=== PATIENT | female | born 1955 | race Caucasian/White ===

== ENCOUNTER 2016-07-03 11:08 | Emergency (ER) | payer OTHER ==
[~2016-07-03] VITALS: Wt 70.0 kg
[~2016-07-03 11:08] MED LIST: AMLO-218 PO; ASPI-664 PO; CALC500T99 PO; CIPR500T4 PO; CLON-379 PO; CLOP75TA27 PO; DOCU-144 PO; FURO40TA4 PO; HC1C30 TOP; INSU100V14 SC; LANT3I SC; LOSA100T7 PO; MAGN400O4 PO; METO-407 PO; MEVA40 PO; NPH,100V SC; PANT40TA4 PO; ZOLP5TAB6 PO
[2016-07-03] MEDS ORDERED: CEPH-443 PO (12:23)
[2016-07-03] MEDS ORDERED: BACTDS PO (12:23)
[2016-07-03] MEDS ORDERED: CLOT30CR24 TOP (12:24)
[2016-07-03] MEDS ORDERED: LIDOCAINE 1% (MDV) 20 ML INJ SC ONE (12:30)
[2016-07-03] MEDS ORDERED: DIPHTH/TET/ACEL PERTUSS (ADULT) 0.5 ML VIAL IM* ONE (12:30)
--- NOTE | 2016-07-03 18:54 | ERD ---
DATE OF SERVICE: HISTORY OF PRESENT ILLNESS: The patient is a 60-year-old female coming in complaining of an abscess to her mid chest. Patient states that she has had a bump there for a long time. Over the last 4 da ys, it has become red and painful. She does not recall when her last tetanus shot was. She is not taking medications or applied medications to the site. Denies any fevers. Denies numbness or tingl ing. Denies any chest pain or shortness of breath. PAST MEDICAL HISTORY: . ALLERGIES: DENIES. PAST SURGICAL HISTORY: Denies. FAMILY HISTORY: Diabetes, hypertension, hypercholesterolemia. REVIEW OF SYSTEMS: A 12-point review of systems was done. Refer to HPI for positives, all other sy stems negative. PHYSICAL EXAMINATION VITAL SIGNS: Temperature is 97.8, pulse 62, blood pressure is 137/67, respiratory 17, O2 saturation 98% on room air. Pain intensity is 7/10. GENERAL: The patient is well-appearing, well-nourished, no acute distress. HEENT: Atraumatic. Conjunctivae are pink. Pupils equal, round, and reactive to light. There is no s cleral icterus. Tympanic membranes clear bilaterally. Oropharynx clear. No nystagmus or photophobia . CHEST: Clear to auscultation bilaterally. There are no rales, wheezes or rhonchi. HEART: Regular rate and rhythm. No murmurs, clicks, rubs or gallops. No S3 or S4. SKIN: There is an erythematous indurated site noted mid chest, located over the inferior sternum. There is no surrounding lymphatic streaking. Mild tenderness to palpation. EMERGENCY ROOM COURSE: Site was cleaned and approximately 1 mL of plain lidocaine was injected into the site. A small 1 cm incision was made and a cottage cheese-like discharge was extracted. Mild bleeding ____, Iodoform packing was placed with pressure bandage. The patient was given a tetanus sh ot in the ER. DIAGNOSES: 1. Infected epidermal inclusion cyst. 2. Incision and drainage procedure. MEDICAL DECISION MAKING: I have low suspicion for deep tracking infection, low suspicion for retain ed foreign body. DISCHARGE: The patient is discharged stable. Patient given prescription for Bactrim and Keflex and told to return in 2 days for wound care. The patient was told if symptoms progress or worsen to re turn to the ER sooner. All other questions answered at time of discharge. Discharge summary given at the time of departure. Patient understood and complied with plan. Dictated By: ALTAGRACIA SANDRA for BRITTNI DAVID/JAZ Conf#: [id number] DID#: [id number]
== END 2016-07-03 12:51 | disposition home or self-care (01) ==
LOC: FTE 11:08
DX: L72.0 Epidermal cyst (principal); E11.9 Type 2 diabetes mellitus without complications; I12.9 Hypertensive chronic kidney disease with stage 1 through stage 4 chronic kidney disease, or unspecified chronic kidney disease; N18.2 Chronic kidney disease, stage 2 (mild); Z23 Encounter for immunization; Z79.4 Long term (current) use of insulin
CPT/HCPCS: 10061; 90471; 90715; Z7502; Z7610

== ENCOUNTER 2016-07-05 09:36 | Emergency (ER) | payer OTHER ==
[~2016-07-05] VITALS: Ht 152.4 cm; Wt 71.4 kg
[~2016-07-05 09:36] MED LIST changes: +BACTDS PO; +CEPH-443 PO; +CLOT30CR24 TOP
[2016-07-05 09:56] VITALS: Ht 152.4 cm; Wt 71.4 kg
--- NOTE | 2016-07-05 14:45 | ERD ---
DATE OF SERVICE: HISTORY OF PRESENT ILLNESS: The patient is a 60-year-old female coming in to check a wound on her m id abdomen. Patient was seen here 2 days ago, had an incision and drainage of an epidural inclusion cyst. She had been taking Keflex and Bactrim without complication. Denies any fevers. Denies ches t pain or shortness of breath. PAST MEDICAL HISTORY: Denies medical problems. ALLERGIES TO MEDICATIONS: TAZABACTAM/PIPERACILLIN. PAST SURGICAL HISTORY: Denies. HOSPITALIZATIONS: Denies. REVIEW OF SYSTEMS: A 12 point review of systems was done. Refer to HPI for positives, all other sys tems negative. PHYSICAL EXAMINATION VITAL SIGNS: Temperature is 98, pulse 60, blood pressure is 117/58, respiratory 18, O2 saturation 9 9% on room air. Pain intensity is 0/10. GENERAL: The patient is well-appearing, well-nourished, no acute distress. HEENT: Atraumatic. Conjunctivae are pink. Pupils equal, round, and reactive to light. There is no s cleral icterus. Tympanic membranes clear bilaterally. Oropharynx clear. No nystagmus or photophobia . CHEST: Clear to auscultation bilaterally. There are no rales, wheezes or rhonchi. HEART: Regular rate and rhythm. No murmurs, clicks, rubs or gallops. No S3 or S4. ABDOMEN: Soft, nontender and nondistended. Good bowel sounds. No rebound or guarding. No gross mariah tonitis. No gross organomegaly or masses. No Tom sign or McBurney point tenderness. SKIN: There is a previous I and D site on the mid abdomen over the epigastric region. There is no surrounding erythema, no fluctuance, no tenderness to palpation and no purulence, no bleeding. EMERGENCY ROOM COURSE: Site was cleaned and bandage was removed. Previous packing was removed and new iodoform packing with bandage was applied. DIAGNOSIS: Abscess wound packing and wound check. MEDICAL DECISION MAKING: I have low suspicion for deep tracking infection. Low suspicion for worse brenda infection. Vital signs are stable. The patient's exam is not concerning. Patient is told to r eturn in 2 days and continue taking antibiotics at home. DISCHARGE: Patient is discharged stable. Patient is told to continue taking antibiotics at home an d to allow site to heal. The patient is told to return in 2 days for rewound check and a possible r epacking. Discharge summary given at the time of departure. All other questions answered at time of departure. Dictated By: ALTAGRACIA MORA DO /NTS Conf#: [id number] DID#: [id number]
== END 2016-07-05 10:35 | disposition home or self-care (01) ==
LOC: FTE 09:36
DX: Z48.01 Encounter for change or removal of surgical wound dressing (principal); I12.9 Hypertensive chronic kidney disease with stage 1 through stage 4 chronic kidney disease, or unspecified chronic kidney disease; N18.2 Chronic kidney disease, stage 2 (mild); E11.9 Type 2 diabetes mellitus without complications
CPT/HCPCS: 99281

== ENCOUNTER 2016-07-07 08:15 | Emergency (ER) | payer OTHER ==
[~2016-07-07] VITALS: Wt 70.0 kg
--- NOTE | 2016-07-07 09:01 | ERD ---
ER Documentation Chief Complaint Date/Time DATE: 07/07/16 TIME: 08:59 Chief Complaint here for wound check on epigastric area pedro ALBERTS This is a 60-year-old female who presents to the emergency department today for a wound check of an abscess that she had drained on July 03. Patient states she is taking her antibiotics. Denies any fevers or chills. ROS All systems reviewed and are negative except as per history of present illness. Medications Home Meds Active Scripts Clotrimazole* (Clotrimazole* AF) 1% - 30 Gm Cream.gm., 1 APPLIC TOP BID for 7 Days, TUB Prov:MARIO MADERA PA-C 07/03/16 Cephalexin* (Keflex*) 500 Mg Capsule, 500 MG PO QID for 7 Days, CAP Prov:MARIO MADERA PA-C 07/03/16 Sulfamethoxazole-Trimethoprim* (Bactrim* DS) 800-160 Mg Tab, 1 TAB PO BID for 7 Days, TAB Prov:MARIO MADERA PA-C 07/03/16 Ciprofloxacin Hcl* (Ciprofloxacin Hcl*) 500 Mg Tablet, 500 MG PO BID for 5 Days , TAB Prov:MAUDE FOLEY MD 08/15/15 Insulin Regular, Human (Humulin R) 100 Units/Ml Vial, 1 UNIT SC AC MEALS for 30 Days, VIAL Prov:SOFIYA CUNNINGHAM MD 06/09/15 Pantoprazole (Protonix) 40 Mg Tabec, 40 MG PO DAILY@06, #30 Prov:ALEJANDRA LAUREN NP 08/27/14 Insulin Glargine* (Lantus*) 100 Unit/Ml Soln, 24 UNIT SC BID for 30 Days Prov:ALEJANDRA LAUREN NP 08/27/14 Hydrocortisone* Topical (Hydrocortisone* Topical) 1 Applic Cr, 1 APPLIC TOP QID Y for ITCHING, #1 Prov:ALEJANDRA LAUREN NP 08/27/14 Clonidine Hcl* (Clonidine Hcl*) 0.1 Mg Tab, 0.1 MG PO Q6H Y for HIGH B/P, #30 TAB Prov:ALEJANDRA LAUREN NP 08/27/14 Reported Medications Furosemide* (Furosemide*) 40 Mg Tablet, 40 MG PO DAILY, #30 06/09/15 Nph, Human Insulin Isophane (Humulin N) 100 Units/Ml Vial, 4-5 UNIT SC WITH MEALS, VIAL 02/02/15 Lovastatin (Lovastatin) 40 Mg Tablet, 40 MG PO HS, TAB 02/02/15 Clopidogrel Bisulfate (Clopidogrel) 75 Mg Tablet, 75 MG PO DAILY, TAB 02/02/15 Metoprolol Tartrate* (Lopressor*) 100 Mg Tablet, 100 MG PO BID, TAB 02/02/15 Losartan Potassium* (Losartan Potassium*) 100 Mg Tablet, 100 MG PO DAILY, TAB 02/02/15 Amlodipine Besylate* (Norvasc*) 10 Mg Tablet, 10 MG PO DAILY, TAB 02/02/15 Magnesium Hydroxide* (Milk Of Magnesia*) 400 Mg/5 Ml Oral.susp, 30 ML PO Q24H for CONSTIPATION, ML 09/08/14 Docusate Sodium* (Colace*) 100 Mg Capsule, 100 MG PO BID, CAP 09/08/14 Calcium Carbonate ([id number]) 1 Tab Tablet, 1 TAB PO BID 09/08/14 Zolpidem Tartrate* (Zolpidem Tartrate*) 5 Mg Tablet, 5 MG PO HS Y, TAB 09/08/14 Aspirin* (Aspirin* EC) 81 Mg Tablet.dr, 81 MG PO DAILY, TAB 08/02/14 Allergies Allergies: Coded Allergies: piperacillin (Unverified Adverse Reaction, Mild, Rash (ADR vs. allergy), ) Patient developed rash while on Zosyn in August 2014; resolved after discontinuation Patient has tolerated Zosyn and Teflaro on previous May 2014 admission tazobactam (Unverified Adverse Reaction, Mild, Rash (ADR vs. allergy), ) Patient developed rash while on Zosyn in August 2014; resolved after discontinuation Patient has tolerated Zosyn and Teflaro on previous May 2014 admission PMhx/Soc History of Surgery: Yes (LT TOE AMPUTATION) Anesthesia Reaction: No Hx Neurological Disorder: No Hx Respiratory Disorders: No Hx Cardiac Disorders: Yes (HTN,DYSLIPIDEMIA ,PVD) Hx Psychiatric Problems: No Hx Miscellaneous Medical Probl: Yes (DM) Hx Alcohol Use: No Hx Substance Use: No Hx Tobacco Use: No Smoking Status: Never smoker Physical Exam Vitals Vital Signs Date Time Temp Pulse Resp B/P Pulse Ox O2 Delivery O2 Flow Rate FiO2 07/07/16 08:19 98.0 63 20 129/59 98 Physical Exam Const: Sitting in wheelchair, no acute distress Head: Atraumatic Eyes: Normal Conjunctiva ENT: Normal External Ears, Nose and Mouth. Neck: Full range of motion..~ No meningismus. Resp: Clear to auscultation bilaterally Cardio: Regular rate and rhythm, no murmurs Abd: Soft, non tender, non distended. Normal bowel sounds Skin: evidence of abscess with packing epigastric region no erythema or warmth Neur: Awake and alert Psych: Normal Mood and Affect Procedures/MDM This is 60-year-old female who presents to the emergency department today for a recheck of an abscess that she had drained on July 03. Patient returned on July 05 for a wound check at that time the wound was repacked at that time. Today I have removed the wound packing. No packing was replaced today. Patient is afebrile and otherwise well-appearing. There is no erythema or warmth and no purulent drainage. Low suspicion for sepsis, deep space infection, cellulitis. Patient was instructed to continue taking her antibiotics and return for any worsening of symptoms At this time the patient is stable for discharge and outpatient management. Patient should follow up with their PCP in the next 1-2 days. They may return to the emergency department sooner for any persistent or worsening of symptoms. Patient understood and agreed with the plan. Departure Diagnosis: Primary Impression: Encounter for wound re-check Condition: Fair Patient Instructions: Wound Care Referrals: [facility] YOU HAVE RECEIVED A MEDICAL SCREENING EXAM AND THE RESULTS INDICATE THAT YOU DO NOT HAVE A CONDITION THAT REQUIRES URGENT TREATMENT IN THE EMERGENCY DEPARTMENT. FURTHER EVALUATION AND TREATMENT OF YOUR CONDITION CAN WAIT UNTIL YOU ARE SEEN IN YOUR DOCTORS OFFICE WITHIN THE NEXT 1-2 DAYS. IT IS YOUR RESPONSIBILITY TO MAKE AN APPOINTMENT FOR FOLOW-UP CARE. IF YOU HAVE A PRIMARY DOCTOR --you should call your primary doctor and schedule an appointment IF YOU DO NOT HAVE A PRIMARY DOCTOR YOU CAN CALL OUR PHYSICIAN REFERRAL HOTLINE AT IF YOU CAN NOT AFFORD TO SEE A PHYSICIAN YOU CAN CHOSE FROM THE FOLLOWING [facility] [address] [facility] [address] [facility] [address] [facility] [address] [facility] [address] [facility]. [facility]. [address] [facility]. [facility] () Usted se pacheco hecho un examen mdico de control que le indica que no est en baljinder condicin que requiera tratamiento urgente en el Departamento de Emergencia. Un estudio ms profundo y el tratamiento de sanford condicin pueden esperar sin ningn riesgo hasta que usted sea atendida/o en el consultorio de sanford mdico o baljinder cl mary. Es responsabilidad suya arreglar baljinder kanwal para el seguimiento del coleen. MANEJO DE CONDICIONES NO URGENTES EN EL FUTURO 1) Si usted tiene un mdico de atencin primaria: Usted debera llamar a sanford mdico de atencin primaria antes de venir al departamento de emergencia. Despus de las horas de consultorio, sanford doctor o sanford asociado/a est disponible por telfono. El mdico o enfermero de gamal en el servicio telefnico puede asesorarle por ana rosa medio para atender el problema, o coleen contrario se puede programar baljinder kanwal. 2) Si usted no tiene un mdico de atencin primaria: Llame al mdico o clnica de referencia que aparece abajo shalini las horas de consultorio para hacer baljinder kanwal para que le vean. CLINICAS: [facility] [phone] [facility] [phone] [address] [place] [phone] [facility]. [facility] [phone] [facility] [phone] [address] [facility] [phone] [address] Additional Instructions: Call your primary care doctor TOMORROW for an appointment during the next 1-2 days.See the doctor sooner or return here if your condition worsens before your appointment time. Continue taking your antibiotics as prescribed JENNIFER RODAS PA-C Jul 07, 2016 09:01
[2016-07-07] MEDS ORDERED: ONDA4TAB8 PO (19:56)
[2016-07-07] MEDS ORDERED: MAG355OR14 PO (19:56)
== END 2016-07-07 09:19 | disposition home or self-care (01) ==
LOC: FTE 08:15
DX: Z48.01 Encounter for change or removal of surgical wound dressing (principal); E11.9 Type 2 diabetes mellitus without complications; N18.2 Chronic kidney disease, stage 2 (mild); I12.9 Hypertensive chronic kidney disease with stage 1 through stage 4 chronic kidney disease, or unspecified chronic kidney disease; Z79.4 Long term (current) use of insulin; Z79.82 Long term (current) use of aspirin
CPT/HCPCS: 99281

== ENCOUNTER 2016-07-07 18:02 | Inpatient (IN) | payer OTHER ==
[~2016-07-07] VITALS: Ht 152.4 cm; Wt 75.8 kg
[2016-07-07] MEDS ORDERED: KETOROLAC 15 MG INJ IV STA (18:31)
[2016-07-07] MEDS ORDERED: FAMOTIDINE 20 MG TAB PO STA (18:31)
[2016-07-07] MEDS ORDERED: SOD CHLORIDE 0.9% 500 ML IV STA (18:31)
[2016-07-07] MEDS ORDERED: ONDANSETRON 4 MG INJ IV STA (18:31)
[2016-07-07] MEDS ORDERED: LIDOCAINE/MYLANTA 40 ML BTL PO STA (18:31)
[2016-07-07] MEDS ORDERED: BELLADONNA/PHENOBARBITAL TAB PO STA (18:31)
[2016-07-07 19:05] LABS: BASOPHILS % 0.5 % (0.0-2.0); EOSINOPHILS # 0.3 10^3/ul (0.0-0.5); HEMATOCRIT 41.8 % (37.0-47.0); LYMPHOCYTES # 1.5 10^3/ul (0.8-2.9); LYMPHOCYTES % 16.8 % (15.0-51.0); MEAN CORPUSCULAR HEMOGLOBIN 26.6 pg (29.0-33.0); MEAN CORPUSCULAR HGB CONC 33.5 g/dl (32.0-37.0); MEAN CORPUSCULAR VOLUME 79.5 fl (82.0-101.0); MEAN PLATELET VOLUME 8.6 fl (7.4-10.4); MONOCYTE # 0.4 10^3/ul (0.3-0.9); MONOCYTES % 5.1 % (0.0-11.0); NEUTROPHIL # 6.5 10^3/ul (1.6-7.5); NEUTROPHILS % 74.6 % (39.0-77.0); PLATELET COUNT 443 10^3/UL (140-440); RED BLOOD COUNT 5.25 10^6/ul (4.20-5.40); RED CELL DISTRIBUTION WIDTH 13.4 % (11.5-14.5); UNCORRECTED WBC 8.7 10^3/ul (4.8-10.8); WHITE BLOOD COUNT 8.7 10^3/ul (4.8-10.8)
[2016-07-07 19:09] LABS: CONDITION 1; LH ANALYZER COMMENTS 1
[2016-07-07 19:19] LABS: ALBUMIN 4.2 g/dl (3.3-4.9)
[2016-07-07 19:20] LABS: CHLORIDE 92 mmol/L (97-110); SODIUM 130 mmol/L (135-144)
[2016-07-07 19:20] LABS: ADD UMIC YES; URINE BILIRUBIN (Dip) NEGATIVE (NEGATIVE); URINE BLOOD (Dip) 1+ (NEGATIVE); URINE COLOR LT. YELLOW (YELLOW); URINE KETONES (Dip) NEGATIVE (NEGATIVE); URINE LEUKOCYTE ESTERASE (Dip) NEGATIVE (NEGATIVE); URINE NITRITE (Dip) NEGATIVE (NEGATIVE); URINE TOTAL PROTEIN (Dip) 4+ (NEGATIVE); URINE UROBILINOGEN (Dip) 0.2 E.U./dL (0.1-1.0)
[2016-07-07 19:22] LABS: ALKALINE PHOSPHATASE 126 IU/L (42-121); ANION GAP 23 (8-16); ASPARTATE AMINO TRANSFERASE 22 IU/L (15-46); BILIRUBIN,INDIRECT 0.1 mg/dl (0-1.1); BILIRUBIN,TOTAL 0.1 mg/dl (0.2-1.3); CARBON DIOXIDE 21 mmol/L (21-31); CREATININE 4.24 mg/dl (0.44-1.00); TOTAL PROTEIN 9.4 g/dl (6.1-8.1)
[2016-07-07 19:23] LABS: ALANINE AMINOTRANSFERASE 36 IU/L (13-69); BLOOD UREA NITROGEN 84 mg/dl (7-20); CALCIUM 9.1 mg/dl (8.4-10.2); GLUCOSE 133 mg/dl (70-220)
--- NOTE | 2016-07-07 19:26 | RADRPT ---
PROCEDURE: XR Chest. CLINICAL INDICATION: Abdominal pain. TECHNIQUE: Single portable view of the chest was obtained COMPARISON: 08/02/2014. FINDINGS: Cardiac silhouette is mildly enlarged. Mild pulmonary vascular congestion. The lungs are otherwise clear. Previously seen pleural effusions and air space disease at lung bases are substantially resolved. There is no pleural effusion or pneumothorax. IMPRESSION: Mild pulmonary vascular congestion. RPTAT: [facility] Physician Bernard Date Time Electronically viewed and signed by Physician Bernard on 07/07/2016 19:26 RS/
[2016-07-07 19:48] LABS: BACTERIA,URINE FEW; SQUAMOUS EPITHELIAL CELL,UR MODERATE; URINE RBCS 0-2 /HPF (0)
[2016-07-07 19:54] LABS: POTASSIUM 5.6 mmol/L (3.5-5.1); TROPONIN-I < 0.012 ng/ml (0.00-0.12)
[2016-07-07] MEDS ORDERED: MAG355OR14 PO (19:56)
[2016-07-07] MEDS ORDERED: ONDA4TAB8 PO (19:56)
[2016-07-07] MEDS ORDERED: CEPHALEXIN 500 MG CAP PO ONE (20:00)
[2016-07-07] MEDS ORDERED: DEXTROSE 50% 50 ML SYRINGE IV STA (20:07)
[2016-07-07] MEDS ORDERED: INSULIN REGULAR, HUMAN 100 UNIT/1 ML 3ML VIAL IV ONE (20:30)
--- NOTE | 2016-07-07 20:48 | ERA ---
ER Documentation Chief Complaint Date/Time DATE: 07/07/16 TIME: 20:29 Chief Complaint DIZZINESS AND WEAKNESS FOR THE PAST FEW DAYS. SEEN IN ER FOR SAME TODAY HPI 60-year-old woman presents with recent dizziness and generalized weakness 2 days she also states she has had multiple episodes of clear nonbloody nonbilious emesis over the last 2 days. Patient also complains of suprapubic abdominal discomfort and increased urinary frequency. She is currently being treated for superficial upper abdominal abscess which was I&D and packed a few days ago and treated with double strength Bactrim and Keflex orally, wound check today was unremarkable. She feels dehydrated. She denies fevers or chills, no chest pain or shortness of breath, no melena or blood per rectum. ROS All systems reviewed and are negative except as per history of present illness. Medications Home Meds Active Scripts Mag Hydrox/Al Hydrox/Simeth (Maalox Advanced Suspension) 355 Ml Oral.susp, 2 TSP PO TID for GASTROINTESTINAL UPSET, #24 OZ Prov:CORY MALONE MD 07/07/16 Ondansetron Hcl* (Zofran*) 4 Mg Tablet, 4 MG PO Q8H Y for NAUSEA AND/OR VOMITING , #15 TAB Prov:CORY MALONE MD 07/07/16 Insulin Regular, Human (Humulin R) 100 Units/Ml Vial, 1 UNIT SC AC MEALS for 30 Days, VIAL Prov:SOFIYA CUNNINGHAM MD 06/09/15 Pantoprazole (Protonix) 40 Mg Tabec, 40 MG PO DAILY@06, #30 Prov:ALEJANDRA LAUREN NP 08/27/14 Insulin Glargine* (Lantus*) 100 Unit/Ml Soln, 24 UNIT SC BID for 30 Days Prov:ALEJANDRA LAUREN NP 08/27/14 Clonidine Hcl* (Clonidine Hcl*) 0.1 Mg Tab, 0.1 MG PO Q6H Y for HIGH B/P, #30 TAB Prov:ALEJANDRA LAUREN NP 08/27/14 Reported Medications Furosemide* (Furosemide*) 40 Mg Tablet, 40 MG PO DAILY, #30 06/09/15 Nph, Human Insulin Isophane (Humulin N) 100 Units/Ml Vial, 4-5 UNIT SC WITH MEALS, VIAL 02/02/15 Lovastatin (Lovastatin) 40 Mg Tablet, 40 MG PO HS, TAB 02/02/15 Clopidogrel Bisulfate (Clopidogrel) 75 Mg Tablet, 75 MG PO DAILY, TAB 02/02/15 Metoprolol Tartrate* (Lopressor*) 100 Mg Tablet, 100 MG PO BID, TAB 02/02/15 Losartan Potassium* (Losartan Potassium*) 100 Mg Tablet, 100 MG PO DAILY, TAB 02/02/15 Amlodipine Besylate* (Norvasc*) 10 Mg Tablet, 10 MG PO DAILY, TAB 02/02/15 Magnesium Hydroxide* (Milk Of Magnesia*) 400 Mg/5 Ml Oral.susp, 30 ML PO Q24H for CONSTIPATION, ML 09/08/14 Docusate Sodium* (Colace*) 100 Mg Capsule, 100 MG PO BID, CAP 09/08/14 Calcium Carbonate ([id number]) 1 Tab Tablet, 1 TAB PO BID 09/08/14 Zolpidem Tartrate* (Zolpidem Tartrate*) 5 Mg Tablet, 5 MG PO HS Y, TAB 09/08/14 Aspirin* (Aspirin* EC) 81 Mg Tablet.dr, 81 MG PO DAILY, TAB 08/02/14 Discontinued Scripts Clotrimazole* (Clotrimazole* AF) 1% - 30 Gm Cream.gm., 1 APPLIC TOP BID for 7 Days, TUB Prov:MARIO MAEDRA PA-C 07/03/16 Cephalexin* (Keflex*) 500 Mg Capsule, 500 MG PO QID for 7 Days, CAP Prov:MARIO MADERA PA-C 07/03/16 Sulfamethoxazole-Trimethoprim* (Bactrim* DS) 800-160 Mg Tab, 1 TAB PO BID for 7 Days, TAB Prov:MARIO MADERA PA-C 07/03/16 Ciprofloxacin Hcl* (Ciprofloxacin Hcl*) 500 Mg Tablet, 500 MG PO BID for 5 Days , TAB Prov:MAUDE FOLEY MD 08/15/15 Hydrocortisone* Topical (Hydrocortisone* Topical) 1 Applic Cr, 1 APPLIC TOP QID Y for ITCHING, #1 Prov:ALEJANDRA LAUREN NP 08/27/14 Allergies Allergies: Coded Allergies: piperacillin (Unverified Adverse Reaction, Mild, Rash (ADR vs. allergy), ) Patient developed rash while on Zosyn in August 2014; resolved after discontinuation Patient has tolerated Zosyn and Teflaro on previous May 2014 admission tazobactam (Unverified Adverse Reaction, Mild, Rash (ADR vs. allergy), ) Patient developed rash while on Zosyn in August 2014; resolved after discontinuation Patient has tolerated Zosyn and Teflaro on previous May 2014 admission PMhx/Soc Hypertension, diabetes mellitus, previous renal insufficiency with max creatinine at about 2, anemia, peripheral vascular disease History of Surgery: Yes (LT TOE AMPUTATION) Anesthesia Reaction: No Hx Neurological Disorder: No Hx Respiratory Disorders: No Hx Cardiac Disorders: Yes (HTN,DYSLIPIDEMIA ,PVD) Hx Psychiatric Problems: No Hx Miscellaneous Medical Probl: Yes (DM) Hx Alcohol Use: No Hx Substance Use: No Hx Tobacco Use: No Smoking Status: Never smoker FmHx Family History: No diabetes Physical Exam Vitals Vital Signs Date Time Temp Pulse Resp B/P Pulse Ox O2 Delivery O2 Flow Rate FiO2 07/07/16 18:04 98.5 65 20 138/68 100 Physical Exam GENERAL: Well-developed, well-nourished, dehydrated, afebrile HEENT: Dry mucous membranes, pink conjunctiva, no cervical spine tenderness or step-off deformities, no goiter, no jaundice or icterus, extraocular movements intact without pain. No submandibular induration, and no pharyngeal erythema NEURO: Alert and oriented 3, cranial nerves II through XII intact bilaterally, pupils equal round reactive to light, no focal deficits or facial asymmetry, sensation intact distally Strength 5/5 in upper and lower extremities bilaterally CARDIAC: Regular rate and rhythm, no murmurs rubs or gallops LUNGS: Clear bilaterally no wheezing crackles or stridor ABDOMEN: Soft nontender, no guarding, no rigidity, no rebound, no psoas sign no obturator sign. Normoactive bowel sounds SKIN: Warm and dry to touch, no abrasions, contusions, or hematomas, no lacerations, no ecchymosis, no target lesions, and without ulcers EXTREMITIES: No clubbing cyanosis or edema, calves are bilaterally symmetrical, no Homans sign, no popliteal cord sign. Distal pulses equal and bilateral PSYCH: Anxious Result Diagram: 07/07/16 1840 07/07/16 1840 Results 24 hrs Laboratory Tests Test 07/07/16 18:36 07/07/16 18:40 Urine Bacteria FEW Urine Bilirubin NEGATIVE Urine Clarity SLIGHTLY CLOUDY Urine Color LT. YELLOW Urine Glucose 0.1%% Urine Hemoglobin 1+ Urine Ketones NEGATIVE Urine Leukocyte Esterase NEGATIVE Urine Microscopic RBC 0-2/HPF Urine Microscopic WBC 2-5/HPF Urine Nitrite NEGATIVE Urine Specific [employer] 1.015 Urine Squamous Epithelial Cells MODERATE Urine Total Protein 4+ Urine Urobilinogen 0.2 E.U./dL Urine Yeast MODERATE Urine pH 6.0 Alanine Aminotransferase (ALT/SGPT) 36IU/L Albumin 4.2g/dl Albumin/Globulin Ratio 0.80 Alkaline Phosphatase 126IU/L Anion Gap 23 Aspartate Amino Transf (AST/SGOT) 22IU/L Basophils # 0.010^3/ul Basophils % 0.5% Blood Morphology Comment Blood Urea Nitrogen 84mg/dl Calcium Level 9.1mg/dl Carbon Dioxide Level 21mmol/L Chloride Level 92mmol/L Creatinine 4.24mg/dl Direct Bilirubin 0.00mg/dl Eosinophils # 0.310^3/ul Eosinophils % 3.0% Globulin 5.20g/dl Glucose Level 133mg/dl Hematocrit 41.8% Hemoglobin 14.0g/dl Indirect Bilirubin 0.1mg/dl Lipase 242U/L Lymphocytes # 1.510^3/ul Lymphocytes % 16.8% Mean Corpuscular Hemoglobin 26.6pg Mean Corpuscular Hemoglobin Concent 33.5g/dl Mean Corpuscular Volume 79.5fl Mean Platelet Volume 8.6fl Monocytes # 0.410^3/ul Monocytes % 5.1% Neutrophils # 6.510^3/ul Neutrophils % 74.6% Nucleated Red Blood Cells # 0.010^3/ul Nucleated Red Blood Cells % 0.0/100WBC Platelet Count 07932^3/UL Potassium Level 5.6mmol/L Red Blood Count 5.2510^6/ul Red Cell Distribution Width 13.4% Sodium Level 130mmol/L Total Bilirubin 0.1mg/dl Total Protein 9.4g/dl Troponin I < 0.012ng/ml White Blood Count 8.710^3/ul Current Medications Medications (Trade) Dose Ordered Sig/Albin Route PRN Reason Start Time Stop Time Status Last Admin Dose Admin Sodium Chloride (NS) 500 ml @ 500 mls/hr Q1H STAT IV 07/07/16 18:31 07/07/16 19:30 DC 07/07/16 18:53 Ondansetron HCl (Zofran Inj) 4 mg ONCE STAT IV 07/07/16 18:31 07/07/16 18:33 DC 07/07/16 18:53 Famotidine (Pepcid) 40 mg ONCE STAT PO 07/07/16 18:31 07/07/16 18:33 DC 07/07/16 18:52 Miscellaneous Medication (Gi Cocktail (2)) 40 ml ONCE STAT PO 07/07/16 18:31 07/07/16 18:33 DC 07/07/16 18:52 Belladonna/ Phenobarbital () 2 tab ONCE STAT PO 07/07/16 18:31 07/07/16 18:33 DC 07/07/16 18:52 Ketorolac Tromethamine (Toradol) 15 mg ONCE STAT IV 07/07/16 18:31 07/07/16 18:33 DC 07/07/16 18:53 Cephalexin (Keflex) 500 mg ONCE ONCE PO 07/07/16 20:00 07/07/16 20:01 DC Dextrose (D50w Syringe) 50 ml ONCE STAT IV 07/07/16 20:07 07/07/16 20:08 DC Insulin Human Regular (Humulin R) 8 unit ONCE ONCE IV 07/07/16 20:30 07/07/16 20:31 [facility] IV line was established patient was placed on child monitor rhythm strip revealed a sinus rhythm at about 60 bpm with upright P and T waves. Patient was afebrile. For dehydration and dizziness I administered 500 cc of normal saline intravenously, Zofran 4 mg IV, GI cocktail 50 cc p.o., famotidine 40 mg p.o., Toradol 15 mg IV for pain CBC was unremarkable although electrolytes were abnormal with acute renal failure and a BUN/creatinine of 84/4.2, hyperkalemia 5.6. Liver function tests were normal, troponin was negative. One AP view of the chest performed, read by me reveals no acute infiltrates, normal mediastinum, sharp costophrenic and cardiac borders, no air under the diaphragm. Otherwise unremarkable chest x-ray. EKG performed, read by me revealed a normal sinus rhythm at 64 bpm, left axis deviation, narrow QRS complex, no concerning ST elevations or depressions noted. Her urine analysis is concerning for urinary tract infection although it may be resolving because she has been using cephalexin and trimethoprim sulfamethoxazole daily 5 days. I administered her nightly dose of cephalexin 500 mg p.o. here in the ER. For hyperkalemia I administered dextrose 25 g IV and regular insulin 8 units IV. Patient is dehydrated, hyperkalemic, and developed renal failure. I suspect the underlying etiology of her renal failure is an adverse reaction to trimethoprim sulfamethoxazole made worse by dehydration from vomiting. Patient will be admitted to telemetry setting for continued medical management, rehydration. Departure Diagnosis: Primary Impression: Acute renal failure Qualified Code: N17.0 - Acute renal failure with tubular necrosis Additional Impressions: Hyperkalemia Dehydration Adverse reaction to antibiotic Qualified Code: T36.95XA - Adverse reaction to antibiotic, initial encounter Condition: Fair Patient Instructions: Dizziness, Unk Cause, Bladder Infection, Female (Adult) CORY MALONE MD Jul 07, 2016 20:40
[2016-07-07 21:21] VITALS: TEMP 98
[2016-07-07 21:56] VITALS: PULSE 67
[2016-07-07 22:00] VITALS: BP 174/80; PULSE 67; RESP 20; Ht 152.4 cm; Wt 75.8 kg
[2016-07-07] MEDS ORDERED: MAGNESIUM HYDROXIDE 30ML CUP PO SCH (22:00)
[2016-07-07] MEDS ORDERED: ONDANSETRON 4 MG TAB PO PRN (22:00)
[2016-07-07] MEDS ORDERED: ONDANSETRON 4 MG INJ IV PRN (22:00)
[2016-07-07] MEDS ORDERED: NACL 0.9% 3 ML SYG IV SCH (22:00)
[2016-07-07] MEDS: METOPROLOL 100 MG TAB PO SCH (22:44)
[2016-07-07] MEDS ORDERED: GLUCOSE GEL 15 GRAM TUBE PO PRN ×2 (23:00)
[2016-07-07] MEDS ORDERED: GLUCOSE GEL 15 GRAM TUBE BUCCAL PRN (23:00)
[2016-07-07] MEDS ORDERED: GLUCAGON 1 MG INJ IM PRN (23:00)
[2016-07-07] MEDS ORDERED: DEXTROSE 50% 50 ML SYRINGE IV PRN ×2 (23:00)
[2016-07-07] MEDS: SOD CHLORIDE 0.9% 1,000 ML IV SCH (23:28)
[2016-07-08] VITALS (12 sets, daily range): BP systolic 126–155; BP diastolic 61–80; PULSE 61–69; RESP 16–20
[2016-07-08] MEDS ORDERED: PANTOPRAZOLE (EC) 40 MG TAB PO SCH (06:00)
[2016-07-08 06:55] LABS: BASOPHILS % 0.7 % (0.0-2.0); EOSINOPHILS # 0.3 10^3/ul (0.0-0.5); EOSINOPHILS % 4.9 % (0.0-7.0); HEMATOCRIT 31.5 % (37.0-47.0); HEMOGLOBIN 10.5 g/dl (12.0-16.0); LYMPHOCYTES # 1.2 10^3/ul (0.8-2.9); LYMPHOCYTES % 17.8 % (15.0-51.0); MEAN CORPUSCULAR HEMOGLOBIN 26.7 pg (29.0-33.0); MEAN CORPUSCULAR HGB CONC 33.4 g/dl (32.0-37.0); MEAN CORPUSCULAR VOLUME 79.8 fl (82.0-101.0); MONOCYTE # 0.5 10^3/ul (0.3-0.9); NEUTROPHIL # 4.6 10^3/ul (1.6-7.5); NEUTROPHILS % 68.6 % (39.0-77.0); PLATELET COUNT 354 10^3/UL (140-440); RED BLOOD COUNT 3.95 10^6/ul (4.20-5.40); RED CELL DISTRIBUTION WIDTH 13.3 % (11.5-14.5); UNCORRECTED WBC 6.7 10^3/ul (4.8-10.8); WHITE BLOOD COUNT 6.7 10^3/ul (4.8-10.8)
[2016-07-08 07:03] LABS: CONDITION 1; LH ANALYZER COMMENTS 1
[2016-07-08] MEDS ORDERED: INSULIN REGULAR, HUMAN 100 UNIT/1 ML 3ML VIAL SC SCH (07:25)
[2016-07-08 07:26] LABS: ALBUMIN 2.7 g/dl (3.3-4.9)
[2016-07-08 07:27] LABS: POTASSIUM 5.5 mmol/L (3.5-5.1)
[2016-07-08 07:29] LABS: ALBUMIN/GLOBULIN RATIO 0.81; CREATININE 3.99 mg/dl (0.44-1.00)
[2016-07-08 07:30] LABS: CALCIUM 7.8 mg/dl (8.4-10.2)
[2016-07-08] MEDS ORDERED: NPH, HUMAN INSULIN ISOPHANE 3ML VIAL SC SCH (07:55)
[2016-07-08] MEDS: [UNRECOGNIZED DRUG - REMARK] SC SCH ×4 (08:16→20:46)
[2016-07-08] MEDS: ACETAMINOPHEN 325 MG TAB PO PRN ×2 (08:35→14:11)
[2016-07-08] MEDS: AMLODIPINE 10 MG TAB PO SCH (08:36)
[2016-07-08] MEDS: FUROSEMIDE 40 MG TAB PO SCH (08:36)
[2016-07-08] MEDS: CALCIUM CARBONATE 1.25 GM TAB PO SCH ×2 (08:36→20:34)
[2016-07-08] MEDS: ASPIRIN (EC) 81 MG TAB PO SCH (08:36)
[2016-07-08] MEDS: METOPROLOL 100 MG TAB PO SCH ×2 (08:37→20:33)
[2016-07-08] MEDS: DOCUSATE SODIUM 100 MG CAP PO SCH ×2 (08:37→20:33)
[2016-07-08] MEDS: CLOPIDOGREL 75 MG TAB PO SCH (08:37)
[2016-07-08] MEDS: LOSARTAN 50 MG TAB PO SCH (08:37)
[2016-07-08] MEDS: FAMOTIDINE 20 MG INJ IV SCH (08:38)
[2016-07-08] MEDS: AL HYDROX/MG HYDROX/SIMETH 30 ML CUP PO SCH ×3 (08:38→20:33)
[2016-07-08] MEDS: ENOXAPARIN 30 MG/0.3 ML SYG SC SCH (08:51)
[2016-07-08] MEDS ORDERED: INSULIN GLARGINE [LANtus] 3 ML PEN SC SCH (09:00)
[2016-07-08] MEDS ORDERED: METOPROLOL 100 MG TAB PO SCH (09:00)
[2016-07-08] MEDS ORDERED: FAMOTIDINE 20 MG INJ IV SCH (09:00)
--- NOTE | 2016-07-08 10:51 | HP ---
Date/Time of Note Date/Time of Note DATE: 07/08/16 TIME: 10:48 Assessment/Plan VTE Prophylaxis VTE Prophylaxis Intervention: LMWH Lines/Catheters [facility] (from [facility] Peripheral IV Urinary Cath still in place: No Assessment/Plan Chief Complaint/Hosp Course 1) Renal insufficiency - monitor BUN/Cr - gentle hydration 2) diabetes - monitor blood sugar Problems: HPI/ROS Admit Date/Time Admit Date/Time Jul 07, 2016 at 20:29 Hx of Present Illness Patient with hypertension, hypercholesterolemia, and diabetes was recently treated for an urinary tract infection and found to have elevated BUN/Cr. Patient is admitted for further observation. PMH/Family/Social Past Medical History Medical History: diabetes, hypertension Past Surgical History Social History Alcohol Use: none Smoking Status: Never smoker Exam/Review of Systems Vital Signs Vitals Vital Signs Date Time Temp Pulse Resp B/P Pulse Ox O2 Delivery O2 Flow Rate FiO2 07/08/16 08:20 69 07/08/16 07:38 98.2 16 142/66 97 07/07/16 22:00 Room Air Intake and Output 07/07/16 07/07/16 07/08/16 15:00 23:00 07:00 Intake Total 610 ml Balance 610 ml Exam Constitutional: well developed Head: atraumatic, normocephalic Neck: supple Respiratory: clear to auscultation Cardiovascular: regular rate and rhythm Extremities: normal pulses Labs Result Diagram: 07/08/16 0530 07/08/16 0530 Medications Medications Current Medications Amlodipine Besylate (Norvasc) 10 mg DAILY PO Last administered on 07/08/16 08: 36; Admin Dose 10 MG; Start 07/08/16 at 09:00 Aspirin (Halfprin) 81 mg DAILY PO Last administered on 07/08/16 08:36; Admin Dose 81 MG; Start 07/08/16 at 09:00 Calcium Carbonate (Oyster Shell Calcium) 1.25 gm BID PO Last administered on 08:36; Admin Dose 1.25 GM; Start 07/08/16 at 09:00 Clopidogrel Bisulfate (plaVIX) 75 mg DAILY PO Last administered on 07/08/16 08 :37; Admin Dose 75 MG; Start 07/08/16 at 09:00 Docusate Sodium (Colace) 100 mg BID PO Last administered on 07/08/16 08:37; Admin Dose 100 MG; Start 07/08/16 at 09:00 Furosemide (Lasix) 40 mg DAILY PO Last administered on 07/08/16 08:36; Admin Dose 40 MG; Start 07/08/16 at 09:00 Losartan Potassium (Cozaar) 100 mg DAILY PO Last administered on 07/08/16 08: 37; Admin Dose 100 MG; Start 07/08/16 at 09:00 Al Hydrox/Mg Hydrox/Simethicone (Mag-Al Plus) 10 ml TID PO Last administered on 07/08/16 08:38; Admin Dose 10 ML; Start 07/08/16 at 09:00 Ondansetron HCl (Zofran Tab) 4 mg Q8H PRN PO NAUSEA AND/OR VOMITING; Start at 22:00 Zolpidem Tartrate 5 mg 5 mg HS PRN PO insomnia; Start 07/07/16 at 22:00 Sodium Chloride (NS) 1,000 ml @ 60 mls/hr [id number] IV Last administered on 07/07 23:28; Admin Dose 60 MLS/HR; Start 07/07/16 at 22:00 Ondansetron HCl (Zofran Inj) 4 mg Q6H PRN IV NAUSEA AND/OR VOMITING; Start at 22:00 Acetaminophen (Tylenol Tab) 650 mg Q6H PRN PO PAIN LEVEL 1-3 OR FEVER Last administered on 07/08/16 08:35; Admin Dose 650 MG; Start 07/07/16 at 22:00 Enoxaparin Sodium (Lovenox) 30 mg DAILY SC Last administered on 07/08/16 08:51 ; Admin Dose 30 MG; Start 07/08/16 at 09:00 Metoprolol Tartrate (Lopressor) 100 mg BID PO Last administered on 07/08/16 08 :37; Admin Dose 100 MG; Start 07/07/16 at 22:27 Clonidine (Catapres) 0.1 mg Q6H PRN PO SBP > 160; Start 07/07/16 at 22:00 Famotidine (Pepcid Iv) 20 mg Q24H IV Last administered on 07/08/16 08:38; Admin Dose 20 MG; Start 07/08/16 at 09:00 Miscellaneous Information 1 ea NOTE XX ; Start 07/07/16 at 23:00 Glucose (Glutose) 15 gm Q15M PRN PO DECREASED GLUCOSE; Start 07/07/16 at 23:00 Glucose (Glutose) 22.5 gm Q15M PRN PO DECREASED GLUCOSE; Start 07/07/16 at 23: 00 Dextrose (D50w Syringe) 25 ml Q15M PRN IV DECREASED GLUCOSE; Start 07/07/16 at 23:00 Dextrose (D50w Syringe) 50 ml Q15M PRN IV DECREASED GLUCOSE; Start 07/07/16 at 23:00 Glucagon (Glucagen) 1 mg Q15M PRN IM DECREASED GLUCOSE; Start 07/07/16 at 23:00 Glucose (Glutose) 15 gm Q15M PRN BUCCAL DECREASED GLUCOSE; Start 07/07/16 at 23 :00 Magnesium Hydroxide (Milk Of Mag) 30 ml Q24H PRN PO CONSTIPATION; Start at 22:00 Influenza Virus Vaccine (Fluzone) 0.5 ml ONCE ONCE IM* ; Start 07/10/16 at 09:00 ; Stop 07/10/16 at 09:01 JAMES VEGA Jul 08, 2016 10:50
[2016-07-08] MEDS: SOD CHLORIDE 0.9% 1,000 ML IV SCH (16:15)
[2016-07-08] MEDS: ZOLPIDEM 5 MG TAB PO PRN (20:50)
[2016-07-08] MEDS ORDERED: MAGNESIUM HYDROXIDE 30ML CUP PO PRN (22:00)
[2016-07-09] VITALS (13 sets, daily range): BP systolic 128–143; BP diastolic 62–78; PULSE 57–67; RESP 16–20
[2016-07-09] MEDS: SOD CHLORIDE 0.9% 1,000 ML IV SCH ×2 (06:08→21:37)
[2016-07-09 07:16] LABS: BASOPHILS % 0.6 % (0.0-2.0); EOSINOPHILS # 0.6 10^3/ul (0.0-0.5); EOSINOPHILS % 8.9 % (0.0-7.0); HEMATOCRIT 30.9 % (37.0-47.0); HEMOGLOBIN 10.5 g/dl (12.0-16.0); LYMPHOCYTES # 1.2 10^3/ul (0.8-2.9); LYMPHOCYTES % 17.7 % (15.0-51.0); MEAN CORPUSCULAR HEMOGLOBIN 27.3 pg (29.0-33.0); MEAN CORPUSCULAR HGB CONC 33.9 g/dl (32.0-37.0); MEAN CORPUSCULAR VOLUME 80.6 fl (82.0-101.0); MEAN PLATELET VOLUME 8.7 fl (7.4-10.4); MONOCYTE # 0.6 10^3/ul (0.3-0.9); MONOCYTES % 8.4 % (0.0-11.0); NEUTROPHIL # 4.4 10^3/ul (1.6-7.5); NEUTROPHILS % 64.4 % (39.0-77.0); PLATELET COUNT 333 10^3/UL (140-440); RED BLOOD COUNT 3.83 10^6/ul (4.20-5.40); RED CELL DISTRIBUTION WIDTH 13.6 % (11.5-14.5); UNCORRECTED WBC 6.9 10^3/ul (4.8-10.8); WHITE BLOOD COUNT 6.9 10^3/ul (4.8-10.8)
[2016-07-09 07:18] LABS: POTASSIUM 5.3 mmol/L (3.5-5.1)
[2016-07-09 07:21] LABS: CREATININE 3.88 mg/dl (0.44-1.00)
[2016-07-09 07:22] LABS: CALCIUM 8.3 mg/dl (8.4-10.2)
[2016-07-09] MEDS: [UNRECOGNIZED DRUG - REMARK] SC SCH ×4 (07:25→21:18)
[2016-07-09 07:29] LABS: CONDITION 1; LH ANALYZER COMMENTS 1
[2016-07-09] MEDS: AL HYDROX/MG HYDROX/SIMETH 30 ML CUP PO SCH ×3 (08:24→21:39)
[2016-07-09] MEDS: DOCUSATE SODIUM 100 MG CAP PO SCH ×2 (08:25→21:10)
[2016-07-09] MEDS: LOSARTAN 50 MG TAB PO SCH (08:25)
[2016-07-09] MEDS: AMLODIPINE 10 MG TAB PO SCH (08:25)
[2016-07-09] MEDS: CLOPIDOGREL 75 MG TAB PO SCH (08:25)
[2016-07-09] MEDS: CALCIUM CARBONATE 1.25 GM TAB PO SCH ×2 (08:25→21:10)
[2016-07-09] MEDS: FAMOTIDINE 20 MG INJ IV SCH (08:26)
[2016-07-09] MEDS: FUROSEMIDE 40 MG TAB PO SCH (08:26)
[2016-07-09] MEDS: METOPROLOL 100 MG TAB PO SCH ×2 (08:26→21:10)
[2016-07-09] MEDS: ASPIRIN (EC) 81 MG TAB PO SCH (08:26)
[2016-07-09] MEDS: ENOXAPARIN 30 MG/0.3 ML SYG SC SCH (08:31)
--- NOTE | 2016-07-09 11:56 | PN ---
Date/Time of Note Date/Time of Note DATE: 07/09/16 TIME: 11:55 Assessment/Plan VTE Prophylaxis VTE Prophylaxis Intervention: LMWH Lines/Catheters IV [facility] (from [facility]): Peripheral IV Urinary Cath still in place: No Assessment/Plan Chief Complaint/Hosp Course 1) Renal insufficiency - monitor BUN/Cr - gentle hydration 2) diabetes - monitor blood sugar Problems: Subjective 24 Hr Interval Summary Free Text/Dictation Patient has no complaints Exam/Review of Systems Vital Signs Vitals Vital Signs Date Time Temp Pulse Resp B/P Pulse Ox O2 Delivery O2 Flow Rate FiO2 07/09/16 11:28 98.3 63 17 137/67 98 07/07/16 22:00 Room Air Intake and Output 07/08/16 07/08/16 07/09/16 15:00 23:00 07:00 Intake Total 550 ml 120 ml Output Total 600 ml 650 ml Balance -50 ml -530 ml Exam Constitutional: well developed Head: atraumatic, normocephalic Neck: supple Respiratory: clear to auscultation Cardiovascular: regular rate and rhythm Gastrointestinal: non-tender, soft Extremities: normal pulses Results Result Diagram: 07/09/16 0600 07/09/16 0600 Results 24 hrs Laboratory Tests Test 07/08/16 17:18 07/08/16 20:32 07/09/16 06:00 07/09/16 07:29 Bedside Glucose 174 153 126 Anion Gap 13 Basophils # 0.0 Basophils % 0.6 Blood Morphology Comment Blood Urea Nitrogen 73 H Calcium Level 8.3 L Carbon Dioxide Level 21 Chloride Level 105 Creatinine 3.88 H Eosinophils # 0.6 H Eosinophils % 8.9 H Glucose Level 105 # Hematocrit 30.9 L Hemoglobin 10.5 L Lymphocytes # 1.2 Lymphocytes % 17.7 Mean Corpuscular Hemoglobin 27.3 L Mean Corpuscular Hemoglobin Concent 33.9 Mean Corpuscular Volume 80.6 L Mean Platelet Volume 8.7 Monocytes # 0.6 Monocytes % 8.4 Neutrophils # 4.4 Neutrophils % 64.4 Nucleated Red Blood Cells # 0.0 Nucleated Red Blood Cells % 0.0 Platelet Count 333 Potassium Level 5.3 H Red Blood Count 3.83 L Red Cell Distribution Width 13.6 Sodium Level 134 L White Blood Count 6.9 Test 07/09/16 11:50 Bedside Glucose 295 H Medications Medications Current Medications Amlodipine Besylate (Norvasc) 10 mg DAILY PO Last administered on 07/09/16 08: 25; Admin Dose 10 MG; Start 07/08/16 at 09:00 Aspirin (Halfprin) 81 mg DAILY PO Last administered on 07/09/16 08:26; Admin Dose 81 MG; Start 07/08/16 at 09:00 Calcium Carbonate (Oyster Shell Calcium) 1.25 gm BID PO Last administered on 08:25; Admin Dose 1.25 GM; Start 07/08/16 at 09:00 Clopidogrel Bisulfate (plaVIX) 75 mg DAILY PO Last administered on 07/09/16 08 :25; Admin Dose 75 MG; Start 07/08/16 at 09:00 Docusate Sodium (Colace) 100 mg BID PO Last administered on 07/09/16 08:25; Admin Dose 100 MG; Start 07/08/16 at 09:00 Furosemide (Lasix) 40 mg DAILY PO Last administered on 07/09/16 08:26; Admin Dose 40 MG; Start 07/08/16 at 09:00 Losartan Potassium (Cozaar) 100 mg DAILY PO Last administered on 07/09/16 08: 25; Admin Dose 100 MG; Start 07/08/16 at 09:00 Al Hydrox/Mg Hydrox/Simethicone (Mag-Al Plus) 10 ml TID PO Last administered on 07/09/16 08:24; Admin Dose 10 ML; Start 07/08/16 at 09:00 Ondansetron HCl (Zofran Tab) 4 mg Q8H PRN PO NAUSEA AND/OR VOMITING; Start at 22:00 Zolpidem Tartrate 5 mg 5 mg HS PRN PO insomnia Last administered on 07/08/16 20:50; Admin Dose 5 MG; Start 07/07/16 at 22:00 Sodium Chloride (NS) 1,000 ml @ 60 mls/hr [id number] IV Last administered on 07/09 06:08; Admin Dose 60 MLS/HR; Start 07/07/16 at 22:00 Ondansetron HCl (Zofran Inj) 4 mg Q6H PRN IV NAUSEA AND/OR VOMITING Last administered on 07/08/16 14:11; Admin Dose 4 MG; Start 07/07/16 at 22:00 Acetaminophen (Tylenol Tab) 650 mg Q6H PRN PO PAIN LEVEL 1-3 OR FEVER Last administered on 07/08/16 14:11; Admin Dose 650 MG; Start 07/07/16 at 22:00 Enoxaparin Sodium (Lovenox) 30 mg DAILY SC Last administered on 07/09/16 08:31 ; Admin Dose 30 MG; Start 07/08/16 at 09:00 Metoprolol Tartrate (Lopressor) 100 mg BID PO Last administered on 07/09/16 08 :26; Admin Dose 100 MG; Start 07/07/16 at 22:27 Clonidine (Catapres) 0.1 mg Q6H PRN PO SBP > 160; Start 07/07/16 at 22:00 Famotidine (Pepcid Iv) 20 mg Q24H IV Last administered on 07/09/16 08:26; Admin Dose 20 MG; Start 07/08/16 at 09:00 Miscellaneous Information 1 ea NOTE XX ; Start 07/07/16 at 23:00 Glucose (Glutose) 15 gm Q15M PRN PO DECREASED GLUCOSE; Start 07/07/16 at 23:00 Glucose (Glutose) 22.5 gm Q15M PRN PO DECREASED GLUCOSE; Start 07/07/16 at 23: 00 Dextrose (D50w Syringe) 25 ml Q15M PRN IV DECREASED GLUCOSE; Start 07/07/16 at 23:00 Dextrose (D50w Syringe) 50 ml Q15M PRN IV DECREASED GLUCOSE; Start 07/07/16 at 23:00 Glucagon (Glucagen) 1 mg Q15M PRN IM DECREASED GLUCOSE; Start 07/07/16 at 23:00 Glucose (Glutose) 15 gm Q15M PRN BUCCAL DECREASED GLUCOSE; Start 07/07/16 at 23 :00 Magnesium Hydroxide (Milk Of Mag) 30 ml Q24H PRN PO CONSTIPATION; Start at 22:00 Influenza Virus Vaccine (Fluzone) 0.5 ml ONCE ONCE IM* ; Start 07/10/16 at 09:00 ; Stop 07/10/16 at 09:01 JAMES VEGA Jul 09, 2016 11:56
[2016-07-09] MEDS: ZOLPIDEM 5 MG TAB PO PRN (21:19)
[2016-07-10] VITALS (11 sets, daily range): BP systolic 120–173; BP diastolic 62–110; PULSE 51–63; RESP 13–20
[2016-07-10 06:43] LABS: BASOPHIL # 0.1 10^3/ul (0.0-0.1); BASOPHILS % 0.8 % (0.0-2.0); EOSINOPHILS # 0.7 10^3/ul (0.0-0.5); HEMOGLOBIN 10.3 g/dl (12.0-16.0); LYMPHOCYTES # 1.6 10^3/ul (0.8-2.9); MEAN CORPUSCULAR HEMOGLOBIN 26.9 pg (29.0-33.0); MEAN CORPUSCULAR HGB CONC 33.2 g/dl (32.0-37.0); MEAN CORPUSCULAR VOLUME 80.9 fl (82.0-101.0); MEAN PLATELET VOLUME 8.8 fl (7.4-10.4); MONOCYTE # 0.7 10^3/ul (0.3-0.9); MONOCYTES % 9.3 % (0.0-11.0); NEUTROPHIL # 4.7 10^3/ul (1.6-7.5); NEUTROPHILS % 59.9 % (39.0-77.0); PLATELET COUNT 333 10^3/UL (140-440); RED BLOOD COUNT 3.83 10^6/ul (4.20-5.40); RED CELL DISTRIBUTION WIDTH 13.6 % (11.5-14.5); UNCORRECTED WBC 7.8 10^3/ul (4.8-10.8); WHITE BLOOD COUNT 7.8 10^3/ul (4.8-10.8)
[2016-07-10 06:53] LABS: CONDITION 1; LH ANALYZER COMMENTS 1
[2016-07-10 07:02] LABS: POTASSIUM 5.6 mmol/L (3.5-5.1)
[2016-07-10 07:05] LABS: CREATININE 3.32 mg/dl (0.44-1.00)
[2016-07-10 07:06] LABS: CALCIUM 8.2 mg/dl (8.4-10.2)
[2016-07-10] MEDS: [UNRECOGNIZED DRUG - REMARK] SC SCH ×3 (07:25→17:35)
[2016-07-10] MEDS: CALCIUM CARBONATE 1.25 GM TAB PO SCH ×2 (08:44→20:38)
[2016-07-10] MEDS: DOCUSATE SODIUM 100 MG CAP PO SCH ×2 (08:44→20:38)
[2016-07-10] MEDS: AMLODIPINE 10 MG TAB PO SCH (08:44)
[2016-07-10] MEDS: AL HYDROX/MG HYDROX/SIMETH 30 ML CUP PO SCH ×3 (08:45→20:39)
[2016-07-10] MEDS: METOPROLOL 100 MG TAB PO SCH ×2 (08:45→20:39)
[2016-07-10] MEDS: ASPIRIN (EC) 81 MG TAB PO SCH (08:46)
[2016-07-10] MEDS: FUROSEMIDE 40 MG TAB PO SCH (08:46)
[2016-07-10] MEDS: CLOPIDOGREL 75 MG TAB PO SCH (08:46)
[2016-07-10] MEDS: FAMOTIDINE 20 MG TAB PO SCH (08:46)
[2016-07-10] MEDS: LOSARTAN 50 MG TAB PO SCH (08:47)
[2016-07-10] MEDS: ENOXAPARIN 30 MG/0.3 ML SYG SC SCH (08:55)
[2016-07-10] MEDS ORDERED: INFLUENZA VIRUS VACCINE 0.5 ML (DISPENSING) IM* ONE (09:00)
[2016-07-10] MEDS: SOD CHLORIDE 0.9% 1,000 ML IV SCH ×3 (16:20→22:16)
[2016-07-10] MEDS ORDERED: SOD CHLORIDE 0.9% 500 ML IV ONE (17:30)
[2016-07-10] MEDS ORDERED: FLUCONAZOLE 100 MG TAB NGT SCH (19:00)
--- NOTE | 2016-07-10 19:02 | PN ---
Date/Time of Note Date/Time of Note DATE: 07/10/16 TIME: 18:52 Assessment/Plan VTE Prophylaxis VTE Prophylaxis Intervention: SCD's Lines/Catheters [facility] ([facility] Peripheral IV Urinary Cath still in place: No Assessment/Plan Chief Complaint/Hosp Course Assessment and plan -Acute kidney injury, continue IV fluids, Dr. Hoffman is asked to see patient in nephrology consultation, continue monitor BUN and creatinine -Dehydration on admission, resolving -Hyperkalemia, status post treatment -Diabetes mellitus type 2, continue NovoLog per sliding scale. -Possible allergic reaction to antibiotics, patient was on Bactrim and Keflex prior to admission -Hypertension, continue metoprolol, Norvasc. -Status post left transmetatarsal amputation Continue Lovenox for deep venous thrombosis prophylaxis and Pepcid for peptic ulcer disease prophylaxis. Further recommendations based on clinical course, Plan of care discussed with Dr. Swain. Problems: Subjective 24 Hr Interval Summary Free Text/Dictation Patient denies any fever and chills, denies nausea, able to tolerate diet well. Exam/Review of Systems Vital Signs Vitals Vital Signs Date Time Temp Pulse Resp B/P Pulse Ox O2 Delivery O2 Flow Rate FiO2 07/10/16 16:38 57 07/10/16 16:33 97.8 16 173/70 99 07/07/16 22:00 Room Air Intake and Output 07/09/16 07/09/16 07/10/16 15:00 23:00 07:00 Intake Total 720 ml 250 ml Output Total 600 ml Balance 720 ml -350 ml Exam Constitutional: alert, oriented Psych: no complaints Head: atraumatic, normocephalic Eyes: nl conjunctiva ENMT: nl external ears & nose Neck: non-tender, supple Respiratory: clear to auscultation, normal air movement Cardiovascular: regular rate and rhythm Gastrointestinal: non-tender, soft Genitourinary - Female: nl adnexae Musculoskeletal: nl extremities to inspection Extremities: normal pulses Neurological: [employer] II-XII intact Results Result Diagram: 07/10/16 0550 07/10/16 0530 Results 24 hrs Laboratory Tests Test 07/09/16 21:08 07/10/16 05:30 07/10/16 05:50 07/10/16 07:55 Bedside Glucose 253 H 150 Anion Gap 14 Blood Urea Nitrogen 67 H Calcium Level 8.2 L Carbon Dioxide Level 23 Chloride Level 107 Creatinine 3.32 H Glucose Level 138 Potassium Level 5.6 H Sodium Level 138 Basophils # 0.1 Basophils % 0.8 Blood Morphology Comment Eosinophils # 0.7 H Eosinophils % 9.0 H Hematocrit 31.0 L Hemoglobin 10.3 L Lymphocytes # 1.6 Lymphocytes % 21.0 Mean Corpuscular Hemoglobin 26.9 L Mean Corpuscular Hemoglobin Concent 33.2 Mean Corpuscular Volume 80.9 L Mean Platelet Volume 8.8 Monocytes # 0.7 Monocytes % 9.3 Neutrophils # 4.7 Neutrophils % 59.9 Nucleated Red Blood Cells # 0.0 Nucleated Red Blood Cells % 0.0 Platelet Count 333 Red Blood Count 3.83 L Red Cell Distribution Width 13.6 White Blood Count 7.8 Test 07/10/16 12:08 07/10/16 17:28 Bedside Glucose 264 H 183 Medications Medications Current Medications Amlodipine Besylate (Norvasc) 10 mg DAILY PO Last administered on 07/10/16 08: 44; Admin Dose 10 MG; Start 07/08/16 at 09:00 Aspirin (Halfprin) 81 mg DAILY PO Last administered on 07/10/16 08:46; Admin Dose 81 MG; Start 07/08/16 at 09:00 Calcium Carbonate (Oyster Shell Calcium) 1.25 gm BID PO Last administered on 08:44; Admin Dose 1.25 GM; Start 07/08/16 at 09:00 Clopidogrel Bisulfate (plaVIX) 75 mg DAILY PO Last administered on 07/10/16 08 :46; Admin Dose 75 MG; Start 07/08/16 at 09:00 Docusate Sodium (Colace) 100 mg BID PO Last administered on 07/10/16 08:44; Admin Dose 100 MG; Start 07/08/16 at 09:00 Furosemide (Lasix) 40 mg DAILY PO Last administered on 07/10/16 08:46; Admin Dose 40 MG; Start 07/08/16 at 09:00 Losartan Potassium (Cozaar) 100 mg DAILY PO Last administered on 07/10/16 08: 47; Admin Dose 100 MG; Start 07/08/16 at 09:00 Al Hydrox/Mg Hydrox/Simethicone (Mag-Al Plus) 10 ml TID PO Last administered on 07/10/16 14:44; Admin Dose 10 ML; Start 07/08/16 at 09:00 Ondansetron HCl (Zofran Tab) 4 mg Q8H PRN PO NAUSEA AND/OR VOMITING; Start at 22:00 Zolpidem Tartrate 5 mg 5 mg HS PRN PO insomnia Last administered on 07/09/16 21:19; Admin Dose 5 MG; Start 07/07/16 at 22:00 Sodium Chloride (NS) 1,000 ml @ 125 mls/hr Q8H IV Last administered on 18:34; Admin Dose 125 MLS/HR; Start 07/07/16 at 22:00 Ondansetron HCl (Zofran Inj) 4 mg Q6H PRN IV NAUSEA AND/OR VOMITING Last administered on 07/08/16 14:11; Admin Dose 4 MG; Start 07/07/16 at 22:00 Acetaminophen (Tylenol Tab) 650 mg Q6H PRN PO PAIN LEVEL 1-3 OR FEVER Last administered on 07/08/16 14:11; Admin Dose 650 MG; Start 07/07/16 at 22:00 Enoxaparin Sodium (Lovenox) 30 mg DAILY SC Last administered on 07/10/16 08:55 ; Admin Dose 30 MG; Start 07/08/16 at 09:00 Metoprolol Tartrate (Lopressor) 100 mg BID PO Last administered on 07/10/16 08 :45; Admin Dose 100 MG; Start 07/07/16 at 22:27 Clonidine (Catapres) 0.1 mg Q6H PRN PO SBP > 160; Start 07/07/16 at 22:00 Miscellaneous Information 1 ea NOTE XX ; Start 07/07/16 at 23:00 Glucose (Glutose) 15 gm Q15M PRN PO DECREASED GLUCOSE; Start 07/07/16 at 23:00 Glucose (Glutose) 22.5 gm Q15M PRN PO DECREASED GLUCOSE; Start 07/07/16 at 23: 00 Dextrose (D50w Syringe) 25 ml Q15M PRN IV DECREASED GLUCOSE; Start 07/07/16 at 23:00 Dextrose (D50w Syringe) 50 ml Q15M PRN IV DECREASED GLUCOSE; Start 07/07/16 at 23:00 Glucagon (Glucagen) 1 mg Q15M PRN IM DECREASED GLUCOSE; Start 07/07/16 at 23:00 Glucose (Glutose) 15 gm Q15M PRN BUCCAL DECREASED GLUCOSE; Start 07/07/16 at 23 :00 Magnesium Hydroxide (Milk Of Mag) 30 ml Q24H PRN PO CONSTIPATION Last administered on 07/09/16 21:10; Admin Dose 30 ML; Start 07/08/16 at 22:00 Famotidine (Pepcid) 20 mg DAILY PO Last administered on 07/10/16 08:46; Admin Dose 20 MG; Start 07/10/16 at 09:00 Fluconazole (Diflucan) 100 mg DAILY NGT ; Start 07/10/16 at 19:00; Status CASSIUS ROTH Jul 10, 2016 19:02
[2016-07-10] MEDS: FLUCONAZOLE 100 MG TAB PO SCH (20:38)
[2016-07-10] MEDS: INSULIN ASPART [NOVOLOG] 3 ML PEN SC SCH (20:48)
[2016-07-10] MEDS: INSULIN GLARGINE [LANtus] 3 ML PEN SC SCH (20:50)
[2016-07-10 21:14] LABS: ADD UMIC YES; URINE BILIRUBIN (Dip) NEGATIVE (NEGATIVE); URINE BLOOD (Dip) 1+ (NEGATIVE); URINE COLOR LT. YELLOW (YELLOW); URINE KETONES (Dip) NEGATIVE (NEGATIVE); URINE LEUKOCYTE ESTERASE (Dip) NEGATIVE (NEGATIVE); URINE NITRITE (Dip) NEGATIVE (NEGATIVE); URINE TOTAL PROTEIN (Dip) 2+ (NEGATIVE); URINE UROBILINOGEN (Dip) 0.2 E.U./dL (0.1-1.0)
--- NOTE | 2016-07-10 21:36 | RADRPT ---
PROCEDURE: US Renal CLINICAL INDICATION: A K I TECHNIQUE: Multiple sonographic images of the kidneys and bladder were obtained. Evaluation of th e kidneys and bladder was performed as well with hawley scale and color and Doppler evaluation using a curved array transducer. The images were reviewed on a high-resolution PACS workstation. COMPARISON: 08/04/2014 FINDINGS: The kidneys are small. The right kidney measures 8.6 cm in length. The left kidney measures 8.4 cm i n length. There are no focal areas of abnormal echogenicity. There is no mass, calculus, or obstruct dilip uropathy. No perinephric fluid collection is seen. The bladder is unremarkable. IMPRESSION: 1. Small kidneys which have decreased in size from the previous. 2. No renal mass, pathological calcification, or hydronephrosis is evident. 3. The bladder appears unremarkable. Physician Marilyn Date Time Electronically viewed and signed by Physician Marilyn on 07/10/2016 21:36 /
[2016-07-10 21:54] LABS: SQUAMOUS EPITHELIAL CELL,UR FEW
[2016-07-10 21:55] LABS: BACTERIA,URINE RARE
[2016-07-10] MEDS: ZOLPIDEM 5 MG TAB PO PRN (22:14)
[2016-07-11] VITALS (13 sets, daily range): BP systolic 122–188; BP diastolic 56–86; PULSE 66–70; RESP 14–20
[2016-07-11] MEDS: ACCUCHECK XX SCH (02:00)
[2016-07-11 07:46] LABS: CREATININE 2.82 mg/dl (0.44-1.00)
[2016-07-11 07:47] LABS: CALCIUM 8.7 mg/dl (8.4-10.2)
[2016-07-11] MEDS: INSULIN ASPART [NOVOLOG] 3 ML PEN SC SCH ×4 (08:14→21:05)
[2016-07-11 08:21] LABS: POTASSIUM 6.2 mmol/L (3.5-5.1)
[2016-07-11] MEDS: ASPIRIN (EC) 81 MG TAB PO SCH (08:56)
[2016-07-11] MEDS: CALCIUM CARBONATE 1.25 GM TAB PO SCH ×2 (08:57→20:51)
[2016-07-11] MEDS: CLOPIDOGREL 75 MG TAB PO SCH (08:58)
[2016-07-11] MEDS: predniSONE 20 MG TAB PO SCH (08:58)
[2016-07-11] MEDS: FAMOTIDINE 20 MG TAB PO SCH (08:59)
[2016-07-11] MEDS: FUROSEMIDE 40 MG TAB PO SCH (08:59)
[2016-07-11] MEDS: METOPROLOL 100 MG TAB PO SCH ×2 (08:59→20:56)
[2016-07-11] MEDS: LORATADINE 10 MG TAB GTB SCH (08:59)
[2016-07-11] MEDS: DOCUSATE SODIUM 100 MG CAP PO SCH ×2 (09:00→20:51)
[2016-07-11] MEDS ORDERED: NA POLYST SULFON 15 GM/60 ML BTL PO ONE (09:00)
[2016-07-11] MEDS: FLUCONAZOLE 100 MG TAB PO SCH (09:00)
[2016-07-11] MEDS: AL HYDROX/MG HYDROX/SIMETH 30 ML CUP PO SCH ×3 (09:00→20:57)
[2016-07-11] MEDS: AMLODIPINE 10 MG TAB PO SCH (09:01)
[2016-07-11] MEDS: ENOXAPARIN 30 MG/0.3 ML SYG SC SCH (09:09)
--- NOTE | 2016-07-11 11:16 | CONS ---
Date/Time of Note Date/Time of Note DATE: 07/11/16 TIME: 11:11 Assessment/Plan Assessment/Plan Additional Assessment/Plan 60 yo Female with 1) Manohar on CKD III 2) Hyperkalemia 3) Hx of DM with DM Nephropathy 4) Chronic HTN 5) Anemia, Chronic Disease. 6) Hyponatremia- Resolved Pt has hx of recent I& D of Abcess and thereafter placed on Bactrim Rx, which is known to impair K and Cr excretion. Therefore elevated BUN/Cr and electrolyte abnormality could be due to ARB and Bactrim Rx. . This has been discontinued and patient is IVFs. Pts renal function has improved however still with Hyperkalemia. Recommendations: Diet Changed to Low K, Renal/ADA Kayexalate ordered, 30grams BID For K+>5.5 Cont Lasix 40mg daily Please cont to hold NICK-I/ARB ( Ie Losartan) Repeat chemistry ordered for this am NO indication for HD at this time, Pt is non-Oliguric Will cont to monitor UO, Electrolytes and renal function closely. Thank you for the opportunity to participate in the care of Ms. Shah Do not hesitate to contact me if you have any questions or concerns Consultation Date/Type/Reason Admit Date/Time Jul 07, 2016 at 20:29 Date of Consultation: Jul 11, 2016 Type of Consultation: Nephrology Reason for Consultation Hyperkalemia, MANOHAR, CKD Referring Provider: BRANDON GUAMAN MD Hx of Present Illness 60 yo [place] female with >8year Hx of DM, Hx of Chronic HTN, CKD followed by Dr Abhijit Mistry (On Call Pharmacy Technician) who presented 4 days ago with dizziness and generalized weakness 2 days, multiple episodes of clear nonbloody nonbilious emesis over the last 2 days. Patient also complains of suprapubic abdominal discomfort and increased urinary frequency. These symptoms have resolved however patient with persistent Hyperkalemia depsite medical Rx. Nephrology consulted for Abnormal renal function and management of hyperkalemia. Constitutional: No requiring O2 Respiratory: No shortness of breath Cardiovascular: lightheadedness, No chest pain Gastrointestinal: no complaints Genitourinary: no complaints Psychological: no complaints Past Medical History Medical History: diabetes, hypertension, renal disease Past Surgical History Past Surgical Hx: other (c section) Family History Significant Family History: hypertension Social History Living [place], , Currently engaged. Alcohol Use: none Smoking Status: Never smoker Drug Use: none Exam/Review of Systems Vital Signs Vitals Vital Signs Date Time Temp Pulse Resp B/P Pulse Ox O2 Delivery O2 Flow Rate FiO2 07/11/16 08:47 68 07/11/16 07:55 98.4 14 167/74 96 07/07/16 22:00 Room Air Intake and Output 07/10/16 07/10/16 07/11/16 15:00 23:00 07:00 Intake Total 2040 ml 1625 ml Balance 2040 ml 1625 ml Exam Constitutional: alert, oriented, No distress Head: atraumatic Eyes: EOMI Neck: supple, No jvd Respiratory: clear to auscultation, No crackles/rales, No diminished breath sounds, No labored breathing Cardiovascular: regular rate and rhythm, No edema Gastrointestinal: non-tender, soft Musculoskeletal: nl extremities to inspection Extremities: No edema 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 YELLOW Urine Glucose 0.25% H Urine Hemoglobin 1+ H Urine Ketones NEGATIVE Urine Leukocyte Esterase NEGATIVE Urine Microscopic RBC 2-5 Urine Microscopic WBC 0-2 Urine Nitrite NEGATIVE Urine Osmolality 231 L Urine Random Sodium 65 Urine Specific [place] 1.010 Urine Squamous Epithelial Cells FEW Urine Total Protein 2+ H Urine Urobilinogen 0.2 E.U./dL Urine Yeast OCCASIONAL Urine pH 6.5 Test 07/11/16 06:52 07/11/16 07:53 Anion Gap 13 Blood Urea Nitrogen 60 H Calcium Level 8.7 Carbon Dioxide Level 22 Chloride Level 110 Creatinine 2.82 H Glucose Level 177 Potassium Level 6.2 *H Sodium Level 139 Bedside Glucose 172 Medications Medications Current Medications Amlodipine Besylate (Norvasc) 10 mg DAILY PO Last administered on 07/11/16t 09: 01; Admin Dose 10 MG; Start 07/08/16 at 09:00 Aspirin (Halfprin) 81 mg DAILY PO Last administered on 07/11/16 08:56; Admin Dose 81 MG; Start 07/08/16 at 09:00 Calcium Carbonate (Oyster Shell Calcium) 1.25 gm BID PO Last administered on 08:57; Admin Dose 1.25 GM; Start 07/08/16 at 09:00 Clopidogrel Bisulfate (plaVIX) 75 mg DAILY PO Last administered on 07/11/16 08 :58; Admin Dose 75 MG; Start 07/08/16 at 09:00 Docusate Sodium (Colace) 100 mg BID PO Last administered on 07/10/16 20:38; Admin Dose 100 MG; Start 07/08/16 at 09:00 Furosemide (Lasix) 40 mg DAILY PO Last administered on 07/11/16 08:59; Admin Dose 40 MG; Start 07/08/16 at 09:00 Al Hydrox/Mg Hydrox/Simethicone (Mag-Al Plus) 10 ml TID PO Last administered on 07/10/16 20:39; Admin Dose 10 ML; Start 07/08/16 at 09:00 Ondansetron HCl (Zofran Tab) 4 mg Q8H PRN PO NAUSEA AND/OR VOMITING; Start at 22:00 Zolpidem Tartrate 5 mg 5 mg HS PRN PO insomnia Last administered on 07/10/16 22:14; Admin Dose 5 MG; Start 07/07/16 at 22:00 Sodium Chloride (NS) 1,000 ml @ 125 mls/hr Q8H IV Last administered on 22:16; Admin Dose 125 MLS/HR; Start 07/07/16 at 22:00 Ondansetron HCl (Zofran Inj) 4 mg Q6H PRN IV NAUSEA AND/OR VOMITING Last administered on 07/08/16 14:11; Admin Dose 4 MG; Start 07/07/16 at 22:00 Acetaminophen (Tylenol Tab) 650 mg Q6H PRN PO PAIN LEVEL 1-3 OR FEVER Last administered on 07/08/16 14:11; Admin Dose 650 MG; Start 07/07/16 at 22:00 Enoxaparin Sodium (Lovenox) 30 mg DAILY SC Last administered on 07/11/16 09:09 ; Admin Dose 30 MG; Start 07/08/16 at 09:00 Metoprolol Tartrate (Lopressor) 100 mg BID PO Last administered on 07/11/16 08 :59; Admin Dose 100 MG; Start 07/07/16 at 22:27 Clonidine (Catapres) 0.1 mg Q6H PRN PO SBP > 160; Start 07/07/16 at 22:00 Miscellaneous Information 1 ea NOTE XX ; Start 07/07/16 at 23:00 Glucose (Glutose) 15 gm Q15M PRN PO DECREASED GLUCOSE; Start 07/07/16 at 23:00 Glucose (Glutose) 22.5 gm Q15M PRN PO DECREASED GLUCOSE; Start 07/07/16 at 23: 00 Dextrose (D50w Syringe) 25 ml Q15M PRN IV DECREASED GLUCOSE; Start 07/07/16 at 23:00 Dextrose (D50w Syringe) 50 ml Q15M PRN IV DECREASED GLUCOSE; Start 07/07/16 at 23:00 Glucagon (Glucagen) 1 mg Q15M PRN IM DECREASED GLUCOSE; Start 07/07/16 at 23:00 Glucose (Glutose) 15 gm Q15M PRN BUCCAL DECREASED GLUCOSE; Start 07/07/16 at 23 :00 Magnesium Hydroxide (Milk Of Mag) 30 ml Q24H PRN PO CONSTIPATION Last administered on 07/09/16 21:10; Admin Dose 30 ML; Start 07/08/16 at 22:00 Famotidine (Pepcid) 20 mg DAILY PO Last administered on 07/11/16 08:59; Admin Dose 20 MG; Start 07/10/16 at 09:00 Hydralazine HCl (Apresoline) 10 mg Q4H PRN IV SBP>170; Start 07/10/16 at 19:00 Clonidine (Catapres) 0.1 mg TID PO Last administered on 07/11/16 09:00; Admin Dose 0.1 MG; Start 07/10/16 at 21:00 Diagnostic Test (Pha) (Accucheck) 1 ea 02 XX ; Start 07/11/16 at 02:00 Loratadine (Claritin) 10 mg DAILY GTB Last administered on 07/11/16 08:59; Admin Dose 10 MG; Start 07/11/16 at 09:00 Insulin Glargine (Lantus) 15 unit HS SC Last administered on 07/10/16 20:50; Admin Dose 15 UNIT; Start 07/10/16 at 21:00 Prednisone (Prednisone) 20 mg DAILY PO Last administered on 07/11/16 08:58; Admin Dose 20 MG; Start 07/11/16 at 09:00 Fluconazole (Diflucan) 100 mg DAILY PO Last administered on 07/11/16 09:00; Admin Dose 100 MG; Start 07/10/16 at 20:30 Procedures Procedures PROCEDURE: US Renal CLINICAL INDICATION: A K I TECHNIQUE: Multiple sonographic images of the kidneys and bladder were obtained. Evaluation of the kidneys and bladder was performed as well with hawley scale and color and Doppler evaluation using a curved array transducer. The images were reviewed on a high-resolution PACS workstation. COMPARISON: 08/04/2014 FINDINGS: The kidneys are small. The right kidney measures 8.6 cm in length. The left kidney measures 8.4 cm in length. There are no focal areas of abnormal echogenicity. There is no mass, calculus, or obstructive uropathy. No perinephric fluid collection is seen. The bladder is unremarkable. IMPRESSION: 1. Small kidneys which have decreased in size from the previous. 2. No renal mass, pathological calcification, or hydronephrosis is evident. 3. The bladder appears unremarkable. Physician Marilyn Date Time Electronically viewed and signed by Physician Marilyn on 07/10/2016 21:36 PROCEDURE: XR Chest. CLINICAL INDICATION: Abdominal pain. TECHNIQUE: Single portable view of the chest was obtained COMPARISON: 08/02/2014. FINDINGS: Cardiac silhouette is mildly enlarged. Mild pulmonary vascular congestion. The lungs are otherwise clear. Previously seen pleural effusions and air space disease at lung bases are substantially resolved. There is no pleural effusion or pneumothorax. IMPRESSION: Mild pulmonary vascular congestion. RPTAT: [facility] Physician Bernard Date Time Electronically viewed and signed by Physician Bernard on 07/07/2016 19:26 ADÁN MONTEIRO MD Jul 11, 2016 11:16
[2016-07-11] MEDS ORDERED: hydrALAzine 20 MG INJ IV PRN (16:00)
--- NOTE | 2016-07-11 16:02 | PN ---
Date/Time of Note Date/Time of Note DATE: 07/11/16 TIME: 15:35 Assessment/Plan VTE Prophylaxis VTE Prophylaxis Intervention: SCD's Lines/Catheters IV [facility]from [facility] Peripheral IV Urinary Cath still in place: No Assessment/Plan Chief Complaint/Hosp Course Assessment and plan -Acute kidney injury, continue IV fluids, Dr. Hoffman is asked to see patient in nephrology consultation, continue monitor BUN and creatinine -Dehydration on admission, resolving -Hyperkalemia, status post treatment -Diabetes mellitus type 2, continue NovoLog per sliding scale. -Possible allergic reaction to antibiotics, patient was on Bactrim and Keflex prior to admission -Hypertension, continue metoprolol, Norvasc. -Status post left transmetatarsal amputation Continue Lovenox for deep venous thrombosis prophylaxis and Pepcid for peptic ulcer disease prophylaxis. Further recommendations based on clinical course, Plan of care discussed with Dr. Swain. Problems: Exam/Review of Systems Vital Signs Vitals Vital Signs Date Time Temp Pulse Resp B/P Pulse Ox O2 Delivery O2 Flow Rate FiO2 07/11/16 12:12 70 07/11/16 12:05 98.6 16 158/77 97 07/07/16 22:00 Room Air Intake and Output 07/10/16 07/10/16 07/11/16 15:00 23:00 07:00 Intake Total 2040 ml 1625 ml Balance 2040 ml 1625 ml Exam Constitutional: alert, oriented Psych: no complaints Head: atraumatic, normocephalic Eyes: nl conjunctiva ENMT: nl external ears & nose Neck: non-tender, supple Respiratory: clear to auscultation, normal air movement Cardiovascular: regular rate and rhythm Gastrointestinal: non-tender, soft Genitourinary - Female: nl adnexae Musculoskeletal: nl extremities to inspection Extremities: normal pulses 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 YELLOW Urine Glucose 0.25% H Urine Hemoglobin 1+ H Urine Ketones NEGATIVE Urine Leukocyte Esterase NEGATIVE Urine Microscopic RBC 2-5 Urine Microscopic WBC 0-2 Urine Nitrite NEGATIVE Urine Osmolality 231 L Urine Random Sodium 65 Urine Specific [place] 1.010 Urine Squamous Epithelial Cells FEW Urine Total Protein 2+ H Urine Urobilinogen 0.2 E.U./dL Urine Yeast OCCASIONAL Urine pH 6.5 Anion Gap 13 Blood Urea Nitrogen 60 H Calcium Level 8.7 Carbon Dioxide Level 22 Chloride Level 110 Creatinine 2.82 H Glucose Level 177 Potassium Level 6.2 *H Sodium Level 139 Test 07/11/16 07:53 07/11/16 11:43 07/11/16 14:05 Bedside Glucose 172 240 H Potassium Level 5.8 H Medications Medications Current Medications Amlodipine Besylate (Norvasc) 10 mg DAILY PO Last administered on 07/11/16 09: 01; Admin Dose 10 MG; Start 07/08/16 at 09:00 Aspirin (Halfprin) 81 mg DAILY PO Last administered on 07/11/16 08:56; Admin Dose 81 MG; Start 07/08/16 at 09:00 Calcium Carbonate (Oyster Shell Calcium) 1.25 gm BID PO Last administered on 08:57; Admin Dose 1.25 GM; Start 07/08/16 at 09:00 Clopidogrel Bisulfate (plaVIX) 75 mg DAILY PO Last administered on 07/11/16 08 :58; Admin Dose 75 MG; Start 07/08/16 at 09:00 Docusate Sodium (Colace) 100 mg BID PO Last administered on 07/10/16 20:38; Admin Dose 100 MG; Start 07/08/16 at 09:00 Furosemide (Lasix) 40 mg DAILY PO Last administered on 07/11/16 08:59; Admin Dose 40 MG; Start 07/08/16 at 09:00 Al Hydrox/Mg Hydrox/Simethicone (Mag-Al Plus) 10 ml TID PO Last administered on 07/11/16 11:49; Admin Dose 10 ML; Start 07/08/16 at 09:00 Ondansetron HCl (Zofran Tab) 4 mg Q8H PRN PO NAUSEA AND/OR VOMITING; Start at 22:00 Zolpidem Tartrate (Ambien) 5 mg HS PRN PO insomnia Last administered on 22:14; Admin Dose 5 MG; Start 07/07/16 at 22:00 Ondansetron HCl (Zofran Inj) 4 mg Q6H PRN IV NAUSEA AND/OR VOMITING Last administered on 07/08/16 14:11; Admin Dose 4 MG; Start 07/07/16 at 22:00 Acetaminophen (Tylenol Tab) 650 mg Q6H PRN PO PAIN LEVEL 1-3 OR FEVER Last administered on 07/08/16 14:11; Admin Dose 650 MG; Start 07/07/16 at 22:00 Enoxaparin Sodium (Lovenox) 30 mg DAILY SC Last administered on 07/11/16 09:09 ; Admin Dose 30 MG; Start 07/08/16 at 09:00 Metoprolol Tartrate (Lopressor) 100 mg BID PO Last administered on 07/11/16 08 :59; Admin Dose 100 MG; Start 07/07/16 at 22:27 Clonidine (Catapres) 0.1 mg Q6H PRN PO SBP > 160; Start 07/07/16 at 22:00 Miscellaneous Information 1 ea NOTE XX ; Start 07/07/16 at 23:00 Glucose (Glutose) 15 gm Q15M PRN PO DECREASED GLUCOSE; Start 07/07/16 at 23:00 Glucose (Glutose) 22.5 gm Q15M PRN PO DECREASED GLUCOSE; Start 07/07/16 at 23: 00 Dextrose (D50w Syringe) 25 ml Q15M PRN IV DECREASED GLUCOSE; Start 07/07/16 at 23:00 Dextrose (D50w Syringe) 50 ml Q15M PRN IV DECREASED GLUCOSE; Start 07/07/16 at 23:00 Glucagon (Glucagen) 1 mg Q15M PRN IM DECREASED GLUCOSE; Start 07/07/16 at 23:00 Glucose (Glutose) 15 gm Q15M PRN BUCCAL DECREASED GLUCOSE; Start 07/07/16 at 23 :00 Magnesium Hydroxide (Milk Of Mag) 30 ml Q24H PRN PO CONSTIPATION Last administered on 07/09/16 21:10; Admin Dose 30 ML; Start 07/08/16 at 22:00 Famotidine (Pepcid) 20 mg DAILY PO Last administered on 07/11/16 08:59; Admin Dose 20 MG; Start 07/10/16 at 09:00 Hydralazine HCl (Apresoline) 10 mg Q4H PRN IV SBP>170; Start 07/10/16 at 19:00 Clonidine (Catapres) 0.1 mg TID PO Last administered on 07/11/16 11:49; Admin Dose 0.1 MG; Start 07/10/16 at 21:00 Diagnostic Test (Pha) (Accucheck) 1 ea 02 XX ; Start 07/11/16 at 02:00 Loratadine (Claritin) 10 mg DAILY GTB Last administered on 07/11/16 08:59; Admin Dose 10 MG; Start 07/11/16 at 09:00 Insulin Glargine (Lantus) 15 unit HS SC Last administered on 07/10/16 20:50; Admin Dose 15 UNIT; Start 07/10/16 at 21:00 Prednisone (Prednisone) 20 mg DAILY PO Last administered on 07/11/16 08:58; Admin Dose 20 MG; Start 07/11/16 at 09:00 Fluconazole (Diflucan) 100 mg DAILY PO Last administered on 07/11/16 09:00; Admin Dose 100 MG; Start 07/10/16 at 20:30 CASSIUS POOLE Jul 11, 2016 16:02
[2016-07-11] MEDS ORDERED: NA POLYST SULFON 15 GM/60 ML BTL PO PRN (20:00)
[2016-07-11] MEDS: INSULIN GLARGINE [LANtus] 3 ML PEN SC SCH (21:01)
[2016-07-12] VITALS (13 sets, daily range): BP systolic 132–175; BP diastolic 63–76; PULSE 57–69; RESP 16–21
[2016-07-12] MEDS: ACCUCHECK XX SCH (03:25)
[2016-07-12] MEDS: hydrALAzine 20 MG INJ IV PRN ×2 (04:47→18:48)
[2016-07-12 06:40] LABS: POTASSIUM 3.9 mmol/L (3.5-5.1)
[2016-07-12 06:43] LABS: CALCIUM 8.1 mg/dl (8.4-10.2); CREATININE 2.47 mg/dl (0.44-1.00)
[2016-07-12] MEDS: INSULIN ASPART [NOVOLOG] 3 ML PEN SC SCH ×7 (08:35→21:42)
[2016-07-12] MEDS: ENOXAPARIN 30 MG/0.3 ML SYG SC SCH (08:36)
[2016-07-12] MEDS: AL HYDROX/MG HYDROX/SIMETH 30 ML CUP PO SCH ×3 (08:39→21:40)
[2016-07-12] MEDS: FLUCONAZOLE 100 MG TAB PO SCH (08:40)
[2016-07-12] MEDS: DOCUSATE SODIUM 100 MG CAP PO SCH ×2 (08:40→21:40)
[2016-07-12] MEDS: CALCIUM CARBONATE 1.25 GM TAB PO SCH ×2 (08:40→21:40)
[2016-07-12] MEDS: METOPROLOL 100 MG TAB PO SCH ×2 (08:41→21:40)
[2016-07-12] MEDS: LORATADINE 10 MG TAB GTB SCH (08:41)
[2016-07-12] MEDS: FUROSEMIDE 40 MG TAB PO SCH (08:41)
[2016-07-12] MEDS: predniSONE 20 MG TAB PO SCH (08:41)
[2016-07-12] MEDS: AMLODIPINE 10 MG TAB PO SCH (08:42)
[2016-07-12] MEDS: FAMOTIDINE 20 MG TAB PO SCH (08:42)
[2016-07-12] MEDS: ASPIRIN (EC) 81 MG TAB PO SCH (08:43)
[2016-07-12] MEDS: CLOPIDOGREL 75 MG TAB PO SCH (08:43)
--- NOTE | 2016-07-12 17:38 | CONS ---
Date/Time of Note Date/Time of Note DATE: 07/12/16 TIME: 17:37 Assessment/Plan Assessment/Plan Chief Complaint/Hosp Course 60 yo Female with 1) Cindy on CKD III 2) Hyperkalemia- Resolved 3) Hx of DM with DM Nephropathy 4) Chronic HTN 5) Anemia, Chronic Disease. 6) Hyponatremia- Resolved Renal function stable Electrolyte abnormality improved Will cont to monitor UO, Electrolytes and renal function closely. Thank you for the opportunity to participate in the care of Ms. Shah Do not hesitate to contact me if you have any questions or concerns Problems: Consultation Date/Type/Reason Admit Date/Time Jul 07, 2016 at 20:29 Initial Consult Date 07/11/16 Type of Consultation: Nephrology Referring Provider: BRANDON GUAMAN MD Exam/Review of Systems Vital Signs Vitals Vital Signs Date Time Temp Pulse Resp B/P Pulse Ox O2 Delivery O2 Flow Rate FiO2 07/12/16 16:27 57 07/12/16 16:00 97.6 20 140/66 98 Intake and Output 07/11/16 07/11/16 07/12/16 15:00 23:00 07:00 Intake Total 350 ml Balance 350 ml Results Result Diagram: 07/10/16 0550 07/12/16 0545 Results 24 hrs Laboratory Tests Test 07/11/16 20:14 07/12/16 03:15 07/12/16 05:45 07/12/16 07:52 Bedside Glucose 313 H 250 H 206 Anion Gap 12 Blood Urea Nitrogen 58 H Calcium Level 8.1 L Carbon Dioxide Level 27 Chloride Level 105 Creatinine 2.47 H Glucose Level 216 Potassium Level 3.9 Sodium Level 140 Test 07/12/16 12:15 07/12/16 17:15 Bedside Glucose 145 137 Medications Medications Current Medications Amlodipine Besylate (Norvasc) 10 mg DAILY PO Last administered on 07/12/16 08: 42; Admin Dose 10 MG; Start 07/08/16 at 09:00 Aspirin (Halfprin) 81 mg DAILY PO Last administered on 07/12/16 08:43; Admin Dose 81 MG; Start 07/08/16 at 09:00 Calcium Carbonate (Oyster Shell Calcium) 1.25 gm BID PO Last administered on 08:40; Admin Dose 1.25 GM; Start 07/08/16 at 09:00 Clopidogrel Bisulfate (plaVIX) 75 mg DAILY PO Last administered on 07/12/16 08 :43; Admin Dose 75 MG; Start 07/08/16 at 09:00 Docusate Sodium (Colace) 100 mg BID PO Last administered on 07/12/16 08:40; Admin Dose 100 MG; Start 07/08/16 at 09:00 Furosemide (Lasix) 40 mg DAILY PO Last administered on 07/12/16 08:41; Admin Dose 40 MG; Start 07/08/16 at 09:00 Al Hydrox/Mg Hydrox/Simethicone (Mag-Al Plus) 10 ml TID PO Last administered on 07/12/16 12:34; Admin Dose 10 ML; Start 07/08/16 at 09:00 Ondansetron HCl (Zofran Tab) 4 mg Q8H PRN PO NAUSEA AND/OR VOMITING; Start at 22:00 Zolpidem Tartrate (Ambien) 5 mg HS PRN PO insomnia Last administered on 22:14; Admin Dose 5 MG; Start 07/07/16 at 22:00 Ondansetron HCl (Zofran Inj) 4 mg Q6H PRN IV NAUSEA AND/OR VOMITING Last administered on 07/08/16 14:11; Admin Dose 4 MG; Start 07/07/16 at 22:00 Acetaminophen (Tylenol Tab) 650 mg Q6H PRN PO PAIN LEVEL 1-3 OR FEVER Last administered on 07/08/16 14:11; Admin Dose 650 MG; Start 07/07/16 at 22:00 Enoxaparin Sodium (Lovenox) 30 mg DAILY SC Last administered on 07/12/16 08:36 ; Admin Dose 30 MG; Start 07/08/16 at 09:00 Metoprolol Tartrate (Lopressor) 100 mg BID PO Last administered on 07/12/16 08 :41; Admin Dose 100 MG; Start 07/07/16 at 22:27 Clonidine (Catapres) 0.1 mg Q6H PRN PO SBP > 160; Start 07/07/16 at 22:00 Miscellaneous Information 1 ea NOTE XX ; Start 07/07/16 at 23:00 Glucose (Glutose) 15 gm Q15M PRN PO DECREASED GLUCOSE; Start 07/07/16 at 23:00 Glucose (Glutose) 22.5 gm Q15M PRN PO DECREASED GLUCOSE; Start 07/07/16 at 23: 00 Dextrose (D50w Syringe) 25 ml Q15M PRN IV DECREASED GLUCOSE; Start 07/07/16 at 23:00 Dextrose (D50w Syringe) 50 ml Q15M PRN IV DECREASED GLUCOSE; Start 07/07/16 at 23:00 Glucagon (Glucagen) 1 mg Q15M PRN IM DECREASED GLUCOSE; Start 07/07/16 at 23:00 Glucose (Glutose) 15 gm Q15M PRN BUCCAL DECREASED GLUCOSE; Start 07/07/16 at 23 :00 Magnesium Hydroxide (Milk Of Mag) 30 ml Q24H PRN PO CONSTIPATION Last administered on 07/09/16 21:10; Admin Dose 30 ML; Start 07/08/16 at 22:00 Famotidine (Pepcid) 20 mg DAILY PO Last administered on 07/12/16 08:42; Admin Dose 20 MG; Start 07/10/16 at 09:00 Hydralazine HCl (Apresoline) 10 mg Q4H PRN IV SBP>170 Last administered on 07/12 04:47; Admin Dose 10 MG; Start 07/10/16 at 19:00 Clonidine (Catapres) 0.1 mg TID PO Last administered on 07/12/16 12:34; Admin Dose 0.1 MG; Start 07/10/16 at 21:00 Diagnostic Test (Pha) (Accucheck) 1 ea 02 XX Last administered on 07/12/16 03: 25; Admin Dose 1 EA; Start 07/11/16 at 02:00 Loratadine (Claritin) 10 mg DAILY GTB Last administered on 07/12/16 08:41; Admin Dose 10 MG; Start 07/11/16 at 09:00 Insulin Glargine (Lantus) 15 unit HS SC Last administered on 07/11/16 21:01; Admin Dose 15 UNIT; Start 07/10/16 at 21:00 Prednisone (Prednisone) 20 mg DAILY PO Last administered on 07/12/16 08:41; Admin Dose 20 MG; Start 07/11/16 at 09:00 Fluconazole (Diflucan) 100 mg DAILY PO Last administered on 07/12/16 08:40; Admin Dose 100 MG; Start 07/10/16 at 20:30 Hydralazine HCl (Apresoline) 10 mg Q4H PRN IV SBP>170 Last administered on 07/11 15:55; Admin Dose 10 MG; Start 07/11/16 at 16:00 Sodium Polystyrene Sulfonate (Kayexalate) 30 gm BID PRN PO NOTE Last administered on 07/11/16 20:58; Admin Dose 30 GM; Start 07/11/16 at 20:00 ADÁN MONTEIRO MD Jul 12, 2016 17:38
--- NOTE | 2016-07-12 19:01 | PN ---
Date/Time of Note Date/Time of Note DATE: 07/12/16 TIME: 18:59 Assessment/Plan VTE Prophylaxis VTE Prophylaxis Intervention: SCD's Lines/Catheters IV C[facility] Type [facility]from [facility] Saline Lock Urinary Cath still in place: No Assessment/Plan Chief Complaint/Hosp Course Assessment and plan -Acute kidney injury, continue IV fluids, Dr. Hoffman is asked to see patient in nephrology consultation, continue monitor BUN and creatinine -Dehydration on admission, resolving -Hyperkalemia, status post treatment -Diabetes mellitus type 2, continue Lantus and NovoLog per sliding scale. -Possible allergic reaction to antibiotics, patient was on Bactrim and Keflex prior to admission -Hypertension, continue metoprolol, Norvasc. -Status post left transmetatarsal amputation Continue Lovenox for deep venous thrombosis prophylaxis and Pepcid for peptic ulcer disease prophylaxis. Further recommendations based on clinical course, Plan of care discussed with Dr. Swain. Problems: Subjective 24 Hr Interval Summary Free Text/Dictation Sinus rhythm on telemetry, stable electrolytes, will downgrade to med surge, blood sugar is better controlled. Exam/Review of Systems Vital Signs Vitals Vital Signs Date Time Temp Pulse Resp B/P Pulse Ox O2 Delivery O2 Flow Rate FiO2 07/12/16 18:42 97.4 60 16 170/76 100 Intake and Output 07/11/16 07/11/16 07/12/16 14:59 22:59 06:59 Intake Total 350 ml Balance 350 ml Exam Constitutional: alert, oriented Psych: no complaints Head: atraumatic, normocephalic Eyes: nl conjunctiva ENMT: nl external ears & nose Neck: non-tender, supple Respiratory: clear to auscultation, normal air movement Cardiovascular: regular rate and rhythm Gastrointestinal: non-tender, soft Genitourinary - Female: nl adnexae Musculoskeletal: nl extremities to inspection Extremities: normal pulses 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 Results Result Diagram: 07/10/16 0550 07/12/16 0545 Results 24 hrs Laboratory Tests Test 07/11/16 20:14 07/12/16 03:15 07/12/16 05:45 07/12/16 07:52 Bedside Glucose 313 H 250 H 206 Anion Gap 12 Blood Urea Nitrogen 58 H Calcium Level 8.1 L Carbon Dioxide Level 27 Chloride Level 105 Creatinine 2.47 H Glucose Level 216 Potassium Level 3.9 Sodium Level 140 Test 07/12/16 12:15 07/12/16 17:15 Bedside Glucose 145 137 Medications Medications Current Medications Amlodipine Besylate (Norvasc) 10 mg DAILY PO Last administered on 07/12/16 08: 42; Admin Dose 10 MG; Start 07/08/16 at 09:00 Aspirin (Halfprin) 81 mg DAILY PO Last administered on 07/12/16 08:43; Admin Dose 81 MG; Start 07/08/16 at 09:00 Calcium Carbonate (Oyster Shell Calcium) 1.25 gm BID PO Last administered on 08:40; Admin Dose 1.25 GM; Start 07/08/16 at 09:00 Clopidogrel Bisulfate (plaVIX) 75 mg DAILY PO Last administered on 07/12/16 08 :43; Admin Dose 75 MG; Start 07/08/16 at 09:00 Docusate Sodium (Colace) 100 mg BID PO Last administered on 07/12/16 08:40; Admin Dose 100 MG; Start 07/08/16 at 09:00 Furosemide (Lasix) 40 mg DAILY PO Last administered on 07/12/16 08:41; Admin Dose 40 MG; Start 07/08/16 at 09:00 Al Hydrox/Mg Hydrox/Simethicone (Mag-Al Plus) 10 ml TID PO Last administered on 07/12/16 12:34; Admin Dose 10 ML; Start 07/08/16 at 09:00 Ondansetron HCl (Zofran Tab) 4 mg Q8H PRN PO NAUSEA AND/OR VOMITING; Start at 22:00 Zolpidem Tartrate (Ambien) 5 mg HS PRN PO insomnia Last administered on 22:14; Admin Dose 5 MG; Start 07/07/16 at 22:00 Ondansetron HCl (Zofran Inj) 4 mg Q6H PRN IV NAUSEA AND/OR VOMITING Last administered on 07/08/16 14:11; Admin Dose 4 MG; Start 07/07/16 at 22:00 Acetaminophen (Tylenol Tab) 650 mg Q6H PRN PO PAIN LEVEL 1-3 OR FEVER Last administered on 07/08/16 14:11; Admin Dose 650 MG; Start 07/07/16 at 22:00 Enoxaparin Sodium (Lovenox) 30 mg DAILY SC Last administered on 07/12/16 08:36 ; Admin Dose 30 MG; Start 07/08/16 at 09:00 Metoprolol Tartrate (Lopressor) 100 mg BID PO Last administered on 07/12/16 08 :41; Admin Dose 100 MG; Start 07/07/16 at 22:27 Clonidine (Catapres) 0.1 mg Q6H PRN PO SBP > 160; Start 07/07/16 at 22:00 Miscellaneous Information 1 ea NOTE XX ; Start 07/07/16 at 23:00 Glucose (Glutose) 15 gm Q15M PRN PO DECREASED GLUCOSE; Start 07/07/16 at 23:00 Glucose (Glutose) 22.5 gm Q15M PRN PO DECREASED GLUCOSE; Start 07/07/16 at 23: 00 Dextrose (D50w Syringe) 25 ml Q15M PRN IV DECREASED GLUCOSE; Start 07/07/16 at 23:00 Dextrose (D50w Syringe) 50 ml Q15M PRN IV DECREASED GLUCOSE; Start 07/07/16 at 23:00 Glucagon (Glucagen) 1 mg Q15M PRN IM DECREASED GLUCOSE; Start 07/07/16 at 23:00 Glucose (Glutose) 15 gm Q15M PRN BUCCAL DECREASED GLUCOSE; Start 07/07/16 at 23 :00 Magnesium Hydroxide (Milk Of Mag) 30 ml Q24H PRN PO CONSTIPATION Last administered on 07/09/16 21:10; Admin Dose 30 ML; Start 07/08/16 at 22:00 Famotidine (Pepcid) 20 mg DAILY PO Last administered on 07/12/16 08:42; Admin Dose 20 MG; Start 07/10/16 at 09:00 Hydralazine HCl (Apresoline) 10 mg Q4H PRN IV SBP>170 Last administered on 07/12 18:48; Admin Dose 10 MG; Start 07/10/16 at 19:00 Clonidine (Catapres) 0.1 mg TID PO Last administered on 07/12/16 12:34; Admin Dose 0.1 MG; Start 07/10/16 at 21:00 Diagnostic Test (Pha) (Accucheck) 1 ea 02 XX Last administered on 07/12/16 03: 25; Admin Dose 1 EA; Start 07/11/16 at 02:00 Loratadine (Claritin) 10 mg DAILY GTB Last administered on 07/12/16 08:41; Admin Dose 10 MG; Start 07/11/16 at 09:00 Insulin Glargine (Lantus) 15 unit HS SC Last administered on 07/11/16 21:01; Admin Dose 15 UNIT; Start 07/10/16 at 21:00 Prednisone (Prednisone) 20 mg DAILY PO Last administered on 07/12/16 08:41; Admin Dose 20 MG; Start 07/11/16 at 09:00 Fluconazole (Diflucan) 100 mg DAILY PO Last administered on 07/12/16 08:40; Admin Dose 100 MG; Start 07/10/16 at 20:30 Hydralazine HCl (Apresoline) 10 mg Q4H PRN IV SBP>170 Last administered on 07/11 15:55; Admin Dose 10 MG; Start 07/11/16 at 16:00 Sodium Polystyrene Sulfonate (Kayexalate) 30 gm BID PRN PO NOTE Last administered on 07/11/16 20:58; Admin Dose 30 GM; Start 07/11/16 at 20:00 CASSIUS POOLE Jul 12, 2016 19:01
[2016-07-12] MEDS: ZOLPIDEM 5 MG TAB PO PRN (21:39)
[2016-07-12] MEDS: INSULIN GLARGINE [LANtus] 3 ML PEN SC SCH (21:42)
[2016-07-13] MEDS: ACCUCHECK XX SCH (02:00)
[2016-07-13 06:04] LABS: BASOPHILS % 0.4 % (0.0-2.0); EOSINOPHILS # 0.1 10^3/ul (0.0-0.5); EOSINOPHILS % 1.1 % (0.0-7.0); HEMATOCRIT 30.9 % (37.0-47.0); HEMOGLOBIN 10.4 g/dl (12.0-16.0); LYMPHOCYTES # 2.3 10^3/ul (0.8-2.9); LYMPHOCYTES % 18.9 % (15.0-51.0); MEAN CORPUSCULAR HEMOGLOBIN 27.5 pg (29.0-33.0); MEAN CORPUSCULAR HGB CONC 33.8 g/dl (32.0-37.0); MEAN CORPUSCULAR VOLUME 81.6 fl (82.0-101.0); MEAN PLATELET VOLUME 8.9 fl (7.4-10.4); MONOCYTE # 0.7 10^3/ul (0.3-0.9); NEUTROPHIL # 9.1 10^3/ul (1.6-7.5); NEUTROPHILS % 73.6 % (39.0-77.0); PLATELET COUNT 358 10^3/UL (140-440); RED BLOOD COUNT 3.78 10^6/ul (4.20-5.40); RED CELL DISTRIBUTION WIDTH 13.7 % (11.5-14.5); UNCORRECTED WBC 12.3 10^3/ul (4.8-10.8); WHITE BLOOD COUNT 12.3 10^3/ul (4.8-10.8)
[2016-07-13 06:07] LABS: POTASSIUM 3.9 mmol/L (3.5-5.1)
[2016-07-13 06:10] LABS: CREATININE 2.25 mg/dl (0.44-1.00)
[2016-07-13 06:11] LABS: CALCIUM 8.1 mg/dl (8.4-10.2)
[2016-07-13 06:38] LABS: CONDITION 1; LH ANALYZER COMMENTS 1
[2016-07-13 07:30] VITALS: BP 136/67; RESP 16
[2016-07-13] MEDS: LORATADINE 10 MG TAB GTB SCH (08:47)
[2016-07-13] MEDS: AMLODIPINE 10 MG TAB PO SCH (08:49)
[2016-07-13] MEDS: FAMOTIDINE 20 MG TAB PO SCH (08:49)
[2016-07-13] MEDS: FUROSEMIDE 40 MG TAB PO SCH (08:49)
[2016-07-13] MEDS: CALCIUM CARBONATE 1.25 GM TAB PO SCH ×2 (08:49→20:30)
[2016-07-13] MEDS: CLOPIDOGREL 75 MG TAB PO SCH (08:49)
[2016-07-13] MEDS: DOCUSATE SODIUM 100 MG CAP PO SCH ×2 (08:50→20:29)
[2016-07-13] MEDS: predniSONE 20 MG TAB PO SCH (08:50)
[2016-07-13] MEDS: FLUCONAZOLE 100 MG TAB PO SCH (08:50)
[2016-07-13] MEDS: ASPIRIN (EC) 81 MG TAB PO SCH (08:50)
[2016-07-13 08:51] VITALS: BP 142/69; PULSE 56
[2016-07-13] MEDS: AL HYDROX/MG HYDROX/SIMETH 30 ML CUP PO SCH ×3 (08:51→20:30)
[2016-07-13] MEDS: ENOXAPARIN 30 MG/0.3 ML SYG SC SCH (08:56)
[2016-07-13] MEDS: INSULIN ASPART [NOVOLOG] 3 ML PEN SC SCH ×7 (08:57→20:38)
[2016-07-13] MEDS: METOPROLOL 100 MG TAB PO SCH ×2 (09:53→20:31)
[2016-07-13 09:55] VITALS: BP 135/60; PULSE 61
--- NOTE | 2016-07-13 11:28 | CONS ---
Date/Time of Note Date/Time of Note DATE: 07/13/16 TIME: 11:28 Assessment/Plan Assessment/Plan Additional Assessment/Plan 60 yo Female with 1) Cindy on CKD III 2) Hyperkalemia- Resolved 3) Hx of DM with DM Nephropathy 4) Chronic HTN 5) Anemia, Chronic Disease. 6) Hyponatremia- Resolved Renal function stable Electrolyte abnormality improved Will cont to monitor UO, Electrolytes and renal function closely. Thank you for the opportunity to participate in the care of Ms. Shah Do not hesitate to contact me if you have any questions or concerns Consultation Date/Type/Reason Admit Date/Time Jul 07, 2016 at 20:29 Initial Consult Date 07/11/16 Type of Consultation: Nephrology Referring Provider: BRANDON GUAMAN MD Exam/Review of Systems Vital Signs Vitals Vital Signs Date Time Temp Pulse Resp B/P Pulse Ox O2 Delivery O2 Flow Rate FiO2 07/13/16 09:55 61 135/60 07/13/16 07:30 98.8 16 97 Intake and Output 07/12/16 07/12/16 07/13/16 15:00 23:00 07:00 Intake Total 1080 ml 120 ml Balance 1080 ml 120 ml Exam Constitutional: No distress ENMT: mucosa pink and moist Neck: No jvd Respiratory: clear to auscultation Cardiovascular: regular rate and rhythm, No edema Gastrointestinal: soft Neurological: 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, nl mental status Results Result Diagram: 07/13/16 0500 07/13/16 0500 Results 24 hrs Laboratory Tests Test 07/12/16 12:15 07/12/16 17:15 07/12/16 21:35 07/13/16 01:39 Bedside Glucose 145 137 231 H 201 Test 07/13/16 05:00 07/13/16 07:50 Anion Gap 13 Basophils # 0.0 Basophils % 0.4 Blood Morphology Comment Blood Urea Nitrogen 66 H Calcium Level 8.1 L Carbon Dioxide Level 29 Chloride Level 102 Creatinine 2.25 H Eosinophils # 0.1 Eosinophils % 1.1 Glucose Level 163 Hematocrit 30.9 L Hemoglobin 10.4 L Lymphocytes # 2.3 Lymphocytes % 18.9 Mean Corpuscular Hemoglobin 27.5 L Mean Corpuscular Hemoglobin Concent 33.8 Mean Corpuscular Volume 81.6 L Mean Platelet Volume 8.9 Monocytes # 0.7 Monocytes % 6.0 Neutrophils # 9.1 H Neutrophils % 73.6 Nucleated Red Blood Cells # 0.0 Nucleated Red Blood Cells % 0.0 Platelet Count 358 Potassium Level 3.9 Red Blood Count 3.78 L Red Cell Distribution Width 13.7 Sodium Level 140 White Blood Count 12.3 #H Bedside Glucose 150 Medications Medications Current Medications Amlodipine Besylate (Norvasc) 10 mg DAILY PO Last administered on 07/13/16 08: 49; Admin Dose 10 MG; Start 07/08/16 at 09:00 Aspirin (Halfprin) 81 mg DAILY PO Last administered on 07/13/16 08:50; Admin Dose 81 MG; Start 07/08/16 at 09:00 Calcium Carbonate (Oyster Shell Calcium) 1.25 gm BID PO Last administered on 08:49; Admin Dose 1.25 GM; Start 07/08/16 at 09:00 Clopidogrel Bisulfate (plaVIX) 75 mg DAILY PO Last administered on 07/13/16 08 :49; Admin Dose 75 MG; Start 07/08/16 at 09:00 Docusate Sodium (Colace) 100 mg BID PO Last administered on 07/13/16 08:50; Admin Dose 100 MG; Start 07/08/16 at 09:00 Furosemide (Lasix) 40 mg DAILY PO Last administered on 07/13/16 08:49; Admin Dose 40 MG; Start 07/08/16 at 09:00 Al Hydrox/Mg Hydrox/Simethicone (Mag-Al Plus) 10 ml TID PO Last administered on 07/13/16 08:51; Admin Dose 10 ML; Start 07/08/16 at 09:00 Ondansetron HCl (Zofran Tab) 4 mg Q8H PRN PO NAUSEA AND/OR VOMITING; Start at 22:00 Zolpidem Tartrate (Ambien) 5 mg HS PRN PO insomnia Last administered on 21:39; Admin Dose 5 MG; Start 07/07/16 at 22:00 Ondansetron HCl (Zofran Inj) 4 mg Q6H PRN IV NAUSEA AND/OR VOMITING Last administered on 07/08/16 14:11; Admin Dose 4 MG; Start 07/07/16 at 22:00 Acetaminophen (Tylenol Tab) 650 mg Q6H PRN PO PAIN LEVEL 1-3 OR FEVER Last administered on 07/08/16 14:11; Admin Dose 650 MG; Start 07/07/16 at 22:00 Enoxaparin Sodium (Lovenox) 30 mg DAILY SC Last administered on 07/13/16 08:56 ; Admin Dose 30 MG; Start 07/08/16 at 09:00 Metoprolol Tartrate (Lopressor) 100 mg BID PO Last administered on 07/13/16 09 :53; Admin Dose 100 MG; Start 07/07/16 at 22:27 Clonidine (Catapres) 0.1 mg Q6H PRN PO SBP > 160; Start 07/07/16 at 22:00 Miscellaneous Information 1 ea NOTE XX ; Start 07/07/16 at 23:00 Glucose (Glutose) 15 gm Q15M PRN PO DECREASED GLUCOSE; Start 07/07/16 at 23:00 Glucose (Glutose) 22.5 gm Q15M PRN PO DECREASED GLUCOSE; Start 07/07/16 at 23: 00 Dextrose (D50w Syringe) 25 ml Q15M PRN IV DECREASED GLUCOSE; Start 07/07/16 at 23:00 Dextrose (D50w Syringe) 50 ml Q15M PRN IV DECREASED GLUCOSE; Start 07/07/16 at 23:00 Glucagon (Glucagen) 1 mg Q15M PRN IM DECREASED GLUCOSE; Start 07/07/16 at 23:00 Glucose (Glutose) 15 gm Q15M PRN BUCCAL DECREASED GLUCOSE; Start 07/07/16 at 23 :00 Magnesium Hydroxide (Milk Of Mag) 30 ml Q24H PRN PO CONSTIPATION Last administered on 07/09/16 21:10; Admin Dose 30 ML; Start 07/08/16 at 22:00 Famotidine (Pepcid) 20 mg DAILY PO Last administered on 07/13/16 08:49; Admin Dose 20 MG; Start 07/10/16 at 09:00 Hydralazine HCl (Apresoline) 10 mg Q4H PRN IV SBP>170 Last administered on 07/12 18:48; Admin Dose 10 MG; Start 07/10/16 at 19:00 Clonidine (Catapres) 0.1 mg TID PO Last administered on 07/13/16 09:52; Admin Dose 0.1 MG; Start 07/10/16 at 21:00 Diagnostic Test (Pha) (Accucheck) 1 ea 02 XX Last administered on 07/12/16 03: 25; Admin Dose 1 EA; Start 07/11/16 at 02:00 Loratadine (Claritin) 10 mg DAILY GTB Last administered on 07/13/16 08:47; Admin Dose 10 MG; Start 07/11/16 at 09:00 Insulin Glargine (Lantus) 15 unit HS SC Last administered on 07/12/16 21:42; Admin Dose 15 UNIT; Start 07/10/16 at 21:00 Prednisone (Prednisone) 20 mg DAILY PO Last administered on 07/13/16 08:50; Admin Dose 20 MG; Start 07/11/16 at 09:00 Fluconazole (Diflucan) 100 mg DAILY PO Last administered on 07/13/16 08:50; Admin Dose 100 MG; Start 07/10/16 at 20:30 Hydralazine HCl (Apresoline) 10 mg Q4H PRN IV SBP>170 Last administered on 07/11 15:55; Admin Dose 10 MG; Start 07/11/16 at 16:00 Sodium Polystyrene Sulfonate (Kayexalate) 30 gm BID PRN PO NOTE Last administered on 07/11/16 20:58; Admin Dose 30 GM; Start 07/11/16 at 20:00 ADÁN MONTEIRO MD Jul 13, 2016 11:28
--- NOTE | 2016-07-13 11:54 | PN ---
Date/Time of Note Date/Time of Note DATE: 07/13/16 TIME: 11:50 Assessment/Plan VTE Prophylaxis VTE Prophylaxis Intervention: LMWH Lines/Catheters [facility]from [facility] Saline Lock Urinary Cath still in place: No Assessment/Plan Assessment/Plan -Acute kidney injury, continue IV fluids, - per nephrology consultation - continue monitor BUN and creatinine - Mild Leukocytosis- afebrile, urine cs- neg - CBC am -Dehydration on admission, resolving -Hyperkalemia - resolved -Diabetes mellitus type 2 - continue Lantus and NovoLog per sliding scale. -Possible allergic reaction to antibiotics, patient was on Bactrim and Keflex prior to admission -Hypertension, continue metoprolol, Norvasc. -Status post left transmetatarsal amputation Continue Lovenox for deep venous thrombosis prophylaxis and Pepcid for peptic ulcer disease prophylaxis. Further recommendations based on clinical course, Plan of care discussed with Dr. Swain. Exam/Review of Systems Vital Signs Vitals Vital Signs Date Time Temp Pulse Resp B/P Pulse Ox O2 Delivery O2 Flow Rate FiO2 07/13/16 09:55 61 135/60 07/13/16 07:30 98.8 16 97 Intake and Output 07/12/16 07/12/16 07/13/16 15:00 23:00 07:00 Intake Total 1080 ml 120 ml Balance 1080 ml 120 ml Exam Constitutional: alert Head: atraumatic Eyes: EOMI, PERRL, nl sclera ENMT: nl external ears & nose Neck: non-tender Respiratory: clear to auscultation Cardiovascular: regular rate and rhythm Gastrointestinal: non-tender, soft Musculoskeletal: nl extremities to inspection Extremities: normal pulses Neurological: nl speech Skin: other Lymph: nontender Results Result Diagram: 07/13/16 0500 07/13/16 0500 Results 24 hrs Laboratory Tests Test 07/12/16 12:15 07/12/16 17:15 07/12/16 21:35 07/13/16 01:39 Bedside Glucose 145 137 231 H 201 Test 07/13/16 05:00 07/13/16 07:50 Anion Gap 13 Basophils # 0.0 Basophils % 0.4 Blood Morphology Comment Blood Urea Nitrogen 66 H Calcium Level 8.1 L Carbon Dioxide Level 29 Chloride Level 102 Creatinine 2.25 H Eosinophils # 0.1 Eosinophils % 1.1 Glucose Level 163 Hematocrit 30.9 L Hemoglobin 10.4 L Lymphocytes # 2.3 Lymphocytes % 18.9 Mean Corpuscular Hemoglobin 27.5 L Mean Corpuscular Hemoglobin Concent 33.8 Mean Corpuscular Volume 81.6 L Mean Platelet Volume 8.9 Monocytes # 0.7 Monocytes % 6.0 Neutrophils # 9.1 H Neutrophils % 73.6 Nucleated Red Blood Cells # 0.0 Nucleated Red Blood Cells % 0.0 Platelet Count 358 Potassium Level 3.9 Red Blood Count 3.78 L Red Cell Distribution Width 13.7 Sodium Level 140 White Blood Count 12.3 #H Bedside Glucose 150 Medications Medications Current Medications Amlodipine Besylate (Norvasc) 10 mg DAILY PO Last administered on 07/13/16 08: 49; Admin Dose 10 MG; Start 07/08/16 at 09:00 Aspirin (Halfprin) 81 mg DAILY PO Last administered on 07/13/16 08:50; Admin Dose 81 MG; Start 07/08/16 at 09:00 Calcium Carbonate (Oyster Shell Calcium) 1.25 gm BID PO Last administered on 08:49; Admin Dose 1.25 GM; Start 07/08/16 at 09:00 Clopidogrel Bisulfate (plaVIX) 75 mg DAILY PO Last administered on 07/13/16 08 :49; Admin Dose 75 MG; Start 07/08/16 at 09:00 Docusate Sodium (Colace) 100 mg BID PO Last administered on 07/13/16 08:50; Admin Dose 100 MG; Start 07/08/16 at 09:00 Furosemide (Lasix) 40 mg DAILY PO Last administered on 07/13/16 08:49; Admin Dose 40 MG; Start 07/08/16 at 09:00 Al Hydrox/Mg Hydrox/Simethicone (Mag-Al Plus) 10 ml TID PO Last administered on 07/13/16 08:51; Admin Dose 10 ML; Start 07/08/16 at 09:00 Ondansetron HCl (Zofran Tab) 4 mg Q8H PRN PO NAUSEA AND/OR VOMITING; Start at 22:00 Zolpidem Tartrate (Ambien) 5 mg HS PRN PO insomnia Last administered on 21:39; Admin Dose 5 MG; Start 07/07/16 at 22:00 Ondansetron HCl (Zofran Inj) 4 mg Q6H PRN IV NAUSEA AND/OR VOMITING Last administered on 07/08/16 14:11; Admin Dose 4 MG; Start 07/07/16 at 22:00 Acetaminophen (Tylenol Tab) 650 mg Q6H PRN PO PAIN LEVEL 1-3 OR FEVER Last administered on 07/08/16 14:11; Admin Dose 650 MG; Start 07/07/16 at 22:00 Enoxaparin Sodium (Lovenox) 30 mg DAILY SC Last administered on 07/13/16 08:56 ; Admin Dose 30 MG; Start 07/08/16 at 09:00 Metoprolol Tartrate (Lopressor) 100 mg BID PO Last administered on 07/13/16 09 :53; Admin Dose 100 MG; Start 07/07/16 at 22:27 Clonidine (Catapres) 0.1 mg Q6H PRN PO SBP > 160; Start 07/07/16 at 22:00 Miscellaneous Information 1 ea NOTE XX ; Start 07/07/16 at 23:00 Glucose (Glutose) 15 gm Q15M PRN PO DECREASED GLUCOSE; Start 07/07/16 at 23:00 Glucose (Glutose) 22.5 gm Q15M PRN PO DECREASED GLUCOSE; Start 07/07/16 at 23: 00 Dextrose (D50w Syringe) 25 ml Q15M PRN IV DECREASED GLUCOSE; Start 07/07/16 at 23:00 Dextrose (D50w Syringe) 50 ml Q15M PRN IV DECREASED GLUCOSE; Start 07/07/16 at 23:00 Glucagon (Glucagen) 1 mg Q15M PRN IM DECREASED GLUCOSE; Start 07/07/16 at 23:00 Glucose (Glutose) 15 gm Q15M PRN BUCCAL DECREASED GLUCOSE; Start 07/07/16 at 23 :00 Magnesium Hydroxide (Milk Of Mag) 30 ml Q24H PRN PO CONSTIPATION Last administered on 07/09/16 21:10; Admin Dose 30 ML; Start 07/08/16 at 22:00 Famotidine (Pepcid) 20 mg DAILY PO Last administered on 07/13/16 08:49; Admin Dose 20 MG; Start 07/10/16 at 09:00 Hydralazine HCl (Apresoline) 10 mg Q4H PRN IV SBP>170 Last administered on 07/12 18:48; Admin Dose 10 MG; Start 07/10/16 at 19:00 Clonidine (Catapres) 0.1 mg TID PO Last administered on 07/13/16 09:52; Admin Dose 0.1 MG; Start 07/10/16 at 21:00 Diagnostic Test (Pha) (Accucheck) 1 ea 02 XX Last administered on 07/12/16 03: 25; Admin Dose 1 EA; Start 07/11/16 at 02:00 Loratadine (Claritin) 10 mg DAILY GTB Last administered on 07/13/16 08:47; Admin Dose 10 MG; Start 07/11/16 at 09:00 Insulin Glargine (Lantus) 15 unit HS SC Last administered on 07/12/16 21:42; Admin Dose 15 UNIT; Start 07/10/16 at 21:00 Prednisone (Prednisone) 20 mg DAILY PO Last administered on 07/13/16 08:50; Admin Dose 20 MG; Start 07/11/16 at 09:00 Fluconazole (Diflucan) 100 mg DAILY PO Last administered on 07/13/16 08:50; Admin Dose 100 MG; Start 07/10/16 at 20:30 Hydralazine HCl (Apresoline) 10 mg Q4H PRN IV SBP>170 Last administered on 07/11 15:55; Admin Dose 10 MG; Start 07/11/16 at 16:00 Sodium Polystyrene Sulfonate (Kayexalate) 30 gm BID PRN PO NOTE Last administered on 07/11/16 20:58; Admin Dose 30 GM; Start 07/11/16 at 20:00 JACE HICKS Jul 13, 2016 11:54
[2016-07-13 13:52] VITALS: BP 139/65; PULSE 54
[2016-07-13 20:03] VITALS: BP 142/77; RESP 18
[2016-07-13] MEDS: ZOLPIDEM 5 MG TAB PO PRN (20:31)
[2016-07-13] MEDS: INSULIN GLARGINE [LANtus] 3 ML PEN SC SCH (20:34)
[2016-07-14] MEDS: ACCUCHECK XX SCH (02:00)
[2016-07-14 05:42] LABS: BASOPHILS % 0.4 % (0.0-2.0); EOSINOPHILS # 0.1 10^3/ul (0.0-0.5); EOSINOPHILS % 0.8 % (0.0-7.0); HEMATOCRIT 32.6 % (37.0-47.0); HEMOGLOBIN 10.9 g/dl (12.0-16.0); LYMPHOCYTES # 1.8 10^3/ul (0.8-2.9); LYMPHOCYTES % 16.9 % (15.0-51.0); MEAN CORPUSCULAR HEMOGLOBIN 27.2 pg (29.0-33.0); MEAN CORPUSCULAR HGB CONC 33.3 g/dl (32.0-37.0); MEAN CORPUSCULAR VOLUME 81.7 fl (82.0-101.0); MEAN PLATELET VOLUME 8.8 fl (7.4-10.4); MONOCYTE # 0.7 10^3/ul (0.3-0.9); MONOCYTES % 6.8 % (0.0-11.0); NEUTROPHIL # 8.1 10^3/ul (1.6-7.5); NEUTROPHILS % 75.1 % (39.0-77.0); PLATELET COUNT 367 10^3/UL (140-440); RED BLOOD COUNT 3.99 10^6/ul (4.20-5.40); RED CELL DISTRIBUTION WIDTH 13.3 % (11.5-14.5); UNCORRECTED WBC 10.8 10^3/ul (4.8-10.8); WHITE BLOOD COUNT 10.8 10^3/ul (4.8-10.8)
[2016-07-14 05:55] LABS: POTASSIUM 4.8 mmol/L (3.5-5.1)
[2016-07-14 05:57] LABS: CREATININE 2.41 mg/dl (0.44-1.00)
[2016-07-14 05:58] LABS: CALCIUM 8.6 mg/dl (8.4-10.2)
[2016-07-14 06:04] LABS: CONDITION 1; LH ANALYZER COMMENTS 1
[2016-07-14 07:24] VITALS: BP 190/85; RESP 18
[2016-07-14] MEDS: INSULIN ASPART [NOVOLOG] 3 ML PEN SC SCH ×6 (08:15→17:18)
[2016-07-14] MEDS: AL HYDROX/MG HYDROX/SIMETH 30 ML CUP PO SCH ×2 (08:27→12:45)
[2016-07-14] MEDS: FAMOTIDINE 20 MG TAB PO SCH (08:28)
[2016-07-14] MEDS: DOCUSATE SODIUM 100 MG CAP PO SCH (08:28)
[2016-07-14] MEDS: AMLODIPINE 10 MG TAB PO SCH (08:28)
[2016-07-14] MEDS: CLOPIDOGREL 75 MG TAB PO SCH (08:28)
[2016-07-14] MEDS: FUROSEMIDE 40 MG TAB PO SCH (08:28)
[2016-07-14] MEDS: predniSONE 20 MG TAB PO SCH (08:28)
[2016-07-14] MEDS: ASPIRIN (EC) 81 MG TAB PO SCH (08:29)
[2016-07-14] MEDS: FLUCONAZOLE 100 MG TAB PO SCH (08:29)
[2016-07-14] MEDS: CALCIUM CARBONATE 1.25 GM TAB PO SCH (08:29)
[2016-07-14 08:30] VITALS: BP 154/73; PULSE 69
[2016-07-14] MEDS: ENOXAPARIN 30 MG/0.3 ML SYG SC SCH (08:32)
[2016-07-14] MEDS: LORATADINE 10 MG TAB GTB SCH (08:34)
[2016-07-14] MEDS: METOPROLOL 100 MG TAB PO SCH (08:39)
--- NOTE | 2016-07-14 13:36 | CONS ---
Date/Time of Note Date/Time of Note DATE: 07/14/16 TIME: 13:35 Assessment/Plan Assessment/Plan Additional Assessment/Plan 60 yo Female with 1) Cindy on CKD III 2) Hyperkalemia- Resolved 3) Hx of DM with DM Nephropathy 4) Chronic HTN 5) Anemia, Chronic Disease. 6) Hyponatremia- Resolved Renal function stable Electrolyte abnormality improved DC planning as per Primary team F/u with Nephrology in 1-2 weeks Instructions given to patient. Thank you for the opportunity to participate in the care of Ms. Shah Do not hesitate to contact me if you have any questions or concerns Consultation Date/Type/Reason Admit Date/Time Jul 07, 2016 at 20:29 Initial Consult Date 07/11/16 Type of Consultation: Nephrology Referring Provider: BRANDON GUAMAN MD 24 HR Interval Summary Constitutional: No requiring O2 Exam/Review of Systems Vital Signs Vitals Vital Signs Date Time Temp Pulse Resp B/P Pulse Ox O2 Delivery O2 Flow Rate FiO2 07/14/16 08:30 69 154/73 07/14/16 07:24 98.7 18 97 Intake and Output 07/13/16 07/13/16 07/14/16 15:00 23:00 07:00 Intake Total 1900 ml 1400 ml Output Total 600 ml Balance 1300 ml 1400 ml Exam Constitutional: No distress ENMT: mucosa pink and moist Respiratory: No labored breathing Cardiovascular: regular rate and rhythm, No edema Neurological: nl mental status Results Result Diagram: 07/14/16 0450 07/14/16 0450 Results 24 hrs Laboratory Tests Test 07/13/16 17:12 07/13/16 20:28 07/14/16 01:49 07/14/16 04:50 Bedside Glucose 189 297 H 334 H Anion Gap 14 Basophils # 0.0 Basophils % 0.4 Blood Morphology Comment Blood Urea Nitrogen 67 H Calcium Level 8.6 Carbon Dioxide Level 29 Chloride Level 99 Creatinine 2.41 H Eosinophils # 0.1 Eosinophils % 0.8 Glucose Level 275 #H Hematocrit 32.6 L Hemoglobin 10.9 L Lymphocytes # 1.8 Lymphocytes % 16.9 Mean Corpuscular Hemoglobin 27.2 L Mean Corpuscular Hemoglobin Concent 33.3 Mean Corpuscular Volume 81.7 L Mean Platelet Volume 8.8 Monocytes # 0.7 Monocytes % 6.8 Neutrophils # 8.1 H Neutrophils % 75.1 Nucleated Red Blood Cells # 0.0 Nucleated Red Blood Cells % 0.0 Platelet Count 367 Potassium Level 4.8 Red Blood Count 3.99 L Red Cell Distribution Width 13.3 Sodium Level 137 White Blood Count 10.8 Test 07/14/16 08:11 07/14/16 12:38 Bedside Glucose 243 H 231 H Medications Medications Current Medications Amlodipine Besylate (Norvasc) 10 mg DAILY PO Last administered on 07/14/16 08: 28; Admin Dose 10 MG; Start 07/08/16 at 09:00 Aspirin (Halfprin) 81 mg DAILY PO Last administered on 07/14/16 08:29; Admin Dose 81 MG; Start 07/08/16 at 09:00 Calcium Carbonate (Oyster Shell Calcium) 1.25 gm BID PO Last administered on 08:29; Admin Dose 1.25 GM; Start 07/08/16 at 09:00 Clopidogrel Bisulfate (plaVIX) 75 mg DAILY PO Last administered on 07/14/16 08 :28; Admin Dose 75 MG; Start 07/08/16 at 09:00 Docusate Sodium (Colace) 100 mg BID PO Last administered on 07/14/16 08:28; Admin Dose 100 MG; Start 07/08/16 at 09:00 Furosemide (Lasix) 40 mg DAILY PO Last administered on 07/14/16 08:28; Admin Dose 40 MG; Start 07/08/16 at 09:00 Al Hydrox/Mg Hydrox/Simethicone (Mag-Al Plus) 10 ml TID PO Last administered on 07/14/16 12:45; Admin Dose 10 ML; Start 07/08/16 at 09:00 Ondansetron HCl (Zofran Tab) 4 mg Q8H PRN PO NAUSEA AND/OR VOMITING; Start at 22:00 Zolpidem Tartrate (Ambien) 5 mg HS PRN PO insomnia Last administered on 20:31; Admin Dose 5 MG; Start 07/07/16 at 22:00 Ondansetron HCl (Zofran Inj) 4 mg Q6H PRN IV NAUSEA AND/OR VOMITING Last administered on 07/08/16 14:11; Admin Dose 4 MG; Start 07/07/16 at 22:00 Acetaminophen (Tylenol Tab) 650 mg Q6H PRN PO PAIN LEVEL 1-3 OR FEVER Last administered on 07/08/16 14:11; Admin Dose 650 MG; Start 07/07/16 at 22:00 Enoxaparin Sodium (Lovenox) 30 mg DAILY SC Last administered on 07/14/16 08:32 ; Admin Dose 30 MG; Start 07/08/16 at 09:00 Metoprolol Tartrate (Lopressor) 100 mg BID PO Last administered on 07/14/16 08 :39; Admin Dose 100 MG; Start 07/07/16 at 22:27 Clonidine (Catapres) 0.1 mg Q6H PRN PO SBP > 160; Start 07/07/16 at 22:00 Miscellaneous Information 1 ea NOTE XX ; Start 07/07/16 at 23:00 Glucose (Glutose) 15 gm Q15M PRN PO DECREASED GLUCOSE; Start 07/07/16 at 23:00 Glucose (Glutose) 22.5 gm Q15M PRN PO DECREASED GLUCOSE; Start 07/07/16 at 23: 00 Dextrose (D50w Syringe) 25 ml Q15M PRN IV DECREASED GLUCOSE; Start 07/07/16 at 23:00 Dextrose (D50w Syringe) 50 ml Q15M PRN IV DECREASED GLUCOSE; Start 07/07/16 at 23:00 Glucagon (Glucagen) 1 mg Q15M PRN IM DECREASED GLUCOSE; Start 07/07/16 at 23:00 Glucose (Glutose) 15 gm Q15M PRN BUCCAL DECREASED GLUCOSE; Start 07/07/16 at 23 :00 Magnesium Hydroxide (Milk Of Mag) 30 ml Q24H PRN PO CONSTIPATION Last administered on 07/09/16 21:10; Admin Dose 30 ML; Start 07/08/16 at 22:00 Famotidine (Pepcid) 20 mg DAILY PO Last administered on 07/14/16 08:28; Admin Dose 20 MG; Start 07/10/16 at 09:00 Hydralazine HCl (Apresoline) 10 mg Q4H PRN IV SBP>170 Last administered on 07/12 18:48; Admin Dose 10 MG; Start 07/10/16 at 19:00 Clonidine (Catapres) 0.1 mg TID PO Last administered on 07/14/16 12:46; Admin Dose 0.1 MG; Start 07/10/16 at 21:00 Diagnostic Test (Pha) (Accucheck) 1 ea 02 XX Last administered on 07/14/16 02: 00; Admin Dose 1 EA; Start 07/11/16 at 02:00 Loratadine (Claritin) 10 mg DAILY GTB Last administered on 07/14/16 08:34; Admin Dose 10 MG; Start 07/11/16 at 09:00 Insulin Glargine (Lantus) 15 unit HS SC Last administered on 07/13/16 20:34; Admin Dose 15 UNIT; Start 07/10/16 at 21:00 Prednisone (Prednisone) 20 mg DAILY PO Last administered on 07/14/16 08:28; Admin Dose 20 MG; Start 07/11/16 at 09:00 Fluconazole (Diflucan) 100 mg DAILY PO Last administered on 07/14/16 08:29; Admin Dose 100 MG; Start 07/10/16 at 20:30 Hydralazine HCl (Apresoline) 10 mg Q4H PRN IV SBP>170 Last administered on 07/11 15:55; Admin Dose 10 MG; Start 07/11/16 at 16:00 Sodium Polystyrene Sulfonate (Kayexalate) 30 gm BID PRN PO NOTE Last administered on 07/11/16 20:58; Admin Dose 30 GM; Start 07/11/16 at 20:00 ADÁN MONTEIRO MD Jul 14, 2016 13:36
[2016-07-14] MEDS ORDERED: LANT3I SC (15:12)
[2016-07-14] MEDS ORDERED: HYDR-3671 PO (15:12)
[2016-07-14] MEDS ORDERED: NOVO3I SC (15:12)
--- NOTE | 2016-07-15 08:58 | DS ---
DATE OF ADMISSION: 07/07/2016 DATE OF DISCHARGE: 07/14/2016 FINAL DIAGNOSES: 1. Acute kidney injury on chronic kidney disease stage III. 2. Dehydration on admission, resolved. 3. Hyperkalemia secondary to acute kidney injury. 4. Diabetes mellitus type 2 with hyperglycemia. 5. Possible allergic reaction to antibiotics. 6. Hypertension. 7. History of left transmetatarsal amputation. BRIEF HISTORY: The patient is a 61-year-old female who presented to the emergency room with recent complaints of dizziness and generalized weakness for 2 days. The patient had multiple episodes of n onbloody, nonbilious emesis for 2 days. The patient also with suprapubic abdominal discomfort and i ncreased urination. The patient has recently been treated for a superficial upper abdominal abscess and underwent I and D and the patient was also started on Bactrim and Keflex orally. The patient w as diagnosed with a possible reaction to antibiotics and was noted to have acute renal failure with tubular necrosis and also hyperkalemia and dehydration and was admitted for further evaluation and m anagement to the telemetry floor. HOSPITAL COURSE: The patient was given Kayexalate for an elevated potassium. The patient was also evaluated by Dr. Hassan in nephrology consultation. The patient was given IV fluids. The patient was also started on Lantus and NovoLog for diabetes. The patient was getting steroids and Claritin for possible adverse reaction to medication. The patient's Cozaar was stopped due to an elevated cr eatinine. The patient's BUN and creatinine was closely monitored. It improved. The patient on adm ission was 4.24 and on discharge the patient's creatinine is 2.4. Due to chronic kidney disease the patient was monitored on the telemetry floor. The patient's electrolytes were stable. The patient denies any fever, denies any abdominal pain. There is no leukocytosis. The patient was very eager to go home. Offered to stay to titrate insulin because the patient was noted to have elevated sugar s to 231 today; however; was well controlled yesterday. The patient was also given Diflucan for yea st in the urine, noted on UA. The patient's urine culture was negative. The patient's blood pressu re was monitored. She was given hydralazine p.r.n., in addition to routine medications of Norvasc a nd metoprolol. The patient will be discharged home. CONDITION ON DISCHARGE: Hemodynamically stable. ACTIVITY: As patient tolerates. DIET: 1800 ADA renal diet. DISCHARGE MEDICATIONS: The patient was given prescriptions for: 1. Lantus 20 units subcutaneously at bedtime and premeal NovoLog 7 units subcutaneous with meals t. i.d. 2. Hydralazine 25 mg p.o. q.8 hours. The patient is to continue on: 3. Norvasc. 4. Aspirin. 5. Calcium carbonate. 6. Clonidine. 7. Plavix. 8. Colace. 9. Lovastatin. 10. Metoprolol. 11. Zofran p.r.n. 12. Ambien p.r.n. The patient was instructed to follow up with her primary care physician in 1 to 2 weeks and to follo w up with director digital strategy, Dr. Hassan, in 1 to 2 weeks. Interdisciplinary plan of care was established for this patient. Plan of care was discussed with Dr India Swain. Dictated By: CASSIUS POOLE DRUG SAFETY SCIENTIST for BRANDON SWAIN MD, SR/NTS Conf#: [id number] DID#: [id number]
== END 2016-07-14 18:29 | disposition home or self-care (01) | DRG 683 ==
LOC: E/R 18:02 → TEL 20:29 → MS2 07-12 18:20
PROVIDERS: ADMIT Internal Medicine; ATTEND Internal Medicine
DX: N17.0 Acute kidney failure with tubular necrosis (principal); E87.1 Hypo-osmolality and hyponatremia; E11.21 Type 2 diabetes mellitus with diabetic nephropathy; E11.51 Type 2 diabetes mellitus with diabetic peripheral angiopathy without gangrene; E78.5 Hyperlipidemia, unspecified; E11.65 Type 2 diabetes mellitus with hyperglycemia; E86.0 Dehydration; D64.9 Anemia, unspecified; E87.5 Hyperkalemia; E11.22 Type 2 diabetes mellitus with diabetic chronic kidney disease; I12.9 Hypertensive chronic kidney disease with stage 1 through stage 4 chronic kidney disease, or unspecified chronic kidney disease; N18.3 Chronic kidney disease, stage 3 (moderate); Z89.432 Acquired absence of left foot; Z79.4 Long term (current) use of insulin; T36.1X5A Adverse effect of cephalosporins and other beta-lactam antibiotics, initial encounter; T37.0X5A Adverse effect of sulfonamides, initial encounter; Z79.82 Long term (current) use of aspirin
CPT/HCPCS: 36415; 71010; 76775; 80048; 80053; 81001; 81003; 82962; 83036; 83690; 83935; 84132; 84300; 84484; 85025; 87086; 90686; 93005; 96374; 96375; J0360; J1650; J1815; J1885; J2405; J7030; J7040; J7512

== ENCOUNTER 2017-01-01 12:45 | Inpatient (IN) | payer OTHER ==
[~2017-01-01] VITALS: Ht 152.4 cm; Wt 70.5 kg
[~2017-01-01 12:45] MED LIST changes: -BACTDS PO; -CEPH-443 PO; -CIPR500T4 PO; -CLOT30CR24 TOP; -FURO40TA4 PO; -HC1C30 TOP; +HYDR-3671 PO; -INSU100V14 SC; -LOSA100T7 PO; +MAG355OR14 PO; +NOVO3I SC; -NPH,100V SC; +ONDA4TAB8 PO; -PANT40TA4 PO; -ZOLP5TAB6 PO; +ZOLP5TAB7 PO
[2017-01-01] MEDS ORDERED: metroNIDAZOLE 500 MG/NS (PMX) 100 ML IVPB STA (16:39)
[2017-01-01] MEDS ORDERED: morphine 4 MG/ML VIAL IV STA (16:39)
[2017-01-01] MEDS ORDERED: SOD CHLORIDE 0.9% 1,000 ML IV STA (16:39)
[2017-01-01] MEDS ORDERED: CEFEPIME 1GM/50 ML (PMX) 50 ML IVPB ONE (17:00)
[2017-01-01] MEDS ORDERED: VANCOMYCIN 1 GM (PMX) 250 ML IVPB SCH (17:00)
[2017-01-01 17:24] LABS: ADD SCAN DIFF NO
[2017-01-01 17:26] LABS: BASOPHIL # 0.2 10^3/ul (0.0-0.1); BASOPHILS % 1.2 % (0.0-2.0); EOSINOPHILS # 0.8 10^3/ul (0.0-0.5); EOSINOPHILS % 5.7 % (0.0-7.0); HEMATOCRIT 37.1 % (37.0-47.0); HEMOGLOBIN 11.6 g/dl (12.0-16.0); LYMPHOCYTES # 2.2 10^3/ul (0.8-2.9); MEAN CORPUSCULAR HEMOGLOBIN 25.6 pg (29.0-33.0); MEAN CORPUSCULAR HGB CONC 31.3 g/dl (32.0-37.0); MEAN CORPUSCULAR VOLUME 81.9 fl (82.0-101.0); MEAN PLATELET VOLUME 10.2 fl (7.4-10.4); MONOCYTES % 7.3 % (0.0-11.0); NEUTROPHIL # 9.4 10^3/ul (1.6-7.5); PLATELET COUNT 511 10^3/UL (140-415); RED BLOOD COUNT 4.53 10^6/ul (4.20-5.40); WHITE BLOOD COUNT 13.6 10^3/ul (4.8-10.8)
[2017-01-01] MEDS ORDERED: traMADol 50 MG TAB PO ONE (17:30)
[2017-01-01 17:40] LABS: INR 0.87; PROTIME 11.8 Sec (12.2-14.2); PT RATIO 0.9
[2017-01-01 17:41] LABS: PARTIAL THROMBOPLASTIN TIME 28.8 Sec (25.0-35.0)
[2017-01-01 17:44] LABS: CALCIUM 8.6 mg/dl (8.4-10.2); CREATININE 4.07 mg/dl (0.44-1.00); POTASSIUM 4.9 mmol/L (3.5-5.1)
[2017-01-01 17:47] LABS: ADD UMIC YES; UR ASCORBIC ACID NEGATIVE (NEGATIVE); UR BILIRUBIN (Dip) NEGATIVE (NEGATIVE); UR BLOOD (Dip) NEGATIVE (NEGATIVE); UR CLARITY CLEAR (CLEAR); UR COLOR STRAW (YELLOW); UR GLUCOSE (Dip) 2+ mg/dL (NEGATIVE); UR KETONES (Dip) NEGATIVE (NEGATIVE); UR LEUKOCYTE ESTERASE (Dip) TRACE Leu/ul (NEGATIVE); UR NITRITE (Dip) NEGATIVE (NEGATIVE); UR RBC 2 /HPF (0-5); UR SPECIFIC GRAVITY (Dip) 1.006 (1.003-1.030); UR SQUAMOUS EPITHELIAL CELL FEW /HPF (FEW); UR TOTAL PROTEIN (Dip) 2+ mg/dl (NEGATIVE); UR UROBILINOGEN (Dip) NEGATIVE (NEGATIVE)
[2017-01-01] MEDS ORDERED: FER325 PO (18:10)
[2017-01-01] MEDS ORDERED: FURO40TA4 PO (18:10)
[2017-01-01] MEDS ORDERED: PANT40TA4 PO (18:11)
[2017-01-01] MEDS ORDERED: LOSA50TA6 PO (18:12)
[2017-01-01] MEDS ORDERED: TRAM-40 PO (18:13)
[2017-01-01] MEDS ORDERED: MONT10TA24 PO (18:14)
[2017-01-01] MEDS ORDERED: INSU100V3 IJ (18:15)
[2017-01-01] MEDS ORDERED: INSU300I SQ (18:16)
[2017-01-01] MEDS ORDERED: CALC600T11 PO (18:18)
--- NOTE | 2017-01-01 18:26 | ERA ---
ER Documentation Chief Complaint Date/Time DATE: 01/01/17 TIME: 18:22 Chief Complaint RIGHT GREAT TOE NECROSIS SENT BY DR HU FOR ADMISSION . NO FEVERS HPI This 61-year-old female comes emergency room because he was told to by Dr. Hu for pain and necrosis to her right foot. 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 States that she has increasing pain although she fever usually numb she is able to feel pain of her great toe. She has had chills denies fevers. ROS All systems reviewed and are negative except as per history of present illness. Medications Home Meds Reported Medications Calcium Carbonate* (Calcium Carbonate*) 600 MG Ca Tab, 600 MG PO BID, TAB 01/01/17 Insulin Glargine,Hum.rec.anlog (Aleksandra Valles) 300 Unit/1 Ml Insuln.pen, 24 UNIT SQ QHS 01/01/17 Insulin Regular, Human (Humulin R) 100 Unit/1 Ml Vial, 10 UNIT IJ TID, VIAL 01/01/17 Montelukast Sodium* (Montelukast Sodium*) 10 Mg Tablet, 10 MG PO QHS, #30 TAB 01/01/17 Tramadol Hcl* (Ultram*) 50 Mg Tablet, 50 MG PO DAILY Y for PAIN, TAB 01/01/17 Losartan Potassium* (Losartan Potassium*) 50 Mg Tablet, 50 MG PO DAILY, TAB 01/01/17 Pantoprazole* (Pantoprazole*) 40 Mg Tablet.dr, 40 MG PO AC BREAKFAST, TAB 01/01/17 Ferrous Sulfate* (Ferrous Sulfate*) 325 Mg Tabec, 325 MG PO BID, TAB 01/01/17 Furosemide* (Furosemide*) 40 Mg Tablet, 40 MG PO DAILY, TAB 01/01/17 Lovastatin (Lovastatin) 40 Mg Tablet, 40 MG PO HS, TAB 02/02/15 Clopidogrel Bisulfate (Clopidogrel) 75 Mg Tablet, 75 MG PO DAILY, TAB 02/02/15 Metoprolol Tartrate* (Lopressor*) 100 Mg Tablet, 100 MG PO BID, TAB 02/02/15 Amlodipine Besylate* (Norvasc*) 10 Mg Tablet, 10 MG PO DAILY, TAB 02/02/15 Discontinued Reported Medications Magnesium Hydroxide* (Milk Of Magnesia*) 400 Mg/5 Ml Oral.susp, 30 ML PO Q24H for CONSTIPATION, ML 3/24/15 Docusate Sodium* (Colace*) 100 Mg Capsule, 100 MG PO BID, CAP 09/08/14 Calcium Carbonate ([id number]) 1 Tab Tablet, 1 TAB PO BID 09/08/14 Zolpidem Tartrate* (Zolpidem Tartrate*) 5 Mg Tablet, 5 MG PO HS Y, TAB 09/08/14 Aspirin* (Aspirin* EC) 81 Mg Tablet.dr, 81 MG PO DAILY, TAB 08/02/14 Discontinued Scripts Hydralazine Hcl* (Hydralazine Hcl*) 25 Mg Tab, 25 MG PO Q8, #90 TAB Prov:CASSIUS POOLE 07/14/16 Insulin Aspart* (Novolog Insulin Pen*) 100 Unit/Ml Soln, 7 UNIT SC WITH MEALS for 30 Days Prov:CASSIUS POOLE 07/14/16 Insulin Glargine* (Lantus*) 100 Unit/Ml Soln, 20 UNIT SC HS for 30 Days Prov:CASSIUS POOLE 07/14/16 Mag Hydrox/Al Hydrox/Simeth (Maalox Advanced Suspension) 355 Ml Oral.susp, 2 TSP PO TID for GASTROINTESTINAL UPSET, #24 OZ Prov:CORY MALONE MD 07/07/16 Ondansetron Hcl* (Zofran*) 4 Mg Tablet, 4 MG PO Q8H Y for NAUSEA AND/OR VOMITING , #15 TAB Prov:CORY MALONE MD 07/07/16 Clonidine Hcl* (Clonidine Hcl*) 0.1 Mg Tab, 0.1 MG PO Q6H Y for HIGH B/P, #30 TAB Prov:ALEJANDRA LAUREN NP 08/27/14 Allergies Allergies: Coded Allergies: piperacillin (Unverified Adverse Reaction, Mild, Rash (ADR vs. allergy), ) Patient developed rash while on Zosyn in August 2014; resolved after discontinuation Patient has tolerated Zosyn and Teflaro on previous May 2014 admission tazobactam (Unverified Adverse Reaction, Mild, Rash (ADR vs. allergy), ) Patient developed rash while on Zosyn in August 2014; resolved after discontinuation Patient has tolerated Zosyn and Teflaro on previous May 2014 admission PMhx/Soc History of Surgery: Yes (LEFT METATARSAL AMPUTATION, 3 C SECTION) Anesthesia Reaction: No Hx Neurological Disorder: No Hx Respiratory Disorders: No Hx Cardiac Disorders: No Hx Psychiatric Problems: No Hx Miscellaneous Medical Probl: Yes (DM, HTN, HIGH [id number]) Hx Alcohol Use: No Hx Substance Use: No Hx Tobacco Use: No Smoking Status: Never smoker Physical Exam Vitals Vital Signs Date Time Temp Pulse Resp B/P Pulse Ox O2 Delivery O2 Flow Rate FiO2 01/01/17 18:05 66 20 134/71 98 Room Air 01/01/17 12:47 98.4 76 20 165/73 96 Physical Exam Const: [] Mild distress Head: Atraumatic Eyes: Normal Conjunctiva ENT: Normal External Ears, Nose and Mouth. Neck: Full range of motion..~ No meningismus. Resp: Clear to auscultation bilaterally Cardio: Regular rate and rhythm, no murmurs Abd: Soft, non tender, non distended. Normal bowel sounds Skin: No petechiae or rashes Back: No midline or flank tenderness Ext: No cyanosis, palpable dorsalis pedis and posterior tibial pulse with necrotic great toe and second toe with blackness and shrinkage. Mild surrounding cellulitis Neur: Awake and alert Psych: Normal Mood and Affect Result Diagram: 01/01/17 1645 01/01/17 1645 Results 24 hrs Laboratory Tests Test 01/01/17 16:45 01/01/17 17:00 White Blood Count 13.610^3/ul Red Blood Count 4.5310^6/ul Hemoglobin 11.6g/dl Hematocrit 37.1% Mean Corpuscular Volume 81.9fl Mean Corpuscular Hemoglobin 25.6pg Mean Corpuscular Hemoglobin Concent 31.3g/dl Red Cell Distribution Width 14.0% Platelet Count 34573^3/UL Mean Platelet Volume 10.2fl Neutrophils % 69.0% Lymphocytes % 16.0% Monocytes % 7.3% Eosinophils % 5.7% Basophils % 1.2% Nucleated Red Blood Cells % 0.0/100WBC Neutrophils # 9.410^3/ul Lymphocytes # 2.210^3/ul Monocytes # 1.010^3/ul Eosinophils # 0.810^3/ul Basophils # 0.210^3/ul Nucleated Red Blood Cells # 0.010^3/ul Prothrombin Time 11.8Sec Prothrombin Time Ratio 0.9 INR International Normalized Ratio 0.87 Activated Partial Thromboplast Time 28.8Sec Sodium Level 140mmol/L Potassium Level 4.9mmol/L Chloride Level 105mmol/L Carbon Dioxide Level 20mmol/L Anion Gap 20 Blood Urea Nitrogen 61mg/dl Creatinine 4.07mg/dl Glucose Level 126mg/dl Calcium Level 8.6mg/dl Urine Color STRAW Urine Clarity CLEAR Urine pH 6.0 Urine Specific [place] 1.006 Urine Ketones NEGATIVEmg/dL Urine Nitrite NEGATIVEmg/dL Urine Bilirubin NEGATIVEmg/dL Urine Urobilinogen NEGATIVEmg/dL Urine Leukocyte Esterase TRACELeu/ul Urine Microscopic RBC 2/HPF Urine Microscopic WBC 7/HPF Urine Squamous Epithelial Cells FEW/HPF Urine Hemoglobin NEGATIVEmg/dL Urine Glucose 2+mg/dL Urine Total Protein 2+mg/dl Current Medications Medications (Trade) Dose Ordered Sig/Albin Route PRN Reason Start Time Stop Time Status Last Admin Dose Admin Sodium Chloride (NS) 1,000 ml @ 1,000 mls/hr Q1H STAT IV 01/01/17 16:39 01/01/17 17:38 DC 01/01/17 17:14 Morphine Sulfate 4 mg 4 mg ONCE STAT IV 01/01/17 16:39 01/01/17 16:44 DC Metronidazole 100 ml @ 100 mls/hr ONCE STAT IVPB 01/01/17 16:39 01/01/17 17:38 DC 01/01/17 17:58 Cefepime HCl 50 ml @ 100 mls/hr ONCE ONCE IVPB 01/01/17 17:00 01/01/17 17:29 DC 01/01/17 17:13 Vancomycin HCl (Vancocin) 250 ml @ 125 mls/hr ONCE IVPB 01/01/17 17:00 01/01/17 18:59 Tramadol HCl (Ultram) 50 mg ONCE ONCE PO 01/01/17 17:30 01/01/17 17:31 DC 01/01/17 17:34 Ondansetron HCl (Zofran Inj) 4 mg BRIDGE ORDER PRN IV NAUSEA AND/OR VOMITING 01/01/17 18:30 01/02/17 18:29 Acetaminophen (Tylenol Tab) 650 mg ER BRIDGE PRN PO MILD PAIN/FEVER 01/01/17 18:30 01/02/17 18:29 Procedures/MDM Limb threatening cellulitis with necrosis. Also with renal failure. Because patient is allergic to Zosyn she was given cefepime and Flagyl as well as vancomycin. Call was placed to Dr. Hu. Consult was placed under his name. She is being admitted to panel. Spoke with Dr. Lu will be admitting. Patient was also given normal saline IV and tramadol for her pain. Right foot x-ray interpretation: I see no acute fracture dislocation, possible decreased bone density of great toe compared to surrounding toes and distal phalanx. Departure Diagnosis: Primary Impression: Diabetic ulcer of foot associated with type 2 diabetes mellitus, with necrosis of muscle Additional Impression: Renal failure Condition: Serious ROB MAZARIEGOS DO Jan 01, 2017 18:26
[2017-01-01] MEDS ORDERED: ACETAMINOPHEN 325 MG TAB PO PRN (18:30)
[2017-01-01] MEDS ORDERED: ONDANSETRON 4 MG INJ IV PRN (18:30)
--- NOTE | 2017-01-01 19:11 | RADRPT ---
PROCEDURE: XR right foot. CLINICAL INDICATION: Necrotic toes. Possible osteomyelitis. Great toe pain TECHNIQUE: AP, lateral and oblique views of the right foot were obtained. COMPARISON: None. FINDINGS: Focal demineralization is suggested within the tip of the distal phalanx of the great toe with mild plantar periosteal reaction. No fracture is demonstrated. Incidental note is made of a plantar clemente caneal spur. There is no evidence for dislocation. Joint spaces are preserved. Thinning of the so ft tissues about the distal phalanx of the great toe is present with otherwise nonspecific diffuse s oft tissue swelling about the foot. Arteriosclerotic calcification is extensive . There is no evide nce for radiopaque foreign body. RPTAT:HJJR IMPRESSION: 1. Focal demineralization and subtle plantar periosteal reaction involving the distal phalanx for t he great toe of the right foot cannot exclude periostitis with associated osteomyelitis. Consider fo llow-up evaluation. 2. Soft tissue swelling with extensive arteriosclerotic calcification. Physician Santy Date Time Electronically viewed and signed by Physician Santy on 01/01/2017 19:11 /
[2017-01-01 20:00] VITALS: Ht 152.4 cm; Wt 70.5 kg
[2017-01-01 20:30] VITALS: BP 150/68; RESP 18
[2017-01-01] MEDS: INSULIN ASPART [NOVOLOG] 3 ML PEN SC SCH (21:00)
[2017-01-01] MEDS ORDERED: INSULIN GLARGINE HUM REC ANLOG 24 UNIT SQ SCH (21:00)
[2017-01-01] MEDS ORDERED: NON-FORMULARY/PATIENT OWN MED (Calcium Carbonate* 600 MG) PO SCH (21:00)
[2017-01-01] MEDS ORDERED: NON-FORMULARY/PATIENT OWN MED (Lovastatin 40 MG) PO SCH (21:00)
[2017-01-01] MEDS ORDERED: [UNRECOGNIZED DRUG - OTHER] SQ SCH (21:00)
[2017-01-01] MEDS ORDERED: VANCOMYCIN IV PER PHARMACY XX SCH (21:00)
[2017-01-01] MEDS ORDERED: DEXTROSE 50% 50 ML SYRINGE IV PRN ×2 (21:30)
[2017-01-01] MEDS ORDERED: GLUCAGON 1 MG INJ IM PRN (21:30)
[2017-01-01] MEDS ORDERED: GLUCOSE GEL 15 GRAM TUBE PO PRN ×2 (21:30)
[2017-01-01] MEDS ORDERED: GLUCOSE GEL 15 GRAM TUBE BUCCAL PRN (21:30)
[2017-01-01] MEDS: FERROUS SULFATE (EC) 325 MG TAB PO SCH (22:03)
[2017-01-01] MEDS: MONTELUKAST 10 MG TAB PO SCH (22:03)
[2017-01-01] MEDS: METOPROLOL 100 MG TAB PO SCH (22:03)
[2017-01-01] MEDS: ZOLPIDEM 5 MG TAB PO PRN (23:06)
[2017-01-02] MEDS ORDERED: ACCU-CHEK XX SCH (02:00)
[2017-01-02] MEDS: ACCU-CHEK XX SCH (02:00)
[2017-01-02 02:33] VITALS: BP 140/66; RESP 18
[2017-01-02 05:36] LABS: ADD SCAN DIFF NO
[2017-01-02 05:38] LABS: BASOPHIL # 0.1 10^3/ul (0.0-0.1); BASOPHILS % 0.8 % (0.0-2.0); EOSINOPHILS # 0.7 10^3/ul (0.0-0.5); EOSINOPHILS % 7.1 % (0.0-7.0); HEMATOCRIT 30.5 % (37.0-47.0); HEMOGLOBIN 9.6 g/dl (12.0-16.0); LYMPHOCYTES # 1.3 10^3/ul (0.8-2.9); LYMPHOCYTES % 13.7 % (15.0-51.0); MEAN CORPUSCULAR HEMOGLOBIN 25.8 pg (29.0-33.0); MEAN CORPUSCULAR HGB CONC 31.5 g/dl (32.0-37.0); MEAN PLATELET VOLUME 10.4 fl (7.4-10.4); MONOCYTE # 0.9 10^3/ul (0.3-0.9); MONOCYTES % 8.9 % (0.0-11.0); NEUTROPHIL # 6.6 10^3/ul (1.6-7.5); NEUTROPHILS % 69.2 % (39.0-77.0); PLATELET COUNT 417 10^3/UL (140-415); RED BLOOD COUNT 3.72 10^6/ul (4.20-5.40); RED CELL DISTRIBUTION WIDTH 13.7 % (11.5-14.5); WHITE BLOOD COUNT 9.5 10^3/ul (4.8-10.8)
[2017-01-02] MEDS ORDERED: FUROSEMIDE 40 MG TAB PO SCH (06:00)
[2017-01-02 06:12] LABS: CALCIUM 7.5 mg/dl (8.4-10.2); CREATININE 3.71 mg/dl (0.44-1.00); MAGNESIUM 2.2 mg/dl (1.7-2.5); POTASSIUM 4.7 mmol/L (3.5-5.1)
[2017-01-02 07:17] VITALS: BP 148/70; RESP 20
[2017-01-02] MEDS: AMLODIPINE 10 MG TAB PO SCH (08:12)
[2017-01-02] MEDS: FERROUS SULFATE (EC) 325 MG TAB PO SCH ×2 (08:12→20:57)
[2017-01-02] MEDS: CLOPIDOGREL 75 MG TAB PO SCH (08:12)
[2017-01-02] MEDS: METOPROLOL 100 MG TAB PO SCH ×2 (08:13→20:58)
[2017-01-02] MEDS: LOSARTAN 50 MG TAB PO SCH (08:13)
[2017-01-02] MEDS: INSULIN ASPART [NOVOLOG] 3 ML PEN SC SCH ×7 (08:53→21:00)
[2017-01-02] MEDS: PANTOPRAZOLE (EC) 40 MG TAB PO SCH (08:55)
[2017-01-02] MEDS ORDERED: CEFEPIME 1GM/50 ML (PMX) 50 ML IVPB SCH (09:00)
[2017-01-02] MEDS ORDERED: CALCIUM CARBONATE 1.25 GM TAB PO SCH (09:00)
[2017-01-02] MEDS ORDERED: VANCOMYCIN 500MG/NS (PMX) 100 ML IVPB SCH (11:00)
[2017-01-02] MEDS: SOD CHLORIDE 0.9% 1,000 ML IV SCH (13:03)
[2017-01-02 14:54] VITALS: BP 139/61; RESP 20
--- NOTE | 2017-01-02 15:22 | PN ---
Date/Time of Note Date/Time of Note DATE: 01/02/17 TIME: 15:17 Assessment/Plan VTE Prophylaxis VTE Prophylaxis Intervention: SCD's Lines/Catheters IV [facility] (from [facility] Peripheral IV Urinary Cath still in place: No Assessment/Plan Chief Complaint/Hosp Course Patient is a 61-year-old female who presents for pain necrosis to her right foot , told by her interior design instructor to go to the ED. Patient has a past medical history of CKD as well as diabetes mellitus. Assessment Necrotic right lower extremity toes sepsis, mild, resolving Diabetes mellitus MANOHAR vs MANOHAR on CKD Chronic kidney disease Hypertension Left toes amputation Plan -Dr. Marisela Taylor notified that his patient was admitted and will see patient -Dr. Hoffman consulted for MANOHAR vs CKD -Continue home meds as able -Broad-spectrum antibiotics for now -Repeat labs in the morning -Podiatry recommendations appreciated. -Mild hydration, for sepsis, however mild as patient is already out of sepsis. Jourdan Mcmahan DO. Problems: Subjective 24 Hr Interval Summary Free Text/Dictation no acute complaints. Exam/Review of Systems Vital Signs Vitals Vital Signs Date Time Temp Pulse Resp B/P Pulse Ox O2 Delivery O2 Flow Rate FiO2 01/02/17 14:54 98.8 67 20 139/61 97 01/01/17 18:05 Room Air Intake and Output 01/01/17 01/01/17 01/02/17 15:00 23:00 07:00 Intake Total 1150 ml 450 ml Output Total 200 ml Balance 1150 ml 250 ml Exam Physical exam General: Patient is laying in bed and answers questions appropriately Mentation: Patient is alert and oriented 4, Head: Normocephalic atraumatic Eyes: EOMI, pupils reactive to light Neck: Supple, nontender, midline Respiratory: Clear to auscultation bilaterally Cardiovascular: regular rate, no obvious murmurs Gastrointestinal: non-tender to palpation, bowel sounds heard. Neurological: Moves all extremities spontaneously Skin: necrotic great and 2nd toe of R foot. L foot transmetatarsal amputation. Results Result Diagram: 01/02/17 0453 01/02/17 0453 Results 24 hrs Laboratory Tests Test 01/01/17 16:45 01/01/17 17:00 01/01/17 22:02 01/02/17 04:53 White Blood Count 13.6 #H 9.5 # Red Blood Count 4.53 3.72 L Hemoglobin 11.6 L 9.6 L Hematocrit 37.1 30.5 L Mean Corpuscular Volume 81.9 L 82.0 Mean Corpuscular Hemoglobin 25.6 L 25.8 L Mean Corpuscular Hemoglobin Concent 31.3 L 31.5 L Red Cell Distribution Width 14.0 13.7 Platelet Count 511 H 417 H Mean Platelet Volume 10.2 10.4 Neutrophils % 69.0 69.2 Lymphocytes % 16.0 13.7 L Monocytes % 7.3 8.9 Eosinophils % 5.7 7.1 H Basophils % 1.2 0.8 Nucleated Red Blood Cells % 0.0 0.0 Neutrophils # 9.4 H 6.6 Lymphocytes # 2.2 1.3 Monocytes # 1.0 H 0.9 Eosinophils # 0.8 H 0.7 H Basophils # 0.2 H 0.1 Nucleated Red Blood Cells # 0.0 0.0 Prothrombin Time 11.8 L Prothrombin Time Ratio 0.9 INR International Normalized Ratio 0.87 Activated Partial Thromboplast Time 28.8 Sodium Level 140 142 Potassium Level 4.9 4.7 Chloride Level 105 110 Carbon Dioxide Level 20 L 19 L Anion Gap 20 H 18 H Blood Urea Nitrogen 61 H 62 H Creatinine 4.07 H 3.71 H Glucose Level 126 135 Calcium Level 8.6 7.5 L Urine Color STRAW Urine Clarity CLEAR Urine pH 6.0 Urine Specific [place] 1.006 Urine Ketones NEGATIVE Urine Nitrite NEGATIVE Urine Bilirubin NEGATIVE Urine Urobilinogen NEGATIVE Urine Leukocyte Esterase TRACE A Urine Microscopic RBC 2 Urine Microscopic WBC 7 H Urine Squamous Epithelial Cells FEW Urine Hemoglobin NEGATIVE Urine Glucose 2+ H Urine Total Protein 2+ H Bedside Glucose 128 Hemoglobin A1c 8.9 H Phosphorus Level 5.7 H Magnesium Level 2.2 Test 01/02/17 07:45 01/02/17 11:50 Bedside Glucose 164 201 Medications Medications Current Medications Amlodipine Besylate (Norvasc) 10 mg DAILY PO Last administered on 01/02/17 08: 12; Admin Dose 10 MG; Start 01/02/17 at 09:00 Clopidogrel Bisulfate (plaVIX) 75 mg DAILY PO Last administered on 01/02/17 08 :12; Admin Dose 75 MG; Start 01/02/17 at 09:00 Ferrous Sulfate (Ferrous Sulfate (Ec)) 325 mg BID PO Last administered on 08:12; Admin Dose 325 MG; Start 01/01/17 at 21:00 Furosemide (Lasix) 40 mg DAILY@06 PO Last administered on 01/02/17 05:29; Admin Dose 40 MG; Start 01/02/17 at 06:00; Status Future Hold Losartan Potassium (Cozaar) 50 mg DAILY PO Last administered on 01/02/17 08:13 ; Admin Dose 50 MG; Start 01/02/17 at 09:00 Metoprolol Tartrate (Lopressor) 100 mg BID PO Last administered on 01/02/17 08 :13; Admin Dose 100 MG; Start 01/01/17 at 21:00 Montelukast Sodium (Singulair) 10 mg QHS PO Last administered on 01/01/17 22: 03; Admin Dose 10 MG; Start 01/01/17 at 21:00 Tramadol HCl (Ultram) 50 mg DAILY PRN PO PAIN; Start 01/01/17 at 21:00 Diagnostic Test (Pha) (Accu-Chek) 1 ea 02 XX ; Start 01/02/17 at 02:00 Miscellaneous Information 1 ea NOTE XX ; Start 01/01/17 at 21:30 Glucose (Glutose) 15 gm Q15M PRN PO DECREASED GLUCOSE; Start 01/01/17 at 21:30 Glucose (Glutose) 22.5 gm Q15M PRN PO DECREASED GLUCOSE; Start 01/01/17 at 21: 30 Dextrose (D50w Syringe) 25 ml Q15M PRN IV DECREASED GLUCOSE; Start 01/01/17 at 21:30 Dextrose (D50w Syringe) 50 ml Q15M PRN IV DECREASED GLUCOSE; Start 01/01/17 at 21:30 Glucagon (Glucagen) 1 mg Q15M PRN IM DECREASED GLUCOSE; Start 01/01/17 at 21:30 Glucose (Glutose) 15 gm Q15M PRN BUCCAL DECREASED GLUCOSE; Start 01/01/17 at 21 :30 Zolpidem Tartrate 5 mg 5 mg HS PRN PO INSOMNIA Last administered on 01/01/17 23:06; Admin Dose 5 MG; Start 01/01/17 at 22:00 Cefepime HCl (Maxipime 1gm/50 ml (Pmx)) 50 ml @ 100 mls/hr Q24H IVPB ; Start at 22:00 Insulin Glargine (Lantus) 24 unit HS SC ; Start 01/02/17 at 21:00 Calcium Carbonate (Oyster Shell Calcium) 1.25 gm BID PO Last administered on 08:13; Admin Dose 1.25 GM; Start 01/02/17 at 09:00 Atorvastatin Calcium 10 mg 10 mg DAILY@21 PO ; Start 01/02/17 at 21:00 Vancomycin HCl 100 ml @ 100 mls/hr ONCE IVPB Last administered on 01/02/17 10 :28; Admin Dose 100 MLS/HR; Start 01/02/17 at 11:00; Stop 01/02/17 at 16:00 Sodium Chloride (NS) 1,000 ml @ 75 mls/hr [id number] IV Last administered on 01/02 13:03; Admin Dose 75 MLS/HR; Start 01/02/17 at 13:00 JOURDAN MCMAHAN Jan 02, 2017 15:22
[2017-01-02 19:21] VITALS: BP 131/63; RESP 18
[2017-01-02] MEDS: ATORVASTATIN 10 MG TAB PO SCH (20:57)
[2017-01-02] MEDS: MONTELUKAST 10 MG TAB PO SCH (20:58)
[2017-01-02] MEDS: CALCIUM CARBONATE 500 MG CHEW TAB PO SCH (20:58)
[2017-01-02] MEDS: INSULIN GLARGINE [LANtus] 3 ML PEN SC SCH (21:02)
--- NOTE | 2017-01-02 21:28 | RADRPT ---
PROCEDURE: XR Chest. CLINICAL INDICATION: Shortness of breath. TECHNIQUE: Single frontal view. COMPARISON: 07/07/2016. FINDINGS: The lungs are clear. The heart size is normal. There is no pleural effusion. There is no pneumothorax. IMPRESSION: 1. Normal chest radiograph. RPTAT: QQ .Branden Amezcua MD, MD Date Time Electronically viewed and signed by .Branden Amezcua MD, on 01/02/2017 21:28 .R/
[2017-01-02] MEDS: ZOLPIDEM 5 MG TAB PO PRN (22:38)
[2017-01-02] MEDS: traMADol 50 MG TAB PO PRN (22:38)
[2017-01-02] MEDS: CEFEPIME 1GM/50 ML (PMX) 50 ML IVPB SCH (22:38)
[2017-01-03] MEDS: ACCU-CHEK XX SCH (02:00)
[2017-01-03] MEDS: SOD CHLORIDE 0.9% 1,000 ML IV SCH ×2 (02:20→14:08)
[2017-01-03 02:21] VITALS: BP 136/76; RESP 18
[2017-01-03 05:47] LABS: ADD SCAN DIFF NO
[2017-01-03 05:52] LABS: BASOPHIL # 0.1 10^3/ul (0.0-0.1); EOSINOPHILS # 0.9 10^3/ul (0.0-0.5); HEMATOCRIT 31.2 % (37.0-47.0); HEMOGLOBIN 9.7 g/dl (12.0-16.0); LYMPHOCYTES # 1.9 10^3/ul (0.8-2.9); LYMPHOCYTES % 18.1 % (15.0-51.0); MEAN CORPUSCULAR HGB CONC 31.1 g/dl (32.0-37.0); MEAN CORPUSCULAR VOLUME 80.4 fl (82.0-101.0); MEAN PLATELET VOLUME 10.1 fl (7.4-10.4); MONOCYTE # 1.1 10^3/ul (0.3-0.9); MONOCYTES % 10.1 % (0.0-11.0); NEUTROPHIL # 6.6 10^3/ul (1.6-7.5); NEUTROPHILS % 62.3 % (39.0-77.0); PLATELET COUNT 412 10^3/UL (140-415); RED BLOOD COUNT 3.88 10^6/ul (4.20-5.40); RED CELL DISTRIBUTION WIDTH 13.8 % (11.5-14.5); WHITE BLOOD COUNT 10.7 10^3/ul (4.8-10.8)
[2017-01-03 06:16] LABS: ALBUMIN 2.8 g/dl (3.3-4.9); ALBUMIN/GLOBULIN RATIO 0.8; CALCIUM 8.1 mg/dl (8.4-10.2); CREATININE 3.57 mg/dl (0.44-1.00); POTASSIUM 4.5 mmol/L (3.5-5.1); TOTAL PROTEIN 6.3 g/dl (6.1-8.1)
[2017-01-03 06:20] LABS: CALCIUM 8.4 mg/dl (8.4-10.2); CREATININE 3.5 mg/dl (0.44-1.00); MAGNESIUM 2.1 mg/dl (1.7-2.5); PHOSPHORUS 5.3 mg/dl (2.5-4.9); POTASSIUM 4.5 mmol/L (3.5-5.1)
[2017-01-03 07:38] VITALS: BP 156/70; RESP 18
[2017-01-03] MEDS: CALCIUM CARBONATE 500 MG CHEW TAB PO SCH ×2 (08:21→21:30)
[2017-01-03] MEDS: CLOPIDOGREL 75 MG TAB PO SCH (08:21)
[2017-01-03] MEDS: AMLODIPINE 10 MG TAB PO SCH (08:24)
[2017-01-03] MEDS: METOPROLOL 100 MG TAB PO SCH ×2 (08:24→21:30)
[2017-01-03] MEDS: PANTOPRAZOLE (EC) 40 MG TAB PO SCH (08:25)
[2017-01-03] MEDS: FERROUS SULFATE (EC) 325 MG TAB PO SCH ×2 (08:25→21:29)
[2017-01-03] MEDS: LOSARTAN 50 MG TAB PO SCH (08:25)
[2017-01-03] MEDS: INSULIN ASPART [NOVOLOG] 3 ML PEN SC SCH ×7 (08:30→21:00)
--- NOTE | 2017-01-03 11:52 | RADRPT ---
PROCEDURE: Doppler US right lower extremity arteries. CLINICAL INDICATION: Right leg pain. Claudication that interferes significantly with the patient' s lifestyle. TECHNIQUE: Multiple longitudinal and transverse images of the right lower extremity arteries were obtained with hawley scale, pulsed Doppler and color Doppler imaging. COMPARISON: No prior studies are available for comparison. FINDINGS: Location Right CFA61 cm/sec PSFA88 cm/sec MSFA66 cm/sec DSFA47 cm/sec POP66 cm/sec PTA15 cm/sec DPA11 cm/sec There is normal triphasic flow throughout the femoral and popliteal systems. Monophasic flow is pre sent in the calf arteries. IMPRESSION: 1. Normal femoral and popliteal systems. 2. Abnormal monophasic flow in the calf arteries consistent with significant stenosis or proximal o cclusion. RPTAT: QQ .Branden Amezcua MD, MD Date Time Electronically viewed and signed by .Branden Amezcua MD, MD on 01/03/2017 11:51 .R/
--- NOTE | 2017-01-03 13:28 | CONS ---
Date/Time of Note Date/Time of Note DATE: 01/03/17 TIME: 13:23 Assessment/Plan Assessment/Plan Additional Assessment/Plan 61 yo female with 1) Necrotic right lower extremity toes 2) Sepsis, mild, resolving 3) Diabetes mellitus 4) MANOHAR on CKD Stage IV, eGFR 19-21 5) Chronic kidney disease 6) Hypertension 7) Left toes amputation Renal function improved CKD Stage IV Cont current Rx and plan Renal dose all Rx to CKD Stage IV Avoid nephrotoxic Rx whenever possible No acute indication for HD. Consultation Date/Type/Reason Admit Date/Time Jan 01, 2017 at 18:03 Date of Consultation: Jan 03, 2017 Type of Consultation: Nephrology Reason for Consultation Manohar on CKD Referring Provider: CORY EDGE Hx of Present Illness No new complaints, Do well, hx of Stage IV CKD eGFR 19-21 Constitutional: No requiring O2 Past Medical History Medical History: renal disease Past Surgical History Past Surgical Hx: other Social History Alcohol Use: none Smoking Status: Never smoker Drug Use: none Exam/Review of Systems Vital Signs Vitals Vital Signs Date Time Temp Pulse Resp B/P Pulse Ox O2 Delivery O2 Flow Rate FiO2 01/03/17 07:38 98.8 66 18 156/70 97 01/01/17 18:05 Room Air Intake and Output 01/02/17 01/02/17 01/03/17 15:00 23:00 07:00 Intake Total 1215 ml 700 ml Output Total 1000 ml Balance 215 ml 700 ml Exam Constitutional: alert, oriented, No distress ENMT: mucosa pink and moist Neck: No jvd Respiratory: No labored breathing Cardiovascular: regular rate and rhythm, No edema Gastrointestinal: non-tender, soft Neurological: nl mental status, No confused, No lethargic Results Result Diagram: 01/03/17 0533 01/03/17 0533 Results 24 hrs Laboratory Tests Test 01/02/17 17:28 01/02/17 20:56 01/03/17 05:33 01/03/17 08:04 Bedside Glucose 259 H 166 144 White Blood Count 10.7 Red Blood Count 3.88 L Hemoglobin 9.7 L Hematocrit 31.2 L Mean Corpuscular Volume 80.4 L Mean Corpuscular Hemoglobin 25.0 L Mean Corpuscular Hemoglobin Concent 31.1 L Red Cell Distribution Width 13.8 Platelet Count 412 Mean Platelet Volume 10.1 Neutrophils % 62.3 Lymphocytes % 18.1 Monocytes % 10.1 Eosinophils % 8.0 H Basophils % 1.0 Nucleated Red Blood Cells % 0.0 Neutrophils # 6.6 Lymphocytes # 1.9 Monocytes # 1.1 H Eosinophils # 0.9 H Basophils # 0.1 Nucleated Red Blood Cells # 0.0 Erythrocyte Sedimentation Rate 104 H Sodium Level 139 Potassium Level 4.5 Chloride Level 110 Carbon Dioxide Level 17 L Anion Gap 17 H Blood Urea Nitrogen 63 H Creatinine 3.57 H Glucose Level 140 Calcium Level 8.1 L Phosphorus Level 5.3 H Magnesium Level 2.1 Total Bilirubin 0.0 L Direct Bilirubin 0.00 Indirect Bilirubin 0.0 Aspartate Amino Transf (AST/SGOT) 11 L Alanine Aminotransferase (ALT/SGPT) 24 Alkaline Phosphatase 79 Total Protein 6.3 Albumin 2.8 L Globulin 3.50 H Albumin/Globulin Ratio 0.80 Test 01/03/17 11:56 Bedside Glucose 224 H Medications Medications Current Medications Amlodipine Besylate (Norvasc) 10 mg DAILY PO Last administered on 01/03/17 08: 24; Admin Dose 10 MG; Start 01/02/17 at 09:00 Clopidogrel Bisulfate (plaVIX) 75 mg DAILY PO Last administered on 01/03/17 08 :21; Admin Dose 75 MG; Start 01/02/17 at 09:00 Ferrous Sulfate (Ferrous Sulfate (Ec)) 325 mg BID PO Last administered on 08:25; Admin Dose 325 MG; Start 01/01/17 at 21:00 Furosemide (Lasix) 40 mg DAILY@06 PO Last administered on 01/02/17 05:29; Admin Dose 40 MG; Start 01/02/17 at 06:00; Status Future Hold Losartan Potassium (Cozaar) 50 mg DAILY PO Last administered on 01/03/17 08:25 ; Admin Dose 50 MG; Start 01/02/17 at 09:00 Metoprolol Tartrate (Lopressor) 100 mg BID PO Last administered on 01/03/17 08 :24; Admin Dose 100 MG; Start 01/01/17 at 21:00 Montelukast Sodium (Singulair) 10 mg QHS PO Last administered on 01/02/17 20: 58; Admin Dose 10 MG; Start 01/01/17 at 21:00 Tramadol HCl (Ultram) 50 mg DAILY PRN PO PAIN Last administered on 01/02/17 22 :38; Admin Dose 50 MG; Start 01/01/17 at 21:00 Diagnostic Test (Pha) (Accu-Chek) 1 ea 02 XX ; Start 01/02/17 at 02:00 Miscellaneous Information 1 ea NOTE XX ; Start 01/01/17 at 21:30 Glucose (Glutose) 15 gm Q15M PRN PO DECREASED GLUCOSE; Start 01/01/17 at 21:30 Glucose (Glutose) 22.5 gm Q15M PRN PO DECREASED GLUCOSE; Start 01/01/17 at 21: 30 Dextrose (D50w Syringe) 25 ml Q15M PRN IV DECREASED GLUCOSE; Start 01/01/17 at 21:30 Dextrose (D50w Syringe) 50 ml Q15M PRN IV DECREASED GLUCOSE; Start 01/01/17 at 21:30 Glucagon (Glucagen) 1 mg Q15M PRN IM DECREASED GLUCOSE; Start 01/01/17 at 21:30 Glucose (Glutose) 15 gm Q15M PRN BUCCAL DECREASED GLUCOSE; Start 01/01/17 at 21 :30 Zolpidem Tartrate 5 mg 5 mg HS PRN PO INSOMNIA Last administered on 01/02/17 22:38; Admin Dose 5 MG; Start 01/01/17 at 22:00 Cefepime HCl (Maxipime 1gm/50 ml (Pmx)) 50 ml @ 100 mls/hr Q24H IVPB Last administered on 01/02/17 22:38; Admin Dose 100 MLS/HR; Start 01/02/17 at 22:00 Insulin Glargine (Lantus) 24 unit HS SC Last administered on 01/02/17 21:02; Admin Dose 24 UNIT; Start 01/02/17 at 21:00 Atorvastatin Calcium 10 mg 10 mg DAILY@21 PO Last administered on 01/02/17 20: 57; Admin Dose 10 MG; Start 01/02/17 at 21:00 Sodium Chloride (NS) 1,000 ml @ 75 mls/hr [id number] IV Last administered on 01/02 13:03; Admin Dose 75 MLS/HR; Start 01/02/17 at 13:00 Calcium Carbonate (Tums) 500 mg BID PO Last administered on 01/03/17 08:21; Admin Dose 500 MG; Start 01/02/17 at 21:00 Procedures Procedures PROCEDURE: XR Chest. CLINICAL INDICATION: Shortness of breath. TECHNIQUE: Single frontal view. COMPARISON: 07/07/2016. FINDINGS: The lungs are clear. The heart size is normal. There is no pleural effusion. There is no pneumothorax. IMPRESSION: 1. Normal chest radiograph. RPTAT: QQ .Branden Amezcua MD, MD Date Time Electronically viewed and signed by .Branden Amezcua MD, MD on 01/02/2017 21:28 ADÁN MONTEIRO MD Jan 03, 2017 13:27
[2017-01-03 13:43] VITALS: BP 132/65; RESP 18
--- NOTE | 2017-01-03 14:27 | PN ---
Date/Time of Note Date/Time of Note DATE: 01/03/17 TIME: 14:24 Assessment/Plan VTE Prophylaxis VTE Prophylaxis Intervention: SCD's Lines/Catheters IV [facility] Saline Lock Urinary Cath still in place: No Assessment/Plan Chief Complaint/Hosp Course Patient is a 61-year-old female who presents for pain necrosis to her right foot , told by her manager federal to go to the ED. Patient has a past medical history of CKD as well as diabetes mellitus. Assessment Necrotic right lower extremity toes sepsis, mild, resolving Diabetes mellitus MANOHAR vs MANOHAR on CKD Chronic kidney disease Hypertension Left toes amputation Plan -Dr. Marisela Taylor, podiatry consulted, recs appreciated -Dr. Hoffman consulted for MANOHAR vs CKD, recs appreciated -Continue home meds as able -Broad-spectrum antibiotics -Repeat labs in the morning -arterial study shows stenosis -watch bp Jourdan Mcmahan DO. Problems: Subjective 24 Hr Interval Summary Free Text/Dictation no new complaints Exam/Review of Systems Vital Signs Vitals Vital Signs Date Time Temp Pulse Resp B/P Pulse Ox O2 Delivery O2 Flow Rate FiO2 01/03/17 13:43 98.2 63 18 132/65 98 01/01/17 18:05 Room Air Intake and Output 01/02/17 01/02/17 01/03/17 15:00 23:00 07:00 Intake Total 1215 ml 700 ml Output Total 1000 ml Balance 215 ml 700 ml Exam Physical exam General: Patient is laying in bed and answers questions appropriately Mentation: Patient is alert and oriented 4, Head: Normocephalic atraumatic Eyes: EOMI, pupils reactive to light Neck: Supple, nontender, midline Respiratory: Clear to auscultation bilaterally Cardiovascular: regular rate, no obvious murmurs Gastrointestinal: non-tender to palpation, bowel sounds heard. Neurological: Moves all extremities spontaneously Skin: necrotic great and 2nd toe of R foot. L foot transmetatarsal amputation. Results Result Diagram: 01/03/17 0533 01/03/17 0533 Results 24 hrs Laboratory Tests Test 01/02/17 17:28 01/02/17 20:56 01/03/17 05:33 01/03/17 08:04 Bedside Glucose 259 H 166 144 White Blood Count 10.7 Red Blood Count 3.88 L Hemoglobin 9.7 L Hematocrit 31.2 L Mean Corpuscular Volume 80.4 L Mean Corpuscular Hemoglobin 25.0 L Mean Corpuscular Hemoglobin Concent 31.1 L Red Cell Distribution Width 13.8 Platelet Count 412 Mean Platelet Volume 10.1 Neutrophils % 62.3 Lymphocytes % 18.1 Monocytes % 10.1 Eosinophils % 8.0 H Basophils % 1.0 Nucleated Red Blood Cells % 0.0 Neutrophils # 6.6 Lymphocytes # 1.9 Monocytes # 1.1 H Eosinophils # 0.9 H Basophils # 0.1 Nucleated Red Blood Cells # 0.0 Erythrocyte Sedimentation Rate 104 H Sodium Level 139 Potassium Level 4.5 Chloride Level 110 Carbon Dioxide Level 17 L Anion Gap 17 H Blood Urea Nitrogen 63 H Creatinine 3.57 H Glucose Level 140 Calcium Level 8.1 L Phosphorus Level 5.3 H Magnesium Level 2.1 Total Bilirubin 0.0 L Direct Bilirubin 0.00 Indirect Bilirubin 0.0 Aspartate Amino Transf (AST/SGOT) 11 L Alanine Aminotransferase (ALT/SGPT) 24 Alkaline Phosphatase 79 Total Protein 6.3 Albumin 2.8 L Globulin 3.50 H Albumin/Globulin Ratio 0.80 Test 01/03/17 11:56 Bedside Glucose 224 H Medications Medications Current Medications Amlodipine Besylate (Norvasc) 10 mg DAILY PO Last administered on 01/03/17 08: 24; Admin Dose 10 MG; Start 01/02/17 at 09:00 Clopidogrel Bisulfate (plaVIX) 75 mg DAILY PO Last administered on 01/03/17 08 :21; Admin Dose 75 MG; Start 01/02/17 at 09:00 Ferrous Sulfate (Ferrous Sulfate (Ec)) 325 mg BID PO Last administered on 08:25; Admin Dose 325 MG; Start 01/01/17 at 21:00 Furosemide (Lasix) 40 mg DAILY@06 PO Last administered on 01/02/17 05:29; Admin Dose 40 MG; Start 01/02/17 at 06:00; Status Future Hold Losartan Potassium (Cozaar) 50 mg DAILY PO Last administered on 01/03/17 08:25 ; Admin Dose 50 MG; Start 01/02/17 at 09:00 Metoprolol Tartrate (Lopressor) 100 mg BID PO Last administered on 01/03/17 08 :24; Admin Dose 100 MG; Start 01/01/17 at 21:00 Montelukast Sodium (Singulair) 10 mg QHS PO Last administered on 01/02/17 20: 58; Admin Dose 10 MG; Start 01/01/17 at 21:00 Tramadol HCl (Ultram) 50 mg DAILY PRN PO PAIN Last administered on 01/02/17 22 :38; Admin Dose 50 MG; Start 01/01/17 at 21:00 Diagnostic Test (Pha) (Accu-Chek) 1 ea 02 XX ; Start 01/02/17 at 02:00 Miscellaneous Information 1 ea NOTE XX ; Start 01/01/17 at 21:30 Glucose (Glutose) 15 gm Q15M PRN PO DECREASED GLUCOSE; Start 01/01/17 at 21:30 Glucose (Glutose) 22.5 gm Q15M PRN PO DECREASED GLUCOSE; Start 01/01/17 at 21: 30 Dextrose (D50w Syringe) 25 ml Q15M PRN IV DECREASED GLUCOSE; Start 01/01/17 at 21:30 Dextrose (D50w Syringe) 50 ml Q15M PRN IV DECREASED GLUCOSE; Start 01/01/17 at 21:30 Glucagon (Glucagen) 1 mg Q15M PRN IM DECREASED GLUCOSE; Start 01/01/17 at 21:30 Glucose (Glutose) 15 gm Q15M PRN BUCCAL DECREASED GLUCOSE; Start 01/01/17 at 21 :30 Zolpidem Tartrate 5 mg 5 mg HS PRN PO INSOMNIA Last administered on 01/02/17 22:38; Admin Dose 5 MG; Start 01/01/17 at 22:00 Cefepime HCl (Maxipime 1gm/50 ml (Pmx)) 50 ml @ 100 mls/hr Q24H IVPB Last administered on 01/02/17 22:38; Admin Dose 100 MLS/HR; Start 01/02/17 at 22:00 Insulin Glargine (Lantus) 24 unit HS SC Last administered on 01/02/17 21:02; Admin Dose 24 UNIT; Start 01/02/17 at 21:00 Atorvastatin Calcium 10 mg 10 mg DAILY@21 PO Last administered on 01/02/17 20: 57; Admin Dose 10 MG; Start 01/02/17 at 21:00 Sodium Chloride (NS) 1,000 ml @ 75 mls/hr [id number] IV Last administered on 01/03 14:08; Admin Dose 75 MLS/HR; Start 01/02/17 at 13:00 Calcium Carbonate (Tums) 500 mg BID PO Last administered on 01/03/17 08:21; Admin Dose 500 MG; Start 01/02/17 at 21:00 JOURDAN MCMAHAN Jan 03, 2017 14:27
[2017-01-03] MEDS ORDERED: hydrALAzine 20 MG INJ IV PRN (14:30)
--- NOTE | 2017-01-03 15:18 | RADRPT ---
PROCEDURE: US left lower extremity arteries. CLINICAL INDICATION: Left leg pain. Claudication that interferes significantly with the patient's lifestyle. Left toe amputation. TECHNIQUE: Multiple longitudinal and transverse images of the left lower extremity arteries were o btained with hawley scale and color Doppler imaging. COMPARISON: No prior studies are available for comparison. FINDINGS: Location CFA80 cm/sec PSFA85 cm/sec MSFA52 cm/sec DSFA77 cm/sec POP59 cm/sec ATA10 cm/sec PTA14 cm/sec DPA cm/sec The ankle brachial index is 1.1 for the posterior tibial artery and 0.62 for the anterior tibial art bora. There is diffuse calcified plaque in the left superficial femoral artery. Normal triphasic or biphasic flow is present in the femoral and popliteal systems. Monophasic flow is present in the c long term arteries. IMPRESSION: 1. Abnormal monophasic flow in the calf arteries consistent with significant stenosis or proximal o cclusion. RPTAT: QQ .Branden Amezcua MD, MD Date Time Electronically viewed and signed by .Branden Amezcua MD, on 01/03/2017 15:18 .R/
--- NOTE | 2017-01-03 16:29 | PN ---
Date/Time of Note Date/Time of Note DATE: 01/03/17 TIME: 16:28 Assessment/Plan Lines/Catheters IV Catheter Type (from Nrs): Saline Lock [place] in Place (from Nrs): No Subjective 24 Hr Interval Summary Full consult dicated #58076 - R 1st toe gangrene, Stage IV CKD - scheduled for RLE angiogram / possible intervention with CO2 for Sunday Exam/Review of Systems Vital Signs Vitals Vital Signs Date Time Temp Pulse Resp B/P Pulse Ox O2 Delivery O2 Flow Rate FiO2 01/03/17 13:43 98.2 63 18 132/65 98 01/01/17 18:05 Room Air Intake and Output 01/02/17 01/02/17 01/03/17 15:00 23:00 07:00 Intake Total 1215 ml 700 ml Output Total 1000 ml Balance 215 ml 700 ml Results Result Diagram: 01/03/17 0533 01/03/17 0533 NOÉ REGALADO MD Jan 03, 2017 16:29
[2017-01-03] MEDS: POLYETHYLENE GLYCOL 17 GM PACKET GTB SCH (17:41)
[2017-01-03 19:32] VITALS: BP 143/72; RESP 18
[2017-01-03] MEDS: ATORVASTATIN 10 MG TAB PO SCH (21:30)
[2017-01-03] MEDS: MONTELUKAST 10 MG TAB PO SCH (21:30)
[2017-01-03] MEDS: CEFEPIME 1GM/50 ML (PMX) 50 ML IVPB SCH (21:32)
[2017-01-03] MEDS: INSULIN GLARGINE [LANtus] 3 ML PEN SC SCH (21:48)
[2017-01-03] MEDS: traMADol 50 MG TAB PO PRN (22:31)
[2017-01-03] MEDS: ZOLPIDEM 5 MG TAB PO PRN (22:31)
[2017-01-04] MEDS: ACCU-CHEK XX SCH (01:59)
[2017-01-04 02:00] VITALS: BP 141/71; RESP 18
[2017-01-04] MEDS: SOD CHLORIDE 0.9% 1,000 ML IV SCH ×2 (05:05→17:24)
[2017-01-04] MEDS: traMADol 50 MG TAB PO PRN (05:59)
[2017-01-04 06:11] LABS: ALBUMIN 2.6 g/dl (3.3-4.9); ALBUMIN/GLOBULIN RATIO 0.78; CREATININE 3.13 mg/dl (0.44-1.00); POTASSIUM 4.7 mmol/L (3.5-5.1); TOTAL PROTEIN 5.9 g/dl (6.1-8.1)
[2017-01-04 07:16] VITALS: BP 136/68; RESP 18
[2017-01-04] MEDS: PANTOPRAZOLE (EC) 40 MG TAB PO SCH (07:57)
[2017-01-04] MEDS: FERROUS SULFATE (EC) 325 MG TAB PO SCH ×2 (07:57→21:26)
[2017-01-04] MEDS: AMLODIPINE 10 MG TAB PO SCH (07:57)
[2017-01-04] MEDS: LOSARTAN 50 MG TAB PO SCH (07:57)
[2017-01-04] MEDS: INSULIN ASPART [NOVOLOG] 3 ML PEN SC SCH ×7 (07:57→21:00)
[2017-01-04] MEDS: CALCIUM CARBONATE 500 MG CHEW TAB PO SCH ×2 (07:57→21:27)
[2017-01-04] MEDS: CLOPIDOGREL 75 MG TAB PO SCH (07:57)
[2017-01-04] MEDS: POLYETHYLENE GLYCOL 17 GM PACKET GTB SCH (07:58)
[2017-01-04] MEDS: METOPROLOL 100 MG TAB PO SCH ×2 (07:58→21:26)
--- NOTE | 2017-01-04 10:39 | CONS ---
Date/Time of Note Date/Time of Note DATE: 01/02/17 TIME: 10:36 Assessment/Plan Assessment/Plan Problems: (1) Acquired absence of left foot (2) Gangrene of foot Status: Acute (3) Peripheral vascular disease due to secondary diabetes mellitus Status: Acute (4) Diabetic ulcer of foot associated with type 2 diabetes mellitus, with necrosis of muscle Status: Acute (5) Diabetes mellitus Status: Acute (6) Renal failure Status: Acute Additional Assessment/Plan Vascular surgery consultation recommended. I have discussed case with Dr. Ravinder Camilo. He will see the patient. No surgery will be recommended until an angiogram was done on the right lower extremity and vascular surgery has cleared the patient. Betadine paint to the right big toe for now. Daily dressing change. Weightbearing to tolerance bilaterally. Patient will be seen in house. Thank you again for involving me in the care of this patient. If you have any questions regarding this case, please feel free to contact me at pager: [phone] or reach me at mobile: [phone]. Consultation Date/Type/Reason Admit Date/Time Jan 01, 2017 at 18:03 Date of Consultation: Jan 02, 2017 Type of Consultation: Foot and ankle surgery Reason for Consultation Right big toe gangrene Hx of Present Illness Thank you very much for involving me in the care of this patient. As you know this is a 61-year-old female patient with multiple medical problems including diabetes mellitus, hypertension, kidney failure, status post previous transmetatarsal amputation of the left foot. Patient has been admitted to the hospital secondary to gangrene of the right big toe. She says that big toe on the right foot has become darker and more dry. She reports pain in the foot. Denies fever, chills, nausea or vomiting. Constitutional: No chills, No diaphoresis, No disoriented, No febrile, No improved, No no complaints, No other, No poor po, No requiring IVF, No requiring O2 Eyes: No discharge, No no complaints, No other, No pain, No redness, No visual change ENT: No bleeding, No congestion, No discharge, No dysphagia, No no complaints, No other, No pain, No sore throat Respiratory: No cough, No no complaints, No other, No pain, No pleuritic pain, No shortness of breath, No sputum, No wheezing Past Medical History As per history of present illness. Medical History: renal disease Past Surgical History As per history of present illness. Past Surgical Hx: other Social History As per history of present illness. Alcohol Use: none Smoking Status: Never smoker Drug Use: none Exam/Review of Systems Vital Signs Vitals Vital Signs Date Time Temp Pulse Resp B/P Pulse Ox O2 Delivery O2 Flow Rate FiO2 01/04/17 07:16 98.4 62 18 136/68 98 01/01/17 18:05 Room Air Intake and Output 01/03/17 01/03/17 01/04/17 15:00 23:00 07:00 Intake Total 725 ml 1205 ml 925 ml Output Total 1100 ml 2650 ml Balance 725 ml 105 ml -1725 ml Exam Patient is laying supine in bed in no acute distress. Left foot status post transmetatarsal amputation, well-healed with no complications. No tenderness to palpation and no sign of infection the left foot. Patient's right hallux is gangrenous and dry. Tender to palpation. There is no erythema of the right foot. Forefoot edema noted. Dorsalis pedis and posterior tibial pulses are not palpable on the right lower extremity. Dorsalis pedis and posterior tibial pulse is weak on the left lower extremity. Labs and imaging reviewed. Sensation is decreased to sharp, dull, vibratory and temperature stimuli bilaterally. Results Result Diagram: 01/03/17 0533 01/04/17 0521 Results 24 hrs Laboratory Tests Test 01/03/17 11:56 01/03/17 17:36 01/03/17 21:29 01/04/17 05:21 Bedside Glucose 224 H 194 163 Sodium Level 141 Potassium Level 4.7 Chloride Level 110 Carbon Dioxide Level 20 L Anion Gap 16 Blood Urea Nitrogen 58 H Creatinine 3.13 H Glucose Level 120 Calcium Level 8.0 L Total Bilirubin 0.0 L Direct Bilirubin 0.00 Indirect Bilirubin 0.0 Aspartate Amino Transf (AST/SGOT) 11 L Alanine Aminotransferase (ALT/SGPT) 22 Alkaline Phosphatase 66 Total Protein 5.9 L Albumin 2.6 L Globulin 3.30 H Albumin/Globulin Ratio 0.78 Random Vancomycin Level 11.3 Test 01/04/17 07:56 Bedside Glucose 123 Medications Medications Current Medications Amlodipine Besylate (Norvasc) 10 mg DAILY PO Last administered on 01/04/17 07: 57; Admin Dose 10 MG; Start 01/02/17 at 09:00 Clopidogrel Bisulfate (plaVIX) 75 mg DAILY PO Last administered on 01/04/17 07 :57; Admin Dose 75 MG; Start 01/02/17 at 09:00 Ferrous Sulfate (Ferrous Sulfate (Ec)) 325 mg BID PO Last administered on 07:57; Admin Dose 325 MG; Start 01/01/17 at 21:00 Furosemide (Lasix) 40 mg DAILY@06 PO Last administered on 01/02/17 05:29; Admin Dose 40 MG; Start 01/02/17 at 06:00; Status Future Hold Losartan Potassium (Cozaar) 50 mg DAILY PO Last administered on 01/04/17 07:57 ; Admin Dose 50 MG; Start 01/02/17 at 09:00 Metoprolol Tartrate (Lopressor) 100 mg BID PO Last administered on 01/04/17 07 :58; Admin Dose 100 MG; Start 01/01/17 at 21:00 Montelukast Sodium (Singulair) 10 mg QHS PO Last administered on 01/03/17 21: 30; Admin Dose 10 MG; Start 01/01/17 at 21:00 Tramadol HCl (Ultram) 50 mg DAILY PRN PO PAIN Last administered on 01/04/17 05 :59; Admin Dose 50 MG; Start 01/01/17 at 21:00 Diagnostic Test (Pha) (Accu-Chek) 1 ea 02 XX ; Start 01/02/17 at 02:00 Miscellaneous Information 1 ea NOTE XX ; Start 01/01/17 at 21:30 Glucose (Glutose) 15 gm Q15M PRN PO DECREASED GLUCOSE; Start 01/01/17 at 21:30 Glucose (Glutose) 22.5 gm Q15M PRN PO DECREASED GLUCOSE; Start 01/01/17 at 21: 30 Dextrose (D50w Syringe) 25 ml Q15M PRN IV DECREASED GLUCOSE; Start 01/01/17 at 21:30 Dextrose (D50w Syringe) 50 ml Q15M PRN IV DECREASED GLUCOSE; Start 01/01/17 at 21:30 Glucagon (Glucagen) 1 mg Q15M PRN IM DECREASED GLUCOSE; Start 01/01/17 at 21:30 Glucose (Glutose) 15 gm Q15M PRN BUCCAL DECREASED GLUCOSE; Start 01/01/17 at 21 :30 Zolpidem Tartrate 5 mg 5 mg HS PRN PO INSOMNIA Last administered on 01/03/17 22:31; Admin Dose 5 MG; Start 01/01/17 at 22:00 Cefepime HCl (Maxipime 1gm/50 ml (Pmx)) 50 ml @ 100 mls/hr Q24H IVPB Last administered on 01/03/17 21:32; Admin Dose 100 MLS/HR; Start 01/02/17 at 22:00 Insulin Glargine (Lantus) 24 unit HS SC Last administered on 01/03/17 21:48; Admin Dose 24 UNIT; Start 01/02/17 at 21:00 Atorvastatin Calcium 10 mg 10 mg DAILY@21 PO Last administered on 01/03/17 21: 30; Admin Dose 10 MG; Start 01/02/17 at 21:00 Sodium Chloride (NS) 1,000 ml @ 75 mls/hr [id number] IV Last administered on 01/04 05:05; Admin Dose 75 MLS/HR; Start 01/02/17 at 13:00 Calcium Carbonate (Tums) 500 mg BID PO Last administered on 01/04/17 07:57; Admin Dose 500 MG; Start 01/02/17 at 21:00 Hydralazine HCl (Apresoline) 10 mg Q4H PRN IV ELEVATED BLOOD PRESSURE; Start at 14:30 Magnesium Hydroxide (Milk Of Mag) 30 ml DAILY PRN PO CONSTIPATION; Start at 17:30 Polyethylene Glycol (Miralax) 17 gm DAILY GTB Last administered on 01/04/17 07 :58; Admin Dose 17 GM; Start 01/03/17 at 17:30 MICHEAL HU DPShoaib Jan 04, 2017 10:38
[2017-01-04] MEDS: VANCOMYCIN 1 GM in NS 250 ML IVPB SCH (14:19)
[2017-01-04 14:31] VITALS: BP 146/66; RESP 18
--- NOTE | 2017-01-04 17:14 | PN ---
Date/Time of Note Date/Time of Note DATE: 01/04/17 TIME: 17:12 Assessment/Plan VTE Prophylaxis VTE Prophylaxis Intervention: SCD's Lines/Catheters IV [facility]ter Type (from [facility]): Peripheral IV Urinary Cath still in place: No Assessment/Plan Chief Complaint/Hosp Course Patient is a 61-year-old female who presents for pain necrosis to her right foot , told by her food service aide to go to the ED. Patient has a past medical history of CKD as well as diabetes mellitus. Assessment Necrotic right lower extremity toes sepsis, mild, resolving Diabetes mellitus MANOHAR vs MANOHAR on CKD Chronic kidney disease Hypertension Left toes amputation Plan -Dr. Marisela Taylor, podiatry consulted, recs appreciated. Likely plans for surgery, but needs vascular surgery clearance. -Dr. Hoffman consulted for MANOHAR vs CKD, recs appreciated -Continue home meds as able -Broad-spectrum antibiotics -Repeat labs in the morning -arterial study shows stenosis -watch bp Jourdan Mcmahan DO. Problems: Exam/Review of Systems Vital Signs Vitals Vital Signs Date Time Temp Pulse Resp B/P Pulse Ox O2 Delivery O2 Flow Rate FiO2 01/04/17 14:31 98.3 61 18 146/66 96 01/01/17 18:05 Room Air Intake and Output 01/03/17 01/03/17 01/04/17 15:00 23:00 07:00 Intake Total 725 ml 1205 ml 925 ml Output Total 1100 ml 2650 ml Balance 725 ml 105 ml -1725 ml Exam Physical exam General: Patient is laying in bed and answers questions appropriately Mentation: Patient is alert and oriented 4, Head: Normocephalic atraumatic Eyes: EOMI, pupils reactive to light Neck: Supple, nontender, midline Respiratory: Clear to auscultation bilaterally Cardiovascular: regular rate, no obvious murmurs Gastrointestinal: non-tender to palpation, bowel sounds heard. Neurological: Moves all extremities spontaneously Skin: necrotic great and 2nd toe of R foot. L foot transmetatarsal amputation. Results Result Diagram: 01/03/17 0533 01/04/17 0521 Results 24 hrs Laboratory Tests Test 01/03/17 17:36 01/03/17 21:29 01/04/17 05:21 01/04/17 05:45 Bedside Glucose 194 163 Sodium Level 141 Potassium Level 4.7 Chloride Level 110 Carbon Dioxide Level 20 L Anion Gap 16 Blood Urea Nitrogen 58 H Creatinine 3.13 H Glucose Level 120 Calcium Level 8.0 L Total Bilirubin 0.0 L Direct Bilirubin 0.00 Indirect Bilirubin 0.0 Aspartate Amino Transf (AST/SGOT) 11 L Alanine Aminotransferase (ALT/SGPT) 22 Alkaline Phosphatase 66 Total Protein 5.9 L Albumin 2.6 L Globulin 3.30 H Albumin/Globulin Ratio 0.78 Random Vancomycin Level 11.3 Stool Occult Blood NEGATIVE Test 01/04/17 07:56 01/04/17 12:11 Bedside Glucose 123 178 Medications Medications Current Medications Amlodipine Besylate (Norvasc) 10 mg DAILY PO Last administered on 01/04/17 07: 57; Admin Dose 10 MG; Start 01/02/17 at 09:00 Clopidogrel Bisulfate (plaVIX) 75 mg DAILY PO Last administered on 01/04/17 07 :57; Admin Dose 75 MG; Start 01/02/17 at 09:00 Ferrous Sulfate (Ferrous Sulfate (Ec)) 325 mg BID PO Last administered on 07:57; Admin Dose 325 MG; Start 01/01/17 at 21:00 Furosemide (Lasix) 40 mg DAILY@06 PO Last administered on 01/02/17 05:29; Admin Dose 40 MG; Start 01/02/17 at 06:00; Status Future Hold Losartan Potassium (Cozaar) 50 mg DAILY PO Last administered on 01/04/17 07:57 ; Admin Dose 50 MG; Start 01/02/17 at 09:00 Metoprolol Tartrate (Lopressor) 100 mg BID PO Last administered on 01/04/17 07 :58; Admin Dose 100 MG; Start 01/01/17 at 21:00 Montelukast Sodium (Singulair) 10 mg QHS PO Last administered on 01/03/17 21: 30; Admin Dose 10 MG; Start 01/01/17 at 21:00 Tramadol HCl (Ultram) 50 mg DAILY PRN PO PAIN Last administered on 01/04/17 05 :59; Admin Dose 50 MG; Start 01/01/17 at 21:00 Diagnostic Test (Pha) (Accu-Chek) 1 ea 02 XX ; Start 01/02/17 at 02:00 Miscellaneous Information 1 ea NOTE XX ; Start 01/01/17 at 21:30 Glucose (Glutose) 15 gm Q15M PRN PO DECREASED GLUCOSE; Start 01/01/17 at 21:30 Glucose (Glutose) 22.5 gm Q15M PRN PO DECREASED GLUCOSE; Start 01/01/17 at 21: 30 Dextrose (D50w Syringe) 25 ml Q15M PRN IV DECREASED GLUCOSE; Start 01/01/17 at 21:30 Dextrose (D50w Syringe) 50 ml Q15M PRN IV DECREASED GLUCOSE; Start 01/01/17 at 21:30 Glucagon (Glucagen) 1 mg Q15M PRN IM DECREASED GLUCOSE; Start 01/01/17 at 21:30 Glucose (Glutose) 15 gm Q15M PRN BUCCAL DECREASED GLUCOSE; Start 01/01/17 at 21 :30 Zolpidem Tartrate 5 mg 5 mg HS PRN PO INSOMNIA Last administered on 01/03/17 22:31; Admin Dose 5 MG; Start 01/01/17 at 22:00 Cefepime HCl (Maxipime 1gm/50 ml (Pmx)) 50 ml @ 100 mls/hr Q24H IVPB Last administered on 01/03/17 21:32; Admin Dose 100 MLS/HR; Start 01/02/17 at 22:00 Insulin Glargine (Lantus) 24 unit HS SC Last administered on 01/03/17 21:48; Admin Dose 24 UNIT; Start 01/02/17 at 21:00 Atorvastatin Calcium 10 mg 10 mg DAILY@21 PO Last administered on 01/03/17 21: 30; Admin Dose 10 MG; Start 01/02/17 at 21:00 Sodium Chloride (NS) 1,000 ml @ 75 mls/hr [id number] IV Last administered on 01/04 05:05; Admin Dose 75 MLS/HR; Start 01/02/17 at 13:00 Calcium Carbonate (Tums) 500 mg BID PO Last administered on 01/04/17 07:57; Admin Dose 500 MG; Start 01/02/17 at 21:00 Hydralazine HCl (Apresoline) 10 mg Q4H PRN IV ELEVATED BLOOD PRESSURE; Start at 14:30 Magnesium Hydroxide (Milk Of Mag) 30 ml DAILY PRN PO CONSTIPATION; Start at 17:30 Polyethylene Glycol 17 gm 17 gm DAILY GTB Last administered on 01/04/17 07:58 ; Admin Dose 17 GM; Start 01/03/17 at 17:30 Vancomycin HCl (Vancocin) 250 ml @ 125 mls/hr Q48H IVPB Last administered on 14:19; Admin Dose 125 MLS/HR; Start 01/04/17 at 14:00 JOURDAN MCMAHAN Jan 04, 2017 17:14
[2017-01-04 18:37] LABS: SCRET 3.13 mg/dl (0.44-1.00)
[2017-01-04 20:22] VITALS: BP 130/69; RESP 18
[2017-01-04] MEDS: MONTELUKAST 10 MG TAB PO SCH (21:26)
[2017-01-04] MEDS: CEFEPIME 1GM/50 ML (PMX) 50 ML IVPB SCH (21:27)
[2017-01-04] MEDS: ATORVASTATIN 10 MG TAB PO SCH (21:27)
--- NOTE | 2017-01-04 21:33 | CONS ---
Date/Time of Note Date/Time of Note DATE: 01/04/17 TIME: 21:33 Assessment/Plan Assessment/Plan Additional Assessment/Plan The arterial doppler shows vasc dis Cont'd Hospitalization Reason: Pt will need further arterial studies, continue to monitor renal fn closely Consultation Date/Type/Reason Admit Date/Time Jan 01, 2017 at 18:03 Initial Consult Date 01/02/17 Type of Consultation: Renal Referring Provider: CORY EDGE 24 HR Interval Summary Free Text/Dictation Pt denies comp;aints Exam/Review of Systems Vital Signs Vitals Vital Signs Date Time Temp Pulse Resp B/P Pulse Ox O2 Delivery O2 Flow Rate FiO2 01/04/17 20:22 98.7 64 18 130/69 97 01/01/17 18:05 Room Air Intake and Output 01/03/17 01/03/17 01/04/17 15:00 23:00 07:00 Intake Total 725 ml 1205 ml 925 ml Output Total 1100 ml 2650 ml Balance 725 ml 105 ml -1725 ml Exam Constitutional: alert, oriented, well developed Psych: nl mood/affect, no complaints Head: atraumatic, normocephalic Eyes: EOMI, PERRL, nl conjunctiva, nl lids, nl sclera ENMT: nl external ears & nose, nl lips & teeth, nl nasal mucosa & septum Neck: non-tender, supple Respiratory: clear to auscultation, normal air movement Cardiovascular: nl pulses, regular rate and rhythm Gastrointestinal: nl liver, spleen, non-tender, soft Musculoskeletal: nl extremities to inspection, nl gait and stance Extremities: normal pulses, other (rt foot gangrene), tenderness Neurological: 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 intact, nl mental status, nl speech, nl strength Skin: nl turgor, No rash or lesions Lymph: nl lymph nodes Additional Comments Hct 31% Results SCreat has improved a bit Creat Cllearance reported to be 13 ml.min Result Diagram: 01/03/17 0533 01/04/17 0521 Results 24 hrs Laboratory Tests Test 01/04/17 05:21 01/04/17 05:45 01/04/17 07:56 01/04/17 12:11 Sodium Level 141 Potassium Level 4.7 Chloride Level 110 Carbon Dioxide Level 20 L Anion Gap 16 Blood Urea Nitrogen 58 H Creatinine 3.13 H Glucose Level 120 Calcium Level 8.0 L Total Bilirubin 0.0 L Direct Bilirubin 0.00 Indirect Bilirubin 0.0 Aspartate Amino Transf (AST/SGOT) 11 L Alanine Aminotransferase (ALT/SGPT) 22 Alkaline Phosphatase 66 Total Protein 5.9 L Albumin 2.6 L Globulin 3.30 H Albumin/Globulin Ratio 0.78 Random Vancomycin Level 11.3 Stool Occult Blood NEGATIVE Bedside Glucose 123 178 Test 01/04/17 16:30 01/04/17 17:17 Urine Random Creatinine 21.02 Urine Collection Duration 24 Urine Total Volume 24 Hours 2950 Urine Creatinine Timed 24 Creatinine Clearance 13.8 L Urine Total Volume (Protein) 2950 Urine Total Protein 24 Hour 40735.0 H Bedside Glucose 163 Medications Medications Current Medications Amlodipine Besylate (Norvasc) 10 mg DAILY PO Last administered on 01/04/17 07: 57; Admin Dose 10 MG; Start 01/02/17 at 09:00 Clopidogrel Bisulfate (plaVIX) 75 mg DAILY PO Last administered on 01/04/17 07 :57; Admin Dose 75 MG; Start 01/02/17 at 09:00 Ferrous Sulfate (Ferrous Sulfate (Ec)) 325 mg BID PO Last administered on 07:57; Admin Dose 325 MG; Start 01/01/17 at 21:00 Furosemide (Lasix) 40 mg DAILY@06 PO Last administered on 01/02/17 05:29; Admin Dose 40 MG; Start 01/02/17 at 06:00; Status Future Hold Losartan Potassium (Cozaar) 50 mg DAILY PO Last administered on 01/04/17 07:57 ; Admin Dose 50 MG; Start 01/02/17 at 09:00 Metoprolol Tartrate (Lopressor) 100 mg BID PO Last administered on 01/04/17 07 :58; Admin Dose 100 MG; Start 01/01/17 at 21:00 Montelukast Sodium (Singulair) 10 mg QHS PO Last administered on 01/03/17 21: 30; Admin Dose 10 MG; Start 01/01/17 at 21:00 Tramadol HCl (Ultram) 50 mg DAILY PRN PO PAIN Last administered on 01/04/17 05 :59; Admin Dose 50 MG; Start 01/01/17 at 21:00 Diagnostic Test (Pha) (Accu-Chek) 1 ea 02 XX ; Start 01/02/17 at 02:00 Miscellaneous Information 1 ea NOTE XX ; Start 01/01/17 at 21:30 Glucose (Glutose) 15 gm Q15M PRN PO DECREASED GLUCOSE; Start 01/01/17 at 21:30 Glucose (Glutose) 22.5 gm Q15M PRN PO DECREASED GLUCOSE; Start 01/01/17 at 21: 30 Dextrose (D50w Syringe) 25 ml Q15M PRN IV DECREASED GLUCOSE; Start 01/01/17 at 21:30 Dextrose (D50w Syringe) 50 ml Q15M PRN IV DECREASED GLUCOSE; Start 01/01/17 at 21:30 Glucagon (Glucagen) 1 mg Q15M PRN IM DECREASED GLUCOSE; Start 01/01/17 at 21:30 Glucose (Glutose) 15 gm Q15M PRN BUCCAL DECREASED GLUCOSE; Start 01/01/17 at 21 :30 Zolpidem Tartrate 5 mg 5 mg HS PRN PO INSOMNIA Last administered on 01/03/17 22:31; Admin Dose 5 MG; Start 01/01/17 at 22:00 Cefepime HCl (Maxipime 1gm/50 ml (Pmx)) 50 ml @ 100 mls/hr Q24H IVPB Last administered on 01/03/17 21:32; Admin Dose 100 MLS/HR; Start 01/02/17 at 22:00 Insulin Glargine (Lantus) 24 unit HS SC Last administered on 01/03/17 21:48; Admin Dose 24 UNIT; Start 01/02/17 at 21:00 Atorvastatin Calcium 10 mg 10 mg DAILY@21 PO Last administered on 01/03/17 21: 30; Admin Dose 10 MG; Start 01/02/17 at 21:00 Sodium Chloride (NS) 1,000 ml @ 75 mls/hr [id number] IV Last administered on 01/04 05:05; Admin Dose 75 MLS/HR; Start 01/02/17 at 13:00 Calcium Carbonate (Tums) 500 mg BID PO Last administered on 01/04/17 07:57; Admin Dose 500 MG; Start 01/02/17 at 21:00 Hydralazine HCl (Apresoline) 10 mg Q4H PRN IV ELEVATED BLOOD PRESSURE; Start at 14:30 Magnesium Hydroxide (Milk Of Mag) 30 ml DAILY PRN PO CONSTIPATION; Start at 17:30 Polyethylene Glycol 17 gm 17 gm DAILY GTB Last administered on 01/04/17 07:58 ; Admin Dose 17 GM; Start 01/03/17 at 17:30 Vancomycin HCl (Vancocin) 250 ml @ 125 mls/hr Q48H IVPB Last administered on 14:19; Admin Dose 125 MLS/HR; Start 01/04/17 at 14:00 EUGENIE ORTIZ MD Jan 04, 2017 21:33
[2017-01-04] MEDS: INSULIN GLARGINE [LANtus] 3 ML PEN SC SCH (21:38)
[2017-01-04] MEDS: ZOLPIDEM 5 MG TAB PO PRN (23:04)
[2017-01-05] VITALS (12 sets, daily range): BP systolic 128–172; BP diastolic 66–76; PULSE 60–66; RESP 12–20
[2017-01-05] MEDS: ACCU-CHEK XX SCH (02:00)
[2017-01-05] MEDS: SOD CHLORIDE 0.9% 1,000 ML IV SCH ×2 (02:06→07:40)
[2017-01-05 06:55] LABS: CALCIUM 7.9 mg/dl (8.4-10.2); CREATININE 3.05 mg/dl (0.44-1.00); MAGNESIUM 1.9 mg/dl (1.7-2.5); POTASSIUM 4.5 mmol/L (3.5-5.1)
[2017-01-05] MEDS: INSULIN ASPART [NOVOLOG] 3 ML PEN SC SCH ×7 (07:55→21:00)
[2017-01-05] MEDS: PANTOPRAZOLE (EC) 40 MG TAB PO SCH (08:00)
[2017-01-05] MEDS: POLYETHYLENE GLYCOL 17 GM PACKET GTB SCH (08:09)
[2017-01-05] MEDS: LOSARTAN 50 MG TAB PO SCH ×2 (08:09→12:19)
[2017-01-05] MEDS: FERROUS SULFATE (EC) 325 MG TAB PO SCH ×2 (08:10→21:21)
[2017-01-05] MEDS: METOPROLOL 100 MG TAB PO SCH ×3 (08:10→21:21)
[2017-01-05] MEDS: CALCIUM CARBONATE 500 MG CHEW TAB PO SCH ×2 (08:11→21:21)
[2017-01-05] MEDS: CLOPIDOGREL 75 MG TAB PO SCH (08:11)
[2017-01-05] MEDS: AMLODIPINE 10 MG TAB PO SCH ×2 (08:11→12:18)
[2017-01-05] MEDS ORDERED: LIDOCAINE 1% (MDV) 20 ML INJ ONE (09:04)
[2017-01-05] MEDS ORDERED: FENTAnyl 50 MCG/ML VIAL ONE (09:04)
[2017-01-05] MEDS ORDERED: HEPARIN 1000 UNITS/ML 10 ML INJ ONE (09:04)
[2017-01-05] MEDS ORDERED: MIDAZOLAM 1 MG/ML 2 ML INJ ONE (09:04)
[2017-01-05] MEDS ORDERED: IODIXANOL LOCM 50 ML BTL ONE (09:04)
[2017-01-05] MEDS ORDERED: IOHEXOL 350MG/ML 50 ML BTL ONE (09:04)
--- NOTE | 2017-01-05 10:05 | PN ---
Date/Time of Note Date/Time of Note DATE: 01/05/17 TIME: 10:01 Assessment/Plan Lines/Catheters IV Catheter Type (from [facility]): Saline Lock [place] in Place (from [facility]): No Assessment/Plan Assessment/Plan R 1st toe gangrene. CO2 Angiogram was done this morning and reveals popliteal and tibials are occluded She will need a R fem-DP bypass prior to toe amputation She will need cardiac clearance prior to the surgery which can be done as an outpatient I have ordered a vein mapping of the LE's as well but I scanned her and the vein is good caliber Subjective 24 Hr Interval Summary No c/o. Exam/Review of Systems Vital Signs Vitals Vital Signs Date Time Temp Pulse Resp B/P Pulse Ox O2 Delivery O2 Flow Rate FiO2 01/05/17 07:38 98.2 67 16 142/66 100 01/01/17 18:05 Room Air Intake and Output 01/04/17 01/04/17 01/05/17 15:00 23:00 07:00 Intake Total 1860 ml 1300 ml Output Total 1700 ml 2200 ml Balance 160 ml -900 ml Exam Free Text/Dictation R 1st toe with dry gangrene, no change. No odor signs of infection. Results Result Diagram: 01/03/17 0533 01/05/17 0458 NOÉ REGALADO MD Jan 05, 2017 10:05
--- NOTE | 2017-01-05 12:25 | PN ---
Date/Time of Note Date/Time of Note DATE: 01/05/17 TIME: 12:20 Assessment/Plan VTE Prophylaxis VTE Prophylaxis Intervention: SCD's Lines/Catheters IV C[facility]ter Type (from [facility] Peripheral IV Urinary Cath still in place: No Assessment/Plan Chief Complaint/Hosp Course Patient is a 61-year-old female who presents for pain necrosis to her right foot , told by her selector packer to go to the ED. Patient has a past medical history of CKD as well as diabetes mellitus. Assessment Necrotic right lower extremity toes sepsis, mild, resolving occluded R popliteal and tibial arteries Diabetes mellitus MANOHAR vs MANOHAR on CKD Chronic kidney disease Hypertension Left toes amputation Plan -Vein mapping done today, showed occluded vessels, patient needs fem pop bypass. hold plavix for now, patient needs cardiac clearance. Will clarify with vascular and podiatry ultimate plans for patient. -Dr. Marisela Taylor, podiatry consulted, recs appreciated. -Dr. Hoffman consulted for MANOHAR vs CKD, recs appreciated -Continue home meds as able -Broad-spectrum antibiotics -Repeat labs in the morning -arterial study shows stenosis -watch bp Jourdan Mcmahan DO. Problems: Subjective 24 Hr Interval Summary Free Text/Dictation no acute complaints Exam/Review of Systems Vital Signs Vitals Vital Signs Date Time Temp Pulse Resp B/P Pulse Ox O2 Delivery O2 Flow Rate FiO2 01/05/17 12:15 98.0 64 20 172/75 97 01/05/17 11:37 Room Air Intake and Output 01/04/17 01/04/17 01/05/17 15:00 23:00 07:00 Intake Total 1860 ml 1300 ml Output Total 1700 ml 2200 ml Balance 160 ml -900 ml Exam Physical exam General: Patient is laying in bed and answers questions appropriately Mentation: Patient is alert and oriented 4, Head: Normocephalic atraumatic Eyes: EOMI, pupils reactive to light Neck: Supple, nontender, midline Respiratory: Clear to auscultation bilaterally Cardiovascular: regular rate, no obvious murmurs Gastrointestinal: non-tender to palpation, bowel sounds heard. Neurological: Moves all extremities spontaneously Skin: necrotic great and 2nd toe of R foot. L foot transmetatarsal amputation Results Result Diagram: 01/03/17 0533 01/05/17 0458 Results 24 hrs Laboratory Tests Test 01/04/17 16:30 01/04/17 17:17 01/04/17 21:29 01/05/17 04:58 Urine Random Creatinine 21.02 Urine Collection Duration 24 Urine Total Volume 24 Hours 2950 Urine Creatinine Timed 24 Creatinine Clearance 13.8 L Urine Total Volume (Protein) 2950 Urine Total Protein 24 Hour 04684.0 H Bedside Glucose 163 140 Sodium Level 141 Potassium Level 4.5 Chloride Level 111 H Carbon Dioxide Level 18 L Anion Gap 17 H Blood Urea Nitrogen 55 H Creatinine 3.05 H Glucose Level 151 Calcium Level 7.9 L Phosphorus Level 5.0 H Magnesium Level 1.9 Test 01/05/17 07:59 01/05/17 12:06 Bedside Glucose 145 155 Medications Medications Current Medications Amlodipine Besylate (Norvasc) 10 mg DAILY PO Last administered on 01/04/17 07: 57; Admin Dose 10 MG; Start 01/02/17 at 09:00 Ferrous Sulfate (Ferrous Sulfate (Ec)) 325 mg BID PO Last administered on 21:26; Admin Dose 325 MG; Start 01/01/17 at 21:00 Furosemide (Lasix) 40 mg DAILY@06 PO Last administered on 01/02/17 05:29; Admin Dose 40 MG; Start 01/02/17 at 06:00; Status Future Hold Losartan Potassium (Cozaar) 50 mg DAILY PO Last administered on 01/04/17 07:57 ; Admin Dose 50 MG; Start 01/02/17 at 09:00 Metoprolol Tartrate (Lopressor) 100 mg BID PO Last administered on 01/04/17 21 :26; Admin Dose 100 MG; Start 01/01/17 at 21:00 Montelukast Sodium (Singulair) 10 mg QHS PO Last administered on 01/04/17 21: 26; Admin Dose 10 MG; Start 01/01/17 at 21:00 Tramadol HCl (Ultram) 50 mg DAILY PRN PO PAIN Last administered on 01/04/17 05 :59; Admin Dose 50 MG; Start 01/01/17 at 21:00 Diagnostic Test (Pha) (Accu-Chek) 1 ea 02 XX ; Start 01/02/17 at 02:00 Miscellaneous Information 1 ea NOTE XX ; Start 01/01/17 at 21:30 Glucose (Glutose) 15 gm Q15M PRN PO DECREASED GLUCOSE; Start 01/01/17 at 21:30 Glucose (Glutose) 22.5 gm Q15M PRN PO DECREASED GLUCOSE; Start 01/01/17 at 21: 30 Dextrose (D50w Syringe) 25 ml Q15M PRN IV DECREASED GLUCOSE; Start 01/01/17 at 21:30 Dextrose (D50w Syringe) 50 ml Q15M PRN IV DECREASED GLUCOSE; Start 01/01/17 at 21:30 Glucagon (Glucagen) 1 mg Q15M PRN IM DECREASED GLUCOSE; Start 01/01/17 at 21:30 Glucose (Glutose) 15 gm Q15M PRN BUCCAL DECREASED GLUCOSE; Start 01/01/17 at 21 :30 Zolpidem Tartrate 5 mg 5 mg HS PRN PO INSOMNIA Last administered on 01/04/17 23:04; Admin Dose 5 MG; Start 01/01/17 at 22:00 Cefepime HCl (Maxipime 1gm/50 ml (Pmx)) 50 ml @ 100 mls/hr Q24H IVPB Last administered on 01/04/17 21:27; Admin Dose 100 MLS/HR; Start 01/02/17 at 22:00 Insulin Glargine (Lantus) 24 unit HS SC Last administered on 01/04/17 21:38; Admin Dose 24 UNIT; Start 01/02/17 at 21:00 Atorvastatin Calcium (Lipitor) 10 mg DAILY@21 PO Last administered on 21:27; Admin Dose 10 MG; Start 01/02/17 at 21:00 Calcium Carbonate (Tums) 500 mg BID PO Last administered on 01/04/17 21:27; Admin Dose 500 MG; Start 01/02/17 at 21:00 Hydralazine HCl (Apresoline) 10 mg Q4H PRN IV ELEVATED BLOOD PRESSURE; Start at 14:30 Magnesium Hydroxide (Milk Of Mag) 30 ml DAILY PRN PO CONSTIPATION; Start at 17:30 Polyethylene Glycol 17 gm 17 gm DAILY GTB Last administered on 01/04/17 07:58 ; Admin Dose 17 GM; Start 01/03/17 at 17:30 Vancomycin HCl (Vancocin) 250 ml @ 125 mls/hr Q48H IVPB Last administered on 14:19; Admin Dose 125 MLS/HR; Start 01/04/17 at 14:00 JOURDAN MCMAHAN Jan 05, 2017 12:24
[2017-01-05 15:50] LABS: CHOL/HDL RATIO 4.9 RATIO
--- NOTE | 2017-01-05 15:59 | RADRPT ---
PROCEDURE: Bilateral lower extremity venous mapping. CLINICAL INDICATION: Preoperative for CABG. TECHNIQUE: The greater saphenous vein was evaluated bilaterally with ultrasound in the axial and s agittal planes. Diameter of the veins were determined as indicated below. COMPARISON: No prior studies are available for comparison. FINDINGS: Right greater saphenous vein: At groin: 0.46 cm. Upper thigh: 0.46 cm. Mid thigh: 0.27 cm. Lower thigh: 0.20 cm. At knee: 0.23 cm. Upper calf: 0.20 cm. Mid calf: 0.24 cm. Ankle: 0.16 cm. Left greater saphenous vein: At groin: 0.24 cm. Upper thigh: 0.26 cm. Mid thigh: 0.31 cm. Lower thigh: 0.18 cm. At knee: 0.09 cm. Upper calf: 0.07 cm. Mid calf: 0.15 cm. Ankle: 0.13 cm. The greater saphenous veins demonstrate normal compressibility with no thrombus or occlusion. IMPRESSION: 1. Diameter of greater saphenous veins as indicated above. 2. No thrombosis visualized. RPTAT: QQ .Branden Amezcua MD, Date Time Electronically viewed and signed by .Branden Amezcua MD, on 01/05/2017 15:58 .R/
[2017-01-05 18:37] LABS: CREATINE KINASE 79 IU/L (23-200)
[2017-01-05 18:47] LABS: CK-MB 2.24 ng/ml (0.0-2.4)
[2017-01-05 18:53] LABS: TROPONIN-I < 0.012 ng/ml (0.00-0.12)
--- NOTE | 2017-01-05 21:14 | CONS ---
Date/Time of Note Date/Time of Note DATE: 01/05/17 TIME: 21:05 Assessment/Plan Assessment/Plan Additional Assessment/Plan Renal catalan stable May start pt on mucomyst if angiogram may be required Consultation Date/Type/Reason Admit Date/Time Jan 01, 2017 at 18:03 Initial Consult Date 01/02/17 Type of Consultation: Renal Referring Provider: CORY EDGE Exam/Review of Systems Vital Signs Vitals Vital Signs Date Time Temp Pulse Resp B/P Pulse Ox O2 Delivery O2 Flow Rate FiO2 01/05/17 19:45 98.4 67 18 135/69 100 01/05/17 11:37 Room Air Intake and Output 01/04/17 01/04/17 01/05/17 15:00 23:00 07:00 Intake Total 1860 ml 1300 ml Output Total 1700 ml 2200 ml Balance 160 ml -900 ml Exam Constitutional: alert, oriented, well developed Psych: nl mood/affect, no complaints Head: atraumatic, normocephalic Eyes: EOMI, PERRL, nl conjunctiva, nl lids, nl sclera ENMT: nl external ears & nose, nl lips & teeth, nl nasal mucosa & septum Neck: non-tender, supple Respiratory: clear to auscultation, normal air movement Cardiovascular: nl pulses, regular rate and rhythm Gastrointestinal: nl liver, spleen, non-tender, soft Musculoskeletal: nl extremities to inspection, nl gait and stance Extremities: normal pulses, other (Rt foot gangrene no change) Neurological: UX RESEARCH ASSOCIATE II-XII intact, nl mental status, nl speech, nl strength Skin: nl turgor, No rash or lesions Lymph: nl lymph nodes Additional Comments Pt seen by Charlie Sx, V sx recommended Results Result Diagram: 01/03/17 0533 01/05/17 0458 Results 24 hrs Laboratory Tests Test 01/04/17 21:29 01/05/17 04:58 01/05/17 07:59 01/05/17 12:06 Bedside Glucose 140 145 155 Sodium Level 141 Potassium Level 4.5 Chloride Level 111 H Carbon Dioxide Level 18 L Anion Gap 17 H Blood Urea Nitrogen 55 H Creatinine 3.05 H Glucose Level 151 Calcium Level 7.9 L Phosphorus Level 5.0 H Magnesium Level 1.9 Triglycerides Level 211 H Cholesterol Level 182 LDL Cholesterol, Calculated 103 HDL Cholesterol 37 Cholesterol/HDL Ratio 4.9 Test 01/05/17 17:23 01/05/17 17:34 Creatine Kinase 79 Creatine Kinase Index 2.8 Creatinine Kinase MB (Mass) 2.24 Troponin I < 0.012 Bedside Glucose 171 Medications Medications Current Medications Amlodipine Besylate (Norvasc) 10 mg DAILY PO Last administered on 01/05/17 12: 18; Admin Dose 10 MG; Start 01/02/17 at 09:00 Ferrous Sulfate (Ferrous Sulfate (Ec)) 325 mg BID PO Last administered on 21:26; Admin Dose 325 MG; Start 01/01/17 at 21:00 Furosemide (Lasix) 40 mg DAILY@06 PO Last administered on 01/02/17 05:29; Admin Dose 40 MG; Start 01/02/17 at 06:00; Status Future Hold Losartan Potassium (Cozaar) 50 mg DAILY PO Last administered on 01/05/17 12:19 ; Admin Dose 50 MG; Start 01/02/17 at 09:00 Metoprolol Tartrate (Lopressor) 100 mg BID PO Last administered on 01/05/17 12 :19; Admin Dose 100 MG; Start 01/01/17 at 21:00 Montelukast Sodium (Singulair) 10 mg QHS PO Last administered on 01/04/17 21: 26; Admin Dose 10 MG; Start 01/01/17 at 21:00 Tramadol HCl (Ultram) 50 mg DAILY PRN PO PAIN Last administered on 01/04/17 05 :59; Admin Dose 50 MG; Start 01/01/17 at 21:00 Diagnostic Test (Pha) (Accu-Chek) 1 ea 02 XX ; Start 01/02/17 at 02:00 Miscellaneous Information 1 ea NOTE XX ; Start 01/01/17 at 21:30 Glucose (Glutose) 15 gm Q15M PRN PO DECREASED GLUCOSE; Start 01/01/17 at 21:30 Glucose (Glutose) 22.5 gm Q15M PRN PO DECREASED GLUCOSE; Start 01/01/17 at 21: 30 Dextrose (D50w Syringe) 25 ml Q15M PRN IV DECREASED GLUCOSE; Start 01/01/17 at 21:30 Dextrose (D50w Syringe) 50 ml Q15M PRN IV DECREASED GLUCOSE; Start 01/01/17 at 21:30 Glucagon (Glucagen) 1 mg Q15M PRN IM DECREASED GLUCOSE; Start 01/01/17 at 21:30 Glucose (Glutose) 15 gm Q15M PRN BUCCAL DECREASED GLUCOSE; Start 01/01/17 at 21 :30 Zolpidem Tartrate 5 mg 5 mg HS PRN PO INSOMNIA Last administered on 01/04/17 23:04; Admin Dose 5 MG; Start 01/01/17 at 22:00 Cefepime HCl (Maxipime 1gm/50 ml (Pmx)) 50 ml @ 100 mls/hr Q24H IVPB Last administered on 01/04/17 21:27; Admin Dose 100 MLS/HR; Start 01/02/17 at 22:00 Insulin Glargine (Lantus) 24 unit HS SC Last administered on 01/04/17 21:38; Admin Dose 24 UNIT; Start 01/02/17 at 21:00 Atorvastatin Calcium (Lipitor) 10 mg DAILY@21 PO Last administered on 21:27; Admin Dose 10 MG; Start 01/02/17 at 21:00 Calcium Carbonate (Tums) 500 mg BID PO Last administered on 01/04/17 21:27; Admin Dose 500 MG; Start 01/02/17 at 21:00 Hydralazine HCl (Apresoline) 10 mg Q4H PRN IV ELEVATED BLOOD PRESSURE; Start at 14:30 Magnesium Hydroxide (Milk Of Mag) 30 ml DAILY PRN PO CONSTIPATION; Start at 17:30 Polyethylene Glycol 17 gm 17 gm DAILY GTB Last administered on 01/04/17 07:58 ; Admin Dose 17 GM; Start 01/03/17 at 17:30 Vancomycin HCl (Vancocin) 250 ml @ 125 mls/hr Q48H IVPB Last administered on 14:19; Admin Dose 125 MLS/HR; Start 01/04/17 at 14:00 EUGENIE ORTIZ MD Jan 05, 2017 21:14
[2017-01-05] MEDS: ATORVASTATIN 10 MG TAB PO SCH (21:21)
[2017-01-05] MEDS: MONTELUKAST 10 MG TAB PO SCH (21:21)
[2017-01-05] MEDS: INSULIN GLARGINE [LANtus] 3 ML PEN SC SCH (21:27)
[2017-01-05] MEDS: CEFEPIME 1GM/50 ML (PMX) 50 ML IVPB SCH (22:15)
[2017-01-05] MEDS: ACETYLCYSTEINE 600 MG CAP PO SCH (22:15)
[2017-01-05] MEDS: traMADol 50 MG TAB PO PRN (23:06)
[2017-01-05] MEDS: ZOLPIDEM 5 MG TAB PO PRN (23:06)
[2017-01-06 01:37] LABS: CREATINE KINASE 103 IU/L (23-200)
[2017-01-06 01:49] LABS: CK-MB 2.43 ng/ml (0.0-2.4)
[2017-01-06 01:59] LABS: TROPONIN-I < 0.012 ng/ml (0.00-0.12)
[2017-01-06 02:00] VITALS: BP 149/66; RESP 18
[2017-01-06] MEDS: ACCU-CHEK XX SCH (02:00)
[2017-01-06 05:44] LABS: BASOPHIL # 0.1 10^3/ul (0.0-0.1); BASOPHILS % 0.7 % (0.0-2.0); EOSINOPHILS # 0.8 10^3/ul (0.0-0.5); EOSINOPHILS % 6.7 % (0.0-7.0); LYMPHOCYTES # 1.5 10^3/ul (0.8-2.9); LYMPHOCYTES % 13.3 % (15.0-51.0); MEAN CORPUSCULAR HEMOGLOBIN 25.2 pg (29.0-33.0); MEAN CORPUSCULAR VOLUME 81.2 fl (82.0-101.0); MEAN PLATELET VOLUME 10.5 fl (7.4-10.4); MONOCYTES % 9.3 % (0.0-11.0); NEUTROPHIL # 7.8 10^3/ul (1.6-7.5); NEUTROPHILS % 69.6 % (39.0-77.0); PLATELET COUNT 401 10^3/UL (140-415); RED BLOOD COUNT 3.57 10^6/ul (4.20-5.40); WHITE BLOOD COUNT 11.2 10^3/ul (4.8-10.8)
[2017-01-06 06:11] LABS: CREATININE 3.14 mg/dl (0.44-1.00); MAGNESIUM 1.8 mg/dl (1.7-2.5); PHOSPHORUS 5.1 mg/dl (2.5-4.9); POTASSIUM 4.7 mmol/L (3.5-5.1)
[2017-01-06 07:18] VITALS: BP 149/68; RESP 18
[2017-01-06] MEDS: INSULIN ASPART [NOVOLOG] 3 ML PEN SC SCH ×7 (08:01→21:00)
[2017-01-06] MEDS: FERROUS SULFATE (EC) 325 MG TAB PO SCH ×2 (08:53→21:00)
[2017-01-06] MEDS: CALCIUM CARBONATE 500 MG CHEW TAB PO SCH ×2 (08:53→21:00)
[2017-01-06] MEDS: ACETYLCYSTEINE 600 MG CAP PO SCH ×2 (08:53→20:59)
[2017-01-06] MEDS: PANTOPRAZOLE (EC) 40 MG TAB PO SCH (08:53)
[2017-01-06] MEDS: AMLODIPINE 10 MG TAB PO SCH (08:54)
[2017-01-06] MEDS: POLYETHYLENE GLYCOL 17 GM PACKET GTB SCH (08:55)
[2017-01-06] MEDS: LOSARTAN 50 MG TAB PO SCH (08:55)
[2017-01-06] MEDS: METOPROLOL 100 MG TAB PO SCH ×2 (08:55→21:00)
--- NOTE | 2017-01-06 09:48 | CONS ---
DATE OF ADMISSION: 01/01/2017 DATE OF CONSULTATION: 01/05/2017 REASON FOR CONSULTATION: Preoperative evaluation. REFERRING PHYSICIAN: Dr. Camilo from the vascular surgery department. HISTORY OF PRESENT ILLNESS: Ms. Shah is a 61-year-old female with a history of chronic kidney disease, hypertension, left foot transmetatarsal amputation, diabetes mellitus, who presented with gangrenous changes of the right lower extremity, foot, involving the toes. Upon arrival, temperature 98.4, blood pressure 165/73, pulse 76, respiratory rate 20, satting 96 percent. Patient's labs show a white blood cell count of 13.6, hemoglobin 11.6, platelet count of 511. Sodium 140, potassium 4.9, creatinine of 4.0, BUN of 61, hemoglobin A1c of 7.5. INR 0.87. UA borderline. Stool occult blood negative. Patient underwent a foot x-ray revealing focal demineralization and subtle plantar periosteal reaction involving the distal phalanx of the great toe of the right foot, soft tissue swelling with extensive atherosclerotic calcification. Patient had an arterial of the lower extremity revealing abnormal modified flow in the calf arteries with significant stenosis or proximal occlusion. A chest x-ray revealed normal chest radiograph. Patient does not have an electrocardiogram in the chart for my review at this time. The patient was subsequently admitted to the floor, undergoing local wound care, evaluated by Podiatry, and was taken to the [facility] salvage today and underwent lower extremity angiography revealing surgical disease. Given these findings, the vascular surgeon has requested preoperative evaluation. The patient at that time denies chest pain, shortness of breath. PAST MEDICAL HISTORY: As above in HPI. MEDICATION: Currently in the hospital, vancomycin, MiraLax, hydralazine p.r.n., cefepime, Lantus 24 units subcu at bedtime, Lipitor 10 mg daily, calcium carbonate, Norvasc 10 mg daily, Cozaar 50 mg daily, insulin sliding scale, Ambien, ferrous sulfate 325 mg b.i.d., metoprolol 100 mg b.i.d., Singulair, tramadol. ALLERGIES: ZOSYN. SOCIAL HISTORY: No tobacco, EtOH, illicit drug use. FAMILY HISTORY: No history of sudden cardiac or early CAD. REVIEW OF SYSTEMS: As above in HPI. CONSTITUTIONAL: No fever, chills. RESPIRATORY: No current shortness of breath. CARDIOVASCULAR: No current chest pain. GASTROINTESTINAL: No vomiting. GENITOURINARY: Renal disease. PSYCHIATRIC: No documented psych history. NEUROLOGIC: No documented CVA. ENDOCRINE: Diabetes mellitus. MUSCULOSKELETAL: Gangrenous change of the right foot. PHYSICAL EXAMINATION: VITAL SIGNS: Temperature of 98, blood pressure 162/75, pulse 63, satting 97 percent on room air. GENERAL: The patient is alert, awake, in no acute distress. NECK: No jugular venous distension. CHEST: Fair air movement throughout. CARDIAC: Regular rate and rhythm. Normal S1, S2. 1/6 systolic murmur. Nondisplaced PMI. ABDOMEN: Positive bowel sounds. Soft. EXTREMITIES: No pitting edema. Gangrenous changes of the right toe. Difficult to palpate distal pulses, bilateral posterior tibial, dorsalis pedis. Status post transmetatarsal amputation left lower extremity. LABORATORY: As above in HPI. Most recent from today. Sodium 141, potassium 4.5, creatinine of 3.0, BUN of 55. White blood cell count 10.7, hemoglobin 9.7, platelet count of 412. INR 0.7. IMAGING STUDIES: As above in HPI. No further imaging studies are reviewed at this time. ELECTROCARDIOGRAM: No electrocardiograms are reviewed at this time. IMPRESSION: 1. Preoperative evaluation prior to lower extremity triple bypass surgery. 2. Hypertension. 3. Dyslipidemia. 4. Peripheral arterial disease with gangrenous change in the lower extremities. 5. Status post left lower extremity transmetatarsal amputation. 6. Renal failure. 7. Diabetes mellitus. 8. Anemia. RECOMMENDATIONS: 1. At this time, would continue the patient on baseline antihypertensives. We will up-titrate as necessary to improve overall systolic blood pressure control. 2. Check a fasting lipid panel and adjust patient's statin therapy as necessary. 3. Check a 2D echo to assess patient's ejection fraction, wall motion, and any major abnormalities in anticipation of surgery. 4. We will send troponin q.6 x2, to ensure patient has not had any recent coronary syndromes and check a baseline EKG now. Repeat EKG in the morning to assess for any significant change and abnormalities and we will give consideration to a cardiac stress test given patient's semi-elective need for surgery. Thank you for allowing me to take part in the care of this patient. I will continue to follow him very closely with you and further recommendations will be made as patient progresses his inpatient hospital course. Dictated By: Isa Contreras /[email or web address]/vida /Document#: [id number] ; Dr Camilo
[2017-01-06] MEDS ORDERED: REGADENOSON 0.4 MG/5 ML SYG ONE (10:02)
--- NOTE | 2017-01-06 12:08 | HP ---
DATE OF ADMISSION: 01/01/2017 CHIEF COMPLAINT: Right foot/big toe pain and discoloration. HISTORY OF PRESENT ILLNESS: The patient is a 61-year-old female with a history of diabetes, hypertension, dyslipidemia, and chronic kidney disease, who presented to the emergency department with the above-stated complaint. She states for the past few weeks, she has been experiencing some right foot/toe discoloration and pain, which has progressively been getting worse, but the most is in the right great toe, which at times has been numb as well. She had been told to come to the ER by Dr from podiatry. When she presented to the ER, blood pressure was 165/73, heart rate 76, respiratory rate 20, temperature 98.1, oxygen saturation 96 percent. Laboratory values show WBC of 13.6, hemoglobin 11.6, platelet count 511. Bun 62, creatinine 3.71. Bicarb 19. Right foot x-ray shows focal demineralization and subtotal plantar periosteal reaction involving the distal phalanx of the great toe of the right foot, cannot exclude periostitis, possible osteomyelitis. So soft tissue swelling with extensive perisclerotic calcification was noted. She was started on cefepime and vancomycin while she was in the ER and was given IV fluids and pain medication, and has been admitted for further evaluation. REVIEW OF SYSTEMS: All were negative, except for what was mentioned in the HPI. PAST MEDICAL HISTORY: As per HPI. PAST SURGICAL HISTORY: 1. She has amputation of left toes. 2. Left TMA. 3. . ALLERGIES: PIPERACILLIN. TAZOBACTAM. HOME MEDICATIONS: 1. Plavix. 2. Norvasc. 3. Ferrous sulphate. 4. Losartan. 5. Lovastatin. 6. Lopressor. 7. Tramadol. 8. Calcium. 9. Lasix. 10. Montelukast. 11. Protonix. 12. Insulin. PHYSICAL EXAMINATION: VITALS: Stable. GENERAL: Patient seems somewhat uncomfortable, in mild distress. HEENT: No obvious . Pupils reactive to light. Extraocular muscles intact. CARDIOVASCULAR: Regular rate and rhythm. LUNGS: Clear. ABDOMEN: Soft, nontender, nondistended. Positive bowel sounds. EXTREMITIES: The right great toe is necrotic with also swelling of the right foot. LABORATORY: as in HPI. IMAGING: The right foot x-ray as mentioned in HPI. IMPRESSION: 1. Right great toe periostitis with possible osteomyelitis. 2. Chronic kidney disease. 3. History of diabetes. 4. History of dyslipidemia. 5. History of hypertension. 6. History of left transmetatarsal amputation. PLAN: Will provide pain medication as needed. She will be placed on broad-spectrum antibiotics. , airport maintenance chief, is the one who referred her for admission, so he should be made aware of the patient's admission. She will be managed for diabetes, hypertension, and dyslipidemia. Will follow up on her basic labs and correct electrolytes as needed. Dictated By: Juancho Warner MD /israel/rosita /Document#: [id number]
[2017-01-06 13:32] VITALS: BP 140/60; RESP 18
--- NOTE | 2017-01-06 13:32 | PN ---
Date/Time of Note Date/Time of Note DATE: 01/06/17 TIME: 13:27 Assessment/Plan VTE Prophylaxis VTE Prophylaxis Intervention: ambulation Lines/Catheters IV Catheter Type (from [facility]): Peripheral IV Urinary Cath still in place: No Assessment/Plan Chief Complaint/Hosp Course Patient is a 61-year-old female who presents for pain necrosis to her right foot , told by her wood cabinetmaker to go to the ED. Patient has a past medical history of CKD as well as diabetes mellitus. Assessment Necrotic right lower extremity toes sepsis, mild, resolving occluded R popliteal and tibial arteries Diabetes mellitus MANOHAR vs MANOHAR on CKD Chronic kidney disease Hypertension Left toes amputation Plan -Spoke with Dr. Camilo, outpatient fem-pop bypass planned. Here to complete cardiac clearance for surgery, then DC. -Dr. Marisela Taylor, podiatry consulted, recs appreciated. -Dr. Hoffman consulted for MANOHAR vs CKD, recs appreciated -Continue home meds as able -Broad-spectrum antibiotics -Repeat labs in the morning -arterial study shows stenosis -watch bp DC likely tomorrow. Jourdan Mcmahan DO. Problems: Subjective 24 Hr Interval Summary Free Text/Dictation no acute complaints Exam/Review of Systems Vital Signs Vitals Vital Signs Date Time Temp Pulse Resp B/P Pulse Ox O2 Delivery O2 Flow Rate FiO2 01/06/17 07:18 98.8 65 18 149/68 99 01/05/17 11:37 Room Air Intake and Output 01/05/17 01/05/17 01/06/17 15:00 23:00 07:00 Intake Total 450 ml 200 ml Output Total 500 ml 3 ml Balance -500 ml 447 ml 200 ml Exam Physical exam General: Patient is laying in bed and answers questions appropriately Mentation: Patient is alert and oriented 4, Head: Normocephalic atraumatic Eyes: EOMI, pupils reactive to light Neck: Supple, nontender, midline Respiratory: Clear to auscultation bilaterally Cardiovascular: regular rate, no obvious murmurs Gastrointestinal: non-tender to palpation, bowel sounds heard. Neurological: Moves all extremities spontaneously Skin: necrotic great and 2nd toe of R foot. L foot transmetatarsal amputation Results Result Diagram: 01/06/17 0516 01/06/17 0516 Results 24 hrs Laboratory Tests Test 01/05/17 17:23 01/05/17 17:34 01/05/17 21:19 01/06/17 00:30 Creatine Kinase 79 103 Creatine Kinase Index 2.8 2.4 Creatinine Kinase MB (Mass) 2.24 2.43 H Troponin I < 0.012 < 0.012 Bedside Glucose 171 140 Test 01/06/17 05:16 01/06/17 08:01 White Blood Count 11.2 H Red Blood Count 3.57 L Hemoglobin 9.0 L Hematocrit 29.0 L Mean Corpuscular Volume 81.2 L Mean Corpuscular Hemoglobin 25.2 L Mean Corpuscular Hemoglobin Concent 31.0 L Red Cell Distribution Width 14.0 Platelet Count 401 Mean Platelet Volume 10.5 H Neutrophils % 69.6 Lymphocytes % 13.3 L Monocytes % 9.3 Eosinophils % 6.7 Basophils % 0.7 Nucleated Red Blood Cells % 0.0 Neutrophils # 7.8 H Lymphocytes # 1.5 Monocytes # 1.0 H Eosinophils # 0.8 H Basophils # 0.1 Nucleated Red Blood Cells # 0.0 Sodium Level 144 Potassium Level 4.7 Chloride Level 113 H Carbon Dioxide Level 19 L Anion Gap 17 H Blood Urea Nitrogen 57 H Creatinine 3.14 H Glucose Level 99 # Calcium Level 8.0 L Phosphorus Level 5.1 H Magnesium Level 1.8 Bedside Glucose 94 Medications Medications Current Medications Amlodipine Besylate (Norvasc) 10 mg DAILY PO Last administered on 01/06/17 08: 54; Admin Dose 10 MG; Start 01/02/17 at 09:00 Ferrous Sulfate (Ferrous Sulfate (Ec)) 325 mg BID PO Last administered on 08:53; Admin Dose 325 MG; Start 01/01/17 at 21:00 Furosemide (Lasix) 40 mg DAILY@06 PO Last administered on 01/02/17 05:29; Admin Dose 40 MG; Start 01/02/17 at 06:00; Status Future Hold Losartan Potassium (Cozaar) 50 mg DAILY PO Last administered on 01/06/17 08:55 ; Admin Dose 50 MG; Start 01/02/17 at 09:00 Metoprolol Tartrate (Lopressor) 100 mg BID PO Last administered on 01/06/17 08 :55; Admin Dose 100 MG; Start 01/01/17 at 21:00 Montelukast Sodium (Singulair) 10 mg QHS PO Last administered on 01/05/17 21: 21; Admin Dose 10 MG; Start 01/01/17 at 21:00 Tramadol HCl (Ultram) 50 mg DAILY PRN PO PAIN Last administered on 01/05/17 23 :06; Admin Dose 50 MG; Start 01/01/17 at 21:00 Diagnostic Test (Pha) (Accu-Chek) 1 ea 02 XX ; Start 01/02/17 at 02:00 Miscellaneous Information 1 ea NOTE XX ; Start 01/01/17 at 21:30 Glucose (Glutose) 15 gm Q15M PRN PO DECREASED GLUCOSE; Start 01/01/17 at 21:30 Glucose (Glutose) 22.5 gm Q15M PRN PO DECREASED GLUCOSE; Start 01/01/17 at 21: 30 Dextrose (D50w Syringe) 25 ml Q15M PRN IV DECREASED GLUCOSE; Start 01/01/17 at 21:30 Dextrose (D50w Syringe) 50 ml Q15M PRN IV DECREASED GLUCOSE; Start 01/01/17 at 21:30 Glucagon (Glucagen) 1 mg Q15M PRN IM DECREASED GLUCOSE; Start 01/01/17 at 21:30 Glucose (Glutose) 15 gm Q15M PRN BUCCAL DECREASED GLUCOSE; Start 01/01/17 at 21 :30 Zolpidem Tartrate 5 mg 5 mg HS PRN PO INSOMNIA Last administered on 01/05/17 23:06; Admin Dose 5 MG; Start 01/01/17 at 22:00 Cefepime HCl (Maxipime 1gm/50 ml (Pmx)) 50 ml @ 100 mls/hr Q24H IVPB Last administered on 01/05/17 22:15; Admin Dose 100 MLS/HR; Start 01/02/17 at 22:00 Insulin Glargine (Lantus) 24 unit HS SC Last administered on 01/05/17 21:27; Admin Dose 24 UNIT; Start 01/02/17 at 21:00 Atorvastatin Calcium (Lipitor) 10 mg DAILY@21 PO Last administered on 21:21; Admin Dose 10 MG; Start 01/02/17 at 21:00 Calcium Carbonate (Tums) 500 mg BID PO Last administered on 01/06/17 08:53; Admin Dose 500 MG; Start 01/02/17 at 21:00 Hydralazine HCl (Apresoline) 10 mg Q4H PRN IV ELEVATED BLOOD PRESSURE; Start at 14:30 Magnesium Hydroxide (Milk Of Mag) 30 ml DAILY PRN PO CONSTIPATION; Start at 17:30 Polyethylene Glycol 17 gm 17 gm DAILY GTB Last administered on 01/06/17 08:55 ; Admin Dose 17 GM; Start 01/03/17 at 17:30 Vancomycin HCl (Vancocin) 250 ml @ 125 mls/hr Q48H IVPB Last administered on 14:19; Admin Dose 125 MLS/HR; Start 01/04/17 at 14:00 Acetylcysteine (Nac) 600 mg BID PO Last administered on 01/06/17 08:53; Admin Dose 600 MG; Start 01/05/17 at 21:30; Stop 01/10/17 at 11:00 JOURDAN MCMAHAN Jan 06, 2017 13:32
[2017-01-06 14:00] VITALS: BP 140/60; RESP 20
[2017-01-06] MEDS: VANCOMYCIN 1 GM in NS 250 ML IVPB SCH (14:46)
--- NOTE | 2017-01-06 15:23 | RADRPT ---
PROCEDURE: Lexiscan myocardial perfusion study CLINICAL INDICATION: 61 -year-old patient complaining of chest pain. TECHNIQUE: Lexiscan 0.4 mg intravenously separate acquisition gated myocardial perfusion SPECT usi ng Tc 99m Myoview 30.0 mCi intravenously at stress and Tc-99m Myoview, 10.0 mCi intravenously at res t was performed using the rest/stress sequence. Poststress Myoview SPECT images were obtained in th e supine position. COMPARISON: No prior studies. FINDINGS: Perfusion images reveal a new small mild partially reversible perfusion abnormality in the distal an terior and distal anteroseptal pham, which likely related to breast soft tissue attenuation. Lexiscan post stress gated SPECT images demonstrate no wall motion abnormalities. IMPRESSION: 1. The type and distribution of the scintigraphic abnormalities are most consistent with a new smal l partially reversible perfusion defect in the distal anterior and distal anteroseptal pham to eric st soft tissue attenuation. 2. No new wall motion abnormalities. 3. The left ventricle ejection fraction at stress is 67% (prior EF was greater than 70%). RPTAT: QQ .Ann Calderon MD, Date Time Electronically viewed and signed by .Ann Calderon MD, MD on 01/06/2017 15:23 .L/
--- NOTE | 2017-01-06 16:31 | CONS ---
Date/Time of Note Date/Time of Note DATE: 01/06/17 TIME: 16:26 Assessment/Plan Assessment/Plan Additional Assessment/Plan Chronic kidney disease Left foot transmetatarsal amputation Gangrenous changes of the right lower extremity, foot and toes Hypertension. Dyslipidemia. Diabetes mellitus. Anemia Stress test shows no reversible ischemia Cleared for surgery Continue Coreg, Norvasc and Losartan Continue Lipitor Continue insulin . Consultation Date/Type/Reason Admit Date/Time Jan 01, 2017 at 18:03 Constitutional: No chills, No diaphoresis, No disoriented, No febrile, No improved, No no complaints, No other, No poor po, No requiring IVF, No requiring O2 Eyes: No discharge, No no complaints, No other, No pain, No redness, No visual change ENT: No bleeding, No congestion, No discharge, No dysphagia, No no complaints, No other, No pain, No sore throat Respiratory: No cough, No no complaints, No other, No pain, No pleuritic pain, No shortness of breath, No sputum, No wheezing Psychological: nl mood/affect, no complaints Past Medical History Medical History: renal disease Past Surgical History Past Surgical Hx: other Social History Alcohol Use: none Smoking Status: Never smoker Drug Use: none Exam/Review of Systems Vital Signs Vitals Vital Signs Date Time Temp Pulse Resp B/P Pulse Ox O2 Delivery O2 Flow Rate FiO2 01/06/17 14:00 01/05/17 11:37 Room Air Intake and Output 01/05/17 01/05/17 01/06/17 15:00 23:00 07:00 Intake Total 450 ml 200 ml Output Total 500 ml 3 ml Balance -500 ml 447 ml 200 ml Exam Constitutional: alert, oriented Head: atraumatic, normocephalic Neck: jvd, non-tender, supple Respiratory: clear to auscultation Cardiovascular: regular rate and rhythm Gastrointestinal: nl liver, spleen, non-tender, soft Extremities: other (Left foot transmetatarsal amputation Gangrenous changes of the right lower extremity, foot and toes) Results Result Diagram: 01/06/17 0516 01/06/17 0516 Results 24 hrs Laboratory Tests Test 01/05/17 17:23 01/05/17 17:34 01/05/17 21:19 01/06/17 00:30 Creatine Kinase 79 103 Creatine Kinase Index 2.8 2.4 Creatinine Kinase MB (Mass) 2.24 2.43 H Troponin I < 0.012 < 0.012 Bedside Glucose 171 140 Test 01/06/17 05:16 01/06/17 08:01 01/06/17 13:52 White Blood Count 11.2 H Red Blood Count 3.57 L Hemoglobin 9.0 L Hematocrit 29.0 L Mean Corpuscular Volume 81.2 L Mean Corpuscular Hemoglobin 25.2 L Mean Corpuscular Hemoglobin Concent 31.0 L Red Cell Distribution Width 14.0 Platelet Count 401 Mean Platelet Volume 10.5 H Neutrophils % 69.6 Lymphocytes % 13.3 L Monocytes % 9.3 Eosinophils % 6.7 Basophils % 0.7 Nucleated Red Blood Cells % 0.0 Neutrophils # 7.8 H Lymphocytes # 1.5 Monocytes # 1.0 H Eosinophils # 0.8 H Basophils # 0.1 Nucleated Red Blood Cells # 0.0 Sodium Level 144 Potassium Level 4.7 Chloride Level 113 H Carbon Dioxide Level 19 L Anion Gap 17 H Blood Urea Nitrogen 57 H Creatinine 3.14 H Glucose Level 99 # Calcium Level 8.0 L Phosphorus Level 5.1 H Magnesium Level 1.8 Bedside Glucose 94 88 Medications Medications Current Medications Amlodipine Besylate (Norvasc) 10 mg DAILY PO Last administered on 01/06/17 08: 54; Admin Dose 10 MG; Start 01/02/17 at 09:00 Ferrous Sulfate (Ferrous Sulfate (Ec)) 325 mg BID PO Last administered on 08:53; Admin Dose 325 MG; Start 01/01/17 at 21:00 Furosemide (Lasix) 40 mg DAILY@06 PO Last administered on 01/02/17 05:29; Admin Dose 40 MG; Start 01/02/17 at 06:00; Status Future Hold Losartan Potassium (Cozaar) 50 mg DAILY PO Last administered on 01/06/17 08:55 ; Admin Dose 50 MG; Start 01/02/17 at 09:00 Metoprolol Tartrate (Lopressor) 100 mg BID PO Last administered on 01/06/17 08 :55; Admin Dose 100 MG; Start 01/01/17 at 21:00 Montelukast Sodium (Singulair) 10 mg QHS PO Last administered on 01/05/17 21: 21; Admin Dose 10 MG; Start 01/01/17 at 21:00 Tramadol HCl (Ultram) 50 mg DAILY PRN PO PAIN Last administered on 01/05/17 23 :06; Admin Dose 50 MG; Start 01/01/17 at 21:00 Diagnostic Test (Pha) (Accu-Chek) 1 ea 02 XX ; Start 01/02/17 at 02:00 Miscellaneous Information 1 ea NOTE XX ; Start 01/01/17 at 21:30 Glucose (Glutose) 15 gm Q15M PRN PO DECREASED GLUCOSE; Start 01/01/17 at 21:30 Glucose (Glutose) 22.5 gm Q15M PRN PO DECREASED GLUCOSE; Start 01/01/17 at 21: 30 Dextrose (D50w Syringe) 25 ml Q15M PRN IV DECREASED GLUCOSE; Start 01/01/17 at 21:30 Dextrose (D50w Syringe) 50 ml Q15M PRN IV DECREASED GLUCOSE; Start 01/01/17 at 21:30 Glucagon (Glucagen) 1 mg Q15M PRN IM DECREASED GLUCOSE; Start 01/01/17 at 21:30 Glucose (Glutose) 15 gm Q15M PRN BUCCAL DECREASED GLUCOSE; Start 01/01/17 at 21 :30 Zolpidem Tartrate 5 mg 5 mg HS PRN PO INSOMNIA Last administered on 01/05/17 23:06; Admin Dose 5 MG; Start 01/01/17 at 22:00 Cefepime HCl (Maxipime 1gm/50 ml (Pmx)) 50 ml @ 100 mls/hr Q24H IVPB Last administered on 01/05/17 22:15; Admin Dose 100 MLS/HR; Start 01/02/17 at 22:00 Insulin Glargine (Lantus) 24 unit HS SC Last administered on 01/05/17 21:27; Admin Dose 24 UNIT; Start 01/02/17 at 21:00 Atorvastatin Calcium (Lipitor) 10 mg DAILY@21 PO Last administered on 21:21; Admin Dose 10 MG; Start 01/02/17 at 21:00 Calcium Carbonate (Tums) 500 mg BID PO Last administered on 01/06/17 08:53; Admin Dose 500 MG; Start 01/02/17 at 21:00 Hydralazine HCl (Apresoline) 10 mg Q4H PRN IV ELEVATED BLOOD PRESSURE; Start at 14:30 Magnesium Hydroxide (Milk Of Mag) 30 ml DAILY PRN PO CONSTIPATION; Start at 17:30 Polyethylene Glycol 17 gm 17 gm DAILY GTB Last administered on 01/06/17 08:55 ; Admin Dose 17 GM; Start 01/03/17 at 17:30 Vancomycin HCl (Vancocin) 250 ml @ 125 mls/hr Q48H IVPB Last administered on 14:46; Admin Dose 125 MLS/HR; Start 01/04/17 at 14:00 Acetylcysteine (Nac) 600 mg BID PO Last administered on 01/06/17 08:53; Admin Dose 600 MG; Start 01/05/17 at 21:30; Stop 01/10/17 at 11:00 ALFRED PAT M.D. Jan 06, 2017 16:31
[2017-01-06 20:06] VITALS: BP 168/74; RESP 20
[2017-01-06 21:00] VITALS: BP 158/69; PULSE 66
[2017-01-06] MEDS: ATORVASTATIN 10 MG TAB PO SCH (21:00)
[2017-01-06] MEDS: MONTELUKAST 10 MG TAB PO SCH (21:00)
[2017-01-06] MEDS: INSULIN GLARGINE [LANtus] 3 ML PEN SC SCH (21:07)
--- NOTE | 2017-01-06 21:13 | CONS ---
Date/Time of Note Date/Time of Note DATE: 01/06/17 TIME: 18:59 Assessment/Plan Assessment/Plan Problems: (1) Diabetic retinopathy Status: Chronic (2) Anemia Status: Chronic Comment: HCT 29% (3) Gangrene of foot Status: Chronic (4) Renal failure Status: Chronic Comment: CKD5 (5) Peripheral vascular disease due to secondary diabetes mellitus Status: Chronic Comment: PT FOLLOWED BY V SX Additional Assessment/Plan aWAITING FURTHER V SX PLANS Pt awaiting further vascular intervention Consultation Date/Type/Reason Admit Date/Time Jan 01, 2017 at 18:03 Initial Consult Date 01/02/17 Type of Consultation: Renal Referring Provider: CORY EDGE 24 HR Interval Summary Free Text/Dictation PT IS LYING COMFORTABLY IN BED Exam/Review of Systems Vital Signs Vitals Vital Signs Date Time Temp Pulse Resp B/P Pulse Ox O2 Delivery O2 Flow Rate FiO2 01/06/17 14:00 01/05/17 11:37 Room Air Intake and Output 01/05/17 01/05/17 01/06/17 15:00 23:00 07:00 Intake Total 450 ml 200 ml Output Total 500 ml 3 ml Balance -500 ml 447 ml 200 ml Exam Constitutional: alert, oriented, well developed Psych: nl mood/affect, no complaints Head: atraumatic, normocephalic Eyes: EOMI, PERRL, nl conjunctiva, nl lids, nl sclera ENMT: nl external ears & nose, nl lips & teeth, nl nasal mucosa & septum Neck: non-tender, supple Respiratory: clear to auscultation, normal air movement Cardiovascular: nl pulses, regular rate and rhythm Gastrointestinal: nl liver, spleen, non-tender, soft Musculoskeletal: nl extremities to inspection, nl gait and stance Extremities: normal pulses, other (GANGRENE OF RT FOOT) Neurological: ALLEY CLEANER II-XII intact, nl mental status, nl speech, nl strength Skin: nl turgor, No rash or lesions Lymph: nl lymph nodes Results HCT & CREAT HAVE LEVELLED OFF Result Diagram: 01/06/17 0516 01/06/17 0516 Results 24 hrs Laboratory Tests Test 01/05/17 21:19 01/06/17 00:30 01/06/17 05:16 01/06/17 08:01 Bedside Glucose 140 94 Creatine Kinase 103 Creatine Kinase Index 2.4 Creatinine Kinase MB (Mass) 2.43 H Troponin I < 0.012 White Blood Count 11.2 H Red Blood Count 3.57 L Hemoglobin 9.0 L Hematocrit 29.0 L Mean Corpuscular Volume 81.2 L Mean Corpuscular Hemoglobin 25.2 L Mean Corpuscular Hemoglobin Concent 31.0 L Red Cell Distribution Width 14.0 Platelet Count 401 Mean Platelet Volume 10.5 H Neutrophils % 69.6 Lymphocytes % 13.3 L Monocytes % 9.3 Eosinophils % 6.7 Basophils % 0.7 Nucleated Red Blood Cells % 0.0 Neutrophils # 7.8 H Lymphocytes # 1.5 Monocytes # 1.0 H Eosinophils # 0.8 H Basophils # 0.1 Nucleated Red Blood Cells # 0.0 Sodium Level 144 Potassium Level 4.7 Chloride Level 113 H Carbon Dioxide Level 19 L Anion Gap 17 H Blood Urea Nitrogen 57 H Creatinine 3.14 H Glucose Level 99 # Calcium Level 8.0 L Phosphorus Level 5.1 H Magnesium Level 1.8 Test 01/06/17 13:52 01/06/17 17:17 Bedside Glucose 88 99 Medications Medications Current Medications Amlodipine Besylate (Norvasc) 10 mg DAILY PO Last administered on 01/06/17 08: 54; Admin Dose 10 MG; Start 01/02/17 at 09:00 Ferrous Sulfate (Ferrous Sulfate (Ec)) 325 mg BID PO Last administered on 08:53; Admin Dose 325 MG; Start 01/01/17 at 21:00 Furosemide (Lasix) 40 mg DAILY@06 PO Last administered on 01/02/17 05:29; Admin Dose 40 MG; Start 01/02/17 at 06:00; Status Future Hold Losartan Potassium (Cozaar) 50 mg DAILY PO Last administered on 01/06/17 08:55 ; Admin Dose 50 MG; Start 01/02/17 at 09:00 Metoprolol Tartrate (Lopressor) 100 mg BID PO Last administered on 01/06/17 08 :55; Admin Dose 100 MG; Start 01/01/17 at 21:00 Montelukast Sodium (Singulair) 10 mg QHS PO Last administered on 01/05/17 21: 21; Admin Dose 10 MG; Start 01/01/17 at 21:00 Tramadol HCl (Ultram) 50 mg DAILY PRN PO PAIN Last administered on 01/05/17 23 :06; Admin Dose 50 MG; Start 01/01/17 at 21:00 Diagnostic Test (Pha) (Accu-Chek) 1 ea 02 XX ; Start 01/02/17 at 02:00 Miscellaneous Information 1 ea NOTE XX ; Start 01/01/17 at 21:30 Glucose (Glutose) 15 gm Q15M PRN PO DECREASED GLUCOSE; Start 01/01/17 at 21:30 Glucose (Glutose) 22.5 gm Q15M PRN PO DECREASED GLUCOSE; Start 01/01/17 at 21: 30 Dextrose (D50w Syringe) 25 ml Q15M PRN IV DECREASED GLUCOSE; Start 01/01/17 at 21:30 Dextrose (D50w Syringe) 50 ml Q15M PRN IV DECREASED GLUCOSE; Start 01/01/17 at 21:30 Glucagon (Glucagen) 1 mg Q15M PRN IM DECREASED GLUCOSE; Start 01/01/17 at 21:30 Glucose (Glutose) 15 gm Q15M PRN BUCCAL DECREASED GLUCOSE; Start 01/01/17 at 21 :30 Zolpidem Tartrate 5 mg 5 mg HS PRN PO INSOMNIA Last administered on 01/05/17 23:06; Admin Dose 5 MG; Start 01/01/17 at 22:00 Cefepime HCl (Maxipime 1gm/50 ml (Pmx)) 50 ml @ 100 mls/hr Q24H IVPB Last administered on 01/05/17 22:15; Admin Dose 100 MLS/HR; Start 01/02/17 at 22:00 Insulin Glargine (Lantus) 24 unit HS SC Last administered on 01/05/17 21:27; Admin Dose 24 UNIT; Start 01/02/17 at 21:00 Atorvastatin Calcium (Lipitor) 10 mg DAILY@21 PO Last administered on 21:21; Admin Dose 10 MG; Start 01/02/17 at 21:00 Calcium Carbonate (Tums) 500 mg BID PO Last administered on 01/06/17 08:53; Admin Dose 500 MG; Start 01/02/17 at 21:00 Hydralazine HCl (Apresoline) 10 mg Q4H PRN IV ELEVATED BLOOD PRESSURE; Start at 14:30 Magnesium Hydroxide (Milk Of Mag) 30 ml DAILY PRN PO CONSTIPATION; Start at 17:30 Polyethylene Glycol 17 gm 17 gm DAILY GTB Last administered on 01/06/17 08:55 ; Admin Dose 17 GM; Start 01/03/17 at 17:30 Vancomycin HCl (Vancocin) 250 ml @ 125 mls/hr Q48H IVPB Last administered on 14:46; Admin Dose 125 MLS/HR; Start 01/04/17 at 14:00 Acetylcysteine (Nac) 600 mg BID PO Last administered on 01/06/17 08:53; Admin Dose 600 MG; Start 01/05/17 at 21:30; Stop 01/10/17 at 11:00 EUGENIE ORTIZ MD Jan 06, 2017 21:13
[2017-01-06] MEDS: CEFEPIME 1GM/50 ML (PMX) 50 ML IVPB SCH (22:17)
[2017-01-06] MEDS: ZOLPIDEM 5 MG TAB PO PRN (23:05)
[2017-01-06] MEDS: traMADol 50 MG TAB PO PRN (23:05)
[2017-01-07] VITALS (7 sets, daily range): BP systolic 145–167; BP diastolic 59–75; PULSE 60–67; RESP 18–20
[2017-01-07] MEDS: ACCU-CHEK XX SCH (02:00)
[2017-01-07] MEDS: INSULIN ASPART [NOVOLOG] 3 ML PEN SC SCH ×7 (08:04→21:00)
[2017-01-07] MEDS: PANTOPRAZOLE (EC) 40 MG TAB PO SCH (08:29)
[2017-01-07] MEDS: ACETYLCYSTEINE 600 MG CAP PO SCH ×2 (08:29→21:22)
[2017-01-07] MEDS: FERROUS SULFATE (EC) 325 MG TAB PO SCH ×2 (08:30→21:22)
[2017-01-07] MEDS: LOSARTAN 50 MG TAB PO SCH (08:31)
[2017-01-07] MEDS: METOPROLOL 100 MG TAB PO SCH ×2 (08:31→21:22)
[2017-01-07] MEDS: AMLODIPINE 10 MG TAB PO SCH (08:32)
[2017-01-07] MEDS: CALCIUM CARBONATE 500 MG CHEW TAB PO SCH ×2 (08:32→21:22)
[2017-01-07] MEDS: POLYETHYLENE GLYCOL 17 GM PACKET GTB SCH (08:32)
--- NOTE | 2017-01-07 14:16 | RADRPT ---
Echocardiogram Report Patient Name: ABDELRAHMAN THOMAS Gender: Female Date: 1955 Study Date: 06-Jan-2017 Physical Science Professor: OMAIRA Location: I Ref. Physician: NOÉ HERRERA Quality: Adequate Procedures: Transthoracic echocardiogram with complete 2D, M-Mode, and doppler examination. Indications: Pre-op. 2D/M Mode Doppler Measurement Value Normal Ranges Measurement Value Normal Ranges AoR Diam MM 2.8 cm AV Peak Jackson 1.3 m/sec ACS MM 1.5 cm AV Peak PG 7.0 mmHg LVIDd 2D 4.4 3.5 - 5.6 cm LVOT Peak Jackson 0.9 m/sec LVIDs 2D 2.8 2.1 - 4.1 cm LVOT Peak PG 3.5 mmHg LVPWd 2D 1.0 0.6 - 1.1 cm MV E Peak Jackson 1.2 m/sec IVSd 2D 1.0 0.6 - 1.1 cm MV A Peak Jackson 0.9 m/sec EDV 2D 87.5 cm3 MV E/A 1.4 ESV 2D 21.0 cm3 MV Decel Time 182 msec LA Dimen 2D 3.2 2.3 - 4.0 cm MV Decel [place] 7 MV E/A 1.4 PV Peak Jackson 1.0 m/sec PV Peak PG 4.0 mmHg Findings Left Ventricle: Normal left ventricular systolic function. Normal left ventricular cavity size. Normal left ventricular wall thickness. Ejection fraction is visually estimated at 65 %. Tissue Doppler/Mitral Doppler indices are within normal limits. E/E`=16. Right Ventricle: Normal right ventricular size. Normal right ventricular systolic function. Left Atrium: The left atrium is normal in size. Right Atrium: The right atrium is normal in size. Atrial Septum: Normal atrial septum. Mitral Valve: Normal appearance of the mitral valve. No mitral valve regurgitation is seen. Aortic Valve: Normal appearance of the aortic valve. No significant aortic stenosis or insufficiency. Aortic sclerosis without stenosis. Tricuspid Valve: Normal appearance of the tricuspid valve. No evidence of tricuspid regurgitation. Pulmonic Valve: Normal pulmonic valve appearance. No evidence of pulmonic regurgitation. Pericardium: Normal pericardium with no significant pericardial effusion. No pleural effusion noted. Aorta: Normal aortic root. IVC: Normal size and normal respiratory collapse consistent with normal right atrial pressure. Pulmonary Artery: Normal pulmonary artery size. Conclusions 1.Normal left ventricular systolic function. Normal left ventricular cavity size. Normal left ventricular wall thickness. Ejection fraction is visually estimated at 65 %. Tissue Doppler/Mitral Doppler indices are within normal limits. 2.Normal right ventricular size. Normal right ventricular systolic function. 3.Normal appearance of the mitral valve. No mitral valve regurgitation is seen. 4.Normal appearance of the aortic valve. No significant aortic stenosis or insufficiency. Aortic sclerosis without stenosis. 5.Normal appearance of the tricuspid valve. No evidence of tricuspid regurgitation. 6.Normal pericardium with no significant pericardial effusion. No pleural effusion noted. Electronically Signed By: Teofilo Lopez 07-Jan-2017 14:16:13 -0700 Patient Name: ABDELRAHMAN THOMAS Study Date: 06-Jan-2017 [id number]
--- NOTE | 2017-01-07 14:41 | PN ---
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 Patient has a past medical history of CKD as well as diabetes mellitus. Assessment Necrotic right lower extremity toes sepsis, mild, resolving occluded R popliteal and tibial arteries Diabetes mellitus MANOHAR vs MANOHAR on CKD Chronic kidney disease Hypertension Left toes amputation Plan -Cardiology cleared for DC, ID consulted, [employer]PECT[employer] Nera, for possible outpatient antibiotic therapy if any needed. -Spoke with Dr. Camilo, outpatient fem-pop bypass planned. Here to complete cardiac clearance for surgery, then DC. -Dr. Marisela Taylor, podiatry consulted, recs appreciated. -Dr. Hoffman consulted for MANOHAR vs CKD, recs appreciated -Continue home meds as able -Broad-spectrum antibiotics -Repeat labs in the morning -arterial study shows stenosis -watch bp DC likely tomorrow after abx rec. Jourdan Mcmahan DO. Problems: Subjective 24 Hr Interval Summary Free Text/Dictation no acute complaints Exam/Review of Systems Vital Signs Vitals Vital Signs Date Time Temp Pulse Resp B/P Pulse Ox O2 Delivery O2 Flow Rate FiO2 01/07/17 13:00 98.6 65 18 154/67 98 01/05/17 11:37 Room Air Intake and Output 01/06/17 01/06/17 01/07/17 15:00 23:00 07:00 Intake Total 1090 ml 290 ml Balance 1090 ml 290 ml Exam Physical exam General: Patient is laying in bed and answers questions appropriately Mentation: Patient is alert and oriented 4, Head: Normocephalic atraumatic Eyes: EOMI, pupils reactive to light Neck: Supple, nontender, midline Respiratory: Clear to auscultation bilaterally Cardiovascular: regular rate, no obvious murmurs Gastrointestinal: non-tender to palpation, bowel sounds heard. Neurological: Moves all extremities spontaneously Skin: necrotic great and 2nd toe of R foot. L foot transmetatarsal amputation Results Result Diagram: 01/06/1716 01/06/17 0516 Results 24 hrs Laboratory Tests Test 01/06/17 17:17 01/06/17 21:02 01/07/17 07:58 01/07/17 12:00 Bedside Glucose 99 168 75 101 Medications Medications Current Medications Amlodipine Besylate (Norvasc) 10 mg DAILY PO Last administered on 01/07/17 08: 32; Admin Dose 10 MG; Start 01/02/17 at 09:00 Ferrous Sulfate (Ferrous Sulfate (Ec)) 325 mg BID PO Last administered on 08:30; Admin Dose 325 MG; Start 01/01/17 at 21:00 Furosemide (Lasix) 40 mg DAILY@06 PO Last administered on 01/02/17 05:29; Admin Dose 40 MG; Start 01/02/17 at 06:00; Status Future Hold Losartan Potassium (Cozaar) 50 mg DAILY PO Last administered on 01/07/17 08:31 ; Admin Dose 50 MG; Start 01/02/17 at 09:00 Metoprolol Tartrate (Lopressor) 100 mg BID PO Last administered on 01/07/17 08 :31; Admin Dose 100 MG; Start 01/01/17 at 21:00 Montelukast Sodium (Singulair) 10 mg QHS PO Last administered on 01/06/17 21: 00; Admin Dose 10 MG; Start 01/01/17 at 21:00 Tramadol HCl (Ultram) 50 mg DAILY PRN PO PAIN Last administered on 01/06/17 23 :05; Admin Dose 50 MG; Start 01/01/17 at 21:00 Diagnostic Test (Pha) (Accu-Chek) 1 ea 02 XX ; Start 01/02/17 at 02:00 Miscellaneous Information 1 ea NOTE XX ; Start 01/01/17 at 21:30 Glucose (Glutose) 15 gm Q15M PRN PO DECREASED GLUCOSE; Start 01/01/17 at 21:30 Glucose (Glutose) 22.5 gm Q15M PRN PO DECREASED GLUCOSE; Start 01/01/17 at 21: 30 Dextrose (D50w Syringe) 25 ml Q15M PRN IV DECREASED GLUCOSE; Start 01/01/17 at 21:30 Dextrose (D50w Syringe) 50 ml Q15M PRN IV DECREASED GLUCOSE; Start 01/01/17 at 21:30 Glucagon (Glucagen) 1 mg Q15M PRN IM DECREASED GLUCOSE; Start 01/01/17 at 21:30 Glucose (Glutose) 15 gm Q15M PRN BUCCAL DECREASED GLUCOSE; Start 01/01/17 at 21 :30 Zolpidem Tartrate 5 mg 5 mg HS PRN PO INSOMNIA Last administered on 01/06/17 23:05; Admin Dose 5 MG; Start 01/01/17 at 22:00 Cefepime HCl (Maxipime 1gm/50 ml (Pmx)) 50 ml @ 100 mls/hr Q24H IVPB Last administered on 01/06/17 22:17; Admin Dose 100 MLS/HR; Start 01/02/17 at 22:00 Insulin Glargine (Lantus) 24 unit HS SC Last administered on 01/06/17 21:07; Admin Dose 24 UNIT; Start 01/02/17 at 21:00 Atorvastatin Calcium (Lipitor) 10 mg DAILY@21 PO Last administered on 21:00; Admin Dose 10 MG; Start 01/02/17 at 21:00 Calcium Carbonate (Tums) 500 mg BID PO Last administered on 01/07/17 08:32; Admin Dose 500 MG; Start 01/02/17 at 21:00 Hydralazine HCl (Apresoline) 10 mg Q4H PRN IV ELEVATED BLOOD PRESSURE Last administered on 01/07/17 02:13; Admin Dose 10 MG; Start 01/03/17 at 14:30 Magnesium Hydroxide (Milk Of Mag) 30 ml DAILY PRN PO CONSTIPATION; Start at 17:30 Polyethylene Glycol 17 gm 17 gm DAILY GTB Last administered on 01/07/17 08:32 ; Admin Dose 17 GM; Start 01/03/17 at 17:30 Vancomycin HCl (Vancocin) 250 ml @ 125 mls/hr Q48H IVPB Last administered on 14:46; Admin Dose 125 MLS/HR; Start 01/04/17 at 14:00 Acetylcysteine (Nac) 600 mg BID PO Last administered on 01/07/17 08:29; Admin Dose 600 MG; Start 01/05/17 at 21:30; Stop 01/10/17 at 11:00 Miscellaneous Information (*Rx Drug Level Order Reminder*) VANCOMYCIN TROUGH AT 1300 ONCE ONCE XX ; Start 01/08/17 at 13:00; Stop 01/08/17 at 13:01 JOURDAN MCMAHAN Jan 07, 2017 14:41
--- NOTE | 2017-01-07 14:44 | CONS ---
Date/Time of Note Date/Time of Note DATE: 01/07/17 TIME: 14:43 Assessment/Plan Assessment/Plan Additional Assessment/Plan Chronic kidney disease Left foot transmetatarsal amputation Gangrenous changes of the right lower extremity, foot and toes Hypertension. Dyslipidemia. Diabetes mellitus. Anemia Stress test shows no reversible ischemia Cleared for surgery Continue Coreg, Norvasc and Losartan Continue Lipitor Continue insulin Consultation Date/Type/Reason Admit Date/Time Jan 01, 2017 at 18:03 Initial Consult Date 01/02/17 Type of Consultation: Renal Referring Provider: CORY EDGE Exam/Review of Systems Vital Signs Vitals Vital Signs Date Time Temp Pulse Resp B/P Pulse Ox O2 Delivery O2 Flow Rate FiO2 01/07/17 13:00 98.6 65 18 154/67 98 01/05/17 11:37 Room Air Intake and Output 01/06/17 01/06/17 01/07/17 15:00 23:00 07:00 Intake Total 1090 ml 290 ml Balance 1090 ml 290 ml Exam Constitutional: alert, oriented Head: atraumatic, normocephalic Neck: jvd, non-tender, supple Respiratory: clear to auscultation Cardiovascular: regular rate and rhythm Gastrointestinal: nl liver, spleen, non-tender, soft Extremities: other (Left foot transmetatarsal amputation Gangrenous changes of the right lower extremity, foot and toes) Results Result Diagram: 01/06/17 0516 01/06/17 0516 Results 24 hrs Laboratory Tests Test 01/06/17 17:17 01/06/17 21:02 01/07/17 07:58 01/07/17 12:00 Bedside Glucose 99 168 75 101 Medications Medications Current Medications Amlodipine Besylate (Norvasc) 10 mg DAILY PO Last administered on 01/07/17 08: 32; Admin Dose 10 MG; Start 01/02/17 at 09:00 Ferrous Sulfate (Ferrous Sulfate (Ec)) 325 mg BID PO Last administered on 08:30; Admin Dose 325 MG; Start 01/01/17 at 21:00 Furosemide (Lasix) 40 mg DAILY@06 PO Last administered on 01/02/17 05:29; Admin Dose 40 MG; Start 01/02/17 at 06:00; Status Future Hold Losartan Potassium (Cozaar) 50 mg DAILY PO Last administered on 01/07/17 08:31 ; Admin Dose 50 MG; Start 01/02/17 at 09:00 Metoprolol Tartrate (Lopressor) 100 mg BID PO Last administered on 01/07/17 08 :31; Admin Dose 100 MG; Start 01/01/17 at 21:00 Montelukast Sodium (Singulair) 10 mg QHS PO Last administered on 01/06/17 21: 00; Admin Dose 10 MG; Start 01/01/17 at 21:00 Tramadol HCl (Ultram) 50 mg DAILY PRN PO PAIN Last administered on 01/06/17 23 :05; Admin Dose 50 MG; Start 01/01/17 at 21:00 Diagnostic Test (Pha) (Accu-Chek) 1 ea 02 XX ; Start 01/02/17 at 02:00 Miscellaneous Information 1 ea NOTE XX ; Start 01/01/17 at 21:30 Glucose (Glutose) 15 gm Q15M PRN PO DECREASED GLUCOSE; Start 01/01/17 at 21:30 Glucose (Glutose) 22.5 gm Q15M PRN PO DECREASED GLUCOSE; Start 01/01/17 at 21: 30 Dextrose (D50w Syringe) 25 ml Q15M PRN IV DECREASED GLUCOSE; Start 01/01/17 at 21:30 Dextrose (D50w Syringe) 50 ml Q15M PRN IV DECREASED GLUCOSE; Start 01/01/17 at 21:30 Glucagon (Glucagen) 1 mg Q15M PRN IM DECREASED GLUCOSE; Start 01/01/17 at 21:30 Glucose (Glutose) 15 gm Q15M PRN BUCCAL DECREASED GLUCOSE; Start 01/01/17 at 21 :30 Zolpidem Tartrate 5 mg 5 mg HS PRN PO INSOMNIA Last administered on 01/06/17 23:05; Admin Dose 5 MG; Start 01/01/17 at 22:00 Cefepime HCl (Maxipime 1gm/50 ml (Pmx)) 50 ml @ 100 mls/hr Q24H IVPB Last administered on 01/06/17 22:17; Admin Dose 100 MLS/HR; Start 01/02/17 at 22:00 Insulin Glargine (Lantus) 24 unit HS SC Last administered on 01/06/17 21:07; Admin Dose 24 UNIT; Start 01/02/17 at 21:00 Atorvastatin Calcium (Lipitor) 10 mg DAILY@21 PO Last administered on 21:00; Admin Dose 10 MG; Start 01/02/17 at 21:00 Calcium Carbonate (Tums) 500 mg BID PO Last administered on 01/07/17 08:32; Admin Dose 500 MG; Start 01/02/17 at 21:00 Hydralazine HCl (Apresoline) 10 mg Q4H PRN IV ELEVATED BLOOD PRESSURE Last administered on 01/07/17 02:13; Admin Dose 10 MG; Start 01/03/17 at 14:30 Magnesium Hydroxide (Milk Of Mag) 30 ml DAILY PRN PO CONSTIPATION; Start at 17:30 Polyethylene Glycol 17 gm 17 gm DAILY GTB Last administered on 01/07/17 08:32 ; Admin Dose 17 GM; Start 01/03/17 at 17:30 Vancomycin HCl (Vancocin) 250 ml @ 125 mls/hr Q48H IVPB Last administered on 14:46; Admin Dose 125 MLS/HR; Start 01/04/17 at 14:00 Acetylcysteine (Nac) 600 mg BID PO Last administered on 01/07/17 08:29; Admin Dose 600 MG; Start 01/05/17 at 21:30; Stop 01/10/17 at 11:00 Miscellaneous Information (*Rx Drug Level Order Reminder*) VANCOMYCIN TROUGH AT 1300 ONCE ONCE XX ; Start 01/08/17 at 13:00; Stop 01/08/17 at 13:01 ALFRED PAT M.D. Jan 07, 2017 14:44
--- NOTE | 2017-01-07 16:45 | CONS ---
Date/Time of Note Date/Time of Note DATE: 01/07/17 TIME: 16:41 Consultation Date/Type/Reason Admit Date/Time Jan 01, 2017 at 18:03 Type of Consultation: ID Reason for Consultation Antibiotic management.We will consider Daptomycin 4mg/kg/day amd levaquin 250mg po qod.Pt. will need Picc line. Constitutional: No chills, No diaphoresis, No disoriented, No febrile, No improved, No no complaints, No other, No poor po, No requiring IVF, No requiring O2 Eyes: No discharge, No no complaints, No other, No pain, No redness, No visual change ENT: No bleeding, No congestion, No discharge, No dysphagia, No no complaints, No other, No pain, No sore throat Respiratory: No cough, No no complaints, No other, No pain, No pleuritic pain, No shortness of breath, No sputum, No wheezing Psychological: nl mood/affect, no complaints Past Medical History Medical History: renal disease Past Surgical History Past Surgical Hx: other Social History Alcohol Use: none Smoking Status: Never smoker Drug Use: none Exam/Review of Systems Vital Signs Vitals Vital Signs Date Time Temp Pulse Resp B/P Pulse Ox O2 Delivery O2 Flow Rate FiO2 01/07/17 13:00 98.6 65 18 154/67 98 01/05/17 11:37 Room Air Intake and Output 01/06/17 01/06/17 01/07/17 15:00 23:00 07:00 Intake Total 1090 ml 290 ml Balance 1090 ml 290 ml Results Result Diagram: 01/06/17 0516 01/06/17 0516 Results 24 hrs Laboratory Tests Test 01/06/17 17:17 01/06/17 21:02 01/07/17 07:58 01/07/17 12:00 Bedside Glucose 99 168 75 101 Medications Medications Current Medications Amlodipine Besylate (Norvasc) 10 mg DAILY PO Last administered on 01/07/17 08: 32; Admin Dose 10 MG; Start 01/02/17 at 09:00 Ferrous Sulfate (Ferrous Sulfate (Ec)) 325 mg BID PO Last administered on 08:30; Admin Dose 325 MG; Start 01/01/17 at 21:00 Furosemide (Lasix) 40 mg DAILY@06 PO Last administered on 01/02/17 05:29; Admin Dose 40 MG; Start 01/02/17 at 06:00; Status Future Hold Losartan Potassium (Cozaar) 50 mg DAILY PO Last administered on 01/07/17 08:31 ; Admin Dose 50 MG; Start 01/02/17 at 09:00 Metoprolol Tartrate (Lopressor) 100 mg BID PO Last administered on 01/07/17 08 :31; Admin Dose 100 MG; Start 01/01/17 at 21:00 Montelukast Sodium (Singulair) 10 mg QHS PO Last administered on 01/06/17 21: 00; Admin Dose 10 MG; Start 01/01/17 at 21:00 Tramadol HCl (Ultram) 50 mg DAILY PRN PO PAIN Last administered on 01/06/17 23 :05; Admin Dose 50 MG; Start 01/01/17 at 21:00 Diagnostic Test (Pha) (Accu-Chek) 1 ea 02 XX ; Start 01/02/17 at 02:00 Miscellaneous Information 1 ea NOTE XX ; Start 01/01/17 at 21:30 Glucose (Glutose) 15 gm Q15M PRN PO DECREASED GLUCOSE; Start 01/01/17 at 21:30 Glucose (Glutose) 22.5 gm Q15M PRN PO DECREASED GLUCOSE; Start 01/01/17 at 21: 30 Dextrose (D50w Syringe) 25 ml Q15M PRN IV DECREASED GLUCOSE; Start 01/01/17 at 21:30 Dextrose (D50w Syringe) 50 ml Q15M PRN IV DECREASED GLUCOSE; Start 01/01/17 at 21:30 Glucagon (Glucagen) 1 mg Q15M PRN IM DECREASED GLUCOSE; Start 01/01/17 at 21:30 Glucose (Glutose) 15 gm Q15M PRN BUCCAL DECREASED GLUCOSE; Start 01/01/17 at 21 :30 Zolpidem Tartrate 5 mg 5 mg HS PRN PO INSOMNIA Last administered on 01/06/17 23:05; Admin Dose 5 MG; Start 01/01/17 at 22:00 Cefepime HCl (Maxipime 1gm/50 ml (Pmx)) 50 ml @ 100 mls/hr Q24H IVPB Last administered on 01/06/17 22:17; Admin Dose 100 MLS/HR; Start 01/02/17 at 22:00 Insulin Glargine (Lantus) 24 unit HS SC Last administered on 01/06/17 21:07; Admin Dose 24 UNIT; Start 01/02/17 at 21:00 Atorvastatin Calcium (Lipitor) 10 mg DAILY@21 PO Last administered on 21:00; Admin Dose 10 MG; Start 01/02/17 at 21:00 Calcium Carbonate (Tums) 500 mg BID PO Last administered on 01/07/17 08:32; Admin Dose 500 MG; Start 01/02/17 at 21:00 Hydralazine HCl (Apresoline) 10 mg Q4H PRN IV ELEVATED BLOOD PRESSURE Last administered on 01/07/17 02:13; Admin Dose 10 MG; Start 01/03/17 at 14:30 Magnesium Hydroxide (Milk Of Mag) 30 ml DAILY PRN PO CONSTIPATION; Start at 17:30 Polyethylene Glycol 17 gm 17 gm DAILY GTB Last administered on 01/07/17 08:32 ; Admin Dose 17 GM; Start 01/03/17 at 17:30 Vancomycin HCl (Vancocin) 250 ml @ 125 mls/hr Q48H IVPB Last administered on 14:46; Admin Dose 125 MLS/HR; Start 01/04/17 at 14:00 Acetylcysteine (Nac) 600 mg BID PO Last administered on 01/07/17 08:29; Admin Dose 600 MG; Start 01/05/17 at 21:30; Stop 01/10/17 at 11:00 Miscellaneous Information (*Rx Drug Level Order Reminder*) VANCOMYCIN TROUGH AT 1300 ONCE ONCE XX ; Start 01/08/17 at 13:00; Stop 01/08/17 at 13:01 ENRICO TALAVERA MD Jan 07, 2017 16:45
--- NOTE | 2017-01-07 20:03 | CONS ---
Date/Time of Note Date/Time of Note DATE: 01/07/17 TIME: 20:03 Assessment/Plan Assessment/Plan Problems: (1) Diabetes mellitus Status: Chronic (2) Peripheral vascular disease due to secondary diabetes mellitus Status: Chronic Comment: Plans per V Sx (3) Anemia Status: Chronic (4) Renal failure Status: Chronic Comment: The acute component has improved Additional Assessment/Plan Pt aawaiting vascular plans, renal catalan improved Consultation Date/Type/Reason Admit Date/Time Jan 01, 2017 at 18:03 Initial Consult Date 01/02/17 Type of Consultation: renal Referring Provider: CORY EDGE Exam/Review of Systems Vital Signs Vitals Vital Signs Date Time Temp Pulse Resp B/P Pulse Ox O2 Delivery O2 Flow Rate FiO2 01/07/17 19:45 99.2 66 20 148/67 94 01/05/17 11:37 Room Air Intake and Output 01/06/17 01/06/17 01/07/17 15:00 23:00 07:00 Intake Total 1090 ml 290 ml Balance 1090 ml 290 ml Exam A little more chherful, sitting up in chair today. Constitutional: alert, obese, oriented, well developed Psych: nl mood/affect, no complaints Head: atraumatic, normocephalic Eyes: EOMI, PERRL, nl conjunctiva, nl lids, nl sclera ENMT: nl external ears & nose, nl lips & teeth, nl nasal mucosa & septum Neck: non-tender, supple Respiratory: clear to auscultation, normal air movement Cardiovascular: nl pulses, regular rate and rhythm Gastrointestinal: nl liver, spleen, non-tender, soft Musculoskeletal: nl extremities to inspection, nl gait and stance, other (Rt foot dressing ion place) Extremities: normal pulses, other (gangrene rt foot, pulses diminished) Neurological: BIBLE READER II-XII intact, nl mental status, nl speech, nl strength Skin: nl turgor, No rash or lesions Lymph: nl lymph nodes Results Result Diagram: 01/06/17 0516 01/06/17 0516 Results 24 hrs Laboratory Tests Test 01/06/17 21:02 01/07/17 07:58 01/07/17 12:00 01/07/17 17:05 Bedside Glucose 168 75 101 116 Medications Medications Current Medications Amlodipine Besylate (Norvasc) 10 mg DAILY PO Last administered on 01/07/17 08: 32; Admin Dose 10 MG; Start 01/02/17 at 09:00 Ferrous Sulfate (Ferrous Sulfate (Ec)) 325 mg BID PO Last administered on 08:30; Admin Dose 325 MG; Start 01/01/17 at 21:00 Furosemide (Lasix) 40 mg DAILY@06 PO Last administered on 01/02/17 05:29; Admin Dose 40 MG; Start 01/02/17 at 06:00; Status Future Hold Losartan Potassium (Cozaar) 50 mg DAILY PO Last administered on 01/07/17 08:31 ; Admin Dose 50 MG; Start 01/02/17 at 09:00 Metoprolol Tartrate (Lopressor) 100 mg BID PO Last administered on 01/07/17 08 :31; Admin Dose 100 MG; Start 01/01/17 at 21:00 Montelukast Sodium (Singulair) 10 mg QHS PO Last administered on 01/06/17 21: 00; Admin Dose 10 MG; Start 01/01/17 at 21:00 Tramadol HCl (Ultram) 50 mg DAILY PRN PO PAIN Last administered on 01/06/17 23 :05; Admin Dose 50 MG; Start 01/01/17 at 21:00 Diagnostic Test (Pha) (Accu-Chek) 1 ea 02 XX ; Start 01/02/17 at 02:00 Miscellaneous Information 1 ea NOTE XX ; Start 01/01/17 at 21:30 Glucose (Glutose) 15 gm Q15M PRN PO DECREASED GLUCOSE; Start 01/01/17 at 21:30 Glucose (Glutose) 22.5 gm Q15M PRN PO DECREASED GLUCOSE; Start 01/01/17 at 21: 30 Dextrose (D50w Syringe) 25 ml Q15M PRN IV DECREASED GLUCOSE; Start 01/01/17 at 21:30 Dextrose (D50w Syringe) 50 ml Q15M PRN IV DECREASED GLUCOSE; Start 01/01/17 at 21:30 Glucagon (Glucagen) 1 mg Q15M PRN IM DECREASED GLUCOSE; Start 01/01/17 at 21:30 Glucose (Glutose) 15 gm Q15M PRN BUCCAL DECREASED GLUCOSE; Start 01/01/17 at 21 :30 Zolpidem Tartrate 5 mg 5 mg HS PRN PO INSOMNIA Last administered on 01/06/17 23:05; Admin Dose 5 MG; Start 01/01/17 at 22:00 Cefepime HCl (Maxipime 1gm/50 ml (Pmx)) 50 ml @ 100 mls/hr Q24H IVPB Last administered on 01/06/17 22:17; Admin Dose 100 MLS/HR; Start 01/02/17 at 22:00 Insulin Glargine (Lantus) 24 unit HS SC Last administered on 01/06/17 21:07; Admin Dose 24 UNIT; Start 01/02/17 at 21:00 Atorvastatin Calcium (Lipitor) 10 mg DAILY@21 PO Last administered on 21:00; Admin Dose 10 MG; Start 01/02/17 at 21:00 Calcium Carbonate (Tums) 500 mg BID PO Last administered on 01/07/17 08:32; Admin Dose 500 MG; Start 01/02/17 at 21:00 Hydralazine HCl (Apresoline) 10 mg Q4H PRN IV ELEVATED BLOOD PRESSURE Last administered on 01/07/17 02:13; Admin Dose 10 MG; Start 01/03/17 at 14:30 Magnesium Hydroxide (Milk Of Mag) 30 ml DAILY PRN PO CONSTIPATION; Start at 17:30 Polyethylene Glycol 17 gm 17 gm DAILY GTB Last administered on 01/07/17 08:32 ; Admin Dose 17 GM; Start 01/03/17 at 17:30 Vancomycin HCl (Vancocin) 250 ml @ 125 mls/hr Q48H IVPB Last administered on 14:46; Admin Dose 125 MLS/HR; Start 01/04/17 at 14:00 Acetylcysteine (Nac) 600 mg BID PO Last administered on 01/07/17 08:29; Admin Dose 600 MG; Start 01/05/17 at 21:30; Stop 01/10/17 at 11:00 Miscellaneous Information (*Rx Drug Level Order Reminder*) VANCOMYCIN TROUGH AT 1300 ONCE ONCE XX ; Start 01/08/17 at 13:00; Stop 01/08/17 at 13:01 EUGENIE ORTIZ MD Jan 07, 2017 20:03
[2017-01-07] MEDS: ATORVASTATIN 10 MG TAB PO SCH (21:22)
[2017-01-07] MEDS: MONTELUKAST 10 MG TAB PO SCH (21:22)
[2017-01-07] MEDS: CEFEPIME 1GM/50 ML (PMX) 50 ML IVPB SCH (21:23)
[2017-01-07] MEDS: INSULIN GLARGINE [LANtus] 3 ML PEN SC SCH (21:31)
[2017-01-07] MEDS: traMADol 50 MG TAB PO PRN (22:16)
[2017-01-07] MEDS: ZOLPIDEM 5 MG TAB PO PRN (23:06)
[2017-01-08 02:00] VITALS: BP 141/71; RESP 20
[2017-01-08] MEDS: ACCU-CHEK XX SCH (02:00)
[2017-01-08 06:16] LABS: BASOPHIL # 0.1 10^3/ul (0.0-0.1); BASOPHILS % 0.7 % (0.0-2.0); EOSINOPHILS # 0.7 10^3/ul (0.0-0.5); EOSINOPHILS % 6.6 % (0.0-7.0); HEMATOCRIT 28.2 % (37.0-47.0); LYMPHOCYTES # 1.5 10^3/ul (0.8-2.9); LYMPHOCYTES % 13.5 % (15.0-51.0); MEAN CORPUSCULAR HEMOGLOBIN 25.8 pg (29.0-33.0); MEAN CORPUSCULAR HGB CONC 31.9 g/dl (32.0-37.0); MEAN CORPUSCULAR VOLUME 80.8 fl (82.0-101.0); MEAN PLATELET VOLUME 10.3 fl (7.4-10.4); MONOCYTES % 8.6 % (0.0-11.0); NEUTROPHIL # 7.8 10^3/ul (1.6-7.5); PLATELET COUNT 403 10^3/UL (140-415); RED BLOOD COUNT 3.49 10^6/ul (4.20-5.40); RED CELL DISTRIBUTION WIDTH 14.5 % (11.5-14.5); WHITE BLOOD COUNT 11.2 10^3/ul (4.8-10.8)
[2017-01-08 06:33] LABS: CALCIUM 8.5 mg/dl (8.4-10.2); CREATININE 3.22 mg/dl (0.44-1.00); MAGNESIUM 1.9 mg/dl (1.7-2.5)
[2017-01-08 07:28] VITALS: BP 161/75; RESP 18
[2017-01-08] MEDS: POLYETHYLENE GLYCOL 17 GM PACKET GTB SCH (08:12)
[2017-01-08] MEDS: PANTOPRAZOLE (EC) 40 MG TAB PO SCH (08:12)
[2017-01-08] MEDS: ACETYLCYSTEINE 600 MG CAP PO SCH ×2 (08:12→21:00)
[2017-01-08] MEDS: FERROUS SULFATE (EC) 325 MG TAB PO SCH ×2 (08:12→21:00)
[2017-01-08] MEDS: AMLODIPINE 10 MG TAB PO SCH (08:13)
[2017-01-08] MEDS: METOPROLOL 100 MG TAB PO SCH ×2 (08:13→21:00)
[2017-01-08] MEDS: CALCIUM CARBONATE 500 MG CHEW TAB PO SCH ×2 (08:13→21:00)
[2017-01-08] MEDS: LOSARTAN 50 MG TAB PO SCH ×2 (08:14→21:00)
[2017-01-08] MEDS: INSULIN ASPART [NOVOLOG] 3 ML PEN SC SCH ×7 (08:14→21:00)
--- NOTE | 2017-01-08 08:22 | OPR ---
DATE OF OPERATION: 01/05/2017 SURGEON: Ravinder Camilo MD. PREOPERATIVE DIAGNOSIS: Right foot gangrene. POSTOPERATIVE DIAGNOSIS: Right foot gangrene. OPERATION PERFORMED: Abdominal aortogram with right lower extremity runoff using CO2 and a total of 7.5 mL of [____]. ANESTHESIA: Local with sedation. ESTIMATED BLOOD LOSS: Minimal. COMPLICATIONS: There were no intraprocedural complications. INDICATIONS: This is a 61-year-old diabetic, hypertensive woman with chronic kidney disease and a gangrenous first toe. She has had gangrene of the toe for several months, and I have been trying to get her to do an angiogram in preparation for revascularization, but she has rescheduled and canceled several times, and we finally convinced her today and I told we would do CO2, I had to give her a small amount of dye just because the CO2 would not get down to the foot because of the severe diffuse tibial disease. It was a minimal amount, I gave he less than 10 mL. OPERATIVE PROCEDURE: The patient was brought to the labeling machine operator and placed on the table in a supine position. The left groin was prepped and draped in the usual sterile fashion. Again by infiltrating over left common femoral artery, using about 10 mL of 1 percent Xylocaine the micropuncture needle was used to enter the artery under ultrasound guidance. The artery was diffusely calcified and you could see it on ultrasound, an eggshell kind of calcification. Once the needle was in the artery, I advanced a #8 wire through the needle into the artery and then a micropuncture sheath over the wire into the artery and then I inserted a 3.5 Luis wire to the abdominal aorta and placed a 5- Citizen Of [place] sheath over the wire into the left common femoral artery. Then I advanced innominate flush catheter into the infrarenal aorta, I did an aortogram using CO2. I used an advantage wire and the Omni flush catheter to go up and over the bifurcation. I advanced the Omni flush into the right SFA and then I advanced 100 cm glide cath over the wire and down into the popliteal for further angiograph. FINDINGS OF ANGIOGRAPHY: The infrarenal aorta is patient, both common, external and internal iliac arteries are patent. Both common femoral arteries are patent, but the left SFA appears to be patent in the groin with a very small profunda. On the right there is very low profunda takeoff, again it is very small. The SFA is patent. At the adductor below the knee, the popliteal is just diffusely diseased and it essentially occludes at the knee. Below the knee there is no visualization of any tibial vessels from the knee down into the distal calf. When I gave the small amount of contrast to get a visualization of the foot, there is reconstitution of the distal anterior tibial, it then occludes at the ankle, but there is a good dorsalis pedis artery that reconstitutes just below the ankle and there appears to be patent pedal arch. The posterior tibial artery appears occluded above the ankle. The peroneal artery is completely occluded, there is no visualization, so the only reconstituted vessel is the dorsalis pedis, which fortunately does appear to be a good vessel in the foot. During the procedure I injected some CO2 through the left groin sheath and confirmed the puncture site was in the left common femoral. I then used the 5-Citizen Of [place] Mynx device to close the puncture site, with good hemostasis. The patient tolerated the procedure well, without any complicatons and was transferred to the Recovery room in stable condition. She will need a fem to DP bypass, she has a good saphenous vein on that side, I looked at it myself. Dictated By: Ravinder Camilo MD /israel/pat /Document#: [id number]
--- NOTE | 2017-01-08 11:11 | CONS ---
Date/Time of Note Date/Time of Note DATE: 01/08/17 TIME: 11:07 Assessment/Plan Assessment/Plan Chief Complaint/Hosp Course 1. Preoperative evaluation prior to lower extremity triple-NL EF by echo and no sig valve abnl/Lexiscan with probabale soft tissue attenutaion in anterior wall and nl ef and no wall motion abnl bypass surgery. 2. Hypertension. 3. Dyslipidemia. 4. Peripheral arterial disease with gangrenous change in the lower extremities. 5. Status post left lower extremity transmetatarsal amputation. 6. Renal failure. 7. Diabetes mellitus. 8. Anemia. Recc: -Continue norvasc/BB -Make slight incrase to losartan to improve BP control -Continue abx's -LE wound care Problems: Consultation Date/Type/Reason Admit Date/Time Jan 01, 2017 at 18:03 Initial Consult Date 01/02/17 Type of Consultation: cardiology Reason for Consultation pre-op Referring Provider: CORY EDGE Exam/Review of Systems Vital Signs Vitals Vital Signs Date Time Temp Pulse Resp B/P Pulse Ox O2 Delivery O2 Flow Rate FiO2 01/08/17 07:28 98.1 71 18 161/75 96 01/05/17 11:37 Room Air Intake and Output 01/07/17 01/07/17 01/08/17 15:00 23:00 07:00 Intake Total 50 ml 240 ml Balance 50 ml 240 ml Exam Review of Systems: CONSTITUTIONAL: No fevers, chills. PULMONARY: No sob CARDIOVASCULAR: No chest pain/palpitations GASTROINTESTINAL: No nausea/vomiting. GENITOURINARY: No hematuria/dysuria. MUSCULOSKELETAL: No myagias/arthalgias. PSYCHIATRIC: The patient denies depression. NEUROLOGIC: No weakness Constitutional: alert, oriented Psych: no complaints Head: normocephalic ENMT: mucosa pink and moist Neck: jvd (8-9 cm water), supple Respiratory: clear to auscultation Cardiovascular: regular rate and rhythm Gastrointestinal: non-tender, soft Musculoskeletal: muscle tone (normal) Extremities: edema (none) Neurological: other (NO focal deficits) Results Result Diagram: 01/08/17 0550 01/08/17 0550 Results 24 hrs Laboratory Tests Test 01/07/17 12:00 01/07/17 17:05 01/07/17 21:21 01/08/17 05:50 Bedside Glucose 101 116 136 White Blood Count 11.2 H Red Blood Count 3.49 L Hemoglobin 9.0 L Hematocrit 28.2 L Mean Corpuscular Volume 80.8 L Mean Corpuscular Hemoglobin 25.8 L Mean Corpuscular Hemoglobin Concent 31.9 L Red Cell Distribution Width 14.5 Platelet Count 403 Mean Platelet Volume 10.3 Neutrophils % 70.0 Lymphocytes % 13.5 L Monocytes % 8.6 Eosinophils % 6.6 Basophils % 0.7 Nucleated Red Blood Cells % 0.0 Neutrophils # 7.8 H Lymphocytes # 1.5 Monocytes # 1.0 H Eosinophils # 0.7 H Basophils # 0.1 Nucleated Red Blood Cells # 0.0 Sodium Level 143 Potassium Level 5.0 Chloride Level 113 H Carbon Dioxide Level 20 L Anion Gap 15 Blood Urea Nitrogen 59 H Creatinine 3.22 H Glucose Level 124 Calcium Level 8.5 Phosphorus Level 5.0 H Magnesium Level 1.9 Test 01/08/17 08:11 Bedside Glucose 124 Medications Medications Current Medications Amlodipine Besylate (Norvasc) 10 mg DAILY PO Last administered on 01/08/17 08: 13; Admin Dose 10 MG; Start 01/02/17 at 09:00 Ferrous Sulfate (Ferrous Sulfate (Ec)) 325 mg BID PO Last administered on 08:12; Admin Dose 325 MG; Start 01/01/17 at 21:00 Furosemide (Lasix) 40 mg DAILY@06 PO Last administered on 01/02/17 05:29; Admin Dose 40 MG; Start 01/02/17 at 06:00; Status Future Hold Losartan Potassium (Cozaar) 50 mg DAILY PO Last administered on 01/08/17 08:14 ; Admin Dose 50 MG; Start 01/02/17 at 09:00 Metoprolol Tartrate (Lopressor) 100 mg BID PO Last administered on 01/08/17 08 :13; Admin Dose 100 MG; Start 01/01/17 at 21:00 Montelukast Sodium (Singulair) 10 mg QHS PO Last administered on 01/07/17 21: 22; Admin Dose 10 MG; Start 01/01/17 at 21:00 Tramadol HCl (Ultram) 50 mg DAILY PRN PO PAIN Last administered on 01/07/17 22 :16; Admin Dose 50 MG; Start 01/01/17 at 21:00 Diagnostic Test (Pha) (Accu-Chek) 1 ea 02 XX ; Start 01/02/17 at 02:00 Miscellaneous Information 1 ea NOTE XX ; Start 01/01/17 at 21:30 Glucose (Glutose) 15 gm Q15M PRN PO DECREASED GLUCOSE; Start 01/01/17 at 21:30 Glucose (Glutose) 22.5 gm Q15M PRN PO DECREASED GLUCOSE; Start 01/01/17 at 21: 30 Dextrose (D50w Syringe) 25 ml Q15M PRN IV DECREASED GLUCOSE; Start 01/01/17 at 21:30 Dextrose (D50w Syringe) 50 ml Q15M PRN IV DECREASED GLUCOSE; Start 01/01/17 at 21:30 Glucagon (Glucagen) 1 mg Q15M PRN IM DECREASED GLUCOSE; Start 01/01/17 at 21:30 Glucose (Glutose) 15 gm Q15M PRN BUCCAL DECREASED GLUCOSE; Start 01/01/17 at 21 :30 Zolpidem Tartrate 5 mg 5 mg HS PRN PO INSOMNIA Last administered on 01/07/17 23:06; Admin Dose 5 MG; Start 01/01/17 at 22:00 Cefepime HCl (Maxipime 1gm/50 ml (Pmx)) 50 ml @ 100 mls/hr Q24H IVPB Last administered on 01/07/17 21:23; Admin Dose 100 MLS/HR; Start 01/02/17 at 22:00 Insulin Glargine (Lantus) 24 unit HS SC Last administered on 01/07/17 21:31; Admin Dose 24 UNIT; Start 01/02/17 at 21:00 Atorvastatin Calcium (Lipitor) 10 mg DAILY@21 PO Last administered on 21:22; Admin Dose 10 MG; Start 01/02/17 at 21:00 Calcium Carbonate (Tums) 500 mg BID PO Last administered on 01/08/17 08:13; Admin Dose 500 MG; Start 01/02/17 at 21:00 Hydralazine HCl (Apresoline) 10 mg Q4H PRN IV ELEVATED BLOOD PRESSURE Last administered on 01/07/17 02:13; Admin Dose 10 MG; Start 01/03/17 at 14:30 Magnesium Hydroxide (Milk Of Mag) 30 ml DAILY PRN PO CONSTIPATION; Start at 17:30 Polyethylene Glycol 17 gm 17 gm DAILY GTB Last administered on 01/08/17 08:12 ; Admin Dose 17 GM; Start 01/03/17 at 17:30 Vancomycin HCl (Vancocin) 250 ml @ 125 mls/hr Q48H IVPB Last administered on 14:46; Admin Dose 125 MLS/HR; Start 01/04/17 at 14:00 Acetylcysteine (Nac) 600 mg BID PO Last administered on 01/08/17 08:12; Admin Dose 600 MG; Start 01/05/17 at 21:30; Stop 01/10/17 at 11:00 Miscellaneous Information (*Rx Drug Level Order Reminder*) VANCOMYCIN TROUGH AT 1300 ONCE ONCE XX ; Start 01/08/17 at 13:00; Stop 01/08/17 at 13:01 NOÉ HERRERA Jan 08, 2017 11:11
--- NOTE | 2017-01-08 13:06 | CONS ---
Date/Time of Note Date/Time of Note DATE: 01/08/17 TIME: 13:05 Assessment/Plan Assessment/Plan Chief Complaint/Hosp Course No acute changes, patient is alert looks comfortable complaining of right lower extremity pain, no fevers WBC 11.2 H&H 9 and 28.2 platelets 403, no shift no bands BN 59 creatinine 3.22 Microbiology: Blood cultures remain negative Allergy: Zosyn Antibiotics: Vancomycin cefepime Physical examination: Well-developed fragile elderly woman who is alert in no distress, head atraumatic normocephalic sclera nonicteric bugle mucosa dry neck is supple trachea midline chest rise symmetrical breath sounds diminished bases heart S1-S2 abdomen soft bowel tones present extremities with right foot necrosis and great toe gangrene Assessment: 1. Right foot gangrene, status post angioplasty 2. Diabetes mellitus 3. Acute on chronic kidney disease 4. Hypertension Plan: Patient remains able, she will require outpatient bypass graft surgery, will change vancomycin to daptomycin or oral Zyvox to preserve renal function, change cefepime to oral Levaquin. Follow recommendations of consultants Problems: Consultation Date/Type/Reason Admit Date/Time Jan 01, 2017 at 18:03 Initial Consult Date 01/02/17 Type of Consultation: id Referring Provider: CORY EDGE Exam/Review of Systems Vital Signs Vitals Vital Signs Date Time Temp Pulse Resp B/P Pulse Ox O2 Delivery O2 Flow Rate FiO2 01/08/17 07:28 98.1 71 18 161/75 96 01/05/17 11:37 Room Air Intake and Output 01/07/17 01/07/17 01/08/17 15:00 23:00 07:00 Intake Total 50 ml 240 ml Balance 50 ml 240 ml Results Result Diagram: 01/08/17 0550 01/08/17 0550 Results 24 hrs Laboratory Tests Test 01/07/17 17:05 01/07/17 21:21 01/08/17 05:50 01/08/17 08:11 Bedside Glucose 116 136 124 White Blood Count 11.2 H Red Blood Count 3.49 L Hemoglobin 9.0 L Hematocrit 28.2 L Mean Corpuscular Volume 80.8 L Mean Corpuscular Hemoglobin 25.8 L Mean Corpuscular Hemoglobin Concent 31.9 L Red Cell Distribution Width 14.5 Platelet Count 403 Mean Platelet Volume 10.3 Neutrophils % 70.0 Lymphocytes % 13.5 L Monocytes % 8.6 Eosinophils % 6.6 Basophils % 0.7 Nucleated Red Blood Cells % 0.0 Neutrophils # 7.8 H Lymphocytes # 1.5 Monocytes # 1.0 H Eosinophils # 0.7 H Basophils # 0.1 Nucleated Red Blood Cells # 0.0 Sodium Level 143 Potassium Level 5.0 Chloride Level 113 H Carbon Dioxide Level 20 L Anion Gap 15 Blood Urea Nitrogen 59 H Creatinine 3.22 H Glucose Level 124 Calcium Level 8.5 Phosphorus Level 5.0 H Magnesium Level 1.9 Test 01/08/17 11:55 Bedside Glucose 241 H Medications Medications Current Medications Amlodipine Besylate (Norvasc) 10 mg DAILY PO Last administered on 01/08/17 08: 13; Admin Dose 10 MG; Start 01/02/17 at 09:00 Ferrous Sulfate (Ferrous Sulfate (Ec)) 325 mg BID PO Last administered on 08:12; Admin Dose 325 MG; Start 01/01/17 at 21:00 Furosemide (Lasix) 40 mg DAILY@06 PO Last administered on 01/02/17 05:29; Admin Dose 40 MG; Start 01/02/17 at 06:00; Status Future Hold Metoprolol Tartrate (Lopressor) 100 mg BID PO Last administered on 01/08/17 08 :13; Admin Dose 100 MG; Start 01/01/17 at 21:00 Montelukast Sodium (Singulair) 10 mg QHS PO Last administered on 01/07/17 21: 22; Admin Dose 10 MG; Start 01/01/17 at 21:00 Tramadol HCl (Ultram) 50 mg DAILY PRN PO PAIN Last administered on 01/07/17 22 :16; Admin Dose 50 MG; Start 01/01/17 at 21:00 Diagnostic Test (Pha) (Accu-Chek) 1 ea 02 XX ; Start 01/02/17 at 02:00 Miscellaneous Information 1 ea NOTE XX ; Start 01/01/17 at 21:30 Glucose (Glutose) 15 gm Q15M PRN PO DECREASED GLUCOSE; Start 01/01/17 at 21:30 Glucose (Glutose) 22.5 gm Q15M PRN PO DECREASED GLUCOSE; Start 01/01/17 at 21: 30 Dextrose (D50w Syringe) 25 ml Q15M PRN IV DECREASED GLUCOSE; Start 01/01/17 at 21:30 Dextrose (D50w Syringe) 50 ml Q15M PRN IV DECREASED GLUCOSE; Start 01/01/17 at 21:30 Glucagon (Glucagen) 1 mg Q15M PRN IM DECREASED GLUCOSE; Start 01/01/17 at 21:30 Glucose (Glutose) 15 gm Q15M PRN BUCCAL DECREASED GLUCOSE; Start 01/01/17 at 21 :30 Zolpidem Tartrate 5 mg 5 mg HS PRN PO INSOMNIA Last administered on 01/07/17 23:06; Admin Dose 5 MG; Start 01/01/17 at 22:00 Cefepime HCl (Maxipime 1gm/50 ml (Pmx)) 50 ml @ 100 mls/hr Q24H IVPB Last administered on 01/07/17 21:23; Admin Dose 100 MLS/HR; Start 01/02/17 at 22:00 Insulin Glargine (Lantus) 24 unit HS SC Last administered on 01/07/17 21:31; Admin Dose 24 UNIT; Start 01/02/17 at 21:00 Atorvastatin Calcium (Lipitor) 10 mg DAILY@21 PO Last administered on 21:22; Admin Dose 10 MG; Start 01/02/17 at 21:00 Calcium Carbonate (Tums) 500 mg BID PO Last administered on 01/08/17 08:13; Admin Dose 500 MG; Start 01/02/17 at 21:00 Hydralazine HCl (Apresoline) 10 mg Q4H PRN IV ELEVATED BLOOD PRESSURE Last administered on 01/07/17 02:13; Admin Dose 10 MG; Start 01/03/17 at 14:30 Magnesium Hydroxide (Milk Of Mag) 30 ml DAILY PRN PO CONSTIPATION; Start at 17:30 Polyethylene Glycol 17 gm 17 gm DAILY GTB Last administered on 01/08/17 08:12 ; Admin Dose 17 GM; Start 01/03/17 at 17:30 Vancomycin HCl (Vancocin) 250 ml @ 125 mls/hr Q48H IVPB Last administered on 14:46; Admin Dose 125 MLS/HR; Start 01/04/17 at 14:00 Acetylcysteine (Nac) 600 mg BID PO Last administered on 01/08/17 08:12; Admin Dose 600 MG; Start 01/05/17 at 21:30; Stop 01/10/17 at 11:00 Losartan Potassium (Cozaar) 50 mg BID PO ; Start 01/08/17 at 21:00 EBONI THURMAN NP Jan 08, 2017 13:06 EBONI THURMAN NP Jan 08, 2017 13:06
[2017-01-08 14:12] VITALS: BP 142/73; RESP 18
[2017-01-08] MEDS: DAPTOMYCIN 280 MG in SOD CHLORIDE 0.9% 100 ML IVPB SCH (15:35)
[2017-01-08] MEDS: LEVOFLOXACIN 250 MG TAB PO SCH (15:35)
--- NOTE | 2017-01-08 15:52 | RADRPT ---
Vent Rate: 63 bpm RR Interval: 0 msec NC Interval: 168 msec QRS Duration: 70 msec QT Interval: 422 msec QTC Interval: 431 msec P-R-T [place]: 48 - -24 - 68 degrees Normal sinus rhythm Low voltage QRS Borderline ECG Electronically Signed By: Ravinder Bynum [id number]
--- NOTE | 2017-01-08 16:22 | PN ---
Date/Time of Note Date/Time of Note DATE: 01/08/17 TIME: 16:10 Assessment/Plan VTE Prophylaxis VTE Prophylaxis Intervention: SCD's Lines/Catheters IV Catheter Type (from Nrs): Saline Lock Urinary Cath still in place: No Assessment/Plan Assessment/Plan 1. Right foot gangrene, on antibiotics with vancomycin and cefepime, wound care 2. Peripheral vascular disease, status post angiogram, needs elective fem to DP bypass, follow up with Dr. Sapp 2. Diabetes mellitus, on insulins 3. Acute on chronic kidney disease, stage 4, follow up with [facility] 4. Hypertension, losartan is increased by Dr. Bynum today 5. Microcytic anemia, stable H/H 6. D/C planning with home health for tomorrow Subjective 24 Hr Interval Summary Free Text/Dictation afebrile Exam/Review of Systems Vital Signs Vitals Vital Signs Date Time Temp Pulse Resp B/P Pulse Ox O2 Delivery O2 Flow Rate FiO2 01/08/17 14:12 98.8 65 18 142/73 99 01/05/17 11:37 Room Air Intake and Output 01/07/17 01/07/17 01/08/17 15:00 23:00 07:00 Intake Total 50 ml 240 ml Balance 50 ml 240 ml Exam Constitutional: alert, oriented, well developed Psych: nl mood/affect, no complaints Head: atraumatic, normocephalic Eyes: EOMI, nl conjunctiva, nl lids ENMT: nl external ears & nose, nl lips & teeth, nl nasal mucosa & septum Neck: non-tender, supple Respiratory: clear to auscultation, normal air movement, No congested cough, No crackles/rales, No diminished breath sounds, No intercostal retraction, No labored breathing, No other, No respirations, No tactile fremitus, No wheezing Cardiovascular: nl pulses, regular rate and rhythm, No S3, No S4, No bruits, No diastolic murmur, No edema, No gallop, No irregular rhythm, No jugular venous distention (JVD), No murmurs/extra sounds, No other, No rub, No systolic murmur Gastrointestinal: nl liver, spleen, non-tender, soft, No ascites, No bowel sounds, No distended, No firm, No hepatomegaly, No mass , No other, No rebound or guarding, No splenomegaly, No surgical scars, No tender Musculoskeletal: nl extremities to inspection Extremities: other (s/p toe amputation on both feet) Neurological: [employer] II-XII intact, nl mental status, nl speech, nl strength Lymph: nl lymph nodes Results Result Diagram: 01/08/17 0550 01/08/17 0550 Results 24 hrs Laboratory Tests Test 01/07/17 17:05 01/07/17 21:21 01/08/17 05:50 01/08/17 08:11 Bedside Glucose 116 136 124 White Blood Count 11.2 H Red Blood Count 3.49 L Hemoglobin 9.0 L Hematocrit 28.2 L Mean Corpuscular Volume 80.8 L Mean Corpuscular Hemoglobin 25.8 L Mean Corpuscular Hemoglobin Concent 31.9 L Red Cell Distribution Width 14.5 Platelet Count 403 Mean Platelet Volume 10.3 Neutrophils % 70.0 Lymphocytes % 13.5 L Monocytes % 8.6 Eosinophils % 6.6 Basophils % 0.7 Nucleated Red Blood Cells % 0.0 Neutrophils # 7.8 H Lymphocytes # 1.5 Monocytes # 1.0 H Eosinophils # 0.7 H Basophils # 0.1 Nucleated Red Blood Cells # 0.0 Sodium Level 143 Potassium Level 5.0 Chloride Level 113 H Carbon Dioxide Level 20 L Anion Gap 15 Blood Urea Nitrogen 59 H Creatinine 3.22 H Glucose Level 124 Calcium Level 8.5 Phosphorus Level 5.0 H Magnesium Level 1.9 Test 01/08/17 11:55 01/08/17 13:16 Bedside Glucose 241 H Vancomycin Level Trough 14.8 Medications Medications Current Medications Amlodipine Besylate (Norvasc) 10 mg DAILY PO Last administered on 01/08/17 08: 13; Admin Dose 10 MG; Start 01/02/17 at 09:00 Ferrous Sulfate (Ferrous Sulfate (Ec)) 325 mg BID PO Last administered on 08:12; Admin Dose 325 MG; Start 01/01/17 at 21:00 Furosemide (Lasix) 40 mg DAILY@06 PO Last administered on 01/02/17 05:29; Admin Dose 40 MG; Start 01/02/17 at 06:00; Status Future Hold Metoprolol Tartrate (Lopressor) 100 mg BID PO Last administered on 01/08/17 08 :13; Admin Dose 100 MG; Start 01/01/17 at 21:00 Montelukast Sodium (Singulair) 10 mg QHS PO Last administered on 01/07/17 21: 22; Admin Dose 10 MG; Start 01/01/17 at 21:00 Tramadol HCl (Ultram) 50 mg DAILY PRN PO PAIN Last administered on 01/07/17 22 :16; Admin Dose 50 MG; Start 01/01/17 at 21:00 Diagnostic Test (Pha) (Accu-Chek) 1 ea 02 XX ; Start 01/02/17 at 02:00 Miscellaneous Information 1 ea NOTE XX ; Start 01/01/17 at 21:30 Glucose (Glutose) 15 gm Q15M PRN PO DECREASED GLUCOSE; Start 01/01/17 at 21:30 Glucose (Glutose) 22.5 gm Q15M PRN PO DECREASED GLUCOSE; Start 01/01/17 at 21: 30 Dextrose (D50w Syringe) 25 ml Q15M PRN IV DECREASED GLUCOSE; Start 01/01/17 at 21:30 Dextrose (D50w Syringe) 50 ml Q15M PRN IV DECREASED GLUCOSE; Start 01/01/17 at 21:30 Glucagon (Glucagen) 1 mg Q15M PRN IM DECREASED GLUCOSE; Start 01/01/17 at 21:30 Glucose (Glutose) 15 gm Q15M PRN BUCCAL DECREASED GLUCOSE; Start 01/01/17 at 21 :30 Zolpidem Tartrate (Ambien) 5 mg HS PRN PO INSOMNIA Last administered on 23:06; Admin Dose 5 MG; Start 01/01/17 at 22:00 Insulin Glargine (Lantus) 24 unit HS SC Last administered on 01/07/17 21:31; Admin Dose 24 UNIT; Start 01/02/17 at 21:00 Atorvastatin Calcium (Lipitor) 10 mg DAILY@21 PO Last administered on 21:22; Admin Dose 10 MG; Start 01/02/17 at 21:00 Calcium Carbonate (Tums) 500 mg BID PO Last administered on 01/08/17 08:13; Admin Dose 500 MG; Start 01/02/17 at 21:00 Hydralazine HCl (Apresoline) 10 mg Q4H PRN IV ELEVATED BLOOD PRESSURE Last administered on 01/07/17 02:13; Admin Dose 10 MG; Start 01/03/17 at 14:30 Magnesium Hydroxide (Milk Of Mag) 30 ml DAILY PRN PO CONSTIPATION; Start at 17:30 Polyethylene Glycol (Miralax) 17 gm DAILY GTB Last administered on 01/08/17 08 :12; Admin Dose 17 GM; Start 01/03/17 at 17:30 Acetylcysteine (Nac) 600 mg BID PO Last administered on 01/08/17 08:12; Admin Dose 600 MG; Start 01/05/17 at 21:30; Stop 01/10/17 at 11:00 Losartan Potassium 50 mg 50 mg BID PO ; Start 01/08/17 at 21:00 Daptomycin/Sodium Chloride (Cubicin/NS) 100 ml @ 200 mls/hr Q48H IVPB Last administered on 01/08/17 15:35; Admin Dose 200 MLS/HR; Start 01/08/17 at 16:00 Levofloxacin (Levaquin) 250 mg Q2D@06 PO Last administered on 01/08/17 15:35; Admin Dose 250 MG; Start 01/08/17 at 15:00 ROWAN MATIAS MD Jan 08, 2017 16:20
[2017-01-08 20:00] VITALS: BP 155/72; RESP 20
[2017-01-08] MEDS: ATORVASTATIN 10 MG TAB PO SCH (21:00)
[2017-01-08] MEDS: INSULIN GLARGINE [LANtus] 3 ML PEN SC SCH (21:00)
[2017-01-08] MEDS: MONTELUKAST 10 MG TAB PO SCH (21:00)
[2017-01-09] MEDS: ACCU-CHEK XX SCH (01:46)
[2017-01-09 02:50] VITALS: BP 131/63; RESP 20
[2017-01-09 05:36] LABS: BASOPHIL # 0.1 10^3/ul (0.0-0.1); BASOPHILS % 0.7 % (0.0-2.0); EOSINOPHILS # 0.7 10^3/ul (0.0-0.5); EOSINOPHILS % 5.9 % (0.0-7.0); HEMATOCRIT 30.9 % (37.0-47.0); HEMOGLOBIN 9.6 g/dl (12.0-16.0); LYMPHOCYTES # 1.7 10^3/ul (0.8-2.9); LYMPHOCYTES % 14.6 % (15.0-51.0); MEAN CORPUSCULAR HEMOGLOBIN 24.9 pg (29.0-33.0); MEAN CORPUSCULAR HGB CONC 31.1 g/dl (32.0-37.0); MEAN CORPUSCULAR VOLUME 80.1 fl (82.0-101.0); MEAN PLATELET VOLUME 10.2 fl (7.4-10.4); MONOCYTES % 8.2 % (0.0-11.0); NEUTROPHIL # 8.3 10^3/ul (1.6-7.5); NEUTROPHILS % 70.2 % (39.0-77.0); PLATELET COUNT 437 10^3/UL (140-415); RED BLOOD COUNT 3.86 10^6/ul (4.20-5.40); RED CELL DISTRIBUTION WIDTH 14.3 % (11.5-14.5); WHITE BLOOD COUNT 11.8 10^3/ul (4.8-10.8)
[2017-01-09 06:52] LABS: CALCIUM 8.8 mg/dl (8.4-10.2); CREATININE 3.01 mg/dl (0.44-1.00)
[2017-01-09 07:30] LABS: POTASSIUM 5.3 mmol/L (3.5-5.1)
[2017-01-09 07:44] VITALS: BP 125/60; RESP 16
[2017-01-09] MEDS: INSULIN ASPART [NOVOLOG] 3 ML PEN SC SCH ×7 (07:47→20:23)
[2017-01-09] MEDS: CALCIUM CARBONATE 500 MG CHEW TAB PO SCH ×2 (08:24→20:22)
[2017-01-09] MEDS: AMLODIPINE 10 MG TAB PO SCH (08:25)
[2017-01-09] MEDS: METOPROLOL 100 MG TAB PO SCH ×2 (08:25→20:22)
[2017-01-09] MEDS: FERROUS SULFATE (EC) 325 MG TAB PO SCH ×2 (08:25→20:22)
[2017-01-09] MEDS: PANTOPRAZOLE (EC) 40 MG TAB PO SCH (08:25)
[2017-01-09] MEDS: ACETYLCYSTEINE 600 MG CAP PO SCH ×2 (08:25→20:22)
[2017-01-09] MEDS: LOSARTAN 50 MG TAB PO SCH (08:25)
[2017-01-09] MEDS: POLYETHYLENE GLYCOL 17 GM PACKET GTB SCH (08:26)
--- NOTE | 2017-01-09 12:24 | CONS ---
Date/Time of Note Date/Time of Note DATE: 01/09/17 TIME: 12:23 Assessment/Plan Assessment/Plan Additional Assessment/Plan (1) Diabetes mellitus Status: Chronic (2) Peripheral vascular disease due to secondary diabetes mellitus Status: Chronic Comment: Plans per V Sx (3) Anemia Status: Chronic (4) Renal failure Status: Chronic Comment: The acute component has improved Consultation Date/Type/Reason Admit Date/Time Jan 01, 2017 at 18:03 Initial Consult Date 01/02/17 Type of Consultation: Renal Referring Provider: CORY EDGE Exam/Review of Systems Vital Signs Vitals Vital Signs Date Time Temp Pulse Resp B/P Pulse Ox O2 Delivery O2 Flow Rate FiO2 01/09/17 07:44 98.4 62 16 125/60 95 01/05/17 11:37 Room Air Intake and Output 01/08/17 01/08/17 01/09/17 15:00 23:00 07:00 Intake Total 2140 ml 440 ml Output Total 2250 ml Balance 2140 ml -1810 ml Results Result Diagram: 01/09/17 0515 01/09/17 0515 Results 24 hrs Laboratory Tests Test 01/08/17 13:16 01/08/17 17:20 01/08/17 20:39 01/09/17 05:15 Vancomycin Level Trough 14.8 Bedside Glucose 151 138 White Blood Count 11.8 H Red Blood Count 3.86 L Hemoglobin 9.6 L Hematocrit 30.9 L Mean Corpuscular Volume 80.1 L Mean Corpuscular Hemoglobin 24.9 L Mean Corpuscular Hemoglobin Concent 31.1 L Red Cell Distribution Width 14.3 Platelet Count 437 H Mean Platelet Volume 10.2 Neutrophils % 70.2 Lymphocytes % 14.6 L Monocytes % 8.2 Eosinophils % 5.9 Basophils % 0.7 Nucleated Red Blood Cells % 0.0 Neutrophils # 8.3 H Lymphocytes # 1.7 Monocytes # 1.0 H Eosinophils # 0.7 H Basophils # 0.1 Nucleated Red Blood Cells # 0.0 Sodium Level 143 Potassium Level 5.3 H Chloride Level 112 H Carbon Dioxide Level 20 L Anion Gap 16 Blood Urea Nitrogen 61 H Creatinine 3.01 H Glucose Level 109 Calcium Level 8.8 Test 01/09/17 07:45 01/09/17 11:55 Bedside Glucose 104 161 Medications Medications Current Medications Amlodipine Besylate (Norvasc) 10 mg DAILY PO Last administered on 01/09/17 08: 25; Admin Dose 10 MG; Start 01/02/17 at 09:00 Ferrous Sulfate (Ferrous Sulfate (Ec)) 325 mg BID PO Last administered on 08:25; Admin Dose 325 MG; Start 01/01/17 at 21:00 Furosemide (Lasix) 40 mg DAILY@06 PO Last administered on 01/02/17 05:29; Admin Dose 40 MG; Start 01/02/17 at 06:00; Status Future Hold Metoprolol Tartrate (Lopressor) 100 mg BID PO Last administered on 01/09/17 08 :25; Admin Dose 100 MG; Start 01/01/17 at 21:00 Montelukast Sodium (Singulair) 10 mg QHS PO Last administered on 01/08/17 21: 00; Admin Dose 10 MG; Start 01/01/17 at 21:00 Tramadol HCl (Ultram) 50 mg DAILY PRN PO PAIN Last administered on 01/07/17 22 :16; Admin Dose 50 MG; Start 01/01/17 at 21:00 Diagnostic Test (Pha) (Accu-Chek) 1 ea 02 XX ; Start 01/02/17 at 02:00 Miscellaneous Information 1 ea NOTE XX ; Start 01/01/17 at 21:30 Glucose (Glutose) 15 gm Q15M PRN PO DECREASED GLUCOSE; Start 01/01/17 at 21:30 Glucose (Glutose) 22.5 gm Q15M PRN PO DECREASED GLUCOSE; Start 01/01/17 at 21: 30 Dextrose (D50w Syringe) 25 ml Q15M PRN IV DECREASED GLUCOSE; Start 01/01/17 at 21:30 Dextrose (D50w Syringe) 50 ml Q15M PRN IV DECREASED GLUCOSE; Start 01/01/17 at 21:30 Glucagon (Glucagen) 1 mg Q15M PRN IM DECREASED GLUCOSE; Start 01/01/17 at 21:30 Glucose (Glutose) 15 gm Q15M PRN BUCCAL DECREASED GLUCOSE; Start 01/01/17 at 21 :30 Zolpidem Tartrate (Ambien) 5 mg HS PRN PO INSOMNIA Last administered on 23:06; Admin Dose 5 MG; Start 01/01/17 at 22:00 Insulin Glargine (Lantus) 24 unit HS SC Last administered on 01/08/17 21:00; Admin Dose 24 UNIT; Start 01/02/17 at 21:00 Atorvastatin Calcium (Lipitor) 10 mg DAILY@21 PO Last administered on 21:00; Admin Dose 10 MG; Start 01/02/17 at 21:00 Calcium Carbonate (Tums) 500 mg BID PO Last administered on 01/09/17 08:24; Admin Dose 500 MG; Start 01/02/17 at 21:00 Hydralazine HCl (Apresoline) 10 mg Q4H PRN IV ELEVATED BLOOD PRESSURE Last administered on 01/07/17 02:13; Admin Dose 10 MG; Start 01/03/17 at 14:30 Magnesium Hydroxide (Milk Of Mag) 30 ml DAILY PRN PO CONSTIPATION; Start at 17:30 Polyethylene Glycol (Miralax) 17 gm DAILY GTB Last administered on 01/09/17 08 :26; Admin Dose 17 GM; Start 01/03/17 at 17:30 Acetylcysteine (Nac) 600 mg BID PO Last administered on 01/09/17 08:25; Admin Dose 600 MG; Start 01/05/17 at 21:30; Stop 01/10/17 at 11:00 Losartan Potassium 50 mg 50 mg BID PO Last administered on 01/09/17 08:25; Admin Dose 50 MG; Start 01/08/17 at 21:00 Daptomycin/Sodium Chloride (Cubicin/NS) 100 ml @ 200 mls/hr Q48H IVPB Last administered on 01/08/17 15:35; Admin Dose 200 MLS/HR; Start 01/08/17 at 16:00 Levofloxacin (Levaquin) 250 mg Q2D@06 PO Last administered on 01/08/17 15:35; Admin Dose 250 MG; Start 01/08/17 at 15:00 ADÁN MONTEIRO MD Jan 09, 2017 12:24
[2017-01-09] MEDS ORDERED: NA POLYST SULFON 15 GM/60 ML BTL PO ONE ×2 (12:30→15:30)
--- NOTE | 2017-01-09 12:41 | CONS ---
Date/Time of Note Date/Time of Note DATE: 01/09/17 TIME: 12:38 Assessment/Plan Assessment/Plan Chief Complaint/Hosp Course Assessment/Plan Chief Complaint/Hosp Course No acute changes. Denies Pain. No Acute Distress. Microbiology: Blood cultures remain negative Allergy: Zosyn Antibiotics: Vancomycin cefepime Physical examination: Well-developed fragile elderly woman who is alert in no distress, head atraumatic normocephalic sclera nonicteric bugle mucosa dry neck is supple trachea midline chest rise symmetrical breath sounds diminished bases heart S1-S2 abdomen soft bowel tones present extremities with right foot necrosis and great toe gangrene Assessment: 1. Right foot gangrene, status post angioplasty 2. Diabetes mellitus 3. Acute on chronic kidney disease 4. Hypertension Plan: Patient remains stable. She will require outpatient bypass graft surgery. Will change vancomycin to daptomycin or oral Zyvox to preserve renal function. Change cefepime to oral Levaquin. Monitor Labs. Follow recommendations of consultants. Problems: Consultation Date/Type/Reason Admit Date/Time Jan 01, 2017 at 18:03 Initial Consult Date 01/02/17 Type of Consultation: id Referring Provider: CORY EDGE Exam/Review of Systems Vital Signs Vitals Vital Signs Date Time Temp Pulse Resp B/P Pulse Ox O2 Delivery O2 Flow Rate FiO2 01/09/17 07:44 98.4 62 16 125/60 95 01/05/17 11:37 Room Air Intake and Output 01/08/17 01/08/17 01/09/17 15:00 23:00 07:00 Intake Total 2140 ml 440 ml Output Total 2250 ml Balance 2140 ml -1810 ml Results Result Diagram: 01/09/17 0515 01/09/17 0515 Results 24 hrs Laboratory Tests Test 01/08/17 13:16 01/08/17 17:20 01/08/17 20:39 01/09/17 05:15 Vancomycin Level Trough 14.8 Bedside Glucose 151 138 White Blood Count 11.8 H Red Blood Count 3.86 L Hemoglobin 9.6 L Hematocrit 30.9 L Mean Corpuscular Volume 80.1 L Mean Corpuscular Hemoglobin 24.9 L Mean Corpuscular Hemoglobin Concent 31.1 L Red Cell Distribution Width 14.3 Platelet Count 437 H Mean Platelet Volume 10.2 Neutrophils % 70.2 Lymphocytes % 14.6 L Monocytes % 8.2 Eosinophils % 5.9 Basophils % 0.7 Nucleated Red Blood Cells % 0.0 Neutrophils # 8.3 H Lymphocytes # 1.7 Monocytes # 1.0 H Eosinophils # 0.7 H Basophils # 0.1 Nucleated Red Blood Cells # 0.0 Sodium Level 143 Potassium Level 5.3 H Chloride Level 112 H Carbon Dioxide Level 20 L Anion Gap 16 Blood Urea Nitrogen 61 H Creatinine 3.01 H Glucose Level 109 Calcium Level 8.8 Test 01/09/17 07:45 01/09/17 11:55 Bedside Glucose 104 161 Medications Medications Current Medications Amlodipine Besylate (Norvasc) 10 mg DAILY PO Last administered on 01/09/17 08: 25; Admin Dose 10 MG; Start 01/02/17 at 09:00 Ferrous Sulfate (Ferrous Sulfate (Ec)) 325 mg BID PO Last administered on 08:25; Admin Dose 325 MG; Start 01/01/17 at 21:00 Furosemide (Lasix) 40 mg DAILY@06 PO Last administered on 01/02/17 05:29; Admin Dose 40 MG; Start 01/02/17 at 06:00; Status Future Hold Metoprolol Tartrate (Lopressor) 100 mg BID PO Last administered on 01/09/17 08 :25; Admin Dose 100 MG; Start 01/01/17 at 21:00 Montelukast Sodium (Singulair) 10 mg QHS PO Last administered on 01/08/17 21: 00; Admin Dose 10 MG; Start 01/01/17 at 21:00 Tramadol HCl (Ultram) 50 mg DAILY PRN PO PAIN Last administered on 01/07/17 22 :16; Admin Dose 50 MG; Start 01/01/17 at 21:00 Diagnostic Test (Pha) (Accu-Chek) 1 ea 02 XX ; Start 01/02/17 at 02:00 Miscellaneous Information 1 ea NOTE XX ; Start 01/01/17 at 21:30 Glucose (Glutose) 15 gm Q15M PRN PO DECREASED GLUCOSE; Start 01/01/17 at 21:30 Glucose (Glutose) 22.5 gm Q15M PRN PO DECREASED GLUCOSE; Start 01/01/17 at 21: 30 Dextrose (D50w Syringe) 25 ml Q15M PRN IV DECREASED GLUCOSE; Start 01/01/17 at 21:30 Dextrose (D50w Syringe) 50 ml Q15M PRN IV DECREASED GLUCOSE; Start 01/01/17 at 21:30 Glucagon (Glucagen) 1 mg Q15M PRN IM DECREASED GLUCOSE; Start 01/01/17 at 21:30 Glucose (Glutose) 15 gm Q15M PRN BUCCAL DECREASED GLUCOSE; Start 01/01/17 at 21 :30 Zolpidem Tartrate (Ambien) 5 mg HS PRN PO INSOMNIA Last administered on 23:06; Admin Dose 5 MG; Start 01/01/17 at 22:00 Insulin Glargine (Lantus) 24 unit HS SC Last administered on 01/08/17 21:00; Admin Dose 24 UNIT; Start 01/02/17 at 21:00 Atorvastatin Calcium (Lipitor) 10 mg DAILY@21 PO Last administered on 21:00; Admin Dose 10 MG; Start 01/02/17 at 21:00 Calcium Carbonate (Tums) 500 mg BID PO Last administered on 01/09/17 08:24; Admin Dose 500 MG; Start 01/02/17 at 21:00 Hydralazine HCl (Apresoline) 10 mg Q4H PRN IV ELEVATED BLOOD PRESSURE Last administered on 01/07/17 02:13; Admin Dose 10 MG; Start 01/03/17 at 14:30 Magnesium Hydroxide (Milk Of Mag) 30 ml DAILY PRN PO CONSTIPATION; Start at 17:30 Polyethylene Glycol (Miralax) 17 gm DAILY GTB Last administered on 01/09/17 08 :26; Admin Dose 17 GM; Start 01/03/17 at 17:30 Acetylcysteine (Nac) 600 mg BID PO Last administered on 01/09/17 08:25; Admin Dose 600 MG; Start 01/05/17 at 21:30; Stop 01/10/17 at 11:00 Losartan Potassium 50 mg 50 mg BID PO Last administered on 01/09/17 08:25; Admin Dose 50 MG; Start 01/08/17 at 21:00 Daptomycin/Sodium Chloride (Cubicin/NS) 100 ml @ 200 mls/hr Q48H IVPB Last administered on 01/08/17 15:35; Admin Dose 200 MLS/HR; Start 01/08/17 at 16:00 Levofloxacin (Levaquin) 250 mg Q2D@06 PO Last administered on 01/08/17t 15:35; Admin Dose 250 MG; Start 01/08/17 at 15:00 SAI MAY NP Jan 09, 2017 12:41
--- NOTE | 2017-01-09 13:47 | CONS ---
Date/Time of Note Date/Time of Note DATE: 01/09/17 TIME: 13:44 Assessment/Plan Assessment/Plan Chief Complaint/Hosp Course 1. Preoperative evaluation prior to lower extremity triple-NL EF by echo and no sig valve abnl/Lexiscan with probabale soft tissue attenutaion in anterior wall and nl ef and no wall motion abnl bypass surgery. 2. Hypertension. 3. Dyslipidemia. 4. Peripheral arterial disease with gangrenous change in the lower extremities. 5. Status post left lower extremity transmetatarsal amputation. 6. Renal failure. 7. Diabetes mellitus. 8. Anemia. Recc: -Continue norvasc/BB/losartan with reasonable BP control -Continue abx's -LE wound care -D/C planning Problems: Consultation Date/Type/Reason Admit Date/Time Jan 01, 2017 at 18:03 Initial Consult Date 01/02/17 Type of Consultation: cardiology Reason for Consultation pre-op/HTN Referring Provider: CORY EDGE Exam/Review of Systems Vital Signs Vitals Vital Signs Date Time Temp Pulse Resp B/P Pulse Ox O2 Delivery O2 Flow Rate FiO2 01/09/17 07:44 98.4 62 16 125/60 95 01/05/17 11:37 Room Air Intake and Output 01/08/17 01/08/17 01/09/17 15:00 23:00 07:00 Intake Total 2140 ml 440 ml Output Total 2250 ml Balance 2140 ml -1810 ml Exam Review of Systems: CONSTITUTIONAL: No fevers, chills. PULMONARY: No sob CARDIOVASCULAR: No chest pain/palpitations GASTROINTESTINAL: No nausea/vomiting. GENITOURINARY: No hematuria/dysuria. MUSCULOSKELETAL: No myagias/arthalgias. PSYCHIATRIC: The patient denies depression. NEUROLOGIC: No weakness Constitutional: alert Psych: no complaints Head: normocephalic ENMT: mucosa pink and moist Neck: supple Respiratory: diminished breath sounds (at bases/B) Cardiovascular: regular rate and rhythm Gastrointestinal: non-tender, soft Musculoskeletal: muscle tone (normal) Extremities: edema (none) Neurological: other (No focal deficits) Results Result Diagram: 01/09/17 0515 01/09/17 0515 Results 24 hrs Laboratory Tests Test 01/08/17 17:20 01/08/17 20:39 01/09/17 05:15 01/09/17 07:45 Bedside Glucose 151 138 104 White Blood Count 11.8 H Red Blood Count 3.86 L Hemoglobin 9.6 L Hematocrit 30.9 L Mean Corpuscular Volume 80.1 L Mean Corpuscular Hemoglobin 24.9 L Mean Corpuscular Hemoglobin Concent 31.1 L Red Cell Distribution Width 14.3 Platelet Count 437 H Mean Platelet Volume 10.2 Neutrophils % 70.2 Lymphocytes % 14.6 L Monocytes % 8.2 Eosinophils % 5.9 Basophils % 0.7 Nucleated Red Blood Cells % 0.0 Neutrophils # 8.3 H Lymphocytes # 1.7 Monocytes # 1.0 H Eosinophils # 0.7 H Basophils # 0.1 Nucleated Red Blood Cells # 0.0 Sodium Level 143 Potassium Level 5.3 H Chloride Level 112 H Carbon Dioxide Level 20 L Anion Gap 16 Blood Urea Nitrogen 61 H Creatinine 3.01 H Glucose Level 109 Calcium Level 8.8 Test 01/09/17 11:55 Bedside Glucose 161 Medications Medications Current Medications Amlodipine Besylate (Norvasc) 10 mg DAILY PO Last administered on 01/09/17 08: 25; Admin Dose 10 MG; Start 01/02/17 at 09:00 Ferrous Sulfate (Ferrous Sulfate (Ec)) 325 mg BID PO Last administered on 08:25; Admin Dose 325 MG; Start 01/01/17 at 21:00 Furosemide (Lasix) 40 mg DAILY@06 PO Last administered on 01/02/17 05:29; Admin Dose 40 MG; Start 01/02/17 at 06:00; Status Future Hold Metoprolol Tartrate (Lopressor) 100 mg BID PO Last administered on 01/09/17 08 :25; Admin Dose 100 MG; Start 01/01/17 at 21:00 Montelukast Sodium (Singulair) 10 mg QHS PO Last administered on 01/08/17 21: 00; Admin Dose 10 MG; Start 01/01/17 at 21:00 Tramadol HCl (Ultram) 50 mg DAILY PRN PO PAIN Last administered on 01/07/17 22 :16; Admin Dose 50 MG; Start 01/01/17 at 21:00 Diagnostic Test (Pha) (Accu-Chek) 1 ea 02 XX ; Start 01/02/17 at 02:00 Miscellaneous Information 1 ea NOTE XX ; Start 01/01/17 at 21:30 Glucose (Glutose) 15 gm Q15M PRN PO DECREASED GLUCOSE; Start 01/01/17 at 21:30 Glucose (Glutose) 22.5 gm Q15M PRN PO DECREASED GLUCOSE; Start 01/01/17 at 21: 30 Dextrose (D50w Syringe) 25 ml Q15M PRN IV DECREASED GLUCOSE; Start 01/01/17 at 21:30 Dextrose (D50w Syringe) 50 ml Q15M PRN IV DECREASED GLUCOSE; Start 01/01/17 at 21:30 Glucagon (Glucagen) 1 mg Q15M PRN IM DECREASED GLUCOSE; Start 01/01/17 at 21:30 Glucose (Glutose) 15 gm Q15M PRN BUCCAL DECREASED GLUCOSE; Start 01/01/17 at 21 :30 Zolpidem Tartrate (Ambien) 5 mg HS PRN PO INSOMNIA Last administered on 23:06; Admin Dose 5 MG; Start 01/01/17 at 22:00 Insulin Glargine (Lantus) 24 unit HS SC Last administered on 01/08/17 21:00; Admin Dose 24 UNIT; Start 01/02/17 at 21:00 Atorvastatin Calcium (Lipitor) 10 mg DAILY@21 PO Last administered on 21:00; Admin Dose 10 MG; Start 01/02/17 at 21:00 Calcium Carbonate (Tums) 500 mg BID PO Last administered on 01/09/17 08:24; Admin Dose 500 MG; Start 01/02/17 at 21:00 Hydralazine HCl (Apresoline) 10 mg Q4H PRN IV ELEVATED BLOOD PRESSURE Last administered on 01/07/17 02:13; Admin Dose 10 MG; Start 01/03/17 at 14:30 Magnesium Hydroxide (Milk Of Mag) 30 ml DAILY PRN PO CONSTIPATION; Start at 17:30 Polyethylene Glycol (Miralax) 17 gm DAILY GTB Last administered on 01/09/17 08 :26; Admin Dose 17 GM; Start 01/03/17 at 17:30 Acetylcysteine (Nac) 600 mg BID PO Last administered on 01/09/17 08:25; Admin Dose 600 MG; Start 01/05/17 at 21:30; Stop 01/10/17 at 11:00 Losartan Potassium 50 mg 50 mg BID PO Last administered on 01/09/17 08:25; Admin Dose 50 MG; Start 01/08/17 at 21:00 Daptomycin/Sodium Chloride (Cubicin/NS) 100 ml @ 200 mls/hr Q48H IVPB Last administered on 01/08/17 15:35; Admin Dose 200 MLS/HR; Start 01/08/17 at 16:00 Levofloxacin (Levaquin) 250 mg Q2D@06 PO Last administered on 01/08/17 15:35; Admin Dose 250 MG; Start 01/08/17 at 15:00 NOÉ HERRERA Jan 09, 2017 13:47
[2017-01-09] MEDS ORDERED: LEVO250T35 PO (14:59)
[2017-01-09] MEDS ORDERED: DAPT500V IV (14:59)
[2017-01-09] MEDS ORDERED: LIDOCAINE 1% (MPF) 5 ML VIAL SC ONE (15:00)
[2017-01-09 15:04] VITALS: BP 137/64; RESP 16
--- NOTE | 2017-01-09 15:09 | PN ---
Date/Time of Note Date/Time of Note DATE: 01/09/17 TIME: 15:07 Assessment/Plan VTE Prophylaxis VTE Prophylaxis Intervention: SCD's Lines/Catheters IV Catheter Type (from Nrs): Saline Lock Urinary Cath still in place: No Assessment/Plan Assessment/Plan 1. Hyperkalemia, Kayexalate, stop losartan 2. Right foot gangrene, on antibiotics with vancomycin and cefepime, wound care 3. Peripheral vascular disease, status post angiogram, needs elective fem to DP bypass, follow up with Dr. Sapp 4. Diabetes mellitus, on insulins 5. Acute on chronic kidney disease, stage 4, follow up with BMP 6. Hypertension, stop losartan add hydralazine 7. Microcytic anemia, stable, follow up with PCP Subjective 24 Hr Interval Summary Free Text/Dictation afebrile Exam/Review of Systems Vital Signs Vitals Vital Signs Date Time Temp Pulse Resp B/P Pulse Ox O2 Delivery O2 Flow Rate FiO2 01/09/17 07:44 98.4 62 16 125/60 95 01/05/17 11:37 Room Air Intake and Output 01/08/17 01/08/17 01/09/17 15:00 23:00 07:00 Intake Total 2140 ml 440 ml Output Total 2250 ml Balance 2140 ml -1810 ml Exam Constitutional: alert, oriented, well developed Psych: nl mood/affect, no complaints Head: atraumatic, normocephalic Eyes: EOMI, PERRL, nl conjunctiva, nl lids ENMT: nl external ears & nose, nl lips & teeth, nl nasal mucosa & septum Neck: non-tender, supple Respiratory: clear to auscultation, normal air movement, No congested cough, No crackles/rales, No diminished breath sounds, No intercostal retraction, No labored breathing, No other, No respirations, No tactile fremitus, No wheezing Cardiovascular: nl pulses, regular rate and rhythm, No S3, No S4, No bruits, No diastolic murmur, No edema, No gallop, No irregular rhythm, No jugular venous distention (JVD), No murmurs/extra sounds, No other, No rub, No systolic murmur Gastrointestinal: nl liver, spleen, non-tender, soft, No ascites, No bowel sounds, No distended, No firm, No hepatomegaly, No mass , No other, No rebound or guarding, No splenomegaly, No surgical scars, No tender Musculoskeletal: other (bilateral foot amputation) Extremities: normal pulses, No calf tenderness, No clubbing, No cyanosis, No edema, No palpable cord, No pitting pedal edema 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, nl mental status, nl speech, nl strength Skin: nl turgor Lymph: nl lymph nodes Results Result Diagram: 01/09/1715 01/09/1715 Results 24 hrs Laboratory Tests Test 01/08/17 17:20 01/08/17 20:39 01/09/17 05:15 01/09/17 07:45 Bedside Glucose 151 138 104 White Blood Count 11.8 H Red Blood Count 3.86 L Hemoglobin 9.6 L Hematocrit 30.9 L Mean Corpuscular Volume 80.1 L Mean Corpuscular Hemoglobin 24.9 L Mean Corpuscular Hemoglobin Concent 31.1 L Red Cell Distribution Width 14.3 Platelet Count 437 H Mean Platelet Volume 10.2 Neutrophils % 70.2 Lymphocytes % 14.6 L Monocytes % 8.2 Eosinophils % 5.9 Basophils % 0.7 Nucleated Red Blood Cells % 0.0 Neutrophils # 8.3 H Lymphocytes # 1.7 Monocytes # 1.0 H Eosinophils # 0.7 H Basophils # 0.1 Nucleated Red Blood Cells # 0.0 Sodium Level 143 Potassium Level 5.3 H Chloride Level 112 H Carbon Dioxide Level 20 L Anion Gap 16 Blood Urea Nitrogen 61 H Creatinine 3.01 H Glucose Level 109 Calcium Level 8.8 Test 01/09/17 11:55 Bedside Glucose 161 Medications Medications Current Medications Amlodipine Besylate (Norvasc) 10 mg DAILY PO Last administered on 01/09/17 08: 25; Admin Dose 10 MG; Start 01/02/17 at 09:00 Ferrous Sulfate (Ferrous Sulfate (Ec)) 325 mg BID PO Last administered on 08:25; Admin Dose 325 MG; Start 01/01/17 at 21:00 Furosemide (Lasix) 40 mg DAILY@06 PO Last administered on 01/02/17 05:29; Admin Dose 40 MG; Start 01/02/17 at 06:00; Status Future Hold Metoprolol Tartrate (Lopressor) 100 mg BID PO Last administered on 01/09/17 08 :25; Admin Dose 100 MG; Start 01/01/17 at 21:00 Montelukast Sodium (Singulair) 10 mg QHS PO Last administered on 01/08/17 21: 00; Admin Dose 10 MG; Start 01/01/17 at 21:00 Tramadol HCl (Ultram) 50 mg DAILY PRN PO PAIN Last administered on 01/07/17 22 :16; Admin Dose 50 MG; Start 01/01/17 at 21:00 Diagnostic Test (Pha) (Accu-Chek) 1 ea 02 XX ; Start 01/02/17 at 02:00 Miscellaneous Information 1 ea NOTE XX ; Start 01/01/17 at 21:30 Glucose (Glutose) 15 gm Q15M PRN PO DECREASED GLUCOSE; Start 01/01/17 at 21:30 Glucose (Glutose) 22.5 gm Q15M PRN PO DECREASED GLUCOSE; Start 01/01/17 at 21: 30 Dextrose (D50w Syringe) 25 ml Q15M PRN IV DECREASED GLUCOSE; Start 01/01/17 at 21:30 Dextrose (D50w Syringe) 50 ml Q15M PRN IV DECREASED GLUCOSE; Start 01/01/17 at 21:30 Glucagon (Glucagen) 1 mg Q15M PRN IM DECREASED GLUCOSE; Start 01/01/17 at 21:30 Glucose (Glutose) 15 gm Q15M PRN BUCCAL DECREASED GLUCOSE; Start 01/01/17 at 21 :30 Zolpidem Tartrate (Ambien) 5 mg HS PRN PO INSOMNIA Last administered on 23:06; Admin Dose 5 MG; Start 01/01/17 at 22:00 Insulin Glargine (Lantus) 24 unit HS SC Last administered on 01/08/17 21:00; Admin Dose 24 UNIT; Start 01/02/17 at 21:00 Atorvastatin Calcium (Lipitor) 10 mg DAILY@21 PO Last administered on 21:00; Admin Dose 10 MG; Start 01/02/17 at 21:00 Calcium Carbonate (Tums) 500 mg BID PO Last administered on 01/09/17 08:24; Admin Dose 500 MG; Start 01/02/17 at 21:00 Hydralazine HCl (Apresoline) 10 mg Q4H PRN IV ELEVATED BLOOD PRESSURE Last administered on 01/07/17 02:13; Admin Dose 10 MG; Start 01/03/17 at 14:30 Magnesium Hydroxide (Milk Of Mag) 30 ml DAILY PRN PO CONSTIPATION; Start at 17:30 Polyethylene Glycol (Miralax) 17 gm DAILY GTB Last administered on 01/09/17 08 :26; Admin Dose 17 GM; Start 01/03/17 at 17:30 Acetylcysteine (Nac) 600 mg BID PO Last administered on 01/09/17 08:25; Admin Dose 600 MG; Start 01/05/17 at 21:30; Stop 01/10/17 at 11:00 Losartan Potassium 50 mg 50 mg BID PO Last administered on 01/09/17 08:25; Admin Dose 50 MG; Start 01/08/17 at 21:00 Daptomycin/Sodium Chloride (Cubicin/NS) 100 ml @ 200 mls/hr Q48H IVPB Last administered on 01/08/17 15:35; Admin Dose 200 MLS/HR; Start 01/08/17 at 16:00 Levofloxacin (Levaquin) 250 mg Q2D@06 PO Last administered on 01/08/17 15:35; Admin Dose 250 MG; Start 01/08/17 at 15:00 ROWAN MATIAS MD Jan 09, 2017 15:09
[2017-01-09 20:00] VITALS: BP 119/60; RESP 18
[2017-01-09] MEDS: MONTELUKAST 10 MG TAB PO SCH (20:21)
[2017-01-09] MEDS: ATORVASTATIN 10 MG TAB PO SCH (20:22)
[2017-01-09] MEDS: INSULIN GLARGINE [LANtus] 3 ML PEN SC SCH (20:31)
[2017-01-09] MEDS: ZOLPIDEM 5 MG TAB PO PRN (22:45)
[2017-01-09] MEDS: traMADol 50 MG TAB PO PRN (22:46)
[2017-01-10] MEDS: ACCU-CHEK XX SCH (01:01)
[2017-01-10 02:57] VITALS: BP 139/62; RESP 18
[2017-01-10 06:41] LABS: CALCIUM 8.2 mg/dl (8.4-10.2); CREATININE 2.93 mg/dl (0.44-1.00); POTASSIUM 4.2 mmol/L (3.5-5.1)
[2017-01-10] MEDS: LEVOFLOXACIN 250 MG TAB PO SCH (06:44)
[2017-01-10 07:40] VITALS: BP 148/68; RESP 18
[2017-01-10] MEDS: INSULIN ASPART [NOVOLOG] 3 ML PEN SC SCH ×7 (08:12→20:26)
[2017-01-10] MEDS: ACETYLCYSTEINE 600 MG CAP PO SCH (09:01)
[2017-01-10] MEDS: PANTOPRAZOLE (EC) 40 MG TAB PO SCH (09:01)
[2017-01-10] MEDS: FERROUS SULFATE (EC) 325 MG TAB PO SCH ×2 (09:02→20:27)
[2017-01-10] MEDS: POLYETHYLENE GLYCOL 17 GM PACKET GTB SCH (09:02)
[2017-01-10] MEDS: CALCIUM CARBONATE 500 MG CHEW TAB PO SCH ×2 (09:02→20:27)
[2017-01-10] MEDS: AMLODIPINE 10 MG TAB PO SCH (09:03)
[2017-01-10] MEDS: METOPROLOL 100 MG TAB PO SCH ×2 (09:03→20:28)
[2017-01-10 14:32] VITALS: BP 151/71; RESP 18
--- NOTE | 2017-01-10 14:36 | CONS ---
Date/Time of Note Date/Time of Note DATE: 01/10/17 TIME: 14:34 Assessment/Plan Assessment/Plan Chief Complaint/Hosp Course 1. Preoperative evaluation prior to lower extremity triple-NL EF by echo and no sig valve abnl/Lexiscan with probabale soft tissue attenutaion in anterior wall and nl ef and no wall motion abnl bypass surgery. 2. Hypertension. 3. Dyslipidemia. 4. Peripheral arterial disease with gangrenous change in the lower extremities. 5. Status post left lower extremity transmetatarsal amputation. 6. Renal failure. 7. Diabetes mellitus. 8. Anemia. Recc: -Continue norvasc/BB/losartan with reasonable BP control -Continue abx's -LE wound care -? Peripheral bypass during this admission or d/c with procedure being done as outpatient bases Problems: Consultation Date/Type/Reason Admit Date/Time Jan 01, 2017 at 18:03 Initial Consult Date 01/02/17 Type of Consultation: cardiology Reason for Consultation Pre-op Referring Provider: CORY EDGE Exam/Review of Systems Vital Signs Vitals Vital Signs Date Time Temp Pulse Resp B/P Pulse Ox O2 Delivery O2 Flow Rate FiO2 01/10/17 14:32 98.9 68 18 151/71 93 Intake and Output 01/09/17 01/09/17 01/10/17 14:59 22:59 06:59 Intake Total 1680 ml 640 ml Output Total 400 ml Balance 1680 ml 240 ml Exam Review of Systems: CONSTITUTIONAL: No fevers, chills. PULMONARY: No sob CARDIOVASCULAR: No chest pain/palpitations GASTROINTESTINAL: No nausea/vomiting. GENITOURINARY: No hematuria/dysuria. MUSCULOSKELETAL: No myagias/arthalgias. PSYCHIATRIC: The patient denies depression. NEUROLOGIC: No weakness Constitutional: alert Psych: no complaints Head: normocephalic ENMT: mucosa pink and moist Neck: jvd (9 cm water), supple Respiratory: diminished breath sounds Cardiovascular: regular rate and rhythm Gastrointestinal: non-tender, soft Musculoskeletal: muscle tone (normal) Extremities: other (Covered by dressing at foot) Neurological: other (No focal deficits) Results Result Diagram: 01/09/17 0515 01/10/17 0540 Results 24 hrs Laboratory Tests Test 01/09/17 17:16 01/09/17 20:20 01/10/17 05:40 01/10/17 07:51 Bedside Glucose 146 117 118 Sodium Level 146 H Potassium Level 4.2 Chloride Level 111 H Carbon Dioxide Level 21 Anion Gap 18 H Blood Urea Nitrogen 62 H Creatinine 2.93 H Glucose Level 113 Calcium Level 8.2 L Test 01/10/17 11:58 Bedside Glucose 208 Medications Medications Current Medications Amlodipine Besylate (Norvasc) 10 mg DAILY PO Last administered on 01/10/17 09: 03; Admin Dose 10 MG; Start 01/02/17 at 09:00 Ferrous Sulfate (Ferrous Sulfate (Ec)) 325 mg BID PO Last administered on 09:02; Admin Dose 325 MG; Start 01/01/17 at 21:00 Furosemide (Lasix) 40 mg DAILY@06 PO Last administered on 01/02/17 05:29; Admin Dose 40 MG; Start 01/02/17 at 06:00; Status Future Hold Metoprolol Tartrate (Lopressor) 100 mg BID PO Last administered on 01/10/17 09 :03; Admin Dose 100 MG; Start 01/01/17 at 21:00 Montelukast Sodium (Singulair) 10 mg QHS PO Last administered on 01/09/17 20: 21; Admin Dose 10 MG; Start 01/01/17 at 21:00 Tramadol HCl (Ultram) 50 mg DAILY PRN PO PAIN Last administered on 01/09/17 22 :46; Admin Dose 50 MG; Start 01/01/17 at 21:00 Diagnostic Test (Pha) (Accu-Chek) 1 ea 02 XX ; Start 01/02/17 at 02:00 Miscellaneous Information 1 ea NOTE XX ; Start 01/01/17 at 21:30 Glucose (Glutose) 15 gm Q15M PRN PO DECREASED GLUCOSE; Start 01/01/17 at 21:30 Glucose (Glutose) 22.5 gm Q15M PRN PO DECREASED GLUCOSE; Start 01/01/17 at 21: 30 Dextrose (D50w Syringe) 25 ml Q15M PRN IV DECREASED GLUCOSE; Start 01/01/17 at 21:30 Dextrose (D50w Syringe) 50 ml Q15M PRN IV DECREASED GLUCOSE; Start 01/01/17 at 21:30 Glucagon (Glucagen) 1 mg Q15M PRN IM DECREASED GLUCOSE; Start 01/01/17 at 21:30 Glucose (Glutose) 15 gm Q15M PRN BUCCAL DECREASED GLUCOSE; Start 01/01/17 at 21 :30 Zolpidem Tartrate (Ambien) 5 mg HS PRN PO INSOMNIA Last administered on 22:45; Admin Dose 5 MG; Start 01/01/17 at 22:00 Insulin Glargine (Lantus) 24 unit HS SC Last administered on 01/09/17 20:31; Admin Dose 24 UNIT; Start 01/02/17 at 21:00 Atorvastatin Calcium (Lipitor) 10 mg DAILY@21 PO Last administered on 20:22; Admin Dose 10 MG; Start 01/02/17 at 21:00 Calcium Carbonate (Tums) 500 mg BID PO Last administered on 01/10/17 09:02; Admin Dose 500 MG; Start 01/02/17 at 21:00 Hydralazine HCl (Apresoline) 10 mg Q4H PRN IV ELEVATED BLOOD PRESSURE Last administered on 01/07/17 02:13; Admin Dose 10 MG; Start 01/03/17 at 14:30 Magnesium Hydroxide (Milk Of Mag) 30 ml DAILY PRN PO CONSTIPATION; Start at 17:30 Polyethylene Glycol 17 gm 17 gm DAILY GTB Last administered on 01/10/17 09:02 ; Admin Dose 17 GM; Start 01/03/17 at 17:30 Daptomycin/Sodium Chloride (Cubicin/NS) 100 ml @ 200 mls/hr Q48H IVPB Last administered on 01/08/17 15:35; Admin Dose 200 MLS/HR; Start 01/08/17 at 16:00 Levofloxacin (Levaquin) 250 mg Q2D@06 PO Last administered on 01/10/17 06:44; Admin Dose 250 MG; Start 01/08/17 at 15:00 Hydralazine HCl (Apresoline) 50 mg TID PO Last administered on 01/10/17 13:34 ; Admin Dose 50 MG; Start 01/09/17 at 21:00 NOÉ HERRERA Jan 10, 2017 14:36
--- NOTE | 2017-01-10 14:48 | PN ---
Date/Time of Note Date/Time of Note DATE: 01/10/17 TIME: 14:45 Assessment/Plan VTE Prophylaxis VTE Prophylaxis Intervention: SCD's Lines/Catheters IV Catheter Type (from Nrs): Saline Lock Urinary Cath still in place: No Assessment/Plan Assessment/Plan 1. Peripheral vascular disease, status post angiogram, bypass surgery tomorrow per Dr. Camilo 2. Right foot gangrene, on antibiotics with vancomycin and cefepime, wound care 3. Diabetes mellitus, on insulins 4. Acute on chronic kidney disease, stage 4, follow up with BMP 5. Hypertension, change antihypertensive to procardia xl 6. Microcytic anemia, stable, follow up with PCP Subjective 24 Hr Interval Summary Free Text/Dictation afebrile. Exam/Review of Systems Vital Signs Vitals Vital Signs Date Time Temp Pulse Resp B/P Pulse Ox O2 Delivery O2 Flow Rate FiO2 01/10/17 14:32 98.9 68 18 151/71 93 Intake and Output 01/09/17 01/09/17 01/10/17 15:00 23:00 07:00 Intake Total 1680 ml 640 ml Output Total 400 ml Balance 1680 ml 240 ml Exam Constitutional: alert, oriented, well developed Psych: nl mood/affect, no complaints Head: atraumatic, normocephalic Eyes: EOMI, nl conjunctiva, nl lids ENMT: nl external ears & nose, nl lips & teeth, nl nasal mucosa & septum Neck: non-tender, supple Respiratory: clear to auscultation, normal air movement, No congested cough, No crackles/rales, No diminished breath sounds, No intercostal retraction, No labored breathing, No other, No respirations, No tactile fremitus, No wheezing Cardiovascular: nl pulses, regular rate and rhythm, No S3, No S4, No bruits, No diastolic murmur, No edema, No gallop, No irregular rhythm, No jugular venous distention (JVD), No murmurs/extra sounds, No other, No rub, No systolic murmur Gastrointestinal: nl liver, spleen, non-tender, soft, No ascites, No bowel sounds, No distended, No firm, No hepatomegaly, No mass , No other, No rebound or guarding, No splenomegaly, No surgical scars, No tender Musculoskeletal: nl extremities to inspection Extremities: normal pulses Neurological: CHAINSTITCH BINDER II-XII intact, nl mental status, nl speech, nl strength Skin: nl turgor Lymph: nl lymph nodes Results Result Diagram: 01/09/17 0515 01/10/17 0540 Results 24 hrs Laboratory Tests Test 01/09/17 17:16 01/09/17 20:20 01/10/17 05:40 01/10/17 07:51 Bedside Glucose 146 117 118 Sodium Level 146 H Potassium Level 4.2 Chloride Level 111 H Carbon Dioxide Level 21 Anion Gap 18 H Blood Urea Nitrogen 62 H Creatinine 2.93 H Glucose Level 113 Calcium Level 8.2 L Test 01/10/17 11:58 Bedside Glucose 208 Medications Medications Current Medications Amlodipine Besylate (Norvasc) 10 mg DAILY PO Last administered on 01/10/17 09: 03; Admin Dose 10 MG; Start 01/02/17 at 09:00 Ferrous Sulfate (Ferrous Sulfate (Ec)) 325 mg BID PO Last administered on 09:02; Admin Dose 325 MG; Start 01/01/17 at 21:00 Furosemide (Lasix) 40 mg DAILY@06 PO Last administered on 01/02/17 05:29; Admin Dose 40 MG; Start 01/02/17 at 06:00; Status Future Hold Metoprolol Tartrate (Lopressor) 100 mg BID PO Last administered on 01/10/17 09 :03; Admin Dose 100 MG; Start 01/01/17 at 21:00 Montelukast Sodium (Singulair) 10 mg QHS PO Last administered on 01/09/17 20: 21; Admin Dose 10 MG; Start 01/01/17 at 21:00 Tramadol HCl (Ultram) 50 mg DAILY PRN PO PAIN Last administered on 01/09/17 22 :46; Admin Dose 50 MG; Start 01/01/17 at 21:00 Diagnostic Test (Pha) (Accu-Chek) 1 ea 02 XX ; Start 01/02/17 at 02:00 Miscellaneous Information 1 ea NOTE XX ; Start 01/01/17 at 21:30 Glucose (Glutose) 15 gm Q15M PRN PO DECREASED GLUCOSE; Start 01/01/17 at 21:30 Glucose (Glutose) 22.5 gm Q15M PRN PO DECREASED GLUCOSE; Start 01/01/17 at 21: 30 Dextrose (D50w Syringe) 25 ml Q15M PRN IV DECREASED GLUCOSE; Start 01/01/17 at 21:30 Dextrose (D50w Syringe) 50 ml Q15M PRN IV DECREASED GLUCOSE; Start 01/01/17 at 21:30 Glucagon (Glucagen) 1 mg Q15M PRN IM DECREASED GLUCOSE; Start 01/01/17 at 21:30 Glucose (Glutose) 15 gm Q15M PRN BUCCAL DECREASED GLUCOSE; Start 01/01/17 at 21 :30 Zolpidem Tartrate (Ambien) 5 mg HS PRN PO INSOMNIA Last administered on 22:45; Admin Dose 5 MG; Start 01/01/17 at 22:00 Insulin Glargine (Lantus) 24 unit HS SC Last administered on 01/09/17 20:31; Admin Dose 24 UNIT; Start 01/02/17 at 21:00 Atorvastatin Calcium (Lipitor) 10 mg DAILY@21 PO Last administered on 20:22; Admin Dose 10 MG; Start 01/02/17 at 21:00 Calcium Carbonate (Tums) 500 mg BID PO Last administered on 01/10/17 09:02; Admin Dose 500 MG; Start 01/02/17 at 21:00 Hydralazine HCl (Apresoline) 10 mg Q4H PRN IV ELEVATED BLOOD PRESSURE Last administered on 01/07/17 02:13; Admin Dose 10 MG; Start 01/03/17 at 14:30 Magnesium Hydroxide (Milk Of Mag) 30 ml DAILY PRN PO CONSTIPATION; Start at 17:30 Polyethylene Glycol 17 gm 17 gm DAILY GTB Last administered on 01/10/17 09:02 ; Admin Dose 17 GM; Start 01/03/17 at 17:30 Daptomycin/Sodium Chloride (Cubicin/NS) 100 ml @ 200 mls/hr Q48H IVPB Last administered on 01/08/17 15:35; Admin Dose 200 MLS/HR; Start 01/08/17 at 16:00 Levofloxacin (Levaquin) 250 mg Q2D@06 PO Last administered on 01/10/17 06:44; Admin Dose 250 MG; Start 01/08/17 at 15:00 Hydralazine HCl (Apresoline) 50 mg TID PO Last administered on 01/10/17 13:34 ; Admin Dose 50 MG; Start 01/09/17 at 21:00 ROWAN MATIAS MD Jan 10, 2017 14:48
[2017-01-10] MEDS ORDERED: NIFEdipine (XL) 60 MG TAB PO SCH (15:00)
[2017-01-10] MEDS: DAPTOMYCIN 280 MG in SOD CHLORIDE 0.9% 100 ML IVPB SCH (16:21)
--- NOTE | 2017-01-10 18:37 | CONS ---
Date/Time of Note Date/Time of Note DATE: 01/10/17 TIME: 18:26 Assessment/Plan Assessment/Plan Chief Complaint/Hosp Course ID PROGRESS NOTE 14H INTERVAL SUMMARY CURRENT ABX: * A/A/O -> no fevers, VSS, NAD -> Good historian, doing well, tells me she is having procedure tomorrow * Microbiology: Blood cultures remain negative Exam Constitutional: alert, oriented, well developed Psych: nl mood/affect, no complaints Head: atraumatic, normocephalic Eyes: EOMI, nl conjunctiva, anicteric ENMT: nl external ears & nose, nl lips & teeth, nl nasal mucosa & septum Neck: non-tender, supple Respiratory: Normal air movement, No intercostal retraction, No labored breathing Cardiovascular: nl pulses, regular rate and rhythm, Gastrointestinal: non-tender, soft, Extremities: normal pulses, gangrenous changes to R-foot R-foot Great toe Neurological: TRANSITIONAL CARE NURSE II-XII intact, periph neuropathy Skin: No rash, no diaphoresis ID ASSESSMENT 1. 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 PAD -> status post angioplasty 2. Diabetes mellitus w/peripheral neuropathy 3. Acute on chronic kidney disease-> STG IV 4. Hypertension MRSA Nares -> ordered screen today ABX ALLERGIES: PCN; Zosyn CURRENT ABX: Daptomycin + Levaquin ID RECOMMENDATIONS 1. Continue current ABX -> Avoid nephrotoxic ABX 2. Swab nares for MRSA screen 3. FYI: Statin meds contraindicated while on Daptomycin unless low dose only w/ close monitoring of CPK . Problems: Consultation Date/Type/Reason Admit Date/Time Jan 01, 2017 at 18:03 Initial Consult Date 01/02/17 Type of Consultation: ID Referring Provider: CORY EDGE Exam/Review of Systems Vital Signs Vitals Vital Signs Date Time Temp Pulse Resp B/P Pulse Ox O2 Delivery O2 Flow Rate FiO2 01/10/17 14:32 98.9 68 18 151/71 93 Intake and Output 01/09/17 01/09/17 01/10/17 15:00 23:00 07:00 Intake Total 1680 ml 640 ml Output Total 400 ml Balance 1680 ml 240 ml Results Result Diagram: 01/09/17 0515 01/10/17 0540 Results 24 hrs Laboratory Tests Test 01/09/17 20:20 01/10/17 05:40 01/10/17 07:51 01/10/17 11:58 Bedside Glucose 117 118 208 Sodium Level 146 H Potassium Level 4.2 Chloride Level 111 H Carbon Dioxide Level 21 Anion Gap 18 H Blood Urea Nitrogen 62 H Creatinine 2.93 H Glucose Level 113 Calcium Level 8.2 L Test 01/10/17 17:15 Bedside Glucose 200 Medications Medications Current Medications Ferrous Sulfate (Ferrous Sulfate (Ec)) 325 mg BID PO Last administered on 09:02; Admin Dose 325 MG; Start 01/01/17 at 21:00 Furosemide (Lasix) 40 mg DAILY@06 PO Last administered on 01/02/17 05:29; Admin Dose 40 MG; Start 01/02/17 at 06:00; Status Future Hold Metoprolol Tartrate (Lopressor) 100 mg BID PO Last administered on 01/10/17 09 :03; Admin Dose 100 MG; Start 01/01/17 at 21:00 Montelukast Sodium (Singulair) 10 mg QHS PO Last administered on 01/09/17 20: 21; Admin Dose 10 MG; Start 01/01/17 at 21:00 Tramadol HCl (Ultram) 50 mg DAILY PRN PO PAIN Last administered on 01/09/17 22 :46; Admin Dose 50 MG; Start 01/01/17 at 21:00 Diagnostic Test (Pha) (Accu-Chek) 1 ea 02 XX ; Start 01/02/17 at 02:00 Miscellaneous Information 1 ea NOTE XX ; Start 01/01/17 at 21:30 Glucose (Glutose) 15 gm Q15M PRN PO DECREASED GLUCOSE; Start 01/01/17 at 21:30 Glucose (Glutose) 22.5 gm Q15M PRN PO DECREASED GLUCOSE; Start 01/01/17 at 21: 30 Dextrose (D50w Syringe) 25 ml Q15M PRN IV DECREASED GLUCOSE; Start 01/01/17 at 21:30 Dextrose (D50w Syringe) 50 ml Q15M PRN IV DECREASED GLUCOSE; Start 01/01/17 at 21:30 Glucagon (Glucagen) 1 mg Q15M PRN IM DECREASED GLUCOSE; Start 01/01/17 at 21:30 Glucose (Glutose) 15 gm Q15M PRN BUCCAL DECREASED GLUCOSE; Start 01/01/17 at 21 :30 Zolpidem Tartrate (Ambien) 5 mg HS PRN PO INSOMNIA Last administered on 22:45; Admin Dose 5 MG; Start 01/01/17 at 22:00 Insulin Glargine (Lantus) 24 unit HS SC Last administered on 01/09/17 20:31; Admin Dose 24 UNIT; Start 01/02/17 at 21:00 Atorvastatin Calcium (Lipitor) 10 mg DAILY@21 PO Last administered on 20:22; Admin Dose 10 MG; Start 01/02/17 at 21:00 Calcium Carbonate (Tums) 500 mg BID PO Last administered on 01/10/17 09:02; Admin Dose 500 MG; Start 01/02/17 at 21:00 Hydralazine HCl (Apresoline) 10 mg Q4H PRN IV ELEVATED BLOOD PRESSURE Last administered on 01/07/17 02:13; Admin Dose 10 MG; Start 01/03/17 at 14:30 Magnesium Hydroxide (Milk Of Mag) 30 ml DAILY PRN PO CONSTIPATION; Start at 17:30 Polyethylene Glycol 17 gm 17 gm DAILY GTB Last administered on 01/10/17 09:02 ; Admin Dose 17 GM; Start 01/03/17 at 17:30 Daptomycin/Sodium Chloride (Cubicin/NS) 100 ml @ 200 mls/hr Q48H IVPB Last administered on 01/10/17 16:21; Admin Dose 200 MLS/HR; Start 01/08/17 at 16:00 Levofloxacin (Levaquin) 250 mg Q2D@06 PO Last administered on 01/10/17 06:44; Admin Dose 250 MG; Start 01/08/17 at 15:00 Nifedipine (Procardia Xl) 60 mg DAILY PO Last administered on 01/10/17 15:30; Admin Dose 60 MG; Start 01/10/17 at 15:00 JANENE LOVE NP Jan 10, 2017 18:36
[2017-01-10 19:17] VITALS: BP 102/56; RESP 20
[2017-01-10] MEDS: MONTELUKAST 10 MG TAB PO SCH (20:27)
[2017-01-10] MEDS: ATORVASTATIN 10 MG TAB PO SCH (20:27)
[2017-01-10] MEDS: INSULIN GLARGINE [LANtus] 3 ML PEN SC SCH (20:36)
[2017-01-10] MEDS: traMADol 50 MG TAB PO PRN (22:57)
[2017-01-10] MEDS: ZOLPIDEM 5 MG TAB PO PRN (22:57)
--- NOTE | 2017-01-10 23:21 | CONS ---
Date/Time of Note Date/Time of Note DATE: 01/10/17 TIME: 23:20 Assessment/Plan Assessment/Plan Problems: (1) CKD (chronic kidney disease) stage 5, GFR less than 15 ml/min Comment: SCreat is stable (2) Anemia Status: Chronic Comment: Iron Sat is normal (3) Peripheral vascular disease due to secondary diabetes mellitus Status: Chronic Comment: Pt followed by V Sx (4) Gangrene of toe Status: Acute Comment: Pt followed by Elastic Assembler who's debating amputation of big toe Additional Assessment/Plan WIll continue close f/u Consultation Date/Type/Reason Admit Date/Time Jan 01, 2017 at 18:03 Initial Consult Date 01/02/17 Type of Consultation: renal Referring Provider: CORY EDGE 24 HR Interval Summary Free Text/Dictation Pt is lying comfortably in bed, no new complaints Exam/Review of Systems Vital Signs Vitals Vital Signs Date Time Temp Pulse Resp B/P Pulse Ox O2 Delivery O2 Flow Rate FiO2 01/10/17 19:17 98.7 68 20 102/56 96 Intake and Output 01/09/17 01/09/17 01/10/17 15:00 23:00 07:00 Intake Total 1680 ml 640 ml Output Total 400 ml Balance 1680 ml 240 ml Exam Constitutional: alert, oriented, well developed Psych: nl mood/affect, no complaints Head: atraumatic, normocephalic Eyes: EOMI, PERRL, nl conjunctiva, nl lids, nl sclera ENMT: nl external ears & nose, nl lips & teeth, nl nasal mucosa & septum Neck: non-tender, supple Respiratory: clear to auscultation, normal air movement Cardiovascular: nl pulses, regular rate and rhythm Gastrointestinal: nl liver, spleen, non-tender, soft Musculoskeletal: nl extremities to inspection, nl gait and stance Extremities: normal pulses, other (rt foot gangrene, [id number] diminished) Neurological: PARK WARDEN II-XII intact, nl mental status, nl speech, nl strength Skin: nl turgor, No rash or lesions Lymph: nl lymph nodes Results Creat seems stable, Hct 29% Result Diagram: 01/09/17 0515 01/10/17 0540 Results 24 hrs Laboratory Tests Test 01/10/17 05:40 01/10/17 07:51 01/10/17 11:58 01/10/17 17:15 Sodium Level 146 H Potassium Level 4.2 Chloride Level 111 H Carbon Dioxide Level 21 Anion Gap 18 H Blood Urea Nitrogen 62 H Creatinine 2.93 H Glucose Level 113 Calcium Level 8.2 L Bedside Glucose 118 208 200 Test 01/10/17 20:25 Bedside Glucose 160 Medications Medications Current Medications Ferrous Sulfate (Ferrous Sulfate (Ec)) 325 mg BID PO Last administered on 20:27; Admin Dose 325 MG; Start 01/01/17 at 21:00 Furosemide (Lasix) 40 mg DAILY@06 PO Last administered on 01/02/17 05:29; Admin Dose 40 MG; Start 01/02/17 at 06:00; Status Future Hold Metoprolol Tartrate (Lopressor) 100 mg BID PO Last administered on 01/10/17 20 :28; Admin Dose 100 MG; Start 01/01/17 at 21:00 Montelukast Sodium (Singulair) 10 mg QHS PO Last administered on 01/10/17 20: 27; Admin Dose 10 MG; Start 01/01/17 at 21:00 Tramadol HCl (Ultram) 50 mg DAILY PRN PO PAIN Last administered on 01/10/17 22 :57; Admin Dose 50 MG; Start 01/01/17 at 21:00 Diagnostic Test (Pha) (Accu-Chek) 1 ea 02 XX ; Start 01/02/17 at 02:00 Miscellaneous Information 1 ea NOTE XX ; Start 01/01/17 at 21:30 Glucose (Glutose) 15 gm Q15M PRN PO DECREASED GLUCOSE; Start 01/01/17 at 21:30 Glucose (Glutose) 22.5 gm Q15M PRN PO DECREASED GLUCOSE; Start 01/01/17 at 21: 30 Dextrose (D50w Syringe) 25 ml Q15M PRN IV DECREASED GLUCOSE; Start 01/01/17 at 21:30 Dextrose (D50w Syringe) 50 ml Q15M PRN IV DECREASED GLUCOSE; Start 01/01/17 at 21:30 Glucagon (Glucagen) 1 mg Q15M PRN IM DECREASED GLUCOSE; Start 01/01/17 at 21:30 Glucose (Glutose) 15 gm Q15M PRN BUCCAL DECREASED GLUCOSE; Start 01/01/17 at 21 :30 Zolpidem Tartrate (Ambien) 5 mg HS PRN PO INSOMNIA Last administered on 22:57; Admin Dose 5 MG; Start 01/01/17 at 22:00 Insulin Glargine (Lantus) 24 unit HS SC Last administered on 01/10/17 20:36; Admin Dose 24 UNIT; Start 01/02/17 at 21:00 Atorvastatin Calcium (Lipitor) 10 mg DAILY@21 PO Last administered on 20:27; Admin Dose 10 MG; Start 01/02/17 at 21:00 Calcium Carbonate (Tums) 500 mg BID PO Last administered on 01/10/17 20:27; Admin Dose 500 MG; Start 01/02/17 at 21:00 Hydralazine HCl (Apresoline) 10 mg Q4H PRN IV ELEVATED BLOOD PRESSURE Last administered on 01/07/17 02:13; Admin Dose 10 MG; Start 01/03/17 at 14:30 Magnesium Hydroxide (Milk Of Mag) 30 ml DAILY PRN PO CONSTIPATION; Start at 17:30 Polyethylene Glycol 17 gm 17 gm DAILY GTB Last administered on 01/10/17 09:02 ; Admin Dose 17 GM; Start 01/03/17 at 17:30 Daptomycin/Sodium Chloride (Cubicin/NS) 100 ml @ 200 mls/hr Q48H IVPB Last administered on 01/10/17 16:21; Admin Dose 200 MLS/HR; Start 01/08/17 at 16:00 Levofloxacin (Levaquin) 250 mg Q2D@06 PO Last administered on 01/10/17 06:44; Admin Dose 250 MG; Start 01/08/17 at 15:00 Nifedipine (Procardia Xl) 60 mg DAILY PO Last administered on 01/10/17 15:30; Admin Dose 60 MG; Start 01/10/17 at 15:00 EUGENIE ORTIZ MD Jan 10, 2017 23:21
[2017-01-11] VITALS (39 sets, daily range): BP systolic 113–141; BP diastolic 56–67; PULSE 64–74; RESP 11–18
[2017-01-11] MEDS: ACCU-CHEK XX SCH (02:00)
[2017-01-11 06:47] LABS: BASOPHIL # 0.1 10^3/ul (0.0-0.1); BASOPHILS % 0.6 % (0.0-2.0); EOSINOPHILS # 0.8 10^3/ul (0.0-0.5); EOSINOPHILS % 6.9 % (0.0-7.0); HEMATOCRIT 26.9 % (37.0-47.0); HEMOGLOBIN 8.5 g/dl (12.0-16.0); LYMPHOCYTES # 2.1 10^3/ul (0.8-2.9); LYMPHOCYTES % 17.8 % (15.0-51.0); MEAN CORPUSCULAR HEMOGLOBIN 25.4 pg (29.0-33.0); MEAN CORPUSCULAR HGB CONC 31.6 g/dl (32.0-37.0); MEAN CORPUSCULAR VOLUME 80.5 fl (82.0-101.0); MEAN PLATELET VOLUME 10.5 fl (7.4-10.4); MONOCYTES % 8.3 % (0.0-11.0); NEUTROPHIL # 7.8 10^3/ul (1.6-7.5); NEUTROPHILS % 65.6 % (39.0-77.0); PLATELET COUNT 415 10^3/UL (140-415); RED BLOOD COUNT 3.34 10^6/ul (4.20-5.40); RED CELL DISTRIBUTION WIDTH 14.2 % (11.5-14.5); WHITE BLOOD COUNT 11.8 10^3/ul (4.8-10.8)
[2017-01-11 07:35] LABS: ALBUMIN 2.8 g/dl (3.3-4.9); ALBUMIN/GLOBULIN RATIO 0.87; CALCIUM 7.6 mg/dl (8.4-10.2); CREATININE 3.05 mg/dl (0.44-1.00); POTASSIUM 3.5 mmol/L (3.5-5.1)
[2017-01-11] MEDS: PANTOPRAZOLE (EC) 40 MG TAB PO SCH (08:00)
[2017-01-11] MEDS: INSULIN ASPART [NOVOLOG] 3 ML PEN SC SCH ×5 (08:02→20:53)
[2017-01-11] MEDS ORDERED: LIDOCAINE 2% (SDV) 5 ML INJ ONE (08:28)
[2017-01-11] MEDS ORDERED: MIDAZOLAM 1 MG/ML 2 ML INJ ONE (08:28)
[2017-01-11] MEDS ORDERED: ROCURONIUM 50 MG INJ ONE (08:28)
[2017-01-11] MEDS ORDERED: FENTAnyl 50 MCG/ML VIAL ONE ×2 (08:28→12:35)
[2017-01-11] MEDS ORDERED: PROPOFOL 100 ML ONE (08:28)
[2017-01-11] MEDS ORDERED: HEPARIN 1000 UNITS/ML 10 ML INJ ONE ×2 (08:52→11:13)
[2017-01-11] MEDS ORDERED: THROMBIN 5000 UNIT VIAL ONE (08:52)
[2017-01-11] MEDS ORDERED: GELATIN SIZE 100 SPONGE ONE (08:52)
[2017-01-11] MEDS: CALCIUM CARBONATE 500 MG CHEW TAB PO SCH ×2 (09:00→21:06)
[2017-01-11] MEDS: POLYETHYLENE GLYCOL 17 GM PACKET GTB SCH (09:00)
[2017-01-11] MEDS: FERROUS SULFATE (EC) 325 MG TAB PO SCH ×2 (09:00→21:05)
[2017-01-11] MEDS: METOPROLOL 100 MG TAB PO SCH ×2 (09:00→21:05)
[2017-01-11] MEDS ORDERED: HEPARIN 1000 UNITS/ML 10 ML INJ IRR ONE (09:15)
[2017-01-11] MEDS ORDERED: GLUCOSE GEL 15 GRAM TUBE BUCCAL PRN (09:30)
[2017-01-11] MEDS ORDERED: LABETALOL HCL 20MG INJ IV PRN (09:30)
[2017-01-11] MEDS ORDERED: PROCHLORPERAZINE 10 MG INJ IV PRN (09:30)
[2017-01-11] MEDS ORDERED: hydrALAzine 20 MG INJ IV PRN (09:30)
[2017-01-11] MEDS ORDERED: MEPERIDINE 25 MG INJ IV PRN (09:30)
[2017-01-11] MEDS ORDERED: DIPHENHYDRAMINE 50 MG INJ IV PRN (09:30)
[2017-01-11] MEDS ORDERED: OXYCODONE/ACETAMINOPHEN (5/325) TAB PO PRN ×2 (09:30)
[2017-01-11] MEDS ORDERED: HYDROmorphONE (0.2 MG/ML) 10ML SYG IV PRN ×2 (09:30)
[2017-01-11] MEDS ORDERED: GLUCAGON 1 MG INJ IM PRN (09:30)
[2017-01-11] MEDS ORDERED: GLUCOSE GEL 15 GRAM TUBE PO PRN ×2 (09:30)
[2017-01-11] MEDS ORDERED: DEXTROSE 50% 50 ML SYRINGE IV PRN ×2 (09:30)
[2017-01-11] MEDS ORDERED: INSULIN ASPART [NOVOLOG] 3 ML PEN SC ONE (09:30)
[2017-01-11] MEDS ORDERED: ALBUMIN HUMAN 5% 250 ML IV PRN (09:30)
[2017-01-11] MEDS ORDERED: EPHEDrine SULFATE 50 MG/5 ML SYG IV PRN (09:30)
[2017-01-11] MEDS ORDERED: FENTAnyl 50 MCG/ML VIAL IV PRN (09:30)
[2017-01-11] MEDS ORDERED: ONDANSETRON 4 MG INJ IV PRN (09:30)
--- NOTE | 2017-01-11 09:42 | HPN ---
Date/Time of Note Date/Time of Note DATE: 01/11/17 TIME: 09:42 Interval H&P Admission Note Pt. seen H&P reviewed: No system changes NOÉ REGALADO MD Jan 11, 2017 09:42
[2017-01-11] MEDS ORDERED: CEFAZOLIN 1 GM INJ ONE (10:21)
[2017-01-11] MEDS ORDERED: ONDANSETRON 4 MG INJ ONE (10:33)
[2017-01-11] MEDS ORDERED: METOCLOPRAMIDE 10 MG INJ ONE (10:33)
[2017-01-11] MEDS ORDERED: GLYCOPYRROLATE 0.4 MG INJ ONE (10:34)
[2017-01-11] MEDS ORDERED: ACETAMINOPHEN 1000MG/100ML IV 100 ML ONE (10:42)
[2017-01-11] MEDS ORDERED: EPHEDrine SULFATE 50 MG/5 ML SYG ONE (11:09)
[2017-01-11] MEDS ORDERED: ALBUMIN HUMAN 5% 250 ML ONE (11:55)
--- NOTE | 2017-01-11 13:13 | CONS ---
Date/Time of Note Date/Time of Note DATE: 01/11/17 TIME: 13:12 Assessment/Plan Assessment/Plan Chief Complaint/Hosp Course 1. Preoperative evaluation prior to lower extremity triple-NL EF by echo and no sig valve abnl/Lexiscan with probabale soft tissue attenutaion in anterior wall and nl ef and no wall motion abnl bypass surgery. 2. Hypertension. 3. Dyslipidemia. 4. Peripheral arterial disease with gangrenous change in the lower extremities. 5. Status post left lower extremity transmetatarsal amputation. 6. Renal failure. 7. Diabetes mellitus. 8. Anemia. Recc: -Resume norvasc/BB/losartan post-op -Continue abx's -LE wound care -For peripheral bypass today. -check post-op ecg Problems: Consultation Date/Type/Reason Admit Date/Time Jan 01, 2017 at 18:03 Initial Consult Date 01/02/17 Type of Consultation: cardiology Reason for Consultation pre-op Referring Provider: CORY EDGE Exam/Review of Systems Vital Signs Vitals Vital Signs Date Time Temp Pulse Resp B/P Pulse Ox O2 Delivery O2 Flow Rate FiO2 01/11/17 07:45 98.2 61 18 120/61 95 Intake and Output 01/10/17 01/10/17 01/11/17 15:00 23:00 07:00 Intake Total 1660 ml 200 ml Balance 1660 ml 200 ml Exam Review of Systems: CONSTITUTIONAL: No fevers, chills. PULMONARY: No sob CARDIOVASCULAR: No chest pain/palpitations GASTROINTESTINAL: No nausea/vomiting. GENITOURINARY: No hematuria/dysuria. MUSCULOSKELETAL: pain in foot PSYCHIATRIC: The patient denies depression. NEUROLOGIC: No weakness Constitutional: alert, oriented Psych: no complaints Head: normocephalic ENMT: mucosa pink and moist Neck: jvd (8-9 cm water), supple Respiratory: diminished breath sounds (at bases/B) Cardiovascular: regular rate and rhythm Gastrointestinal: non-tender, soft Musculoskeletal: muscle tone (normal) Extremities: edema (none) Neurological: other (No focal deficits) Results Result Diagram: 01/11/17 0526 01/11/17 0526 Results 24 hrs Laboratory Tests Test 01/10/17 17:15 01/10/17 20:25 01/11/17 05:26 01/11/17 07:46 Bedside Glucose 200 160 123 White Blood Count 11.8 H Red Blood Count 3.34 L Hemoglobin 8.5 L Hematocrit 26.9 L Mean Corpuscular Volume 80.5 L Mean Corpuscular Hemoglobin 25.4 L Mean Corpuscular Hemoglobin Concent 31.6 L Red Cell Distribution Width 14.2 Platelet Count 415 Mean Platelet Volume 10.5 H Neutrophils % 65.6 Lymphocytes % 17.8 Monocytes % 8.3 Eosinophils % 6.9 Basophils % 0.6 Nucleated Red Blood Cells % 0.0 Neutrophils # 7.8 H Lymphocytes # 2.1 Monocytes # 1.0 H Eosinophils # 0.8 H Basophils # 0.1 Nucleated Red Blood Cells # 0.0 Sodium Level 140 Potassium Level 3.5 Chloride Level 106 Carbon Dioxide Level 19 L Anion Gap 19 H Blood Urea Nitrogen 63 H Creatinine 3.05 H Glucose Level 127 Calcium Level 7.6 L Total Bilirubin 0.0 L Direct Bilirubin 0.00 Indirect Bilirubin 0.0 Aspartate Amino Transf (AST/SGOT) 12 L Alanine Aminotransferase (ALT/SGPT) 31 Alkaline Phosphatase 92 Total Protein 6.0 L Albumin 2.8 L Globulin 3.20 Albumin/Globulin Ratio 0.87 Medications Medications Current Medications Ferrous Sulfate (Ferrous Sulfate (Ec)) 325 mg BID PO Last administered on 20:27; Admin Dose 325 MG; Start 01/01/17 at 21:00 Furosemide (Lasix) 40 mg DAILY@06 PO Last administered on 01/02/17 05:29; Admin Dose 40 MG; Start 01/02/17 at 06:00; Status Future Hold Metoprolol Tartrate (Lopressor) 100 mg BID PO Last administered on 01/10/17 20 :28; Admin Dose 100 MG; Start 01/01/17 at 21:00 Montelukast Sodium (Singulair) 10 mg QHS PO Last administered on 01/10/17 20: 27; Admin Dose 10 MG; Start 01/01/17 at 21:00 Tramadol HCl (Ultram) 50 mg DAILY PRN PO PAIN Last administered on 01/10/17 22 :57; Admin Dose 50 MG; Start 01/01/17 at 21:00 Diagnostic Test (Pha) (Accu-Chek) 1 ea 02 XX ; Start 01/02/17 at 02:00 Miscellaneous Information 1 ea NOTE XX ; Start 01/01/17 at 21:30 Glucose (Glutose) 15 gm Q15M PRN PO DECREASED GLUCOSE; Start 01/01/17 at 21:30 Glucose (Glutose) 22.5 gm Q15M PRN PO DECREASED GLUCOSE; Start 01/01/17 at 21: 30 Dextrose (D50w Syringe) 25 ml Q15M PRN IV DECREASED GLUCOSE; Start 01/01/17 at 21:30 Dextrose (D50w Syringe) 50 ml Q15M PRN IV DECREASED GLUCOSE; Start 01/01/17 at 21:30 Glucagon (Glucagen) 1 mg Q15M PRN IM DECREASED GLUCOSE; Start 01/01/17 at 21:30 Glucose (Glutose) 15 gm Q15M PRN BUCCAL DECREASED GLUCOSE; Start 01/01/17 at 21 :30 Zolpidem Tartrate (Ambien) 5 mg HS PRN PO INSOMNIA Last administered on 22:57; Admin Dose 5 MG; Start 01/01/17 at 22:00 Insulin Glargine (Lantus) 24 unit HS SC Last administered on 01/10/17 20:36; Admin Dose 24 UNIT; Start 01/02/17 at 21:00 Atorvastatin Calcium (Lipitor) 10 mg DAILY@21 PO Last administered on 20:27; Admin Dose 10 MG; Start 01/02/17 at 21:00 Calcium Carbonate (Tums) 500 mg BID PO Last administered on 01/10/17 20:27; Admin Dose 500 MG; Start 01/02/17 at 21:00 Magnesium Hydroxide (Milk Of Mag) 30 ml DAILY PRN PO CONSTIPATION; Start at 17:30 Polyethylene Glycol 17 gm 17 gm DAILY GTB Last administered on 01/10/17 09:02 ; Admin Dose 17 GM; Start 01/03/17 at 17:30 Daptomycin/Sodium Chloride (Cubicin/NS) 100 ml @ 200 mls/hr Q48H IVPB Last administered on 01/10/17 16:21; Admin Dose 200 MLS/HR; Start 01/08/17 at 16:00 Levofloxacin (Levaquin) 250 mg Q2D@06 PO Last administered on 01/10/17 06:44; Admin Dose 250 MG; Start 01/08/17 at 15:00 Nifedipine (Procardia Xl) 60 mg QHS PO ; Start 01/11/17 at 21:00 Miscellaneous Information 1 ea NOTE XX ; Start 01/11/17 at 09:30 Glucose (Glutose) 15 gm Q15M PRN PO DECREASED GLUCOSE; Start 01/11/17 at 09:30 Glucose (Glutose) 22.5 gm Q15M PRN PO DECREASED GLUCOSE; Start 01/11/17 at 09: 30 Dextrose (D50w Syringe) 25 ml Q15M PRN IV DECREASED GLUCOSE; Start 01/11/17 at 09:30 Dextrose (D50w Syringe) 50 ml Q15M PRN IV DECREASED GLUCOSE; Start 01/11/17 at 09:30 Glucagon (Glucagen) 1 mg Q15M PRN IM DECREASED GLUCOSE; Start 01/11/17 at 09:30 Glucose (Glutose) 15 gm Q15M PRN BUCCAL DECREASED GLUCOSE; Start 01/11/17 at 09 :30 NOÉ HERRERA Jan 11, 2017 13:13
[2017-01-11] MEDS ORDERED: ALBUMIN HUMAN 25% 100 ML ONE (13:18)
--- NOTE | 2017-01-11 13:47 | CONS ---
Date/Time of Note Date/Time of Note DATE: 01/11/17 TIME: 13:47 Assessment/Plan Assessment/Plan Additional Assessment/Plan (1) Diabetes mellitus Status: Chronic (2) Peripheral vascular disease due to secondary diabetes mellitus Status: Chronic (3) Anemia Status: Chronic (4) Renal failure Status: Chronic-stable d Consultation Date/Type/Reason Admit Date/Time Jan 01, 2017 at 18:03 Initial Consult Date 01/02/17 Type of Consultation: Renal Referring Provider: CORY EDGE Exam/Review of Systems Vital Signs Vitals Vital Signs Date Time Temp Pulse Resp B/P Pulse Ox O2 Delivery O2 Flow Rate FiO2 01/11/17 07:45 98.2 61 18 120/61 95 Intake and Output 01/10/17 01/10/17 01/11/17 15:00 23:00 07:00 Intake Total 1660 ml 200 ml Balance 1660 ml 200 ml Results Result Diagram: 01/11/17 0526 01/11/17 0526 Results 24 hrs Laboratory Tests Test 01/10/17 17:15 01/10/17 20:25 01/11/17 05:26 01/11/17 07:46 Bedside Glucose 200 160 123 White Blood Count 11.8 H Red Blood Count 3.34 L Hemoglobin 8.5 L Hematocrit 26.9 L Mean Corpuscular Volume 80.5 L Mean Corpuscular Hemoglobin 25.4 L Mean Corpuscular Hemoglobin Concent 31.6 L Red Cell Distribution Width 14.2 Platelet Count 415 Mean Platelet Volume 10.5 H Neutrophils % 65.6 Lymphocytes % 17.8 Monocytes % 8.3 Eosinophils % 6.9 Basophils % 0.6 Nucleated Red Blood Cells % 0.0 Neutrophils # 7.8 H Lymphocytes # 2.1 Monocytes # 1.0 H Eosinophils # 0.8 H Basophils # 0.1 Nucleated Red Blood Cells # 0.0 Sodium Level 140 Potassium Level 3.5 Chloride Level 106 Carbon Dioxide Level 19 L Anion Gap 19 H Blood Urea Nitrogen 63 H Creatinine 3.05 H Glucose Level 127 Calcium Level 7.6 L Total Bilirubin 0.0 L Direct Bilirubin 0.00 Indirect Bilirubin 0.0 Aspartate Amino Transf (AST/SGOT) 12 L Alanine Aminotransferase (ALT/SGPT) 31 Alkaline Phosphatase 92 Total Protein 6.0 L Albumin 2.8 L Globulin 3.20 Albumin/Globulin Ratio 0.87 Medications Medications Current Medications Ferrous Sulfate (Ferrous Sulfate (Ec)) 325 mg BID PO Last administered on 20:27; Admin Dose 325 MG; Start 01/01/17 at 21:00 Furosemide (Lasix) 40 mg DAILY@06 PO Last administered on 01/02/17 05:29; Admin Dose 40 MG; Start 01/02/17 at 06:00; Status Future Hold Metoprolol Tartrate (Lopressor) 100 mg BID PO Last administered on 01/10/17 20 :28; Admin Dose 100 MG; Start 01/01/17 at 21:00 Montelukast Sodium (Singulair) 10 mg QHS PO Last administered on 01/10/17 20: 27; Admin Dose 10 MG; Start 01/01/17 at 21:00 Tramadol HCl (Ultram) 50 mg DAILY PRN PO PAIN Last administered on 01/10/17 22 :57; Admin Dose 50 MG; Start 01/01/17 at 21:00 Diagnostic Test (Pha) (Accu-Chek) 1 ea 02 XX ; Start 01/02/17 at 02:00 Miscellaneous Information 1 ea NOTE XX ; Start 01/01/17 at 21:30 Glucose (Glutose) 15 gm Q15M PRN PO DECREASED GLUCOSE; Start 01/01/17 at 21:30 Glucose (Glutose) 22.5 gm Q15M PRN PO DECREASED GLUCOSE; Start 01/01/17 at 21: 30 Dextrose (D50w Syringe) 25 ml Q15M PRN IV DECREASED GLUCOSE; Start 01/01/17 at 21:30 Dextrose (D50w Syringe) 50 ml Q15M PRN IV DECREASED GLUCOSE; Start 01/01/17 at 21:30 Glucagon (Glucagen) 1 mg Q15M PRN IM DECREASED GLUCOSE; Start 01/01/17 at 21:30 Glucose (Glutose) 15 gm Q15M PRN BUCCAL DECREASED GLUCOSE; Start 01/01/17 at 21 :30 Zolpidem Tartrate (Ambien) 5 mg HS PRN PO INSOMNIA Last administered on 22:57; Admin Dose 5 MG; Start 01/01/17 at 22:00 Insulin Glargine (Lantus) 24 unit HS SC Last administered on 01/10/17 20:36; Admin Dose 24 UNIT; Start 01/02/17 at 21:00 Atorvastatin Calcium (Lipitor) 10 mg DAILY@21 PO Last administered on 20:27; Admin Dose 10 MG; Start 01/02/17 at 21:00 Calcium Carbonate (Tums) 500 mg BID PO Last administered on 01/10/17 20:27; Admin Dose 500 MG; Start 01/02/17 at 21:00 Magnesium Hydroxide (Milk Of Mag) 30 ml DAILY PRN PO CONSTIPATION; Start at 17:30 Polyethylene Glycol 17 gm 17 gm DAILY GTB Last administered on 01/10/17 09:02 ; Admin Dose 17 GM; Start 01/03/17 at 17:30 Daptomycin/Sodium Chloride (Cubicin/NS) 100 ml @ 200 mls/hr Q48H IVPB Last administered on 01/10/17 16:21; Admin Dose 200 MLS/HR; Start 01/08/17 at 16:00 Levofloxacin (Levaquin) 250 mg Q2D@06 PO Last administered on 01/10/17 06:44; Admin Dose 250 MG; Start 01/08/17 at 15:00 Nifedipine (Procardia Xl) 60 mg QHS PO ; Start 01/11/17 at 21:00 Miscellaneous Information 1 ea NOTE XX ; Start 01/11/17 at 09:30 Glucose (Glutose) 15 gm Q15M PRN PO DECREASED GLUCOSE; Start 01/11/17 at 09:30 Glucose (Glutose) 22.5 gm Q15M PRN PO DECREASED GLUCOSE; Start 01/11/17 at 09: 30 Dextrose (D50w Syringe) 25 ml Q15M PRN IV DECREASED GLUCOSE; Start 01/11/17 at 09:30 Dextrose (D50w Syringe) 50 ml Q15M PRN IV DECREASED GLUCOSE; Start 01/11/17 at 09:30 Glucagon (Glucagen) 1 mg Q15M PRN IM DECREASED GLUCOSE; Start 01/11/17 at 09:30 Glucose (Glutose) 15 gm Q15M PRN BUCCAL DECREASED GLUCOSE; Start 01/11/17 at 09 :30 ADÁN MONTEIRO MD Jan 11, 2017 13:47
[2017-01-11] MEDS ORDERED: SUGAMMADEX SODIUM 200 MG/2 ML VIAL IV ONE (13:58)
--- NOTE | 2017-01-11 14:13 | OPR ---
Date/Time of Note Date/Time of Note DATE: 01/11/17 TIME: 14:12 Operative Report Preoperative Diagnosis Right foot gangrene Postoperative Diagnosis same Operation/Procedure Performed R fem-DP bypass using in-situ GSV Anesthesia: general, MAC Estimated Blood Loss: 100 - 150 ml's Complications: None NOÉ REGALADO MD Jan 11, 2017 14:13
[2017-01-11] MEDS ORDERED: HEPARIN 25000 UNITS/250 ML 250 ML IV SCH (15:00)
--- NOTE | 2017-01-11 15:52 | PN ---
Date/Time of Note Date/Time of Note DATE: 01/11/17 TIME: 15:51 Assessment/Plan VTE Prophylaxis VTE Prophylaxis Intervention: SCD's Lines/Catheters IV Catheter Type (from Nrsg): Saline Lock Urinary Cath still in place: Yes Reason Cath still needed: other (indicate) (will dc) Assessment/Plan Assessment/Plan 61 yo F with PAD, DM2 admitted for R foot gangrene, sp LE bypass today 1. Peripheral vascular disease, status post angiogram, bypass surgery today 2. Right foot gangrene, on antibiotics with dapto/levo, wound care 3. Diabetes mellitus, on insulin 4. Acute on chronic kidney disease, stage 4, follow up with BMP 5. Hypertension, cont procardia 6. Microcytic anemia, stable, follow up with PCP Subjective 24 Hr Interval Summary Free Text/Dictation Pt not seen as she was in the OR at time of attempted eval Exam/Review of Systems Vital Signs Vitals Vital Signs Date Time Temp Pulse Resp B/P Pulse Ox O2 Delivery O2 Flow Rate FiO2 01/11/17 14:48 99.0 01/11/17 14:37 71 17 121/63 99 Nasal Cannula 2.0 Intake and Output 01/10/17 01/10/17 01/11/17 15:00 23:00 07:00 Intake Total 1660 ml 1300 ml Balance 1660 ml 1300 ml Exam Pt not personally assessed as she was in the OR at time of my attempted evaluation Results Result Diagram: 01/11/17 0526 01/11/17 0526 Results 24 hrs Laboratory Tests Test 01/10/17 17:15 01/10/17 20:25 01/11/17 05:26 01/11/17 07:46 Bedside Glucose 200 160 123 White Blood Count 11.8 H Red Blood Count 3.34 L Hemoglobin 8.5 L Hematocrit 26.9 L Mean Corpuscular Volume 80.5 L Mean Corpuscular Hemoglobin 25.4 L Mean Corpuscular Hemoglobin Concent 31.6 L Red Cell Distribution Width 14.2 Platelet Count 415 Mean Platelet Volume 10.5 H Neutrophils % 65.6 Lymphocytes % 17.8 Monocytes % 8.3 Eosinophils % 6.9 Basophils % 0.6 Nucleated Red Blood Cells % 0.0 Neutrophils # 7.8 H Lymphocytes # 2.1 Monocytes # 1.0 H Eosinophils # 0.8 H Basophils # 0.1 Nucleated Red Blood Cells # 0.0 Sodium Level 140 Potassium Level 3.5 Chloride Level 106 Carbon Dioxide Level 19 L Anion Gap 19 H Blood Urea Nitrogen 63 H Creatinine 3.05 H Glucose Level 127 Calcium Level 7.6 L Total Bilirubin 0.0 L Direct Bilirubin 0.00 Indirect Bilirubin 0.0 Aspartate Amino Transf (AST/SGOT) 12 L Alanine Aminotransferase (ALT/SGPT) 31 Alkaline Phosphatase 92 Total Protein 6.0 L Albumin 2.8 L Globulin 3.20 Albumin/Globulin Ratio 0.87 Test 01/11/17 14:44 Bedside Glucose 108 Medications Medications Current Medications Ferrous Sulfate (Ferrous Sulfate (Ec)) 325 mg BID PO Last administered on 20:27; Admin Dose 325 MG; Start 01/01/17 at 21:00 Furosemide (Lasix) 40 mg DAILY@06 PO Last administered on 01/02/17 05:29; Admin Dose 40 MG; Start 01/02/17 at 06:00; Status Future Hold Metoprolol Tartrate (Lopressor) 100 mg BID PO Last administered on 01/10/17 20 :28; Admin Dose 100 MG; Start 01/01/17 at 21:00 Montelukast Sodium (Singulair) 10 mg QHS PO Last administered on 01/10/17 20: 27; Admin Dose 10 MG; Start 01/01/17 at 21:00 Tramadol HCl (Ultram) 50 mg DAILY PRN PO PAIN Last administered on 01/10/17 22 :57; Admin Dose 50 MG; Start 01/01/17 at 21:00 Diagnostic Test (Pha) (Accu-Chek) 1 ea 02 XX ; Start 01/02/17 at 02:00 Miscellaneous Information 1 ea NOTE XX ; Start 01/01/17 at 21:30 Glucose (Glutose) 15 gm Q15M PRN PO DECREASED GLUCOSE; Start 01/01/17 at 21:30 Glucose (Glutose) 22.5 gm Q15M PRN PO DECREASED GLUCOSE; Start 01/01/17 at 21: 30 Dextrose (D50w Syringe) 25 ml Q15M PRN IV DECREASED GLUCOSE; Start 01/01/17 at 21:30 Dextrose (D50w Syringe) 50 ml Q15M PRN IV DECREASED GLUCOSE; Start 01/01/17 at 21:30 Glucagon (Glucagen) 1 mg Q15M PRN IM DECREASED GLUCOSE; Start 01/01/17 at 21:30 Glucose (Glutose) 15 gm Q15M PRN BUCCAL DECREASED GLUCOSE; Start 01/01/17 at 21 :30 Zolpidem Tartrate (Ambien) 5 mg HS PRN PO INSOMNIA Last administered on 22:57; Admin Dose 5 MG; Start 01/01/17 at 22:00 Insulin Glargine (Lantus) 24 unit HS SC Last administered on 01/10/17 20:36; Admin Dose 24 UNIT; Start 01/02/17 at 21:00 Atorvastatin Calcium (Lipitor) 10 mg DAILY@21 PO Last administered on 20:27; Admin Dose 10 MG; Start 01/02/17 at 21:00 Calcium Carbonate (Tums) 500 mg BID PO Last administered on 01/10/17 20:27; Admin Dose 500 MG; Start 01/02/17 at 21:00 Magnesium Hydroxide (Milk Of Mag) 30 ml DAILY PRN PO CONSTIPATION; Start at 17:30 Polyethylene Glycol 17 gm 17 gm DAILY GTB Last administered on 01/10/17 09:02 ; Admin Dose 17 GM; Start 01/03/17 at 17:30 Daptomycin/Sodium Chloride (Cubicin/NS) 100 ml @ 200 mls/hr Q48H IVPB Last administered on 01/10/17 16:21; Admin Dose 200 MLS/HR; Start 01/08/17 at 16:00 Levofloxacin (Levaquin) 250 mg Q2D@06 PO Last administered on 01/10/17 06:44; Admin Dose 250 MG; Start 01/08/17 at 15:00 Nifedipine (Procardia Xl) 60 mg QHS PO ; Start 01/11/17 at 21:00 Miscellaneous Information 1 ea NOTE XX ; Start 01/11/17 at 09:30 Glucose (Glutose) 15 gm Q15M PRN PO DECREASED GLUCOSE; Start 01/11/17 at 09:30 Glucose (Glutose) 22.5 gm Q15M PRN PO DECREASED GLUCOSE; Start 01/11/17 at 09: 30 Dextrose (D50w Syringe) 25 ml Q15M PRN IV DECREASED GLUCOSE; Start 01/11/17 at 09:30 Dextrose (D50w Syringe) 50 ml Q15M PRN IV DECREASED GLUCOSE; Start 01/11/17 at 09:30 Glucagon (Glucagen) 1 mg Q15M PRN IM DECREASED GLUCOSE; Start 01/11/17 at 09:30 Glucose (Glutose) 15 gm Q15M PRN BUCCAL DECREASED GLUCOSE; Start 01/11/17 at 09 :30 Aspirin (Aspirin) 81 mg DAILY PO ; Start 01/11/17 at 15:00 Clopidogrel Bisulfate 75 mg 75 mg DAILY PO ; Start 01/11/17 at 15:00 Heparin Sodium (Porcine) (Heparin 31079 Units/250 ml) 250 ml @ 5 mls/hr Q24H IV Last administered on 01/11/17t 15:10; Admin Dose 5 MLS/HR; Start 01/11/17 at 15:00 ELLIOT MEADOWS MD Jan 11, 2017 15:52
[2017-01-11] MEDS: CLOPIDOGREL 75 MG TAB PO SCH (15:58)
[2017-01-11] MEDS: ASPIRIN 81 MG TAB PO SCH (16:02)
--- NOTE | 2017-01-11 18:20 | CONS ---
Date/Time of Note Date/Time of Note DATE: 01/11/17 TIME: 18:17 Assessment/Plan Assessment/Plan Chief Complaint/Hosp Course ID PROGRESS NOTE 14H INTERVAL SUMMARY CURRENT ABX: * S/P RIGHT FEMORAL TO DORSALIS PEDIS BYPASS today -> TNS to ICU, stable post- op * Microbiology: Blood cultures remain negative Exam Constitutional: VSS, no fevers, Psych: nl mood/affect, no complaints Head: atraumatic, normocephalic Eyes: EOMI, nl conjunctiva, anicteric ENMT: nl external ears & nose, nl lips & teeth, nl nasal mucosa & septum Neck: non-tender, supple Respiratory: Normal air movement, No intercostal retraction, No labored breathing Cardiovascular: nl pulses, regular rate and rhythm, Gastrointestinal: non-tender, soft, Extremities: normal pulses, gangrenous changes to R-foot R-foot Great toe Neurological: CHILD NEUROLOGIST II-XII intact, periph neuropathy Skin: No rash, no diaphoresis ID ASSESSMENT 1. 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 PAD -> status post angioplasty * POD #0-> S/p RLEXT Fem->DP bypass 2. Diabetes mellitus w/peripheral neuropathy 3. Acute on chronic kidney disease-> STG IV 4. Hypertension MRSA Nares -> ordered screen today ABX ALLERGIES: PCN; Zosyn CURRENT ABX: Daptomycin + Levaquin ID RECOMMENDATIONS S/P RIGHT FEMORAL TO DORSALIS PEDIS BYPASS today -> TNS to ICU, stable post-op 1. Continue current ABX -> Avoid nephrotoxic ABX 2. Swab nares for MRSA screen-> Pending 3. FYI: Statin meds contraindicated while on Daptomycin unless low dose only w/ close monitoring of CPK . Problems: Consultation Date/Type/Reason Admit Date/Time Jan 01, 2017 at 18:03 Initial Consult Date 01/02/17 Type of Consultation: ID Referring Provider: CORY EDGE Exam/Review of Systems Vital Signs Vitals Vital Signs Date Time Temp Pulse Resp B/P Pulse Ox O2 Delivery O2 Flow Rate FiO2 01/11/17 18:00 68 13 128/60 100 Room Air Nasal Cannula 01/11/17 17:15 2.0 01/11/17 17:00 97.9 Intake and Output 01/10/17 01/10/17 01/11/17 14:59 22:59 06:59 Intake Total 1660 ml 1300 ml Balance 1660 ml 1300 ml Results Result Diagram: 01/11/1752501/11/17 05 Results 24 hrs Laboratory Tests Test 01/10/17 20:25 01/11/17 05:26 01/11/17 07:46 01/11/17 14:44 Bedside Glucose 160 123 108 White Blood Count 11.8 H Red Blood Count 3.34 L Hemoglobin 8.5 L Hematocrit 26.9 L Mean Corpuscular Volume 80.5 L Mean Corpuscular Hemoglobin 25.4 L Mean Corpuscular Hemoglobin Concent 31.6 L Red Cell Distribution Width 14.2 Platelet Count 415 Mean Platelet Volume 10.5 H Neutrophils % 65.6 Lymphocytes % 17.8 Monocytes % 8.3 Eosinophils % 6.9 Basophils % 0.6 Nucleated Red Blood Cells % 0.0 Neutrophils # 7.8 H Lymphocytes # 2.1 Monocytes # 1.0 H Eosinophils # 0.8 H Basophils # 0.1 Nucleated Red Blood Cells # 0.0 Sodium Level 140 Potassium Level 3.5 Chloride Level 106 Carbon Dioxide Level 19 L Anion Gap 19 H Blood Urea Nitrogen 63 H Creatinine 3.05 H Glucose Level 127 Calcium Level 7.6 L Total Bilirubin 0.0 L Direct Bilirubin 0.00 Indirect Bilirubin 0.0 Aspartate Amino Transf (AST/SGOT) 12 L Alanine Aminotransferase (ALT/SGPT) 31 Alkaline Phosphatase 92 Total Protein 6.0 L Albumin 2.8 L Globulin 3.20 Albumin/Globulin Ratio 0.87 Test 01/11/17 17:48 Bedside Glucose 102 Medications Medications Current Medications Ferrous Sulfate (Ferrous Sulfate (Ec)) 325 mg BID PO Last administered on 20:27; Admin Dose 325 MG; Start 01/01/17 at 21:00 Furosemide (Lasix) 40 mg DAILY@06 PO Last administered on 01/02/17 05:29; Admin Dose 40 MG; Start 01/02/17 at 06:00; Status Future Hold Metoprolol Tartrate (Lopressor) 100 mg BID PO Last administered on 01/10/17 20 :28; Admin Dose 100 MG; Start 01/01/17 at 21:00 Montelukast Sodium (Singulair) 10 mg QHS PO Last administered on 01/10/17 20: 27; Admin Dose 10 MG; Start 01/01/17 at 21:00 Tramadol HCl (Ultram) 50 mg DAILY PRN PO PAIN Last administered on 01/10/17 22 :57; Admin Dose 50 MG; Start 01/01/17 at 21:00 Diagnostic Test (Pha) (Accu-Chek) 1 ea 02 XX ; Start 01/02/17 at 02:00 Miscellaneous Information 1 ea NOTE XX ; Start 01/01/17 at 21:30 Glucose (Glutose) 15 gm Q15M PRN PO DECREASED GLUCOSE; Start 01/01/17 at 21:30 Glucose (Glutose) 22.5 gm Q15M PRN PO DECREASED GLUCOSE; Start 01/01/17 at 21: 30 Dextrose (D50w Syringe) 25 ml Q15M PRN IV DECREASED GLUCOSE; Start 01/01/17 at 21:30 Dextrose (D50w Syringe) 50 ml Q15M PRN IV DECREASED GLUCOSE; Start 01/01/17 at 21:30 Glucagon (Glucagen) 1 mg Q15M PRN IM DECREASED GLUCOSE; Start 01/01/17 at 21:30 Glucose (Glutose) 15 gm Q15M PRN BUCCAL DECREASED GLUCOSE; Start 01/01/17 at 21 :30 Zolpidem Tartrate (Ambien) 5 mg HS PRN PO INSOMNIA Last administered on 22:57; Admin Dose 5 MG; Start 01/01/17 at 22:00 Insulin Glargine (Lantus) 24 unit HS SC Last administered on 01/10/17 20:36; Admin Dose 24 UNIT; Start 01/02/17 at 21:00 Atorvastatin Calcium (Lipitor) 10 mg DAILY@21 PO Last administered on 20:27; Admin Dose 10 MG; Start 01/02/17 at 21:00 Calcium Carbonate (Tums) 500 mg BID PO Last administered on 01/10/17 20:27; Admin Dose 500 MG; Start 01/02/17 at 21:00 Magnesium Hydroxide (Milk Of Mag) 30 ml DAILY PRN PO CONSTIPATION; Start at 17:30 Polyethylene Glycol 17 gm 17 gm DAILY GTB Last administered on 01/10/17 09:02 ; Admin Dose 17 GM; Start 01/03/17 at 17:30 Daptomycin/Sodium Chloride (Cubicin/NS) 100 ml @ 200 mls/hr Q48H IVPB Last administered on 01/10/17 16:21; Admin Dose 200 MLS/HR; Start 01/08/17 at 16:00 Levofloxacin (Levaquin) 250 mg Q2D@06 PO Last administered on 01/10/17 06:44; Admin Dose 250 MG; Start 01/08/17 at 15:00 Nifedipine (Procardia Xl) 60 mg QHS PO ; Start 01/11/17 at 21:00 Miscellaneous Information 1 ea NOTE XX ; Start 01/11/17 at 09:30 Glucose (Glutose) 15 gm Q15M PRN PO DECREASED GLUCOSE; Start 01/11/17 at 09:30 Glucose (Glutose) 22.5 gm Q15M PRN PO DECREASED GLUCOSE; Start 01/11/17 at 09: 30 Dextrose (D50w Syringe) 25 ml Q15M PRN IV DECREASED GLUCOSE; Start 01/11/17 at 09:30 Dextrose (D50w Syringe) 50 ml Q15M PRN IV DECREASED GLUCOSE; Start 01/11/17 at 09:30 Glucagon (Glucagen) 1 mg Q15M PRN IM DECREASED GLUCOSE; Start 01/11/17 at 09:30 Glucose (Glutose) 15 gm Q15M PRN BUCCAL DECREASED GLUCOSE; Start 01/11/17 at 09 :30 Aspirin (Aspirin) 81 mg DAILY PO Last administered on 01/11/17 16:02; Admin Dose 81 MG; Start 01/11/17 at 15:00 Clopidogrel Bisulfate 75 mg 75 mg DAILY PO Last administered on 01/11/17 15:58 ; Admin Dose 75 MG; Start 01/11/17 at 15:00 Heparin Sodium (Porcine) (Heparin 82780 Units/250 ml) 250 ml @ 5 mls/hr Q24H IV Last administered on 01/11/17 15:10; Admin Dose 5 MLS/HR; Start 01/11/17 at 15:00 JANENE LOVE NP Jan 11, 2017 18:20
[2017-01-11] MEDS ORDERED: LEVOFLOXACIN 250 MG TAB PO SCH (20:00)
[2017-01-11] MEDS: INSULIN GLARGINE [LANtus] 3 ML PEN SC SCH (20:58)
[2017-01-11] MEDS ORDERED: INSULIN GLARGINE [LANtus] 3 ML PEN SC ONE (21:00)
[2017-01-11] MEDS: ATORVASTATIN 10 MG TAB PO SCH (21:05)
[2017-01-11] MEDS: MONTELUKAST 10 MG TAB PO SCH (21:06)
[2017-01-11] MEDS: NIFEdipine (XL) 60 MG TAB PO SCH (21:06)
[2017-01-11] MEDS: ZOLPIDEM 5 MG TAB PO PRN (23:07)
[2017-01-11] MEDS: traMADol 50 MG TAB PO PRN (23:07)
[2017-01-12] VITALS (32 sets, daily range): BP systolic 88–141; BP diastolic 51–71; PULSE 61–80; RESP 6–20
[2017-01-12] MEDS: ACCU-CHEK XX SCH (02:00)
[2017-01-12] MEDS ORDERED: traMADol 50 MG TAB PO ONE (06:53)
[2017-01-12] MEDS: LEVOFLOXACIN 250 MG TAB PO SCH (06:54)
[2017-01-12] MEDS: traMADol 50 MG TAB PO PRN ×2 (06:54→19:55)
[2017-01-12] MEDS: PANTOPRAZOLE (EC) 40 MG TAB PO SCH ×2 (07:05→07:43)
--- NOTE | 2017-01-12 07:24 | PN ---
Date/Time of Note Date/Time of Note DATE: 01/12/17 TIME: 07:22 Assessment/Plan Lines/Catheters IV Catheter Type (from Nrs): Saline Lock [place] in Place (from Nrs): Yes Assessment/Plan Assessment/Plan Doing well s/p R fem-DP bypass, good graft pulse and foot warm and pink - stop heparin, continue ASA / Plavix - OK to tx to med/surg floor - OOBTC Subjective 24 Hr Interval Summary Comfortable. Exam/Review of Systems Vital Signs Vitals Vital Signs Date Time Temp Pulse Resp B/P Pulse Ox O2 Delivery O2 Flow Rate FiO2 01/12/17 06:00 75 17 127/60 96 01/12/17 03:00 97.6 01/11/17 21:00 Room Air 01/11/17 17:15 2.0 Intake and Output 01/11/17 01/11/17 01/12/17 15:00 23:00 07:00 Intake Total 350 ml 335 ml 785 ml Output Total 765 ml 800 ml 700 ml Balance -415 ml -465 ml 85 ml Exam Free Text/Dictation R foot warm and hyperemic, incisions clean and dry, 2+ palpable graft pulse Results Result Diagram: 01/11/17 0526 01/11/17 0526 NOÉ REGALADO MD Jan 12, 2017 07:24
--- NOTE | 2017-01-12 07:32 | OPR ---
DATE OF OPERATION: 01/11/2017 PREOPERATIVE DIAGNOSIS: Right first toe gangrene. POSTOPERATIVE DIAGNOSIS: Right first toe gangrene. PROCEDURE PERFORMED: Right femoral to dorsalis pedis bypass to greater saphenous vein. SURGEON: Ravinder Camilo MD LOG STACKER OPERATOR: [____]. ESTIMATED BLOOD LOSS: 150 cc. INDICATIONS: This is a 61-year-old, long time diabetic with [____] medical problems. She has chronic kidney disease, her creatinine is the 3.5 range. She has multiple problems with [____]. She has gangrene of the right first toe. She had an angiogram done last week with CO2 and small amount of contrast which showed [____] occlusions in the mid thigh and she has diffuse [____] disease [____] dorsalis pedis artery in the foot below the ankle. So I brought her in today for femoral to dorsalis pedis bypass. She has a good saphenous vein. The outflow from the artery was limited, but there was good inflow and good saphenous vein. PROCEDURE IN DETAIL: The patient was brought to the operating room and placed on the table in the supine position. The right leg was prepped and draped in the usual sterile fashion. I had marked on the skin the great saphenous vein from the groin all the way down to the ankle and I marked all the side branches. She was prepped and draped in the usual sterile fashion. I began by identifying this target that I found on the dorsum of the foot. I made a longitudinal incision of the dorsalis pedis artery and I carefully dissected it out. It was very heavily calcified, but it looked like it would be clampable in several areas and again angiography it appeared to be patent. I then went to the groin and I made an incision of the great saphenous vein in the groin and carefully dissected out the first 10 cm of the greater saphenous vein. I ligated all the side branches with 3-0 silk ties and divided them. The [____] clamp across the [____] to the saphenous femoral junction transected the vein and then oversewed the venotomy in the common femoral vein using 5-0 Prolene suture in a running standard vascular surgical fashion. These created a tai at the end of the proximal into the great saphenous vein. I then cut the connective tissue overlying the femoral artery pulse and carefully dissected out the femoral artery. Again it also was very heavily calcified but there were a couple soft areas where I could clamp it. Once I had the greater saphenous vein and the common femoral artery exposed, I then gave the patient 5000 units Heparin intravenously and then clamped the common femoral artery proximally and distally and about a 1 cm long anterior arteriotomy, then [____] to the proximal length of the vein. The [____] arteriotomy I invaginated the vein until I found the first valve and I cut that under direct vision. Next was [____] vein at the site of common femoral artery using a 6-0 Prolene suture in a running standard vascular surgical fashion I removed the clamps. After flushing there was a good pulse in the graft down to the end of my incision that [____] incompetent at least first segment in the thigh. So I then made incisions over the areas were I marked the side branches. I made multiple incisions from the mid calf all the way up to the groin and inspected out the greater saphenous vein in these regions and ligated off the side branches with either 3-0 silk ties or clips. Once I had everything exposed I then exposed the distal end of the greater saphenous vein all the way down below the ankle into the foot up to the mid calf. I ligated all the side branches. I ligated the greater saphenous vein [____] and the distal foot down below the ankle using a medium clip, then divided it. It [____] nicely, it was a good vein. The [____] comes from below. I made several passes and got good bleeding, it is still a little weak, so I passed a 3-0 [____] and I could see spasm in the vein and after that it was wide open and there was very brisk pusatile flow coming out [____]. Again I ligated all the side branches. So I then created a tunnel between the distal greater saphenous vein and stitched into the [____] of the foot. I grafted the vein through the tunnel and then clamped the graft as it was [____]. I then clamped the [____] proximally and distally using metal [____] and opened the artery wide open and it was [____] so I had to extend more distally down [____] distal forefoot until I came to an open lumen. I then [____] the end of the vein to [____][____] into the end of the distal dorsalis pedis artery using 6-0 Prolene suture in a running standard vascular surgical fashion. [____] leading from the dorsalis pedis I passed [____] and dilated that. [____] [____] in the forefoot. Then the graft along the entire length was [____] and the saphenous vein was then grafted [____]. [____][____] using 3-0 Vicryl in [____] stitch [____] dorsalis pedis. [____]. [____] and extubated in the operating room and transferred to recovery in stable condition. [____] Dictated By: Ravinder Camilo MD /[email or web address] /Document#: [id number]
[2017-01-12] MEDS: INSULIN ASPART [NOVOLOG] 3 ML PEN SC SCH ×7 (07:35→21:00)
[2017-01-12 07:37] LABS: CALCIUM 7.9 mg/dl (8.4-10.2); CREATININE 2.93 mg/dl (0.44-1.00); POTASSIUM 3.9 mmol/L (3.5-5.1)
[2017-01-12] MEDS: CALCIUM CARBONATE 500 MG CHEW TAB PO SCH ×2 (08:03→21:16)
[2017-01-12] MEDS: CLOPIDOGREL 75 MG TAB PO SCH (08:03)
[2017-01-12] MEDS: ASPIRIN 81 MG TAB PO SCH (08:03)
[2017-01-12] MEDS: FERROUS SULFATE (EC) 325 MG TAB PO SCH ×2 (08:03→21:16)
[2017-01-12] MEDS: METOPROLOL 100 MG TAB PO SCH ×2 (08:04→21:16)
[2017-01-12] MEDS: POLYETHYLENE GLYCOL 17 GM PACKET GTB SCH (08:04)
--- NOTE | 2017-01-12 11:26 | PN ---
Date/Time of Note Date/Time of Note DATE: 01/12/17 TIME: 11:25 Assessment/Plan VTE Prophylaxis VTE Prophylaxis Intervention: SCD's (will dc sotelo) Lines/Catheters IV Catheter Type (from Nrsg): Saline Lock Urinary Cath still in place: Yes Reason Cath still needed: other (indicate) Assessment/Plan Assessment/Plan Assessment/Plan 1. Peripheral vascular disease, sp RLE bypass 7 -post op care as per vascular 2. Right foot gangrene -on dapto/levoflox as per ID 3. Diabetes mellitus, on insulins -BG control here fair -may need to increase aspart with meals .Home dose is 10 units TID AC 4. CKD 4: cont home BP meds with addition of higher procardia dose 5. Hypertension, cont current med regimen 6. Microcytic anemia, stable, follow up with PCP FOBT negative. Suspect 2/2 CKD? will dc sotelo Subjective 24 Hr Interval Summary Free Text/Dictation Pt feels ok. Denies significant LE pain Exam/Review of Systems Vital Signs Vitals Vital Signs Date Time Temp Pulse Resp B/P Pulse Ox O2 Delivery O2 Flow Rate FiO2 01/12/17 10:55 72 108/55 01/12/17 09:41 99.2 20 95 01/12/17 08:00 Room Air 01/11/17 17:15 2.0 Intake and Output 01/11/17 01/11/17 01/12/17 15:00 23:00 07:00 Intake Total 350 ml 335 ml 785 ml Output Total 765 ml 800 ml 730 ml Balance -415 ml -465 ml 55 ml Exam nad, laying in bed no mrg lungs clear abd soft RLE wound dressing c/d/i Results Result Diagram: 01/11/17 0526 01/12/17 0526 Results 24 hrs Laboratory Tests Test 01/11/17 14:44 01/11/17 17:48 01/11/17 20:52 01/12/17 05:26 Bedside Glucose 108 102 108 Sodium Level 146 H Potassium Level 3.9 Chloride Level 111 H Carbon Dioxide Level 19 L Anion Gap 20 H Blood Urea Nitrogen 54 H Creatinine 2.93 H Glucose Level 60 #L Calcium Level 7.9 L Test 01/12/17 07:42 Bedside Glucose 80 Medications Medications Current Medications Ferrous Sulfate (Ferrous Sulfate (Ec)) 325 mg BID PO Last administered on 08:03; Admin Dose 325 MG; Start 01/01/17 at 21:00 Furosemide (Lasix) 40 mg DAILY@06 PO Last administered on 01/02/17 05:29; Admin Dose 40 MG; Start 01/02/17 at 06:00; Status Future Hold Metoprolol Tartrate (Lopressor) 100 mg BID PO Last administered on 01/12/17 08 :04; Admin Dose 100 MG; Start 01/01/17 at 21:00 Montelukast Sodium (Singulair) 10 mg QHS PO Last administered on 01/11/17 21: 06; Admin Dose 10 MG; Start 01/01/17 at 21:00 Tramadol HCl (Ultram) 50 mg DAILY PRN PO PAIN Last administered on 01/11/17 23 :07; Admin Dose 50 MG; Start 01/01/17 at 21:00 Diagnostic Test (Pha) (Accu-Chek) 1 ea 02 XX ; Start 01/02/17 at 02:00 Miscellaneous Information 1 ea NOTE XX ; Start 01/01/17 at 21:30 Glucose (Glutose) 15 gm Q15M PRN PO DECREASED GLUCOSE; Start 01/01/17 at 21:30 Glucose (Glutose) 22.5 gm Q15M PRN PO DECREASED GLUCOSE; Start 01/01/17 at 21: 30 Dextrose (D50w Syringe) 25 ml Q15M PRN IV DECREASED GLUCOSE; Start 01/01/17 at 21:30 Dextrose (D50w Syringe) 50 ml Q15M PRN IV DECREASED GLUCOSE; Start 01/01/17 at 21:30 Glucagon (Glucagen) 1 mg Q15M PRN IM DECREASED GLUCOSE; Start 01/01/17 at 21:30 Glucose (Glutose) 15 gm Q15M PRN BUCCAL DECREASED GLUCOSE; Start 01/01/17 at 21 :30 Zolpidem Tartrate (Ambien) 5 mg HS PRN PO INSOMNIA Last administered on 23:07; Admin Dose 5 MG; Start 01/01/17 at 22:00 Insulin Glargine (Lantus) 24 unit HS SC Last administered on 01/10/17 20:36; Admin Dose 24 UNIT; Start 01/02/17 at 21:00 Atorvastatin Calcium (Lipitor) 10 mg DAILY@21 PO Last administered on 21:05; Admin Dose 10 MG; Start 01/02/17 at 21:00 Calcium Carbonate (Tums) 500 mg BID PO Last administered on 01/12/17 08:03; Admin Dose 500 MG; Start 01/02/17 at 21:00 Magnesium Hydroxide (Milk Of Mag) 30 ml DAILY PRN PO CONSTIPATION; Start at 17:30 Polyethylene Glycol 17 gm 17 gm DAILY GTB Last administered on 01/12/17 08:04 ; Admin Dose 17 GM; Start 01/03/17 at 17:30 Daptomycin/Sodium Chloride (Cubicin/NS) 100 ml @ 200 mls/hr Q48H IVPB Last administered on 01/10/17 16:21; Admin Dose 200 MLS/HR; Start 01/08/17 at 16:00 Levofloxacin (Levaquin) 250 mg Q2D@06 PO Last administered on 01/12/17 06:54; Admin Dose 250 MG; Start 01/08/17 at 15:00 Nifedipine (Procardia Xl) 60 mg QHS PO Last administered on 01/11/17 21:06; Admin Dose 60 MG; Start 01/11/17 at 21:00 Miscellaneous Information 1 ea NOTE XX ; Start 01/11/17 at 09:30 Glucose (Glutose) 15 gm Q15M PRN PO DECREASED GLUCOSE; Start 01/11/17 at 09:30 Glucose (Glutose) 22.5 gm Q15M PRN PO DECREASED GLUCOSE; Start 01/11/17 at 09: 30 Dextrose (D50w Syringe) 25 ml Q15M PRN IV DECREASED GLUCOSE; Start 01/11/17 at 09:30 Dextrose (D50w Syringe) 50 ml Q15M PRN IV DECREASED GLUCOSE; Start 01/11/17 at 09:30 Glucagon (Glucagen) 1 mg Q15M PRN IM DECREASED GLUCOSE; Start 01/11/17 at 09:30 Glucose (Glutose) 15 gm Q15M PRN BUCCAL DECREASED GLUCOSE; Start 01/11/17 at 09 :30 Aspirin (Aspirin) 81 mg DAILY PO Last administered on 01/12/17 08:03; Admin Dose 81 MG; Start 01/11/17 at 15:00 Clopidogrel Bisulfate (plaVIX) 75 mg DAILY PO Last administered on 01/12/17 08 :03; Admin Dose 75 MG; Start 01/11/17 at 15:00 ELLIOT MEADOWS MD Jan 12, 2017 11:26
--- NOTE | 2017-01-12 12:14 | CONS ---
DATE OF ADMISSION: 01/01/2017 DATE OF CONSULTATION: 01/03/2017 REASON FOR CONSULTATION: Evaluate right 1st toe gangrene. HISTORY OF PRESENT ILLNESS: This is a 61-year-old diabetic, hypertensive woman with chronic kidney disease. She is well known to me. I have seen her in the past. She has a right 1st toe gangrene that has been gangrenous for at least 3 or months. I had scheduled her for right leg angiogram with CO2 several weeks ago but she canceled the procedure. She had a similar problem several years ago in which she had a left leg revascularization and then went on to have a TMA, which is well healed. She has chronic kidney disease. She was seen recently by Dr. Hassan here in the hospital and her creatinine is in the 3.5 range. She has stage 4 chronic kidney disease. She had some arterial studies done on this admission which show severe tibial disease, which is consistent with her physical exam. I asked her why she canceled the angiogram several weeks ago and after the angiogram several years ago she developed CHF and a lot of edema. At the time, her creatinine was normal but she really just did not tolerate the dye well and she was worried that the dye would throw her over the edge and cause her to go on dialysis. I had explained to her previously that we were not going to use iodinated contrast, we were going to use CO2 but I think she just did not understand and her primary doctor had told her not to go ahead with the angiogram, so she canceled. I explained to her again at length that without revascularization of the leg that that gangrenous toe is not going to heal and it will eventually need to amputated but without revascularization prior to amputation that the amputation will not heal and she would end up needing, likely, a below-knee amputation. Patient now understands that. PAST MEDICAL HISTORY: Significant for diabetes, hypertension, chronic kidney disease. She is moderately obese. Has hyperlipidemia. PAST SURGICAL HISTORY: Significant for left TMA and she has had 3 C-sections in the past. MEDICATION: Consist of hydralazine, cefepime, Lantus, Lipitor, Norvasc, Plavix, Cozaar, calcium, insulin, Protonix, Lasix, Ambien, vancomycin, iron, metoprolol, Singulair, Ultram. ALLERGIES: SHE IS ALLERGIC TO PIPERACILLIN AND TAZOBACTAM. SOCIAL HISTORY: She is a nonsmoker. She does not drink or use any illicit drugs. FAMILY HISTORY: Noncontributory. REVIEW OF SYSTEMS: She currently denies any chest pain, shortness of breath, nausea, vomiting, diarrhea. No fevers, no chills. No recent weight gain or weight loss. She ambulates. She denies any pain but she is neuropathic in her feet. The reason she came to the emergency room is because the right 1st toe gangrene was starting to smell. PHYSICAL EXAMINATION: GENERAL APPEARANCE: She is an elderly woman. She is in no distress. She speaks Indonesian fairly well. VITAL SIGNS: She has been afebrile. Her blood pressure is 132/65, heart rate 63, respiratory rate is 18. She is 98 percent sat on room air. PULSES: 2+ carotid pulses bilaterally. 2+ radial and brachial pulses bilaterally. UPPER EXTREMITIES: No arm edema. LUNGS: Clear. CARDIAC: Regular rate and rhythm. ABDOMEN: Soft, nontender, nondistended. LOWER EXTREMITIES: She has 1+ femoral pulses bilaterally. There is no popliteal, PT or DP pulses palpable in either lower extremity. The left TMA is well healed. Right foot, there is just gangrene of the right 1st toe. It is black and dry, chronically gangrenous. LABORATORY: Her white count when she came in was slightly elevated at 13, it has come down to 10. Her platelet count is 400, it is normal. Coags are normal. Creatinine was 4 when she came in. It has come down in the 3.5 range and stable there. Again, I reviewed her arterial duplex. It shows monophasic flow throughout the tibial vessels on the right with very low velocities, so she likely has a severe popliteal or distal SFA stenosis. IMPRESSION: Right 1st toe gangrene with chronic severe arterial insufficiency in the right lower extremity. I discussed again at length with her that we would not be using iodinated contrast. We will use CO2, which is not going to effect her kidney function, for angiography, which would be necessary prior to any revascularization and she is now agreeable to proceeding with an angiogram. I have scheduled her for Sunday morning. If I am able to intervene that would be good. It is possible that we may not be able to and that she may need a bypass in the right lower extremity prior to toe amputation. I discussed that with her as well or vein mapping of the right leg. Dictated By: Ravinder Camilo MD /israel/vida /Document#: [id number] CC: Andrés Taylor DPM; Rod Hassan MD; Aakash Murillo MD; Dr. Tyrone Kothari; Dr. Jourdan Ni;*EndCC*
--- NOTE | 2017-01-12 12:26 | CONS ---
Date/Time of Note Date/Time of Note DATE: 01/12/17 TIME: 12:24 Assessment/Plan Assessment/Plan Additional Assessment/Plan (1) Diabetes mellitus Status: Chronic (2) Peripheral vascular disease due to secondary diabetes mellitus Status: Chronic (3) Anemia Status: Chronic (4) Renal failure Status: Chronic-stable Renal function stable CKD No new recommendations Cont Binder TID with Meals On ORal Iron BP well controlled Avoid Hypotension Consultation Date/Type/Reason Admit Date/Time Jan 01, 2017 at 18:03 Initial Consult Date 01/02/17 Type of Consultation: Renal Referring Provider: CORY EDGE 24 HR Interval Summary Free Text/Dictation No new complaints S/p Right femoral to dorsalis pedis bypass to greater saphenous vein. Exam/Review of Systems Vital Signs Vitals Vital Signs Date Time Temp Pulse Resp B/P Pulse Ox O2 Delivery O2 Flow Rate FiO2 01/12/17 10:55 72 108/55 01/12/17 09:41 99.2 20 95 01/12/17 08:00 Room Air 01/11/17 17:15 2.0 Intake and Output 01/11/17 01/11/17 01/12/17 15:00 23:00 07:00 Intake Total 350 ml 335 ml 785 ml Output Total 765 ml 800 ml 730 ml Balance -415 ml -465 ml 55 ml Exam Constitutional: alert, oriented, No distress ENMT: mucosa pink and moist Neck: No jvd Cardiovascular: regular rate and rhythm Gastrointestinal: soft Neurological: No lethargic Skin: No diaphoresis Results Result Diagram: 01/11/17 0526 01/12/17 0526 Results 24 hrs Laboratory Tests Test 01/11/17 14:44 01/11/17 17:48 01/11/17 20:52 01/12/17 05:26 Bedside Glucose 108 102 108 Sodium Level 146 H Potassium Level 3.9 Chloride Level 111 H Carbon Dioxide Level 19 L Anion Gap 20 H Blood Urea Nitrogen 54 H Creatinine 2.93 H Glucose Level 60 #L Calcium Level 7.9 L Test 01/12/17 07:42 01/12/17 12:05 Bedside Glucose 80 142 Medications Medications Current Medications Ferrous Sulfate (Ferrous Sulfate (Ec)) 325 mg BID PO Last administered on t 08:03; Admin Dose 325 MG; Start 01/01/17 at 21:00 Furosemide (Lasix) 40 mg DAILY@06 PO Last administered on 01/02/17 05:29; Admin Dose 40 MG; Start 01/02/17 at 06:00; Status Future Hold Metoprolol Tartrate (Lopressor) 100 mg BID PO Last administered on 01/12/17 08 :04; Admin Dose 100 MG; Start 01/01/17 at 21:00 Montelukast Sodium (Singulair) 10 mg QHS PO Last administered on 01/11/17 21: 06; Admin Dose 10 MG; Start 01/01/17 at 21:00 Tramadol HCl (Ultram) 50 mg DAILY PRN PO PAIN Last administered on 01/11/17 23 :07; Admin Dose 50 MG; Start 01/01/17 at 21:00 Diagnostic Test (Pha) (Accu-Chek) 1 ea 02 XX ; Start 01/02/17 at 02:00 Miscellaneous Information 1 ea NOTE XX ; Start 01/01/17 at 21:30 Glucose (Glutose) 15 gm Q15M PRN PO DECREASED GLUCOSE; Start 01/01/17 at 21:30 Glucose (Glutose) 22.5 gm Q15M PRN PO DECREASED GLUCOSE; Start 01/01/17 at 21: 30 Dextrose (D50w Syringe) 25 ml Q15M PRN IV DECREASED GLUCOSE; Start 01/01/17 at 21:30 Dextrose (D50w Syringe) 50 ml Q15M PRN IV DECREASED GLUCOSE; Start 01/01/17 at 21:30 Glucagon (Glucagen) 1 mg Q15M PRN IM DECREASED GLUCOSE; Start 01/01/17 at 21:30 Glucose (Glutose) 15 gm Q15M PRN BUCCAL DECREASED GLUCOSE; Start 01/01/17 at 21 :30 Zolpidem Tartrate (Ambien) 5 mg HS PRN PO INSOMNIA Last administered on 23:07; Admin Dose 5 MG; Start 01/01/17 at 22:00 Insulin Glargine (Lantus) 24 unit HS SC Last administered on 01/10/17 20:36; Admin Dose 24 UNIT; Start 01/02/17 at 21:00 Atorvastatin Calcium (Lipitor) 10 mg DAILY@21 PO Last administered on 21:05; Admin Dose 10 MG; Start 01/02/17 at 21:00 Calcium Carbonate (Tums) 500 mg BID PO Last administered on 01/12/17 08:03; Admin Dose 500 MG; Start 01/02/17 at 21:00 Magnesium Hydroxide (Milk Of Mag) 30 ml DAILY PRN PO CONSTIPATION; Start at 17:30 Polyethylene Glycol 17 gm 17 gm DAILY GTB Last administered on 01/12/17 08:04 ; Admin Dose 17 GM; Start 01/03/17 at 17:30 Daptomycin/Sodium Chloride (Cubicin/NS) 100 ml @ 200 mls/hr Q48H IVPB Last administered on 01/10/17 16:21; Admin Dose 200 MLS/HR; Start 01/08/17 at 16:00 Levofloxacin (Levaquin) 250 mg Q2D@06 PO Last administered on 01/12/17 06:54; Admin Dose 250 MG; Start 01/08/17 at 15:00 Nifedipine (Procardia Xl) 60 mg QHS PO Last administered on 01/11/17 21:06; Admin Dose 60 MG; Start 01/11/17 at 21:00 Miscellaneous Information 1 ea NOTE XX ; Start 01/11/17 at 09:30 Glucose (Glutose) 15 gm Q15M PRN PO DECREASED GLUCOSE; Start 01/11/17 at 09:30 Glucose (Glutose) 22.5 gm Q15M PRN PO DECREASED GLUCOSE; Start 01/11/17 at 09: 30 Dextrose (D50w Syringe) 25 ml Q15M PRN IV DECREASED GLUCOSE; Start 01/11/17 at 09:30 Dextrose (D50w Syringe) 50 ml Q15M PRN IV DECREASED GLUCOSE; Start 01/11/17 at 09:30 Glucagon (Glucagen) 1 mg Q15M PRN IM DECREASED GLUCOSE; Start 01/11/17 at 09:30 Glucose (Glutose) 15 gm Q15M PRN BUCCAL DECREASED GLUCOSE; Start 01/11/17 at 09 :30 Aspirin (Aspirin) 81 mg DAILY PO Last administered on 01/12/17 08:03; Admin Dose 81 MG; Start 01/11/17 at 15:00 Clopidogrel Bisulfate (plaVIX) 75 mg DAILY PO Last administered on 01/12/17 08 :03; Admin Dose 75 MG; Start 01/11/17 at 15:00 ADÁN MONTEIRO MD Jan 12, 2017 12:26
--- NOTE | 2017-01-12 12:39 | CONS ---
Date/Time of Note Date/Time of Note DATE: 01/12/17 TIME: 12:34 Assessment/Plan Assessment/Plan Chief Complaint/Hosp Course 1. Preoperative evaluation prior to lower extremity triple-NL EF by echo and no sig valve abnl/Lexiscan with probable soft tissue attenutaion in anterior wall and nl ef and no wall motion abnl. Now post-op s/p LE peripheral bypass POD #1 bypass surgery. 2. Hypertension. 3. Dyslipidemia. 4. Peripheral arterial disease with gangrenous change in the lower extremities. 5. Status post left lower extremity transmetatarsal amputation. 6. Renal failure. 7. Diabetes mellitus. 8. Anemia. Recc: -Contiue procardia XL/BB and follow closely -Continue abx's -Continue asa/plavix -LE wound care Problems: Consultation Date/Type/Reason Admit Date/Time Jan 01, 2017 at 18:03 Initial Consult Date 01/02/17 Type of Consultation: cardiology Reason for Consultation pre-op/HTN Referring Provider: CORY EDGE Exam/Review of Systems Vital Signs Vitals Vital Signs Date Time Temp Pulse Resp B/P Pulse Ox O2 Delivery O2 Flow Rate FiO2 01/12/17 10:55 72 108/55 01/12/17 09:41 99.2 20 95 01/12/17 08:00 Room Air 01/11/17 17:15 2.0 Intake and Output 01/11/17 01/11/17 01/12/17 15:00 23:00 07:00 Intake Total 350 ml 335 ml 785 ml Output Total 765 ml 800 ml 730 ml Balance -415 ml -465 ml 55 ml Exam Review of Systems: CONSTITUTIONAL: No fevers, chills. PULMONARY: No sob CARDIOVASCULAR: No chest pain/palpitations GASTROINTESTINAL: No nausea/vomiting. GENITOURINARY: No hematuria/dysuria. MUSCULOSKELETAL: mild pain in foot PSYCHIATRIC: The patient denies depression. NEUROLOGIC: No weakness Constitutional: alert Psych: no complaints Head: normocephalic ENMT: mucosa pink and moist Neck: jvd (9 cm water), supple Respiratory: diminished breath sounds (at bases/B) Cardiovascular: regular rate and rhythm Gastrointestinal: non-tender, soft Musculoskeletal: muscle tone (normal) Extremities: other (gagrenous changes of toe/foot/dressing in place) Neurological: other (No focall deficits) Results Result Diagram: 01/11/17 0526 01/12/1726 Results 24 hrs Laboratory Tests Test 01/11/17 14:44 01/11/17 17:48 01/11/17 20:52 01/12/17 05:26 Bedside Glucose 108 102 108 Sodium Level 146 H Potassium Level 3.9 Chloride Level 111 H Carbon Dioxide Level 19 L Anion Gap 20 H Blood Urea Nitrogen 54 H Creatinine 2.93 H Glucose Level 60 #L Calcium Level 7.9 L Test 01/12/17 07:42 01/12/17 12:05 Bedside Glucose 80 142 Medications Medications Current Medications Ferrous Sulfate (Ferrous Sulfate (Ec)) 325 mg BID PO Last administered on 08:03; Admin Dose 325 MG; Start 01/01/17 at 21:00 Furosemide (Lasix) 40 mg DAILY@06 PO Last administered on 01/02/17 05:29; Admin Dose 40 MG; Start 01/02/17 at 06:00; Status Future Hold Metoprolol Tartrate (Lopressor) 100 mg BID PO Last administered on 01/12/17 08 :04; Admin Dose 100 MG; Start 01/01/17 at 21:00 Montelukast Sodium (Singulair) 10 mg QHS PO Last administered on 01/11/17 21: 06; Admin Dose 10 MG; Start 01/01/17 at 21:00 Tramadol HCl (Ultram) 50 mg DAILY PRN PO PAIN Last administered on 01/11/17 23 :07; Admin Dose 50 MG; Start 01/01/17 at 21:00 Diagnostic Test (Pha) (Accu-Chek) 1 ea 02 XX ; Start 01/02/17 at 02:00 Miscellaneous Information 1 ea NOTE XX ; Start 01/01/17 at 21:30 Glucose (Glutose) 15 gm Q15M PRN PO DECREASED GLUCOSE; Start 01/01/17 at 21:30 Glucose (Glutose) 22.5 gm Q15M PRN PO DECREASED GLUCOSE; Start 01/01/17 at 21: 30 Dextrose (D50w Syringe) 25 ml Q15M PRN IV DECREASED GLUCOSE; Start 01/01/17 at 21:30 Dextrose (D50w Syringe) 50 ml Q15M PRN IV DECREASED GLUCOSE; Start 01/01/17 at 21:30 Glucagon (Glucagen) 1 mg Q15M PRN IM DECREASED GLUCOSE; Start 01/01/17 at 21:30 Glucose (Glutose) 15 gm Q15M PRN BUCCAL DECREASED GLUCOSE; Start 01/01/17 at 21 :30 Zolpidem Tartrate (Ambien) 5 mg HS PRN PO INSOMNIA Last administered on 23:07; Admin Dose 5 MG; Start 01/01/17 at 22:00 Insulin Glargine (Lantus) 24 unit HS SC Last administered on 01/10/17 20:36; Admin Dose 24 UNIT; Start 01/02/17 at 21:00 Atorvastatin Calcium (Lipitor) 10 mg DAILY@21 PO Last administered on 21:05; Admin Dose 10 MG; Start 01/02/17 at 21:00 Calcium Carbonate (Tums) 500 mg BID PO Last administered on 01/12/17 08:03; Admin Dose 500 MG; Start 01/02/17 at 21:00 Magnesium Hydroxide (Milk Of Mag) 30 ml DAILY PRN PO CONSTIPATION; Start at 17:30 Polyethylene Glycol 17 gm 17 gm DAILY GTB Last administered on 01/12/17 08:04 ; Admin Dose 17 GM; Start 01/03/17 at 17:30 Daptomycin/Sodium Chloride (Cubicin/NS) 100 ml @ 200 mls/hr Q48H IVPB Last administered on 01/10/17 16:21; Admin Dose 200 MLS/HR; Start 01/08/17 at 16:00 Levofloxacin (Levaquin) 250 mg Q2D@06 PO Last administered on 01/12/17 06:54; Admin Dose 250 MG; Start 01/08/17 at 15:00 Nifedipine (Procardia Xl) 60 mg QHS PO Last administered on 01/11/17 21:06; Admin Dose 60 MG; Start 01/11/17 at 21:00 Miscellaneous Information 1 ea NOTE XX ; Start 01/11/17 at 09:30 Glucose (Glutose) 15 gm Q15M PRN PO DECREASED GLUCOSE; Start 01/11/17 at 09:30 Glucose (Glutose) 22.5 gm Q15M PRN PO DECREASED GLUCOSE; Start 01/11/17 at 09: 30 Dextrose (D50w Syringe) 25 ml Q15M PRN IV DECREASED GLUCOSE; Start 01/11/17 at 09:30 Dextrose (D50w Syringe) 50 ml Q15M PRN IV DECREASED GLUCOSE; Start 01/11/17 at 09:30 Glucagon (Glucagen) 1 mg Q15M PRN IM DECREASED GLUCOSE; Start 01/11/17 at 09:30 Glucose (Glutose) 15 gm Q15M PRN BUCCAL DECREASED GLUCOSE; Start 01/11/17 at 09 :30 Aspirin (Aspirin) 81 mg DAILY PO Last administered on 01/12/17 08:03; Admin Dose 81 MG; Start 01/11/17 at 15:00 Clopidogrel Bisulfate (plaVIX) 75 mg DAILY PO Last administered on 01/12/17 08 :03; Admin Dose 75 MG; Start 01/11/17 at 15:00 NOÉ HERRERA Jan 12, 2017 12:38
[2017-01-12] MEDS: DAPTOMYCIN 280 MG in SOD CHLORIDE 0.9% 100 ML IVPB SCH (18:29)
--- NOTE | 2017-01-12 19:14 | CONS ---
Date/Time of Note Date/Time of Note DATE: 01/12/17 TIME: 19:10 Assessment/Plan Assessment/Plan Chief Complaint/Hosp Course ID PROGRESS NOTE 14H INTERVAL SUMMARY CURRENT ABX: Daptomycin + Levaquin * POD #1=> 01/11/17 S/P RIGHT FEMORAL TO DORSALIS PEDIS BYPASS * A/A/O, doing well post op -- c/o pain at op site yet coping well, Low grade temps 99.0+ * Microbiology: Blood cultures remain negative Exam Constitutional: VSS, no fevers, Psych: nl mood/affect, no complaints Head: atraumatic, normocephalic Eyes: EOMI, nl conjunctiva, anicteric ENMT: nl external ears & nose, nl lips & teeth, nl nasal mucosa & septum Neck: non-tender, supple Respiratory: Normal air movement, No intercostal retraction, No labored breathing Cardiovascular: nl pulses, regular rate and rhythm, Gastrointestinal: non-tender, soft, Extremities: normal pulses, gangrenous changes to R-foot R-foot Great toe 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 PAD -> status post angioplasty * POD 01/11/17 = > S/p RLEXT Fem->DP bypass 2. Diabetes mellitus w/peripheral neuropathy 3. Acute on chronic kidney disease-> STG IV 4. Hypertension (-) MRSA Nares ABX ALLERGIES: PCN; Zosyn CURRENT ABX: Daptomycin + Levaquin ID RECOMMENDATIONS S/P RIGHT FEMORAL TO DORSALIS PEDIS BYPASS today ->stable post-op 1. Continue current ABX -> Avoid nephrotoxic ABX 2. FYI: Statin meds contraindicated while on Daptomycin unless low dose only w/ close monitoring of CPK . Problems: Consultation Date/Type/Reason Admit Date/Time Jan 01, 2017 at 18:03 Initial Consult Date 01/02/17 Type of Consultation: ID Referring Provider: CORY EDGE Exam/Review of Systems Vital Signs Vitals Vital Signs Date Time Temp Pulse Resp B/P Pulse Ox O2 Delivery O2 Flow Rate FiO2 01/12/17 15:08 99.1 78 20 111/56 96 01/12/17 08:00 Room Air 01/11/17 17:15 2.0 Intake and Output 01/11/17 01/11/17 01/12/17 15:00 23:00 07:00 Intake Total 350 ml 335 ml 785 ml Output Total 765 ml 800 ml 730 ml Balance -415 ml -465 ml 55 ml Results Result Diagram: 01/11/1726 01/12/17525 Results 24 hrs Laboratory Tests Test 01/11/17 20:52 01/12/17 05:26 01/12/17 07:42 01/12/17 12:05 Bedside Glucose 108 80 142 Sodium Level 146 H Potassium Level 3.9 Chloride Level 111 H Carbon Dioxide Level 19 L Anion Gap 20 H Blood Urea Nitrogen 54 H Creatinine 2.93 H Glucose Level 60 #L Calcium Level 7.9 L Test 01/12/17 17:22 Bedside Glucose 137 Medications Medications Current Medications Ferrous Sulfate (Ferrous Sulfate (Ec)) 325 mg BID PO Last administered on 08:03; Admin Dose 325 MG; Start 01/01/17 at 21:00 Furosemide (Lasix) 40 mg DAILY@06 PO Last administered on 01/02/17 05:29; Admin Dose 40 MG; Start 01/02/17 at 06:00; Status Future Hold Metoprolol Tartrate (Lopressor) 100 mg BID PO Last administered on 01/12/17 08 :04; Admin Dose 100 MG; Start 01/01/17 at 21:00 Montelukast Sodium (Singulair) 10 mg QHS PO Last administered on 01/11/17 21: 06; Admin Dose 10 MG; Start 01/01/17 at 21:00 Tramadol HCl (Ultram) 50 mg DAILY PRN PO PAIN Last administered on 01/11/17 23 :07; Admin Dose 50 MG; Start 01/01/17 at 21:00 Diagnostic Test (Pha) (Accu-Chek) 1 ea 02 XX ; Start 01/02/17 at 02:00 Miscellaneous Information 1 ea NOTE XX ; Start 01/01/17 at 21:30 Glucose (Glutose) 15 gm Q15M PRN PO DECREASED GLUCOSE; Start 01/01/17 at 21:30 Glucose (Glutose) 22.5 gm Q15M PRN PO DECREASED GLUCOSE; Start 01/01/17 at 21: 30 Dextrose (D50w Syringe) 25 ml Q15M PRN IV DECREASED GLUCOSE; Start 01/01/17 at 21:30 Dextrose (D50w Syringe) 50 ml Q15M PRN IV DECREASED GLUCOSE; Start 01/01/17 at 21:30 Glucagon (Glucagen) 1 mg Q15M PRN IM DECREASED GLUCOSE; Start 01/01/17 at 21:30 Glucose (Glutose) 15 gm Q15M PRN BUCCAL DECREASED GLUCOSE; Start 01/01/17 at 21 :30 Zolpidem Tartrate (Ambien) 5 mg HS PRN PO INSOMNIA Last administered on 23:07; Admin Dose 5 MG; Start 01/01/17 at 22:00 Insulin Glargine (Lantus) 24 unit HS SC Last administered on 01/10/17 20:36; Admin Dose 24 UNIT; Start 01/02/17 at 21:00 Atorvastatin Calcium (Lipitor) 10 mg DAILY@21 PO Last administered on 21:05; Admin Dose 10 MG; Start 01/02/17 at 21:00 Calcium Carbonate (Tums) 500 mg BID PO Last administered on 01/12/17 08:03; Admin Dose 500 MG; Start 01/02/17 at 21:00 Magnesium Hydroxide (Milk Of Mag) 30 ml DAILY PRN PO CONSTIPATION; Start at 17:30 Polyethylene Glycol 17 gm 17 gm DAILY GTB Last administered on 01/12/17 08:04 ; Admin Dose 17 GM; Start 01/03/17 at 17:30 Daptomycin/Sodium Chloride (Cubicin/NS) 100 ml @ 200 mls/hr Q48H IVPB Last administered on 01/12/17 18:29; Admin Dose 200 MLS/HR; Start 01/08/17 at 16:00 Levofloxacin (Levaquin) 250 mg Q2D@06 PO Last administered on 01/12/17 06:54; Admin Dose 250 MG; Start 01/08/17 at 15:00 Nifedipine (Procardia Xl) 60 mg QHS PO Last administered on 01/11/17 21:06; Admin Dose 60 MG; Start 01/11/17 at 21:00 Miscellaneous Information 1 ea NOTE XX ; Start 01/11/17 at 09:30 Glucose (Glutose) 15 gm Q15M PRN PO DECREASED GLUCOSE; Start 01/11/17 at 09:30 Glucose (Glutose) 22.5 gm Q15M PRN PO DECREASED GLUCOSE; Start 01/11/17 at 09: 30 Dextrose (D50w Syringe) 25 ml Q15M PRN IV DECREASED GLUCOSE; Start 01/11/17 at 09:30 Dextrose (D50w Syringe) 50 ml Q15M PRN IV DECREASED GLUCOSE; Start 01/11/17 at 09:30 Glucagon (Glucagen) 1 mg Q15M PRN IM DECREASED GLUCOSE; Start 01/11/17 at 09:30 Glucose (Glutose) 15 gm Q15M PRN BUCCAL DECREASED GLUCOSE; Start 01/11/17 at 09 :30 Aspirin (Aspirin) 81 mg DAILY PO Last administered on 01/12/17 08:03; Admin Dose 81 MG; Start 01/11/17 at 15:00 Clopidogrel Bisulfate (plaVIX) 75 mg DAILY PO Last administered on 01/12/17 08 :03; Admin Dose 75 MG; Start 01/11/17 at 15:00 JANENE LOVE NP Jan 12, 2017 19:14
[2017-01-12] MEDS: ATORVASTATIN 10 MG TAB PO SCH (21:15)
[2017-01-12] MEDS: NIFEdipine (XL) 60 MG TAB PO SCH (21:16)
[2017-01-12] MEDS: MONTELUKAST 10 MG TAB PO SCH (21:16)
[2017-01-12] MEDS: INSULIN GLARGINE [LANtus] 3 ML PEN SC SCH (21:24)
[2017-01-12] MEDS: ACETAMINOPHEN 325 MG TAB PO PRN (22:09)
[2017-01-12] MEDS: HYDROCODONE/APAP (5/325) TAB PO PRN (22:10)
[2017-01-13] MEDS: ACCU-CHEK XX SCH (02:00)
[2017-01-13 02:40] VITALS: BP 145/64; RESP 18
[2017-01-13 07:48] VITALS: BP 134/71; RESP 16
[2017-01-13] MEDS: PANTOPRAZOLE (EC) 40 MG TAB PO SCH (07:55)
[2017-01-13] MEDS: INSULIN ASPART [NOVOLOG] 3 ML PEN SC SCH ×7 (07:57→20:27)
[2017-01-13] MEDS: POLYETHYLENE GLYCOL 17 GM PACKET GTB SCH (08:36)
[2017-01-13] MEDS: FERROUS SULFATE (EC) 325 MG TAB PO SCH ×2 (08:36→20:23)
[2017-01-13] MEDS: CLOPIDOGREL 75 MG TAB PO SCH (08:36)
[2017-01-13] MEDS: CALCIUM CARBONATE 500 MG CHEW TAB PO SCH ×2 (08:36→20:23)
[2017-01-13] MEDS: ASPIRIN 81 MG TAB PO SCH (08:36)
--- NOTE | 2017-01-13 08:37 | PN ---
Date/Time of Note Date/Time of Note DATE: 01/13/17 TIME: 08:34 Assessment/Plan Lines/Catheters IV Catheter Type (from Nrsg): Saline Lock [place] in Place (from Nrsg): Yes Assessment/Plan Assessment/Plan Doing well s/p R fem-DP bypass - foot well perfused and graft with good pulse PT / ambulate - OK to weight bear Discharge planning - likely to SNF can f/u with me in the [facility] next week Would wait a few weeks before debriding the toe as the area of necrosis appears to be [place] and may not require toe amputation Subjective 24 Hr Interval Summary No pain. Eating well. Exam/Review of Systems Vital Signs Vitals Vital Signs Date Time Temp Pulse Resp B/P Pulse Ox O2 Delivery O2 Flow Rate FiO2 01/13/17 07:48 98.4 85 16 134/71 98 01/12/17 08:00 Room Air 01/11/17 17:15 2.0 Intake and Output 01/12/17 01/12/17 01/13/17 15:00 23:00 07:00 Intake Total 300 ml 820 ml 240 ml Output Total 30 ml 275 ml 300 ml Balance 270 ml 545 ml -60 ml Exam Free Text/Dictation R leg dressings clean and dry, 2+ graft pulse in the thigh and the distal calf R foot warm and pink, 1st toe demarcated well, no erythema or drainage Results Result Diagram: 01/11/17 0526 01/12/17 0526 NOÉ REGALADO MD Jan 13, 2017 08:37
[2017-01-13] MEDS: METOPROLOL 100 MG TAB PO SCH ×2 (08:38→20:24)
--- NOTE | 2017-01-13 10:21 | CONS ---
Date/Time of Note Date/Time of Note DATE: 01/13/17 TIME: 10:19 Assessment/Plan Assessment/Plan Additional Assessment/Plan 1. Preoperative evaluation prior to lower extremity triple-NL EF by echo and no sig valve abnl/Lexiscan with probable soft tissue attenutaion in anterior wall and nl ef and no wall motion abnl. Now post-op s/p LE peripheral bypass surgery - doing well, vascular team follows. 2. Hypertension- well Rx, Rx as needed. 3. Dyslipidemia. 4. Peripheral arterial disease with gangrenous change in the lower extremities - now s/p vascular Rx. 5. Status post left lower extremity transmetatarsal amputation. 6. Renal failure- avoid nephrotoxic meds. 7. Diabetes mellitus- on meds, keep euglycemic. 8. Anemia Consultation Date/Type/Reason Admit Date/Time Jan 01, 2017 at 18:03 Initial Consult Date 01/02/17 Type of Consultation: ID Referring Provider: CORY EDGE 24 HR Interval Summary Free Text/Dictation -op s/p LE peripheral bypass surgery - doing well, vascular team follows. NO Cp - no palpitations ROS: No fever, no chills, no nausea, no vomiting, no diarrhea/constipation No recent weight changes No chest pain, no PND, no orthopnea No dizziness, blurred vision No thirst, no heat or cold intolerance Exam/Review of Systems Vital Signs Vitals Vital Signs Date Time Temp Pulse Resp B/P Pulse Ox O2 Delivery O2 Flow Rate FiO2 01/13/17 07:48 98.4 85 16 134/71 98 01/12/17 08:00 Room Air 01/11/17 17:15 2.0 Intake and Output 01/12/17 01/12/17 01/13/17 15:00 23:00 07:00 Intake Total 300 ml 820 ml 240 ml Output Total 30 ml 275 ml 300 ml Balance 270 ml 545 ml -60 ml Exam General: WN/WD/NAD, AOx 1-2 HEENT: Unicetric/atraumatic/EOMI (follow commands) NECK: JVD elevated, no thyromegaly Lymph: no lymphadenopathy HEART: regular with no S3, II/ systolic murmur at apex LUNGS: Coarse sounds ABD: soft, NT, ND, +BS : Intact Neuro: non focal SKIN: chronic changes EXT: post op Results Result Diagram: 01/11/17 0526 01/12/17 05 Results 24 hrs Laboratory Tests Test 01/12/17 12:05 01/12/17 17:22 01/12/17 21:18 01/13/17 05:50 Bedside Glucose 142 137 171 Creatine Kinase 67 Test 01/13/17 07:57 Bedside Glucose 135 Medications Medications Current Medications Ferrous Sulfate (Ferrous Sulfate (Ec)) 325 mg BID PO Last administered on 08:36; Admin Dose 325 MG; Start 01/01/17 at 21:00 Furosemide (Lasix) 40 mg DAILY@06 PO Last administered on 01/02/17 05:29; Admin Dose 40 MG; Start 01/02/17 at 06:00; Status Future Hold Metoprolol Tartrate (Lopressor) 100 mg BID PO Last administered on 01/13/17 08 :38; Admin Dose 100 MG; Start 01/01/17 at 21:00 Montelukast Sodium (Singulair) 10 mg QHS PO Last administered on 01/12/17 21: 16; Admin Dose 10 MG; Start 01/01/17 at 21:00 Tramadol HCl (Ultram) 50 mg DAILY PRN PO PAIN Last administered on 01/12/17 19 :55; Admin Dose 50 MG; Start 01/01/17 at 21:00 Diagnostic Test (Pha) (Accu-Chek) 1 ea 02 XX ; Start 01/02/17 at 02:00 Zolpidem Tartrate (Ambien) 5 mg HS PRN PO INSOMNIA Last administered on 23:07; Admin Dose 5 MG; Start 01/01/17 at 22:00 Insulin Glargine (Lantus) 24 unit HS SC Last administered on 01/12/17 21:24; Admin Dose 24 UNIT; Start 01/02/17 at 21:00 Atorvastatin Calcium (Lipitor) 10 mg DAILY@21 PO Last administered on 21:15; Admin Dose 10 MG; Start 01/02/17 at 21:00 Calcium Carbonate (Tums) 500 mg BID PO Last administered on 01/13/17 08:36; Admin Dose 500 MG; Start 01/02/17 at 21:00 Magnesium Hydroxide (Milk Of Mag) 30 ml DAILY PRN PO CONSTIPATION; Start at 17:30 Polyethylene Glycol 17 gm 17 gm DAILY GTB Last administered on 01/13/17 08:36 ; Admin Dose 17 GM; Start 01/03/17 at 17:30 Daptomycin/Sodium Chloride (Cubicin/NS) 100 ml @ 200 mls/hr Q48H IVPB Last administered on 01/12/17 18:29; Admin Dose 200 MLS/HR; Start 01/08/17 at 16:00 Levofloxacin (Levaquin) 250 mg Q2D@06 PO Last administered on 01/12/17 06:54; Admin Dose 250 MG; Start 01/08/17 at 15:00 Nifedipine (Procardia Xl) 60 mg QHS PO Last administered on 01/12/17 21:16; Admin Dose 60 MG; Start 01/11/17 at 21:00 Miscellaneous Information 1 ea NOTE XX ; Start 01/11/17 at 09:30 Glucose (Glutose) 15 gm Q15M PRN PO DECREASED GLUCOSE; Start 01/11/17 at 09:30 Glucose (Glutose) 22.5 gm Q15M PRN PO DECREASED GLUCOSE; Start 01/11/17 at 09: 30 Dextrose (D50w Syringe) 25 ml Q15M PRN IV DECREASED GLUCOSE; Start 01/11/17 at 09:30 Dextrose (D50w Syringe) 50 ml Q15M PRN IV DECREASED GLUCOSE; Start 01/11/17 at 09:30 Glucagon (Glucagen) 1 mg Q15M PRN IM DECREASED GLUCOSE; Start 01/11/17 at 09:30 Glucose (Glutose) 15 gm Q15M PRN BUCCAL DECREASED GLUCOSE; Start 01/11/17 at 09 :30 Aspirin (Aspirin) 81 mg DAILY PO Last administered on 01/13/17 08:36; Admin Dose 81 MG; Start 01/11/17 at 15:00 Clopidogrel Bisulfate (plaVIX) 75 mg DAILY PO Last administered on 01/13/17 08 :36; Admin Dose 75 MG; Start 01/11/17 at 15:00 Acetaminophen/ Hydrocodone Bitart ([place] (5/325)) 1 tab Q6H PRN PO SEVERE PAIN LEVEL 7-10 Last administered on 01/12/17 22:10; Admin Dose 1 TAB; Start at 22:00 Acetaminophen (Tylenol Tab) 650 mg Q6H PRN PO PAIN AND OR ELEVATED TEMP Last administered on 01/12/17t 22:09; Admin Dose 650 MG; Start 01/12/17 at 22:00 FRANCISCO ZARCO MD Jan 13, 2017 10:21
[2017-01-13] MEDS: HYDROCODONE/APAP (5/325) TAB PO PRN ×2 (11:29→22:36)
--- NOTE | 2017-01-13 12:34 | CONS ---
Date/Time of Note Date/Time of Note DATE: 01/13/17 TIME: 12:22 Assessment/Plan Assessment/Plan Chief Complaint/Hosp Course ID PROGRESS NOTE POD #01/11/17 => S/P RIGHT FEMORAL TO DORSALIS PEDIS BYPASS 24H INTERVAL SUMMARY CURRENT ABX: Daptomycin #6 + Levaquin #6 * Pleasant, obese F doing well post op day #2, no fevers, VSS, coping well with pain issues * Microbiology: Blood cultures remain negative * LABS: 01/11/17 0526 01/12/17 0526 Exam Constitutional: VSS, no fevers Psych: nl mood/affect, no complaints Head: atraumatic, normocephalic Eyes: EOMI, nl conjunctiva, anicteric ENMT: Unremarkable Neck: non-tender, supple Respiratory: Normal air movement, No intercostal retraction, No labored breathing Cardiovascular: RRR Gastrointestinal: non-tender, soft, Extremities: Gangrenous changes to R-foot R-foot Great toe 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 R-Great Toe periostitis w/osteomyelitis per X-ray * 01/01/17 R-foot X-ray: Focal demineralization and subtle plantar periosteal reaction involving the distal phalanx for the great toe of the right foot cannot exclude periostitis with associated osteomyelitis. PAD ->s/p angioplasty followed by POD 01/11/17 = > s/p RLEXT Fem->DP bypass 2. Diabetes mellitus w/peripheral neuropathy 3. Acute on chronic kidney disease-> STG IV 4. Hypertension (-) MRSA Nares ABX ALLERGIES: PCN/Zosyn CURRENT ABX: Daptomycin + Levaquin => DAY #6 ID RECOMMENDATIONS 1. Continue current ABX -> Avoid nephrotoxic ABX 2. FYI: Statin meds contraindicated while on Daptomycin unless low dose only w/ close monitoring of CPK * Baseline CK 67 (01/13/17); ESR 104 (01/03/17) 3. 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 . Problems: Consultation Date/Type/Reason Admit Date/Time Jan 01, 2017 at 18:03 Initial Consult Date 01/02/17 Type of Consultation: ID Referring Provider: CORY EDGE Exam/Review of Systems Vital Signs Vitals Vital Signs Date Time Temp Pulse Resp B/P Pulse Ox O2 Delivery O2 Flow Rate FiO2 01/13/17 07:48 98.4 85 16 134/71 98 01/12/17 08:00 Room Air 01/11/17 17:15 2.0 Intake and Output 01/12/17 01/12/17 01/13/17 15:00 23:00 07:00 Intake Total 300 ml 820 ml 240 ml Output Total 30 ml 275 ml 300 ml Balance 270 ml 545 ml -60 ml Results Result Diagram: 01/11/1726 01/12/17525 Results 24 hrs Laboratory Tests Test 01/12/17 17:22 01/12/17 21:18 01/13/17 05:50 01/13/17 07:57 Bedside Glucose 137 171 135 Creatine Kinase 67 Test 01/13/17 12:08 Bedside Glucose 192 Medications Medications Current Medications Ferrous Sulfate (Ferrous Sulfate (Ec)) 325 mg BID PO Last administered on 08:36; Admin Dose 325 MG; Start 01/01/17 at 21:00 Furosemide (Lasix) 40 mg DAILY@06 PO Last administered on 01/02/17 05:29; Admin Dose 40 MG; Start 01/02/17 at 06:00; Status Future Hold Metoprolol Tartrate (Lopressor) 100 mg BID PO Last administered on 01/13/17 08 :38; Admin Dose 100 MG; Start 01/01/17 at 21:00 Montelukast Sodium (Singulair) 10 mg QHS PO Last administered on 01/12/17 21: 16; Admin Dose 10 MG; Start 01/01/17 at 21:00 Tramadol HCl (Ultram) 50 mg DAILY PRN PO PAIN Last administered on 01/12/17 19 :55; Admin Dose 50 MG; Start 01/01/17 at 21:00 Diagnostic Test (Pha) (Accu-Chek) 1 ea 02 XX ; Start 01/02/17 at 02:00 Zolpidem Tartrate (Ambien) 5 mg HS PRN PO INSOMNIA Last administered on 23:07; Admin Dose 5 MG; Start 01/01/17 at 22:00 Insulin Glargine (Lantus) 24 unit HS SC Last administered on 01/12/17 21:24; Admin Dose 24 UNIT; Start 01/02/17 at 21:00 Atorvastatin Calcium (Lipitor) 10 mg DAILY@21 PO Last administered on 21:15; Admin Dose 10 MG; Start 01/02/17 at 21:00 Calcium Carbonate (Tums) 500 mg BID PO Last administered on 01/13/17 08:36; Admin Dose 500 MG; Start 01/02/17 at 21:00 Magnesium Hydroxide (Milk Of Mag) 30 ml DAILY PRN PO CONSTIPATION; Start at 17:30 Polyethylene Glycol 17 gm 17 gm DAILY GTB Last administered on 01/13/17 08:36 ; Admin Dose 17 GM; Start 01/03/17 at 17:30 Daptomycin/Sodium Chloride (Cubicin/NS) 100 ml @ 200 mls/hr Q48H IVPB Last administered on 01/12/17 18:29; Admin Dose 200 MLS/HR; Start 01/08/17 at 16:00 Levofloxacin (Levaquin) 250 mg Q2D@06 PO Last administered on 01/12/17 06:54; Admin Dose 250 MG; Start 01/08/17 at 15:00 Nifedipine (Procardia Xl) 60 mg QHS PO Last administered on 01/12/17 21:16; Admin Dose 60 MG; Start 01/11/17 at 21:00 Miscellaneous Information 1 ea NOTE XX ; Start 01/11/17 at 09:30 Glucose (Glutose) 15 gm Q15M PRN PO DECREASED GLUCOSE; Start 01/11/17 at 09:30 Glucose (Glutose) 22.5 gm Q15M PRN PO DECREASED GLUCOSE; Start 01/11/17 at 09: 30 Dextrose (D50w Syringe) 25 ml Q15M PRN IV DECREASED GLUCOSE; Start 01/11/17 at 09:30 Dextrose (D50w Syringe) 50 ml Q15M PRN IV DECREASED GLUCOSE; Start 01/11/17 at 09:30 Glucagon (Glucagen) 1 mg Q15M PRN IM DECREASED GLUCOSE; Start 01/11/17 at 09:30 Glucose (Glutose) 15 gm Q15M PRN BUCCAL DECREASED GLUCOSE; Start 01/11/17 at 09 :30 Aspirin (Aspirin) 81 mg DAILY PO Last administered on 01/13/17 08:36; Admin Dose 81 MG; Start 01/11/17 at 15:00 Clopidogrel Bisulfate (plaVIX) 75 mg DAILY PO Last administered on 01/13/17 08 :36; Admin Dose 75 MG; Start 01/11/17 at 15:00 Acetaminophen/ Hydrocodone Bitart ([place] (5/325)) 1 tab Q6H PRN PO SEVERE PAIN LEVEL 7-10 Last administered on 01/13/17 11:29; Admin Dose 1 TAB; Start at 22:00 Acetaminophen (Tylenol Tab) 650 mg Q6H PRN PO PAIN AND OR ELEVATED TEMP Last administered on 01/12/17 22:09; Admin Dose 650 MG; Start 01/12/17 at 22:00 JANENE LOVE NP Jan 13, 2017 12:32
--- NOTE | 2017-01-13 13:12 | PN ---
Date/Time of Note Date/Time of Note DATE: 01/13/17 TIME: 13:07 Assessment/Plan VTE Prophylaxis VTE Prophylaxis Intervention: SCD's Lines/Catheters IV Catheter Type (from Nrsg): Saline Lock Urinary Cath still in place: No Assessment/Plan Assessment/Plan 61 yo F with PVD admitted for R foot gangrene cv OM now sp RLE bypass 7. 1. Peripheral vascular disease, sp RLE bypass 7. -post op care as per vascular 2. Right foot gangrene -on dapto/levoflox as per ID -will need 6w of therapy given OM-->PICC line ordered 3. Diabetes mellitus, cont lantus and SSI : a1c 8.9 -BG control here fair pre breakfast gluc 80. all BGs<200 4. CKD 4 2/2 htn: cont home BP meds with addition of higher procardia dose 5. Microcytic anemia, stable, follow up with PCP FOBT negative. Suspect 2/2 CKD? 6 dispo: left message with [facility] at pt's HMO to f/u HH v SNF Subjective 24 Hr Interval Summary Free Text/Dictation Still with some RLE pain Exam/Review of Systems Vital Signs Vitals Vital Signs Date Time Temp Pulse Resp B/P Pulse Ox O2 Delivery O2 Flow Rate FiO2 01/13/17 07:48 98.4 85 16 134/71 98 01/12/17 08:00 Room Air 01/11/17 17:15 2.0 Intake and Output 01/12/17 01/12/17 01/13/17 15:00 23:00 07:00 Intake Total 300 ml 820 ml 240 ml Output Total 30 ml 275 ml 300 ml Balance 270 ml 545 ml -60 ml Exam nad, sitting up in bed no mrg lungs clear surgical dressing noted along medial aspect of R leg suprapubic catheter in place Results Result Diagram: 01/11/17 0526 01/12/17 0526 Results 24 hrs Laboratory Tests Test 01/12/17 17:22 01/12/17 21:18 01/13/17 05:50 01/13/17 07:57 Bedside Glucose 137 171 135 Creatine Kinase 67 Test 01/13/17 12:08 Bedside Glucose 192 Medications Medications Current Medications Ferrous Sulfate (Ferrous Sulfate (Ec)) 325 mg BID PO Last administered on t 08:36; Admin Dose 325 MG; Start 01/01/17 at 21:00 Furosemide (Lasix) 40 mg DAILY@06 PO Last administered on 01/02/17 05:29; Admin Dose 40 MG; Start 01/02/17 at 06:00; Status Future Hold Metoprolol Tartrate (Lopressor) 100 mg BID PO Last administered on 01/13/17 08 :38; Admin Dose 100 MG; Start 01/01/17 at 21:00 Montelukast Sodium (Singulair) 10 mg QHS PO Last administered on 01/12/17 21: 16; Admin Dose 10 MG; Start 01/01/17 at 21:00 Tramadol HCl (Ultram) 50 mg DAILY PRN PO PAIN Last administered on 01/12/17 19 :55; Admin Dose 50 MG; Start 01/01/17 at 21:00 Diagnostic Test (Pha) (Accu-Chek) 1 ea 02 XX ; Start 01/02/17 at 02:00 Zolpidem Tartrate (Ambien) 5 mg HS PRN PO INSOMNIA Last administered on 23:07; Admin Dose 5 MG; Start 01/01/17 at 22:00 Insulin Glargine (Lantus) 24 unit HS SC Last administered on 01/12/17 21:24; Admin Dose 24 UNIT; Start 01/02/17 at 21:00 Atorvastatin Calcium (Lipitor) 10 mg DAILY@21 PO Last administered on 21:15; Admin Dose 10 MG; Start 01/02/17 at 21:00 Calcium Carbonate (Tums) 500 mg BID PO Last administered on 01/13/17 08:36; Admin Dose 500 MG; Start 01/02/17 at 21:00 Magnesium Hydroxide (Milk Of Mag) 30 ml DAILY PRN PO CONSTIPATION; Start at 17:30 Polyethylene Glycol 17 gm 17 gm DAILY GTB Last administered on 01/13/17 08:36 ; Admin Dose 17 GM; Start 01/03/17 at 17:30 Daptomycin/Sodium Chloride (Cubicin/NS) 100 ml @ 200 mls/hr Q48H IVPB Last administered on 01/12/17 18:29; Admin Dose 200 MLS/HR; Start 01/08/17 at 16:00 Levofloxacin (Levaquin) 250 mg Q2D@06 PO Last administered on 01/12/17 06:54; Admin Dose 250 MG; Start 01/08/17 at 15:00 Nifedipine (Procardia Xl) 60 mg QHS PO Last administered on 01/12/17 21:16; Admin Dose 60 MG; Start 01/11/17 at 21:00 Miscellaneous Information 1 ea NOTE XX ; Start 01/11/17 at 09:30 Glucose (Glutose) 15 gm Q15M PRN PO DECREASED GLUCOSE; Start 01/11/17 at 09:30 Glucose (Glutose) 22.5 gm Q15M PRN PO DECREASED GLUCOSE; Start 01/11/17 at 09: 30 Dextrose (D50w Syringe) 25 ml Q15M PRN IV DECREASED GLUCOSE; Start 01/11/17 at 09:30 Dextrose (D50w Syringe) 50 ml Q15M PRN IV DECREASED GLUCOSE; Start 01/11/17 at 09:30 Glucagon (Glucagen) 1 mg Q15M PRN IM DECREASED GLUCOSE; Start 01/11/17 at 09:30 Glucose (Glutose) 15 gm Q15M PRN BUCCAL DECREASED GLUCOSE; Start 01/11/17 at 09 :30 Aspirin (Aspirin) 81 mg DAILY PO Last administered on 01/13/17 08:36; Admin Dose 81 MG; Start 01/11/17 at 15:00 Clopidogrel Bisulfate (plaVIX) 75 mg DAILY PO Last administered on 01/13/17 08 :36; Admin Dose 75 MG; Start 01/11/17 at 15:00 Acetaminophen/ Hydrocodone Bitart ([place] (5/325)) 1 tab Q6H PRN PO SEVERE PAIN LEVEL 7-10 Last administered on 01/13/17 11:29; Admin Dose 1 TAB; Start at 22:00 Acetaminophen (Tylenol Tab) 650 mg Q6H PRN PO PAIN AND OR ELEVATED TEMP Last administered on 01/12/17 22:09; Admin Dose 650 MG; Start 01/12/17 at 22:00 ELLIOT MEADOWS MD Jan 13, 2017 13:12
[2017-01-13] MEDS ORDERED: LIDOCAINE 1% (MPF) 5 ML VIAL SC ONE (13:30)
[2017-01-13 14:00] VITALS: BP 110/55; RESP 18
--- NOTE | 2017-01-13 18:50 | PN ---
Date/Time of Note Date/Time of Note DATE: 01/13/17 TIME: 18:45 Assessment/Plan Lines/Catheters IV Catheter Type (from Nrs): Saline Lock [place] in Place (from Nrs): No Assessment/Plan Chief Complaint/Hosp Course Thank you very much for involving me in the care of this patient. As you know this is a 61-year-old female patient with multiple medical problems including diabetes mellitus, hypertension, kidney failure, status post previous transmetatarsal amputation of the left foot. Patient has been admitted to the hospital secondary to gangrene of the right big toe. She says that big toe on the right foot has become darker and more dry. She reports pain in the foot. Denies fever, chills, nausea or vomiting. Problems: (1) Gangrene of toe (2) Peripheral vascular disease due to secondary diabetes mellitus Status: Chronic (3) Diabetic ulcer of foot associated with type 2 diabetes mellitus, with necrosis of muscle Status: Acute (4) Acquired absence of left foot (5) Renal failure Status: Chronic Assessment/Plan Patient has had recent lower extremity bypass surgery. Lower extremity perfusion is increased in the right foot evidenced by clinical improvement of her right second toe and demarcation of the right hallux. 80% hallux continues to be gangrenous and nonviable. My recommendation is primary amputation of the right hallux. I will discuss with Dr. Ravinder Camilo regarding timing for surgery. A bed cradle is ordered. Subjective 24 Hr Interval Summary Patient was seen at bedside. Patient is in no acute distress. Patient reports she had lower extremity bypass surgery done on the both Dr. Ravinder Camilo. Patient denies fever, chills, nausea or vomiting. Patient denies pain. Patient denies recent trauma. Patient reports bandages are being changed as directed. Patient does not report any new problems. Constitutional: no complaints Pain Control: well controlled Exam/Review of Systems Vital Signs Vitals Vital Signs Date Time Temp Pulse Resp B/P Pulse Ox O2 Delivery O2 Flow Rate FiO2 01/13/17 14:00 98.8 70 18 110/55 92 01/12/17 08:00 Room Air 01/11/17 17:15 2.0 Intake and Output 01/12/17 01/12/17 01/13/17 15:00 23:00 07:00 Intake Total 300 ml 820 ml 240 ml Output Total 30 ml 275 ml 300 ml Balance 270 ml 545 ml -60 ml Exam Free Text/Dictation Laying supine in bed in no acute distress. Right hallux involving 80% of the big toe. Well demarcated with no sign of infection. Second toe has improved with decreased edema positive wrinkling sign. There is nontender to palpation. No active bleeding no pus noted on the right fifth toe and right foot. gangrene noted bandages are present in the right lower extremity. Palpable dorsalis pedis and posterior tibial pulse noted. Results Result Diagram: 01/11/17 0526 01/12/17 0526 MICHEAL HU DPM Jan 13, 2017 18:50
[2017-01-13 19:36] VITALS: BP 124/58; RESP 18
[2017-01-13] MEDS: ATORVASTATIN 10 MG TAB PO SCH (20:23)
[2017-01-13] MEDS: NIFEdipine (XL) 60 MG TAB PO SCH (20:23)
[2017-01-13] MEDS: MONTELUKAST 10 MG TAB PO SCH (20:23)
[2017-01-13] MEDS: INSULIN GLARGINE [LANtus] 3 ML PEN SC SCH (20:26)
[2017-01-14] MEDS: ACCU-CHEK XX SCH (01:18)
[2017-01-14 02:00] VITALS: BP 127/62; RESP 18
[2017-01-14] MEDS: LEVOFLOXACIN 250 MG TAB PO SCH (06:43)
[2017-01-14] MEDS: PANTOPRAZOLE (EC) 40 MG TAB PO SCH (07:54)
[2017-01-14 08:06] VITALS: BP 133/63; RESP 18
[2017-01-14] MEDS: INSULIN ASPART [NOVOLOG] 3 ML PEN SC SCH ×7 (08:10→20:23)
[2017-01-14] MEDS: FERROUS SULFATE (EC) 325 MG TAB PO SCH ×2 (08:12→20:24)
[2017-01-14] MEDS: CALCIUM CARBONATE 500 MG CHEW TAB PO SCH ×2 (08:13→20:25)
[2017-01-14] MEDS: ASPIRIN 81 MG TAB PO SCH (08:13)
[2017-01-14] MEDS: CLOPIDOGREL 75 MG TAB PO SCH (08:14)
[2017-01-14] MEDS: METOPROLOL 100 MG TAB PO SCH ×2 (08:14→20:27)
[2017-01-14] MEDS: POLYETHYLENE GLYCOL 17 GM PACKET GTB SCH (08:15)
[2017-01-14] MEDS: HYDROCODONE/APAP (5/325) TAB PO PRN ×2 (08:18→22:46)
--- NOTE | 2017-01-14 13:13 | CONS ---
Date/Time of Note Date/Time of Note DATE: 01/14/17 TIME: 13:02 Assessment/Plan Assessment/Plan Chief Complaint/Hosp Course Assessment/Plan Chief Complaint/Hosp Course ID PROGRESS NOTE POD #01/11/17 => S/P RIGHT FEMORAL TO DORSALIS PEDIS BYPASS 24H INTERVAL SUMMARY CURRENT ABX: Daptomycin #6 + Levaquin #6 1. Alert. Awake. Denies Pain. 2. Microbiology: Blood cultures remain negative 3. LABS: 01/11/17 0526 01/12/17 0526 Exam Constitutional: VSS, no fevers Psych: nl mood/affect, no complaints Head: atraumatic, normocephalic Eyes: EOMI, nl conjunctiva, anicteric ENMT: Unremarkable Neck: non-tender, supple Respiratory: Normal air movement, No intercostal retraction, No labored breathing Cardiovascular: RRR Gastrointestinal: non-tender, soft, Extremities: Gangrenous changes to R-foot R-foot Great toe Neurological: MOLD BLOWER II-XII intact, periph neuropathy Skin: No rash, no diaphoresis ID ASSESSMENT 1. 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 R-Great Toe periostitis w/osteomyelitis per X-ray * 01/01/17 R-foot X-ray: Focal demineralization and subtle plantar periosteal reaction involving the distal phalanx for the great toe of the right foot cannot exclude periostitis with associated osteomyelitis. PAD ->s/p angioplasty followed by POD 01/11/17 = > s/p RLEXT Fem->DP bypass 2. Diabetes mellitus w/peripheral neuropathy 3. Acute on chronic kidney disease-> STG IV 4. Hypertension (-) MRSA Nares ABX ALLERGIES: PCN/Zosyn CURRENT ABX: Daptomycin + Levaquin => DAY #6 ID RECOMMENDATIONS 1. Continue current ABX. Avoid nephrotoxic ABX. Pain Management. Monitor Labs. 2. FYI: Statin meds contraindicated while on Daptomycin unless low dose only w/ close monitoring of CPK. * Baseline CK 67 (01/13/17); ESR 104 (01/03/17) 3. When cleared for DC; patient may DC on current ABX for a total of 6 weeks for Dx: Right foot gangrene = diabetic, ischemic foot w/R-Great Toe osteomyelitis. Problems: Consultation Date/Type/Reason Admit Date/Time Jan 01, 2017 at 18:03 Initial Consult Date 01/02/17 Type of Consultation: ID Referring Provider: CORY EDGE Exam/Review of Systems Vital Signs Vitals Vital Signs Date Time Temp Pulse Resp B/P Pulse Ox O2 Delivery O2 Flow Rate FiO2 01/14/17 08:06 98.7 84 18 133/63 95 01/12/17 08:00 Room Air 01/11/17 17:15 2.0 Intake and Output 01/13/17 01/13/17 01/14/17 15:00 23:00 07:00 Intake Total 1420 ml 1000 ml Output Total 1800 ml Balance 1420 ml -800 ml Results Result Diagram: 01/11/17 0526 01/12/17 0526 Results 24 hrs Laboratory Tests Test 01/13/17 17:11 01/13/17 20:21 01/14/17 07:53 01/14/17 12:09 Bedside Glucose 165 177 145 129 Medications Medications Current Medications Ferrous Sulfate (Ferrous Sulfate (Ec)) 325 mg BID PO Last administered on 08:12; Admin Dose 325 MG; Start 01/01/17 at 21:00 Furosemide (Lasix) 40 mg DAILY@06 PO Last administered on 01/02/17 05:29; Admin Dose 40 MG; Start 01/02/17 at 06:00; Status Future Hold Metoprolol Tartrate (Lopressor) 100 mg BID PO Last administered on 01/14/17 08 :14; Admin Dose 100 MG; Start 01/01/17 at 21:00 Montelukast Sodium (Singulair) 10 mg QHS PO Last administered on 01/13/17 20: 23; Admin Dose 10 MG; Start 01/01/17 at 21:00 Tramadol HCl (Ultram) 50 mg DAILY PRN PO PAIN Last administered on 01/12/17 19 :55; Admin Dose 50 MG; Start 01/01/17 at 21:00 Diagnostic Test (Pha) (Accu-Chek) 1 ea 02 XX ; Start 01/02/17 at 02:00 Zolpidem Tartrate (Ambien) 5 mg HS PRN PO INSOMNIA Last administered on 23:07; Admin Dose 5 MG; Start 01/01/17 at 22:00 Insulin Glargine (Lantus) 24 unit HS SC Last administered on 01/13/17 20:26; Admin Dose 24 UNIT; Start 01/02/17 at 21:00 Atorvastatin Calcium (Lipitor) 10 mg DAILY@21 PO Last administered on 20:23; Admin Dose 10 MG; Start 01/02/17 at 21:00 Calcium Carbonate (Tums) 500 mg BID PO Last administered on 01/14/17 08:13; Admin Dose 500 MG; Start 01/02/17 at 21:00 Magnesium Hydroxide (Milk Of Mag) 30 ml DAILY PRN PO CONSTIPATION; Start at 17:30 Polyethylene Glycol 17 gm 17 gm DAILY GTB Last administered on 01/14/17 08:15 ; Admin Dose 17 GM; Start 01/03/17 at 17:30 Daptomycin/Sodium Chloride (Cubicin/NS) 100 ml @ 200 mls/hr Q48H IVPB Last administered on 01/12/17 18:29; Admin Dose 200 MLS/HR; Start 01/08/17 at 16:00 Levofloxacin (Levaquin) 250 mg Q2D@06 PO Last administered on 01/14/17 06:43; Admin Dose 250 MG; Start 01/08/17 at 15:00 Nifedipine (Procardia Xl) 60 mg QHS PO Last administered on 01/13/17 20:23; Admin Dose 60 MG; Start 01/11/17 at 21:00 Miscellaneous Information 1 ea NOTE XX ; Start 01/11/17 at 09:30 Glucose (Glutose) 15 gm Q15M PRN PO DECREASED GLUCOSE; Start 01/11/17 at 09:30 Glucose (Glutose) 22.5 gm Q15M PRN PO DECREASED GLUCOSE; Start 01/11/17 at 09: 30 Dextrose (D50w Syringe) 25 ml Q15M PRN IV DECREASED GLUCOSE; Start 01/11/17 at 09:30 Dextrose (D50w Syringe) 50 ml Q15M PRN IV DECREASED GLUCOSE; Start 01/11/17 at 09:30 Glucagon (Glucagen) 1 mg Q15M PRN IM DECREASED GLUCOSE; Start 01/11/17 at 09:30 Glucose (Glutose) 15 gm Q15M PRN BUCCAL DECREASED GLUCOSE; Start 01/11/17 at 09 :30 Aspirin (Aspirin) 81 mg DAILY PO Last administered on 01/14/17 08:13; Admin Dose 81 MG; Start 01/11/17 at 15:00 Clopidogrel Bisulfate (plaVIX) 75 mg DAILY PO Last administered on 01/14/17 08 :14; Admin Dose 75 MG; Start 01/11/17 at 15:00 Acetaminophen/ Hydrocodone Bitart ([place] (5/325)) 1 tab Q6H PRN PO SEVERE PAIN LEVEL 7-10 Last administered on 01/14/17 08:18; Admin Dose 1 TAB; Start at 22:00 Acetaminophen (Tylenol Tab) 650 mg Q6H PRN PO PAIN AND OR ELEVATED TEMP Last administered on 01/12/17 22:09; Admin Dose 650 MG; Start 01/12/17 at 22:00 SAI MAY NP Jan 14, 2017 13:13
[2017-01-14 14:00] VITALS: BP 130/74; RESP 18
--- NOTE | 2017-01-14 15:07 | PN ---
Date/Time of Note Date/Time of Note DATE: 01/14/17 TIME: 15:06 Assessment/Plan VTE Prophylaxis VTE Prophylaxis Intervention: SCD's Lines/Catheters IV Catheter Type (from Nrsg): Saline Lock Urinary Cath still in place: No Assessment/Plan Assessment/Plan 61 yo F with PVD admitted for R foot gangrene cv OM now sp RLE bypass 7.. Per podiatry note from 7., concern for progressive toe gangrene despite bypass. Podiatry planning on coordinating toe amputation with vascular surgery 1. Right foot gangrene -likely back to OR this week for toe amputation -on dapto/levoflox per ID -will need 6w of therapy given OM-->HOWEVER if pt gets her toe amputated, and all osteomyelitic bone is removed, this will not be necessary -defer PICC placement pending surgical intervention also give CKD4, would be prudent to talk to pt's outpatient keypunch operator, Dr Abhijit Gann in [place], prior to PICC placement 2. Peripheral vascular disease, sp RLE bypass 7.27 -post op care as per vascular 3. Diabetes mellitus, cont lantus and SSI : a1c 8.9 -BG control here fair pre breakfast gluc 80. all BGs<200 4. CKD 4 2/2 htn: cont home BP meds with addition of higher procardia dose 5. Microcytic anemia, stable, follow up with PCP FOBT negative. Suspect 2/2 CKD? 6 dispo: left message with Abbey at pt's HMO to f/u HH v SNF Subjective 24 Hr Interval Summary Free Text/Dictation R foot pain still present. Pt amenable to PICC placement. Pt's keypunch operator is Dr Abhijit Mistry in [place] Exam/Review of Systems Vital Signs Vitals Vital Signs Date Time Temp Pulse Resp B/P Pulse Ox O2 Delivery O2 Flow Rate FiO2 01/14/17 08:06 98.7 84 18 133/63 95 01/12/17 08:00 Room Air 01/11/17 17:15 2.0 Intake and Output 01/13/17 01/13/17 01/14/17 15:00 23:00 07:00 Intake Total 1420 ml 1000 ml Output Total 1800 ml Balance 1420 ml -800 ml Exam nad, sitting up in bed no mrg lungs clear abd soft RLE surgical dressing intact. Big toe dark. Results Result Diagram: 01/11/17 0526 01/12/17 05 Results 24 hrs Laboratory Tests Test 01/13/17 17:11 01/13/17 20:21 01/14/17 07:53 01/14/17 12:09 Bedside Glucose 165 177 145 129 Medications Medications Current Medications Ferrous Sulfate (Ferrous Sulfate (Ec)) 325 mg BID PO Last administered on 08:12; Admin Dose 325 MG; Start 01/01/17 at 21:00 Furosemide (Lasix) 40 mg DAILY@06 PO Last administered on 01/02/17 05:29; Admin Dose 40 MG; Start 01/02/17 at 06:00; Status Future Hold Metoprolol Tartrate (Lopressor) 100 mg BID PO Last administered on 01/14/17 08 :14; Admin Dose 100 MG; Start 01/01/17 at 21:00 Montelukast Sodium (Singulair) 10 mg QHS PO Last administered on 01/13/17 20: 23; Admin Dose 10 MG; Start 01/01/17 at 21:00 Tramadol HCl (Ultram) 50 mg DAILY PRN PO PAIN Last administered on 01/12/17 19 :55; Admin Dose 50 MG; Start 01/01/17 at 21:00 Diagnostic Test (Pha) (Accu-Chek) 1 ea 02 XX ; Start 01/02/17 at 02:00 Zolpidem Tartrate (Ambien) 5 mg HS PRN PO INSOMNIA Last administered on 23:07; Admin Dose 5 MG; Start 01/01/17 at 22:00 Insulin Glargine (Lantus) 24 unit HS SC Last administered on 01/13/17 20:26; Admin Dose 24 UNIT; Start 01/02/17 at 21:00 Atorvastatin Calcium (Lipitor) 10 mg DAILY@21 PO Last administered on 20:23; Admin Dose 10 MG; Start 01/02/17 at 21:00 Calcium Carbonate (Tums) 500 mg BID PO Last administered on 01/14/17 08:13; Admin Dose 500 MG; Start 01/02/17 at 21:00 Magnesium Hydroxide (Milk Of Mag) 30 ml DAILY PRN PO CONSTIPATION; Start at 17:30 Polyethylene Glycol 17 gm 17 gm DAILY GTB Last administered on 01/14/17 08:15 ; Admin Dose 17 GM; Start 01/03/17 at 17:30 Daptomycin/Sodium Chloride (Cubicin/NS) 100 ml @ 200 mls/hr Q48H IVPB Last administered on 01/12/17 18:29; Admin Dose 200 MLS/HR; Start 01/08/17 at 16:00 Levofloxacin (Levaquin) 250 mg Q2D@06 PO Last administered on 01/14/17 06:43; Admin Dose 250 MG; Start 01/08/17 at 15:00 Nifedipine (Procardia Xl) 60 mg QHS PO Last administered on 01/13/17 20:23; Admin Dose 60 MG; Start 01/11/17 at 21:00 Miscellaneous Information 1 ea NOTE XX ; Start 01/11/17 at 09:30 Glucose (Glutose) 15 gm Q15M PRN PO DECREASED GLUCOSE; Start 01/11/17 at 09:30 Glucose (Glutose) 22.5 gm Q15M PRN PO DECREASED GLUCOSE; Start 01/11/17 at 09: 30 Dextrose (D50w Syringe) 25 ml Q15M PRN IV DECREASED GLUCOSE; Start 01/11/17 at 09:30 Dextrose (D50w Syringe) 50 ml Q15M PRN IV DECREASED GLUCOSE; Start 01/11/17 at 09:30 Glucagon (Glucagen) 1 mg Q15M PRN IM DECREASED GLUCOSE; Start 01/11/17 at 09:30 Glucose (Glutose) 15 gm Q15M PRN BUCCAL DECREASED GLUCOSE; Start 01/11/17 at 09 :30 Aspirin (Aspirin) 81 mg DAILY PO Last administered on 01/14/17 08:13; Admin Dose 81 MG; Start 01/11/17 at 15:00 Clopidogrel Bisulfate (plaVIX) 75 mg DAILY PO Last administered on 01/14/17 08 :14; Admin Dose 75 MG; Start 01/11/17 at 15:00 Acetaminophen/ Hydrocodone Bitart ([place] (5/325)) 1 tab Q6H PRN PO SEVERE PAIN LEVEL 7-10 Last administered on 01/14/17 08:18; Admin Dose 1 TAB; Start at 22:00 Acetaminophen (Tylenol Tab) 650 mg Q6H PRN PO PAIN AND OR ELEVATED TEMP Last administered on 01/12/17t 22:09; Admin Dose 650 MG; Start 01/12/17 at 22:00 ELLIOT MEADOWS MD Jan 14, 2017 15:07
--- NOTE | 2017-01-14 15:37 | CONS ---
Date/Time of Note Date/Time of Note DATE: 01/14/17 TIME: 15:35 Assessment/Plan Assessment/Plan Additional Assessment/Plan 1. Preoperative evaluation prior to lower extremity triple-NL EF by echo and no sig valve abnl/Lexiscan with probable soft tissue attenuation in anterior wall and nl ef and no wall motion abnl. Now post-op s/p LE peripheral bypass surgery - doing well, vascular team follows. PAIN CONTROLLED. 2. Hypertension- well Rx, Rx as needed. 3. Dyslipidemia. 4. Peripheral arterial disease with gangrenous change in the lower extremities - now s/p vascular Rx. 5. Status post left lower extremity transmetatarsal amputation. 6. Renal failure- avoid nephrotoxic meds. STABLE overall. 7. Diabetes mellitus- on meds, keep euglycemic. 8. Anemia - no signs of bleeding. Consultation Date/Type/Reason Admit Date/Time Jan 01, 2017 at 18:03 Initial Consult Date 01/02/17 Type of Consultation: ID Referring Provider: CORY EDGE 24 HR Interval Summary Free Text/Dictation No acute events - con't pain Rx - no CP noted. ROS: No fever, no chills, no nausea, no vomiting, no diarrhea/constipation No recent weight changes No chest pain, no PND, no orthopnea No dizziness, blurred vision No thirst, no heat or cold intolerance Exam/Review of Systems Vital Signs Vitals Vital Signs Date Time Temp Pulse Resp B/P Pulse Ox O2 Delivery O2 Flow Rate FiO2 01/14/17 08:06 98.7 84 18 133/63 95 01/12/17 08:00 Room Air 01/11/17 17:15 2.0 Intake and Output 01/13/17 01/13/17 01/14/17 15:00 23:00 07:00 Intake Total 1420 ml 1000 ml Output Total 1800 ml Balance 1420 ml -800 ml Exam General: WN/WD/NAD, AOx 3 HEENT: Unicetric/atraumatic/EOMI (follows commands) NECK: JVD elevated, no thyromegaly Lymph: no lymphadenopathy HEART: regular with no S3, II/ systolic murmur at apex LUNGS: Coarse sounds ABD: soft, NT, ND, +BS : Intact Neuro: non focal SKIN: chronic changes EXT: trace edema, PAD Results Result Diagram: 01/11/17 0526 01/12/17 0526 Results 24 hrs Laboratory Tests Test 01/13/17 17:11 01/13/17 20:21 01/14/17 07:53 01/14/17 12:09 Bedside Glucose 165 177 145 129 Medications Medications Current Medications Ferrous Sulfate (Ferrous Sulfate (Ec)) 325 mg BID PO Last administered on 08:12; Admin Dose 325 MG; Start 01/01/17 at 21:00 Furosemide (Lasix) 40 mg DAILY@06 PO Last administered on 01/02/17 05:29; Admin Dose 40 MG; Start 01/02/17 at 06:00; Status Future Hold Metoprolol Tartrate (Lopressor) 100 mg BID PO Last administered on 01/14/17 08 :14; Admin Dose 100 MG; Start 01/01/17 at 21:00 Montelukast Sodium (Singulair) 10 mg QHS PO Last administered on 01/13/17 20: 23; Admin Dose 10 MG; Start 01/01/17 at 21:00 Tramadol HCl (Ultram) 50 mg DAILY PRN PO PAIN Last administered on 01/12/17 19 :55; Admin Dose 50 MG; Start 01/01/17 at 21:00 Diagnostic Test (Pha) (Accu-Chek) 1 ea 02 XX ; Start 01/02/17 at 02:00 Zolpidem Tartrate (Ambien) 5 mg HS PRN PO INSOMNIA Last administered on 23:07; Admin Dose 5 MG; Start 01/01/17 at 22:00 Insulin Glargine (Lantus) 24 unit HS SC Last administered on 01/13/17 20:26; Admin Dose 24 UNIT; Start 01/02/17 at 21:00 Atorvastatin Calcium (Lipitor) 10 mg DAILY@21 PO Last administered on 20:23; Admin Dose 10 MG; Start 01/02/17 at 21:00 Calcium Carbonate (Tums) 500 mg BID PO Last administered on 01/14/17 08:13; Admin Dose 500 MG; Start 01/02/17 at 21:00 Magnesium Hydroxide (Milk Of Mag) 30 ml DAILY PRN PO CONSTIPATION; Start at 17:30 Polyethylene Glycol 17 gm 17 gm DAILY GTB Last administered on 01/14/17 08:15 ; Admin Dose 17 GM; Start 01/03/17 at 17:30 Daptomycin/Sodium Chloride (Cubicin/NS) 100 ml @ 200 mls/hr Q48H IVPB Last administered on 01/12/17 18:29; Admin Dose 200 MLS/HR; Start 01/08/17 at 16:00 Levofloxacin (Levaquin) 250 mg Q2D@06 PO Last administered on 01/14/17 06:43; Admin Dose 250 MG; Start 01/08/17 at 15:00 Nifedipine (Procardia Xl) 60 mg QHS PO Last administered on 01/13/17 20:23; Admin Dose 60 MG; Start 01/11/17 at 21:00 Miscellaneous Information 1 ea NOTE XX ; Start 01/11/17 at 09:30 Glucose (Glutose) 15 gm Q15M PRN PO DECREASED GLUCOSE; Start 01/11/17 at 09:30 Glucose (Glutose) 22.5 gm Q15M PRN PO DECREASED GLUCOSE; Start 01/11/17 at 09: 30 Dextrose (D50w Syringe) 25 ml Q15M PRN IV DECREASED GLUCOSE; Start 01/11/17 at 09:30 Dextrose (D50w Syringe) 50 ml Q15M PRN IV DECREASED GLUCOSE; Start 01/11/17 at 09:30 Glucagon (Glucagen) 1 mg Q15M PRN IM DECREASED GLUCOSE; Start 01/11/17 at 09:30 Glucose (Glutose) 15 gm Q15M PRN BUCCAL DECREASED GLUCOSE; Start 01/11/17 at 09 :30 Aspirin (Aspirin) 81 mg DAILY PO Last administered on 01/14/17 08:13; Admin Dose 81 MG; Start 01/11/17 at 15:00 Clopidogrel Bisulfate (plaVIX) 75 mg DAILY PO Last administered on 01/14/17 08 :14; Admin Dose 75 MG; Start 01/11/17 at 15:00 Acetaminophen/ Hydrocodone Bitart ([place] (5/325)) 1 tab Q6H PRN PO SEVERE PAIN LEVEL 7-10 Last administered on 01/14/17 08:18; Admin Dose 1 TAB; Start at 22:00 Acetaminophen (Tylenol Tab) 650 mg Q6H PRN PO PAIN AND OR ELEVATED TEMP Last administered on 01/12/17 22:09; Admin Dose 650 MG; Start 01/12/17 at 22:00 FRANCISCO ZARCO MD Jan 14, 2017 15:37
[2017-01-14] MEDS: DAPTOMYCIN 280 MG in SOD CHLORIDE 0.9% 100 ML IVPB SCH (16:25)
--- NOTE | 2017-01-14 19:09 | CONS ---
Date/Time of Note Date/Time of Note DATE: 01/14/17 TIME: 19:09 Consultation Date/Type/Reason Admit Date/Time Jan 01, 2017 at 18:03 Initial Consult Date 01/02/17 Type of Consultation: Renal Referring Provider: CORY EDGE Exam/Review of Systems Vital Signs Vitals Vital Signs Date Time Temp Pulse Resp B/P Pulse Ox O2 Delivery O2 Flow Rate FiO2 01/14/17 14:00 98.8 81 18 130/74 95 01/12/17 08:00 Room Air 01/11/17 17:15 2.0 Intake and Output 01/13/17 01/13/17 01/14/17 15:00 23:00 07:00 Intake Total 1420 ml 1000 ml Output Total 1800 ml Balance 1420 ml -800 ml Results Result Diagram: 01/11/17 0526 01/12/17525 Results 24 hrs Laboratory Tests Test 01/13/17 20:21 01/14/17 07:53 01/14/17 12:09 01/14/17 17:09 Bedside Glucose 177 145 129 181 Medications Medications Current Medications Ferrous Sulfate (Ferrous Sulfate (Ec)) 325 mg BID PO Last administered on 08:12; Admin Dose 325 MG; Start 01/01/17 at 21:00 Furosemide (Lasix) 40 mg DAILY@06 PO Last administered on 01/02/17 05:29; Admin Dose 40 MG; Start 01/02/17 at 06:00; Status Future Hold Metoprolol Tartrate (Lopressor) 100 mg BID PO Last administered on 01/14/17 08 :14; Admin Dose 100 MG; Start 01/01/17 at 21:00 Montelukast Sodium (Singulair) 10 mg QHS PO Last administered on 01/13/17 20: 23; Admin Dose 10 MG; Start 01/01/17 at 21:00 Tramadol HCl (Ultram) 50 mg DAILY PRN PO PAIN Last administered on 01/12/17 19 :55; Admin Dose 50 MG; Start 01/01/17 at 21:00 Diagnostic Test (Pha) (Accu-Chek) 1 ea 02 XX ; Start 01/02/17 at 02:00 Zolpidem Tartrate (Ambien) 5 mg HS PRN PO INSOMNIA Last administered on 23:07; Admin Dose 5 MG; Start 01/01/17 at 22:00 Insulin Glargine (Lantus) 24 unit HS SC Last administered on 01/13/17 20:26; Admin Dose 24 UNIT; Start 01/02/17 at 21:00 Atorvastatin Calcium (Lipitor) 10 mg DAILY@21 PO Last administered on 20:23; Admin Dose 10 MG; Start 01/02/17 at 21:00 Calcium Carbonate (Tums) 500 mg BID PO Last administered on 01/14/17 08:13; Admin Dose 500 MG; Start 01/02/17 at 21:00 Magnesium Hydroxide (Milk Of Mag) 30 ml DAILY PRN PO CONSTIPATION; Start at 17:30 Polyethylene Glycol 17 gm 17 gm DAILY GTB Last administered on 01/14/17 08:15 ; Admin Dose 17 GM; Start 01/03/17 at 17:30 Daptomycin/Sodium Chloride (Cubicin/NS) 100 ml @ 200 mls/hr Q48H IVPB Last administered on 01/14/17 16:25; Admin Dose 200 MLS/HR; Start 01/08/17 at 16:00 Levofloxacin (Levaquin) 250 mg Q2D@06 PO Last administered on 01/14/17 06:43; Admin Dose 250 MG; Start 01/08/17 at 15:00 Nifedipine (Procardia Xl) 60 mg QHS PO Last administered on 01/13/17 20:23; Admin Dose 60 MG; Start 01/11/17 at 21:00 Miscellaneous Information 1 ea NOTE XX ; Start 01/11/17 at 09:30 Glucose (Glutose) 15 gm Q15M PRN PO DECREASED GLUCOSE; Start 01/11/17 at 09:30 Glucose (Glutose) 22.5 gm Q15M PRN PO DECREASED GLUCOSE; Start 01/11/17 at 09: 30 Dextrose (D50w Syringe) 25 ml Q15M PRN IV DECREASED GLUCOSE; Start 01/11/17 at 09:30 Dextrose (D50w Syringe) 50 ml Q15M PRN IV DECREASED GLUCOSE; Start 01/11/17 at 09:30 Glucagon (Glucagen) 1 mg Q15M PRN IM DECREASED GLUCOSE; Start 01/11/17 at 09:30 Glucose (Glutose) 15 gm Q15M PRN BUCCAL DECREASED GLUCOSE; Start 01/11/17 at 09 :30 Aspirin (Aspirin) 81 mg DAILY PO Last administered on 01/14/17 08:13; Admin Dose 81 MG; Start 01/11/17 at 15:00 Clopidogrel Bisulfate (plaVIX) 75 mg DAILY PO Last administered on 01/14/17 08 :14; Admin Dose 75 MG; Start 01/11/17 at 15:00 Acetaminophen/ Hydrocodone Bitart ([place] (5/325)) 1 tab Q6H PRN PO SEVERE PAIN LEVEL 7-10 Last administered on 01/14/17 08:18; Admin Dose 1 TAB; Start at 22:00 Acetaminophen (Tylenol Tab) 650 mg Q6H PRN PO PAIN AND OR ELEVATED TEMP Last administered on 01/12/17 22:09; Admin Dose 650 MG; Start 01/12/17 at 22:00 ADÁN MONTEIRO MD Jan 14, 2017 19:09
[2017-01-14 19:48] VITALS: BP 116/57; RESP 18
[2017-01-14] MEDS: MONTELUKAST 10 MG TAB PO SCH (20:25)
[2017-01-14] MEDS: ATORVASTATIN 10 MG TAB PO SCH (20:26)
[2017-01-14] MEDS: NIFEdipine (XL) 60 MG TAB PO SCH (20:27)
[2017-01-14] MEDS: INSULIN GLARGINE [LANtus] 3 ML PEN SC SCH (20:40)
[2017-01-14] MEDS: MAGNESIUM HYDROXIDE 30ML CUP PO PRN (20:42)
[2017-01-15] MEDS: ACCU-CHEK XX SCH (01:12)
[2017-01-15 02:00] VITALS: BP 123/61; RESP 18
[2017-01-15 07:42] VITALS: BP 126/59; RESP 18
[2017-01-15] MEDS: INSULIN ASPART [NOVOLOG] 3 ML PEN SC SCH ×7 (08:15→20:40)
[2017-01-15] MEDS: CALCIUM CARBONATE 500 MG CHEW TAB PO SCH ×2 (09:07→20:34)
[2017-01-15] MEDS: CLOPIDOGREL 75 MG TAB PO SCH (09:07)
[2017-01-15] MEDS: METOPROLOL 100 MG TAB PO SCH ×2 (09:08→20:37)
[2017-01-15] MEDS: FERROUS SULFATE (EC) 325 MG TAB PO SCH ×2 (09:08→20:36)
[2017-01-15] MEDS: ASPIRIN 81 MG TAB PO SCH (09:08)
[2017-01-15] MEDS: PANTOPRAZOLE (EC) 40 MG TAB PO SCH (09:08)
[2017-01-15] MEDS: POLYETHYLENE GLYCOL 17 GM PACKET GTB SCH (09:09)
--- NOTE | 2017-01-15 09:44 | CONS ---
DATE OF ADMISSION: 01/01/2017 DATE OF CONSULTATION: 01/07/2017 REASON FOR CONSULTATION: Antibiotic management. HISTORY OF PRESENT ILLNESS: The patient is a 61-year-old female who came to the emergency room with right great toe necrosis and infection. The patient was sent in by Dr. Andrés Taylor. 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 She has increasing pain, although she usually has numbness in the foot. She has pain in the right great toe. Her past problems include: 1. Adult-onset diabetes mellitus. 2. Hypertension. 3. Allergy to Zosyn. 4. Left metatarsal amputation. 5. Status post 3 C-sections. 6. Hyperlipidemia. As noted, the patient was admitted on the . She was afebrile. White count was 13.6. H and H of 11.6 and 37.1. Platelet count 511,000. BUN and creatinine 61 and 4. Patient was started initially on vancomycin, cefepime and Flagyl. Blood cultures were negative. A foot x-ray showed focal demineralization and subtle plantar periosteal reaction involving the distal phalanx of the great toe on the right foot, cannot exclude periostitis with associated osteomyelitis, consider follow-up evaluation, soft tissue swelling with extensive arteriosclerotic calcification. Chest x-ray is normal. She had an arterial study of the left lower extremity, which was abnormal, consistent with significant stenosis or proximal occlusion. She also had a venous evaluation of greater saphenous veins, which demonstrated normal compressibility with no deep vein thrombophlebitis. The left ventricle ejection fraction at stress was 67 percent. Patient was seen by numerous consultants. She was seen by Dr. Hassan from Nephrology, who noted necrotic right lower extremity toes, sepsis, mild, resolving. She was seen in followup by Dr. Taylor, who recommend a vascular surgery consult, and no surgery would be done until an angiogram was done on the right lower extremity and Vascular Surgery cleared the patient. He noted that she had diabetes, hypertension, kidney failure, status post transmetatarsal amputation of the left foot, and now gangrenous changes of the right great toe. She was seen by , who did the aforementioned studies. He noted the angiogram revealed popliteal and tibial arteries to be occluded, and she will need a right femoral dorsalis pedis bypass prior to toe amputation. She also will need cardiac clearance. Today, Cardiology cleared her for discharge and outpatient femoral-popliteal bypass is planned. Broad-spectrum antibiotics were considered. Infectious disease consult was called. The patient was again noted to have chronic kidney disease. She is on vancomycin and cefepime at the present time. PAST MEDICAL HISTORY: Operations as outlined. FAMILY HISTORY: Noncontributory. SOCIAL HISTORY: She does not smoke, drink, or abuse drugs. ALLERGIES: NONE TO PENICILLIN, SULFA, OR FOODS. MEDICATION: Per chart. REVIEW OF SYSTEMS: As per HPI. PHYSICAL EXAMINATION: GENERAL: Patient is a well-developed, well-nourished female, alert, responsive, in no acute distress. VITAL SIGNS: Stable. She is afebrile. SKIN: Without generalized rash. HEENT: Within normal limits. NECK: Supple. Lymph nodes nonpalpable. CHEST: Decreased breath sounds at the bases. HEART: Without murmur or gallop. ABDOMEN: Soft, nontender, without organ or splenomegaly or masses. EXTREMITIES: Without cyanosis or clubbing. She has necrotic right first and second toes with blackness. She also has left metatarsal amputation. RECTAL: Deferred. GENITOURINARY: Deferred. NEUROLOGICAL: Decreased sensation of distal extremities, otherwise no focal neurological abnormalities. IMPRESSION AND PLAN: Patient is scheduled to be discharged and then to have an outpatient femoral-popliteal or dorsalis pedis bypass. We would continue her on vancomycin, and I would change the cefepime to ertapenem. Currently, her white count is 11.2, BUN and creatinine 57 and 3.14, consistent with significant renal insufficiency or failure. I will dictate my findings to the hospitalist and the various consultants. Dictated By: Sandoval Quinones MD JD/[email or web address]/[email or web address] /Document#: [id number]
--- NOTE | 2017-01-15 10:52 | CONS ---
Date/Time of Note Date/Time of Note DATE: 01/15/17 TIME: 10:50 Assessment/Plan Assessment/Plan Chief Complaint/Hosp Course 1. Preoperative evaluation prior to lower extremity triple-NL EF by echo and no sig valve abnl/Lexiscan with probable soft tissue attenutaion in anterior wall and nl ef and no wall motion abnl. Now post-op s/p LE peripheral bypass POD #1 bypass surgery. 2. Hypertension. 3. Dyslipidemia. 4. Peripheral arterial disease with gangrenous change in the lower extremities. 5. Status post left lower extremity transmetatarsal amputation. 6. Renal failure. 7. Diabetes mellitus. 8. Anemia. Recc: -Contiue procardia XL/BB and follow closely -Continue abx's -Continue asa/plavix -LE wound care Problems: Consultation Date/Type/Reason Admit Date/Time Jan 01, 2017 at 18:03 Initial Consult Date 01/02/17 Type of Consultation: cardiology Reason for Consultation HTN Referring Provider: CORY EDGE Exam/Review of Systems Vital Signs Vitals Vital Signs Date Time Temp Pulse Resp B/P Pulse Ox O2 Delivery O2 Flow Rate FiO2 01/15/17 07:42 98.5 79 18 126/59 95 01/14/17 20:00 Room Air 01/11/17 17:15 2.0 Intake and Output 01/14/17 01/14/17 01/15/17 15:00 23:00 07:00 Intake Total 1100 ml 300 ml Output Total 700 ml Balance 1100 ml -400 ml Exam Review of Systems: CONSTITUTIONAL: No fevers, chills. PULMONARY: No sob CARDIOVASCULAR: No chest pain/palpitations GASTROINTESTINAL: No nausea/vomiting. GENITOURINARY: No hematuria/dysuria. MUSCULOSKELETAL: No myagias/arthalgias. PSYCHIATRIC: The patient denies depression. NEUROLOGIC: No weakness Constitutional: alert Psych: no complaints Head: normocephalic ENMT: mucosa pink and moist Neck: jvd (9 water), supple Respiratory: diminished breath sounds (ar bases/B) Cardiovascular: regular rate and rhythm Gastrointestinal: non-tender, soft Musculoskeletal: muscle tone (normal) Extremities: edema (none), other (foor s/p surgery covered by dressing) Neurological: other (No focal deficits) Results Result Diagram: 01/11/1752501/12/17525 Results 24 hrs Laboratory Tests Test 01/14/17 12:09 01/14/17 17:09 01/14/17 20:23 01/15/17 08:58 Bedside Glucose 129 181 149 106 Medications Medications Current Medications Ferrous Sulfate (Ferrous Sulfate (Ec)) 325 mg BID PO Last administered on 09:08; Admin Dose 325 MG; Start 01/01/17 at 21:00 Furosemide (Lasix) 40 mg DAILY@06 PO Last administered on 01/02/17 05:29; Admin Dose 40 MG; Start 01/02/17 at 06:00; Status Future Hold Metoprolol Tartrate (Lopressor) 100 mg BID PO Last administered on 01/15/17 09 :08; Admin Dose 100 MG; Start 01/01/17 at 21:00 Montelukast Sodium (Singulair) 10 mg QHS PO Last administered on 01/14/17 20: 25; Admin Dose 10 MG; Start 01/01/17 at 21:00 Tramadol HCl (Ultram) 50 mg DAILY PRN PO PAIN Last administered on 01/12/17 19 :55; Admin Dose 50 MG; Start 01/01/17 at 21:00 Diagnostic Test (Pha) (Accu-Chek) 1 ea 02 XX ; Start 01/02/17 at 02:00 Zolpidem Tartrate (Ambien) 5 mg HS PRN PO INSOMNIA Last administered on 23:07; Admin Dose 5 MG; Start 01/01/17 at 22:00 Insulin Glargine (Lantus) 24 unit HS SC Last administered on 01/14/17 20:40; Admin Dose 24 UNIT; Start 01/02/17 at 21:00 Atorvastatin Calcium (Lipitor) 10 mg DAILY@21 PO Last administered on 20:26; Admin Dose 10 MG; Start 01/02/17 at 21:00 Calcium Carbonate (Tums) 500 mg BID PO Last administered on 01/15/17 09:07; Admin Dose 500 MG; Start 01/02/17 at 21:00 Magnesium Hydroxide (Milk Of Mag) 30 ml DAILY PRN PO CONSTIPATION Last administered on 01/14/17 20:42; Admin Dose 30 ML; Start 01/03/17 at 17:30 Polyethylene Glycol 17 gm 17 gm DAILY GTB Last administered on 01/15/17 09:09 ; Admin Dose 17 GM; Start 01/03/17 at 17:30 Daptomycin/Sodium Chloride (Cubicin/NS) 100 ml @ 200 mls/hr Q48H IVPB Last administered on 01/14/17 16:25; Admin Dose 200 MLS/HR; Start 01/08/17 at 16:00 Levofloxacin (Levaquin) 250 mg Q2D@06 PO Last administered on 01/14/17 06:43; Admin Dose 250 MG; Start 01/08/17 at 15:00 Nifedipine (Procardia Xl) 60 mg QHS PO Last administered on 01/14/17 20:27; Admin Dose 60 MG; Start 01/11/17 at 21:00 Miscellaneous Information 1 ea NOTE XX ; Start 01/11/17 at 09:30 Glucose (Glutose) 15 gm Q15M PRN PO DECREASED GLUCOSE; Start 01/11/17 at 09:30 Glucose (Glutose) 22.5 gm Q15M PRN PO DECREASED GLUCOSE; Start 01/11/17 at 09: 30 Dextrose (D50w Syringe) 25 ml Q15M PRN IV DECREASED GLUCOSE; Start 01/11/17 at 09:30 Dextrose (D50w Syringe) 50 ml Q15M PRN IV DECREASED GLUCOSE; Start 01/11/17 at 09:30 Glucagon (Glucagen) 1 mg Q15M PRN IM DECREASED GLUCOSE; Start 01/11/17 at 09:30 Glucose (Glutose) 15 gm Q15M PRN BUCCAL DECREASED GLUCOSE; Start 01/11/17 at 09 :30 Aspirin (Aspirin) 81 mg DAILY PO Last administered on 01/15/17 09:08; Admin Dose 81 MG; Start 01/11/17 at 15:00 Clopidogrel Bisulfate (plaVIX) 75 mg DAILY PO Last administered on 01/15/17 09 :07; Admin Dose 75 MG; Start 01/11/17 at 15:00 Acetaminophen/ Hydrocodone Bitart ([place] (5/325)) 1 tab Q6H PRN PO SEVERE PAIN LEVEL 7-10 Last administered on 01/14/17 22:46; Admin Dose 1 TAB; Start at 22:00 Acetaminophen (Tylenol Tab) 650 mg Q6H PRN PO PAIN AND OR ELEVATED TEMP Last administered on 01/12/17t 22:09; Admin Dose 650 MG; Start 01/12/17 at 22:00 NOÉ HERRERA Jan 15, 2017 10:52
--- NOTE | 2017-01-15 12:08 | CONS ---
DATE OF ADMISSION: 01/01/2017 DATE OF CONSULTATION: SUBJECTIVE: Dear Dr. Mcmahan, thank you for asking me to participate in the care of this 61-year-old para 3, 3 female with a history of diabetes mellitus, 10 years. The patient has known history of chronic kidney disease and has been admitted in this facility. The patient has had known problems of the right foot for which he has been followed by the vascular department. She has been admitted, once again, with marked discoloration of the right foot and has been found to have an elevated BUN and creatinine. Nephrology consultation, therefore, is kindly requested. Please note that the patient has had a documented abnormal liver function from the previous admission on June 01, when creatinine was 2.4. Somehow it had dropped down to 1.72 in July and actually had gone up in June this year, and presently at the time of this admission, serum BUN and creatinine is 61 and 4.1, respectively. This morning, the BUN is 62 and creatinine 3.71, and phos is 5.7, calcium dropped from 8.6 to 7.5. A urinalysis is unremarkable with white cells, 7.2 RBCs, 2+ glucose, 2+ protein. Hemoglobin is decreased from 37% to 31%. The patient has had a arterial oppleer of legsshowing calcification and vascular calcification, and she is pending a vascular consultation. The rest of the past personal and family history is available in the hospital record. Please note the patient is , disabled, and has poor vision with a previous history of eye surgery in the left side. The rest of the personal history, she has had 3 pregnancies, and all the children . Family history shows the patient has 5 brothers, 4 sisters, living and well, nobody diabetic. Neither of the parents had diabetes either. The rest of the systems are negative for any head, eyes, ears, nose, and throat problems. The patient denies any chest pain or shortness of breath. No history of acute abdominal pain or flank pain. No seizures. PHYSICAL EXAMINATION: GENERAL: The patient is a pleasant female who appears to be in no acute distress. VITALS: Blood pressure is 130/60, heart rate 70, temperature 98, respirations 16. HEENT: Unremarkable. NECK: No jugular venous distention. CHEST: Symmetric. Equal breath sounds. Clear. HEART: Rate and rhythm regular. S1, S2. ABDOMEN: Obese. Bruits could not be ausculted. GENITOURINARY: Not examined. EXTREMITIES: Right foot gangrene is noted in the big toe and diminished pulses noted throughout lower extremities. SKIN: Pale. NEURO: No neurological deficits can be elicited. IMPRESSION: 1. History of diabetes mellitus, chronic kidney disease. 2. Acute kidney injury, maybe due to hypervolemia. 3. Anemia, maybe aggravated by iron deficiency. 4. History of diabetic retinopathy. 5. Peripheral Vasc Dis with Gangrene Rt Big Toe ?cellulitis PLAN: This patient has multiple stigmata of diabetes, such as retinopathy and vascular disease. She is likely to have diabetic kidney disease as well, although the urinalysis does show 2+ protein in the urine, on a random specimen. At this time, the patient should be continued on the present regimen. I would limit vigorous hydration to prevent fluid overload, whether she has ischemic kidney or atherosclerotic damage to her renal vasculature is a possibility, and the management will also probably not differ much. At this time, the patient needs to be stabilized with control of blood pressure. Regarding the infection in the foot, I am willing to begin her on IV iron replacement because of iron deficiency documented earlier, which I do not need to repeat. I would be happy to follow this pt with you. Allow me to thank you once again. Dictated By: Michael Hoffman MD /israel/smitha /Document#: [id number] CHAPIS
[2017-01-15] MEDS: HYDROCODONE/APAP (5/325) TAB PO PRN ×2 (12:11→23:17)
--- NOTE | 2017-01-15 12:54 | CONS ---
Date/Time of Note Date/Time of Note DATE: 01/15/17 TIME: 12:52 Assessment/Plan Assessment/Plan Additional Assessment/Plan (1) Diabetes mellitus Status: Chronic (2) Peripheral vascular disease due to secondary diabetes mellitus Status: Chronic (3) Anemia Status: Chronic (4) Renal failure Status: Chronic-stable Renal function stable, CKD Stage IV No new recommendations Cont Binder TID with Meals On ORal Iron BP well controlled No Indication for HD at this time has been seen by Dr Camilo Vascular Sx during this admission Pt will need fci ABx therapy, therefore will need placement PICC Line. I will communicate this with Dr Mistry Pts [facility] Physicist. Consultation Date/Type/Reason Admit Date/Time Jan 01, 2017 at 18:03 Initial Consult Date 01/02/17 Type of Consultation: Renal Referring Provider: CORY EDGE 24 HR Interval Summary Free Text/Dictation new complaints, Planned for PICC line Exam/Review of Systems Vital Signs Vitals Vital Signs Date Time Temp Pulse Resp B/P Pulse Ox O2 Delivery O2 Flow Rate FiO2 01/15/17 07:42 98.5 79 18 126/59 95 01/14/17 20:00 Room Air 01/11/17 17:15 2.0 Intake and Output 01/14/17 01/14/17 01/15/17 15:00 23:00 07:00 Intake Total 1100 ml 300 ml Output Total 700 ml Balance 1100 ml -400 ml Exam Constitutional: alert, No distress ENMT: mucosa pink and moist Neck: No jvd Respiratory: clear to auscultation Cardiovascular: regular rate and rhythm, No edema Gastrointestinal: non-tender, soft Extremities: No edema Neurological: PLUGGER WORKER II-XII intact, nl mental status, No lethargic Results Result Diagram: 01/11/1752501/12/17525 Results 24 hrs Laboratory Tests Test 01/14/17 17:09 01/14/17 20:23 01/15/17 08:58 01/15/17 12:08 Bedside Glucose 181 149 106 165 Medications Medications Current Medications Ferrous Sulfate (Ferrous Sulfate (Ec)) 325 mg BID PO Last administered on 09:08; Admin Dose 325 MG; Start 01/01/17 at 21:00 Furosemide (Lasix) 40 mg DAILY@06 PO Last administered on 01/02/17 05:29; Admin Dose 40 MG; Start 01/02/17 at 06:00; Status Future Hold Metoprolol Tartrate (Lopressor) 100 mg BID PO Last administered on 01/15/17 09 :08; Admin Dose 100 MG; Start 01/01/17 at 21:00 Montelukast Sodium (Singulair) 10 mg QHS PO Last administered on 01/14/17 20: 25; Admin Dose 10 MG; Start 01/01/17 at 21:00 Tramadol HCl (Ultram) 50 mg DAILY PRN PO PAIN Last administered on 01/12/17 19 :55; Admin Dose 50 MG; Start 01/01/17 at 21:00 Diagnostic Test (Pha) (Accu-Chek) 1 ea 02 XX ; Start 01/02/17 at 02:00 Zolpidem Tartrate (Ambien) 5 mg HS PRN PO INSOMNIA Last administered on 23:07; Admin Dose 5 MG; Start 01/01/17 at 22:00 Insulin Glargine (Lantus) 24 unit HS SC Last administered on 01/14/17 20:40; Admin Dose 24 UNIT; Start 01/02/17 at 21:00 Atorvastatin Calcium (Lipitor) 10 mg DAILY@21 PO Last administered on 20:26; Admin Dose 10 MG; Start 01/02/17 at 21:00 Calcium Carbonate (Tums) 500 mg BID PO Last administered on 01/15/17 09:07; Admin Dose 500 MG; Start 01/02/17 at 21:00 Magnesium Hydroxide (Milk Of Mag) 30 ml DAILY PRN PO CONSTIPATION Last administered on 01/14/17 20:42; Admin Dose 30 ML; Start 01/03/17 at 17:30 Polyethylene Glycol 17 gm 17 gm DAILY GTB Last administered on 01/15/17 09:09 ; Admin Dose 17 GM; Start 01/03/17 at 17:30 Daptomycin/Sodium Chloride (Cubicin/NS) 100 ml @ 200 mls/hr Q48H IVPB Last administered on 01/14/17 16:25; Admin Dose 200 MLS/HR; Start 01/08/17 at 16:00 Levofloxacin (Levaquin) 250 mg Q2D@06 PO Last administered on 01/14/17 06:43; Admin Dose 250 MG; Start 01/08/17 at 15:00 Nifedipine (Procardia Xl) 60 mg QHS PO Last administered on 01/14/17 20:27; Admin Dose 60 MG; Start 01/11/17 at 21:00 Miscellaneous Information 1 ea NOTE XX ; Start 01/11/17 at 09:30 Glucose (Glutose) 15 gm Q15M PRN PO DECREASED GLUCOSE; Start 01/11/17 at 09:30 Glucose (Glutose) 22.5 gm Q15M PRN PO DECREASED GLUCOSE; Start 01/11/17 at 09: 30 Dextrose (D50w Syringe) 25 ml Q15M PRN IV DECREASED GLUCOSE; Start 01/11/17 at 09:30 Dextrose (D50w Syringe) 50 ml Q15M PRN IV DECREASED GLUCOSE; Start 01/11/17 at 09:30 Glucagon (Glucagen) 1 mg Q15M PRN IM DECREASED GLUCOSE; Start 01/11/17 at 09:30 Glucose (Glutose) 15 gm Q15M PRN BUCCAL DECREASED GLUCOSE; Start 01/11/17 at 09 :30 Aspirin (Aspirin) 81 mg DAILY PO Last administered on 01/15/17 09:08; Admin Dose 81 MG; Start 01/11/17 at 15:00 Clopidogrel Bisulfate (plaVIX) 75 mg DAILY PO Last administered on 01/15/17 09 :07; Admin Dose 75 MG; Start 01/11/17 at 15:00 Acetaminophen/ Hydrocodone Bitart ([place] (5/325)) 1 tab Q6H PRN PO SEVERE PAIN LEVEL 7-10 Last administered on 01/15/17 12:11; Admin Dose 1 TAB; Start at 22:00 Acetaminophen (Tylenol Tab) 650 mg Q6H PRN PO PAIN AND OR ELEVATED TEMP Last administered on 01/12/17 22:09; Admin Dose 650 MG; Start 01/12/17 at 22:00 ADÁN MONTEIRO MD Jan 15, 2017 12:54
[2017-01-15 14:09] VITALS: BP 136/65; RESP 18
--- NOTE | 2017-01-15 16:16 | PN ---
Date/Time of Note Date/Time of Note DATE: 01/15/17 TIME: 16:14 Assessment/Plan VTE Prophylaxis VTE Prophylaxis Intervention: SCD's Lines/Catheters [facility] [place] [facility] Urinary Cath still in place: No Assessment/Plan Chief Complaint/Hosp Course Patient is a 61-year-old female who presents for pain necrosis to her right foot , told by her road sign installer to go to the ED. Patient has a past medical history of CKD as well as diabetes mellitus. Assessment Necrotic right lower extremity toes sepsis, mild, resolving occluded R popliteal and tibial arteries Diabetes mellitus MANOHAR vs MANOHAR on CKD Chronic kidney disease Hypertension Left toes amputation Plan -Spoke with Dr. Taylor, possible amputation this admission. Will need to speak with Dr. Camilo per Dr. Taylor. -Dr. Marisela Taylor, podiatry consulted, recs appreciated. -Dr. Hoffman consulted for MANOHAR vs CKD, recs appreciated -Continue home meds as able -abx per ID -Repeat labs in the morning -arterial study shows stenosis -watch bp Jourdan Mcmahan DO. Problems: Subjective 24 Hr Interval Summary Free Text/Dictation no acute complaints Exam/Review of Systems Vital Signs Vitals Vital Signs Date Time Temp Pulse Resp B/P Pulse Ox O2 Delivery O2 Flow Rate FiO2 01/15/17 14:09 98.9 81 18 136/65 99 01/14/17 20:00 Room Air 01/11/17 17:15 2.0 Intake and Output 01/14/17 01/14/17 01/15/17 15:00 23:00 07:00 Intake Total 1100 ml 300 ml Output Total 700 ml Balance 1100 ml -400 ml Exam Physical exam General: Patient is laying in bed and answers questions appropriately Mentation: Patient is alert and oriented 4, Head: Normocephalic atraumatic Eyes: EOMI, pupils reactive to light Neck: Supple, nontender, midline Respiratory: Clear to auscultation bilaterally Cardiovascular: regular rate, no obvious murmurs Gastrointestinal: non-tender to palpation, bowel sounds heard. Neurological: Moves all extremities spontaneously Skin: necrotic great and 2nd toe of R foot. L foot transmetatarsal amputation Results Result Diagram: 01/11/17 0526 01/12/17 0526 Results 24 hrs Laboratory Tests Test 01/14/17 17:09 01/14/17 20:23 01/15/17 08:58 01/15/17 12:08 Bedside Glucose 181 149 106 165 Medications Medications Current Medications Ferrous Sulfate (Ferrous Sulfate (Ec)) 325 mg BID PO Last administered on 09:08; Admin Dose 325 MG; Start 01/01/17 at 21:00 Furosemide (Lasix) 40 mg DAILY@06 PO Last administered on 01/02/17 05:29; Admin Dose 40 MG; Start 01/02/17 at 06:00; Status Future Hold Metoprolol Tartrate (Lopressor) 100 mg BID PO Last administered on 01/15/17 09 :08; Admin Dose 100 MG; Start 01/01/17 at 21:00 Montelukast Sodium (Singulair) 10 mg QHS PO Last administered on 01/14/17 20: 25; Admin Dose 10 MG; Start 01/01/17 at 21:00 Tramadol HCl (Ultram) 50 mg DAILY PRN PO PAIN Last administered on 01/12/17 19 :55; Admin Dose 50 MG; Start 01/01/17 at 21:00 Diagnostic Test (Pha) (Accu-Chek) 1 ea 02 XX ; Start 01/02/17 at 02:00 Zolpidem Tartrate (Ambien) 5 mg HS PRN PO INSOMNIA Last administered on 23:07; Admin Dose 5 MG; Start 01/01/17 at 22:00 Insulin Glargine (Lantus) 24 unit HS SC Last administered on 01/14/17 20:40; Admin Dose 24 UNIT; Start 01/02/17 at 21:00 Atorvastatin Calcium (Lipitor) 10 mg DAILY@21 PO Last administered on 20:26; Admin Dose 10 MG; Start 01/02/17 at 21:00 Calcium Carbonate (Tums) 500 mg BID PO Last administered on 01/15/17 09:07; Admin Dose 500 MG; Start 01/02/17 at 21:00 Magnesium Hydroxide (Milk Of Mag) 30 ml DAILY PRN PO CONSTIPATION Last administered on 01/14/17 20:42; Admin Dose 30 ML; Start 01/03/17 at 17:30 Polyethylene Glycol 17 gm 17 gm DAILY GTB Last administered on 01/15/17 09:09 ; Admin Dose 17 GM; Start 01/03/17 at 17:30 Daptomycin/Sodium Chloride (Cubicin/NS) 100 ml @ 200 mls/hr Q48H IVPB Last administered on 01/14/17 16:25; Admin Dose 200 MLS/HR; Start 01/08/17 at 16:00 Levofloxacin (Levaquin) 250 mg Q2D@06 PO Last administered on 01/14/17 06:43; Admin Dose 250 MG; Start 01/08/17 at 15:00 Nifedipine (Procardia Xl) 60 mg QHS PO Last administered on 01/14/17 20:27; Admin Dose 60 MG; Start 01/11/17 at 21:00 Miscellaneous Information 1 ea NOTE XX ; Start 01/11/17 at 09:30 Glucose (Glutose) 15 gm Q15M PRN PO DECREASED GLUCOSE; Start 01/11/17 at 09:30 Glucose (Glutose) 22.5 gm Q15M PRN PO DECREASED GLUCOSE; Start 01/11/17 at 09: 30 Dextrose (D50w Syringe) 25 ml Q15M PRN IV DECREASED GLUCOSE; Start 01/11/17 at 09:30 Dextrose (D50w Syringe) 50 ml Q15M PRN IV DECREASED GLUCOSE; Start 01/11/17 at 09:30 Glucagon (Glucagen) 1 mg Q15M PRN IM DECREASED GLUCOSE; Start 01/11/17 at 09:30 Glucose (Glutose) 15 gm Q15M PRN BUCCAL DECREASED GLUCOSE; Start 01/11/17 at 09 :30 Aspirin (Aspirin) 81 mg DAILY PO Last administered on 01/15/17 09:08; Admin Dose 81 MG; Start 01/11/17 at 15:00 Clopidogrel Bisulfate (plaVIX) 75 mg DAILY PO Last administered on 01/15/17 09 :07; Admin Dose 75 MG; Start 01/11/17 at 15:00 Acetaminophen/ Hydrocodone Bitart ([place] (5/325)) 1 tab Q6H PRN PO SEVERE PAIN LEVEL 7-10 Last administered on 01/15/17 12:11; Admin Dose 1 TAB; Start at 22:00 Acetaminophen (Tylenol Tab) 650 mg Q6H PRN PO PAIN AND OR ELEVATED TEMP Last administered on 01/12/17 22:09; Admin Dose 650 MG; Start 01/12/17 at 22:00 JOURDAN MCMAHAN Jan 15, 2017 16:16
--- NOTE | 2017-01-15 16:57 | CONS ---
Date/Time of Note Date/Time of Note DATE: 01/15/17 TIME: 16:56 Assessment/Plan Assessment/Plan Chief Complaint/Hosp Course ID PROGRESS NOTE POD #01/11/17 => S/P RIGHT FEMORAL TO DORSALIS PEDIS BYPASS 24H INTERVAL SUMMARY CURRENT ABX: Daptomycin #8 + Levaquin #7 * A/A/O -> VSS, no fevers, coping well with pain, spouse in room, no c/o offered , no questions at this time. * Microbiology: Blood cultures remain negative Exam Constitutional: VSS, no fevers Psych: nl mood/affect, no complaints Head: atraumatic, normocephalic Eyes: EOMI, nl conjunctiva, anicteric ENMT: Unremarkable Neck: non-tender, supple Respiratory: Normal air movement, No intercostal retraction, No labored breathing Cardiovascular: RRR Gastrointestinal: non-tender, soft, Extremities: Gangrenous changes to R-foot R-foot Great toe Neurological: DEVELOPMENT MANAGER II-XII intact, periph neuropathy Skin: No rash, no diaphoresis ID ASSESSMENT 1. 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 R-Great Toe periostitis w/osteomyelitis per X-ray * 01/01/17 R-foot X-ray: Focal demineralization and subtle plantar periosteal reaction involving the distal phalanx for the great toe of the right foot cannot exclude periostitis with associated osteomyelitis. PAD ->s/p angioplasty followed by POD 01/11/17 = > s/p RLEXT Fem->DP bypass 2. Diabetes mellitus w/peripheral neuropathy 3. Acute on chronic kidney disease-> STG IV 4. Hypertension (-) MRSA Nares ABX ALLERGIES: PCN/Zosyn CURRENT ABX: Daptomycin #8 + Levaquin #7 ID RECOMMENDATIONS 1. Continue current ABX -> Avoid nephrotoxic ABX 2. FYI: Statin meds contraindicated while on Daptomycin unless low dose only w/ close monitoring of CPK * Baseline CK 67 (01/13/17); ESR 104 (01/03/17) 3. 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 . Problems: Consultation Date/Type/Reason Admit Date/Time Jan 01, 2017 at 18:03 Initial Consult Date 01/02/17 Type of Consultation: ID Referring Provider: CORY EDGE Exam/Review of Systems Vital Signs Vitals Vital Signs Date Time Temp Pulse Resp B/P Pulse Ox O2 Delivery O2 Flow Rate FiO2 01/15/17 14:09 98.9 81 18 136/65 99 01/14/17 20:00 Room Air 01/11/17 17:15 2.0 Intake and Output 01/14/17 01/14/17 01/15/17 15:00 23:00 07:00 Intake Total 1100 ml 300 ml Output Total 700 ml Balance 1100 ml -400 ml Results Result Diagram: 01/11/1752501/12/17 05 Results 24 hrs Laboratory Tests Test 01/14/17 17:09 01/14/17 20:23 01/15/17 08:58 01/15/17 12:08 Bedside Glucose 181 149 106 165 Medications Medications Current Medications Ferrous Sulfate (Ferrous Sulfate (Ec)) 325 mg BID PO Last administered on 09:08; Admin Dose 325 MG; Start 01/01/17 at 21:00 Furosemide (Lasix) 40 mg DAILY@06 PO Last administered on 01/02/17 05:29; Admin Dose 40 MG; Start 01/02/17 at 06:00; Status Future Hold Metoprolol Tartrate (Lopressor) 100 mg BID PO Last administered on 01/15/17 09 :08; Admin Dose 100 MG; Start 01/01/17 at 21:00 Montelukast Sodium (Singulair) 10 mg QHS PO Last administered on 01/14/17 20: 25; Admin Dose 10 MG; Start 01/01/17 at 21:00 Tramadol HCl (Ultram) 50 mg DAILY PRN PO PAIN Last administered on 01/12/17 19 :55; Admin Dose 50 MG; Start 01/01/17 at 21:00 Diagnostic Test (Pha) (Accu-Chek) 1 ea 02 XX ; Start 01/02/17 at 02:00 Zolpidem Tartrate (Ambien) 5 mg HS PRN PO INSOMNIA Last administered on 23:07; Admin Dose 5 MG; Start 01/01/17 at 22:00 Insulin Glargine (Lantus) 24 unit HS SC Last administered on 01/14/17 20:40; Admin Dose 24 UNIT; Start 01/02/17 at 21:00 Atorvastatin Calcium (Lipitor) 10 mg DAILY@21 PO Last administered on 20:26; Admin Dose 10 MG; Start 01/02/17 at 21:00 Calcium Carbonate (Tums) 500 mg BID PO Last administered on 01/15/17 09:07; Admin Dose 500 MG; Start 01/02/17 at 21:00 Magnesium Hydroxide (Milk Of Mag) 30 ml DAILY PRN PO CONSTIPATION Last administered on 01/14/17 20:42; Admin Dose 30 ML; Start 01/03/17 at 17:30 Polyethylene Glycol 17 gm 17 gm DAILY GTB Last administered on 01/15/17 09:09 ; Admin Dose 17 GM; Start 01/03/17 at 17:30 Daptomycin/Sodium Chloride (Cubicin/NS) 100 ml @ 200 mls/hr Q48H IVPB Last administered on 01/14/17 16:25; Admin Dose 200 MLS/HR; Start 01/08/17 at 16:00 Levofloxacin (Levaquin) 250 mg Q2D@06 PO Last administered on 01/14/17 06:43; Admin Dose 250 MG; Start 01/08/17 at 15:00 Nifedipine (Procardia Xl) 60 mg QHS PO Last administered on 01/14/17 20:27; Admin Dose 60 MG; Start 01/11/17 at 21:00 Miscellaneous Information 1 ea NOTE XX ; Start 01/11/17 at 09:30 Glucose (Glutose) 15 gm Q15M PRN PO DECREASED GLUCOSE; Start 01/11/17 at 09:30 Glucose (Glutose) 22.5 gm Q15M PRN PO DECREASED GLUCOSE; Start 01/11/17 at 09: 30 Dextrose (D50w Syringe) 25 ml Q15M PRN IV DECREASED GLUCOSE; Start 01/11/17 at 09:30 Dextrose (D50w Syringe) 50 ml Q15M PRN IV DECREASED GLUCOSE; Start 01/11/17 at 09:30 Glucagon (Glucagen) 1 mg Q15M PRN IM DECREASED GLUCOSE; Start 01/11/17 at 09:30 Glucose (Glutose) 15 gm Q15M PRN BUCCAL DECREASED GLUCOSE; Start 01/11/17 at 09 :30 Aspirin (Aspirin) 81 mg DAILY PO Last administered on 01/15/17 09:08; Admin Dose 81 MG; Start 01/11/17 at 15:00 Clopidogrel Bisulfate (plaVIX) 75 mg DAILY PO Last administered on 01/15/17 09 :07; Admin Dose 75 MG; Start 01/11/17 at 15:00 Acetaminophen/ Hydrocodone Bitart ([place] (5/325)) 1 tab Q6H PRN PO SEVERE PAIN LEVEL 7-10 Last administered on 01/15/17 12:11; Admin Dose 1 TAB; Start at 22:00 Acetaminophen (Tylenol Tab) 650 mg Q6H PRN PO PAIN AND OR ELEVATED TEMP Last administered on 01/12/17 22:09; Admin Dose 650 MG; Start 01/12/17 at 22:00 JANENE LOVE NP Jan 15, 2017 16:57
[2017-01-15 20:00] VITALS: BP 126/70; PULSE 81
[2017-01-15] MEDS: MONTELUKAST 10 MG TAB PO SCH (20:36)
[2017-01-15] MEDS: NIFEdipine (XL) 60 MG TAB PO SCH (20:37)
[2017-01-15] MEDS: ATORVASTATIN 10 MG TAB PO SCH (20:37)
[2017-01-15] MEDS: INSULIN GLARGINE [LANtus] 3 ML PEN SC SCH (20:45)
[2017-01-15 21:21] VITALS: BP 126/70; PULSE 81; RESP 18
[2017-01-15 22:57] LABS: ADD UMIC YES; UR ASCORBIC ACID NEGATIVE (NEGATIVE); UR BACTERIA FEW /HPF (NONE SEEN); UR BILIRUBIN (Dip) NEGATIVE (NEGATIVE); UR BLOOD (Dip) 1+ mg/dL (NEGATIVE); UR BUDDING YEAST MANY /HPF (NONE SEEN); UR CLARITY SLIGHTLY CLOUDY (CLEAR); UR COLOR YELLOW (YELLOW); UR GLUCOSE (Dip) 2+ mg/dL (NEGATIVE); UR KETONES (Dip) NEGATIVE (NEGATIVE); UR LEUKOCYTE ESTERASE (Dip) 2+ Leu/ul (NEGATIVE); UR NITRITE (Dip) NEGATIVE (NEGATIVE); UR RBC 10 /HPF (0-5); UR SPECIFIC GRAVITY (Dip) 1.009 (1.003-1.030); UR SQUAMOUS EPITHELIAL CELL FEW /HPF (FEW); UR TOTAL PROTEIN (Dip) 3+ mg/dl (NEGATIVE); UR UROBILINOGEN (Dip) NEGATIVE (NEGATIVE); UR WBC CLUMPS FEW /HPF (NONE SEEN)
[2017-01-16] MEDS: ACCU-CHEK XX SCH (01:14)
[2017-01-16 02:00] VITALS: BP 115/60; PULSE 73; RESP 18
[2017-01-16 05:17] LABS: BASOPHIL # 0.1 10^3/ul (0.0-0.1); BASOPHILS % 0.3 % (0.0-2.0); EOSINOPHILS # 0.8 10^3/ul (0.0-0.5); EOSINOPHILS % 4.9 % (0.0-7.0); HEMATOCRIT 22.3 % (37.0-47.0); LYMPHOCYTES # 1.3 10^3/ul (0.8-2.9); LYMPHOCYTES % 8.6 % (15.0-51.0); MEAN CORPUSCULAR HEMOGLOBIN 25.5 pg (29.0-33.0); MEAN CORPUSCULAR HGB CONC 31.4 g/dl (32.0-37.0); MEAN CORPUSCULAR VOLUME 81.4 fl (82.0-101.0); MEAN PLATELET VOLUME 10.3 fl (7.4-10.4); MONOCYTE # 1.4 10^3/ul (0.3-0.9); MONOCYTES % 8.9 % (0.0-11.0); NEUTROPHIL # 11.9 10^3/ul (1.6-7.5); NEUTROPHILS % 76.3 % (39.0-77.0); PLATELET COUNT 395 10^3/UL (140-415); RED BLOOD COUNT 2.74 10^6/ul (4.20-5.40); RED CELL DISTRIBUTION WIDTH 13.8 % (11.5-14.5); WHITE BLOOD COUNT 15.6 10^3/ul (4.8-10.8)
[2017-01-16 05:38] LABS: CALCIUM 7.8 mg/dl (8.4-10.2); CREATININE 3.87 mg/dl (0.44-1.00); MAGNESIUM 2.2 mg/dl (1.7-2.5); PHOSPHORUS 4.2 mg/dl (2.5-4.9); POTASSIUM 4.8 mmol/L (3.5-5.1)
[2017-01-16] MEDS: LEVOFLOXACIN 250 MG TAB PO SCH (06:39)
[2017-01-16 07:32] VITALS: BP 127/58; RESP 18
[2017-01-16] MEDS: INSULIN ASPART [NOVOLOG] 3 ML PEN SC SCH ×7 (07:53→20:37)
[2017-01-16] MEDS: PANTOPRAZOLE (EC) 40 MG TAB PO SCH (08:05)
[2017-01-16] MEDS: CALCIUM CARBONATE 500 MG CHEW TAB PO SCH ×2 (08:41→20:33)
[2017-01-16] MEDS: FERROUS SULFATE (EC) 325 MG TAB PO SCH ×2 (08:41→20:33)
[2017-01-16] MEDS: CLOPIDOGREL 75 MG TAB PO SCH (08:42)
[2017-01-16] MEDS: ASPIRIN 81 MG TAB PO SCH (08:43)
[2017-01-16] MEDS: METOPROLOL 100 MG TAB PO SCH ×2 (08:46→20:37)
[2017-01-16 08:48] VITALS: BP 121/62; PULSE 77
[2017-01-16] MEDS: POLYETHYLENE GLYCOL 17 GM PACKET GTB SCH (08:49)
[2017-01-16] MEDS ORDERED: SOD CHLORIDE 0.9% 250 ML IV* ONE (10:00)
--- NOTE | 2017-01-16 12:22 | CONS ---
Date/Time of Note Date/Time of Note DATE: 01/16/17 TIME: 12:21 Assessment/Plan Assessment/Plan Additional Assessment/Plan 1. Preoperative evaluation prior to lower extremity triple-NL EF by echo and no sig valve abnl/Lexiscan with probable soft tissue attenuation in anterior wall and nl ef and no wall motion abnl. Now post-op s/p LE peripheral bypass surgery - doing well, vascular team follows. PAIN CONTROLLED. BETTER NOW. 2. Hypertension- well Rx, Rx as needed. IN GOOD RANGE 3. Dyslipidemia. 4. Peripheral arterial disease with gangrenous change in the lower extremities - now s/p vascular Rx. 5. Status post left lower extremity transmetatarsal amputation. 6. Renal failure- avoid nephrotoxic meds. STABLE overall. 7. Diabetes mellitus- on meds, keep euglycemic. 8. Anemia - no signs of bleeding. Consultation Date/Type/Reason Admit Date/Time Jan 01, 2017 at 18:03 Initial Consult Date 01/02/17 Type of Consultation: ID Referring Provider: CORY EDGE 24 HR Interval Summary Free Text/Dictation NO acute events - con'r med optimization ROS: No fever, no chills, no nausea, no vomiting, no diarrhea/constipation No recent weight changes No chest pain, no PND, no orthopnea No dizziness, blurred vision No thirst, no heat or cold intolerance Exam/Review of Systems Vital Signs Vitals Vital Signs Date Time Temp Pulse Resp B/P Pulse Ox O2 Delivery O2 Flow Rate FiO2 01/16/17 08:48 77 121/62 01/16/17 07:32 98.7 18 94 01/16/17 02:00 Room Air Intake and Output 01/15/17 01/15/17 01/16/17 14:59 22:59 06:59 Intake Total 1080 ml Balance 1080 ml Exam General: WN/WD/NAD, AOx 2-3 HEENT: Unicetric/atraumatic/EOMI (follow commands) NECK: JVD elevated, no thyromegaly Lymph: no lymphadenopathy HEART: regular with no S3, II/ systolic murmur at apex LUNGS: Coarse sounds ABD: soft, NT, ND, +BS : Intact Neuro: non focal SKIN: chronic changes EXT: trace edema Results Result Diagram: 01/16/17 0459 01/16/17 0459 Results 24 hrs Laboratory Tests Test 01/15/17 17:22 01/15/17 20:40 01/15/17 22:00 01/16/17 04:59 Bedside Glucose 177 160 Urine Color YELLOW Urine Clarity SLIGHTLY CLOUDY A Urine pH 6.0 Urine Specific [place] 1.009 Urine Ketones NEGATIVE Urine Nitrite NEGATIVE Urine Bilirubin NEGATIVE Urine Urobilinogen NEGATIVE Urine Leukocyte Esterase 2+ H Urine Microscopic RBC 10 H Urine Microscopic WBC 126 H Urine Squamous Epithelial Cells FEW Urine Bacteria FEW A Urine Yeast (Budding) MANY A Urine Hemoglobin 1+ H Urine Glucose 2+ H Urine Total Protein 3+ H White Blood Count 15.6 #H Red Blood Count 2.74 L Hemoglobin 7.0 L Hematocrit 22.3 L Mean Corpuscular Volume 81.4 L Mean Corpuscular Hemoglobin 25.5 L Mean Corpuscular Hemoglobin Concent 31.4 L Red Cell Distribution Width 13.8 Platelet Count 395 Mean Platelet Volume 10.3 Neutrophils % 76.3 Lymphocytes % 8.6 L Monocytes % 8.9 Eosinophils % 4.9 Basophils % 0.3 Nucleated Red Blood Cells % 0.0 Neutrophils # 11.9 H Lymphocytes # 1.3 Monocytes # 1.4 H Eosinophils # 0.8 H Basophils # 0.1 Nucleated Red Blood Cells # 0.0 Sodium Level 136 Potassium Level 4.8 Chloride Level 102 Carbon Dioxide Level 20 L Anion Gap 19 H Blood Urea Nitrogen 79 H Creatinine 3.87 H Glucose Level 122 Calcium Level 7.8 L Phosphorus Level 4.2 Magnesium Level 2.2 Test 01/16/17 07:52 Bedside Glucose 120 Medications Medications Current Medications Ferrous Sulfate (Ferrous Sulfate (Ec)) 325 mg BID PO Last administered on 08:41; Admin Dose 325 MG; Start 01/01/17 at 21:00 Furosemide (Lasix) 40 mg DAILY@06 PO Last administered on 01/02/17 05:29; Admin Dose 40 MG; Start 01/02/17 at 06:00; Status Future Hold Metoprolol Tartrate (Lopressor) 100 mg BID PO Last administered on 01/16/17 08: 46; Admin Dose 100 MG; Start 01/01/17 at 21:00 Montelukast Sodium (Singulair) 10 mg QHS PO Last administered on 01/15/17 20: 36; Admin Dose 10 MG; Start 01/01/17 at 21:00 Tramadol HCl (Ultram) 50 mg DAILY PRN PO PAIN Last administered on 01/12/17 19 :55; Admin Dose 50 MG; Start 01/01/17 at 21:00 Diagnostic Test (Pha) (Accu-Chek) 1 ea 02 XX ; Start 01/02/17 at 02:00 Zolpidem Tartrate (Ambien) 5 mg HS PRN PO INSOMNIA Last administered on 23:07; Admin Dose 5 MG; Start 01/01/17 at 22:00 Insulin Glargine (Lantus) 24 unit HS SC Last administered on 01/15/17 20:45; Admin Dose 24 UNIT; Start 01/02/17 at 21:00 Atorvastatin Calcium (Lipitor) 10 mg DAILY@21 PO Last administered on 20:37; Admin Dose 10 MG; Start 01/02/17 at 21:00 Calcium Carbonate (Tums) 500 mg BID PO Last administered on 01/16/17 08:41; Admin Dose 500 MG; Start 01/02/17 at 21:00 Magnesium Hydroxide (Milk Of Mag) 30 ml DAILY PRN PO CONSTIPATION Last administered on 01/14/17 20:42; Admin Dose 30 ML; Start 01/03/17 at 17:30 Polyethylene Glycol 17 gm 17 gm DAILY GTB Last administered on 01/16/17 08:49; Admin Dose 17 GM; Start 01/03/17 at 17:30 Daptomycin/Sodium Chloride (Cubicin/NS) 100 ml @ 200 mls/hr Q48H IVPB Last administered on 01/14/17 16:25; Admin Dose 200 MLS/HR; Start 01/08/17 at 16:00 Levofloxacin (Levaquin) 250 mg Q2D@06 PO Last administered on 01/16/17 06:39; Admin Dose 250 MG; Start 01/08/17 at 15:00 Nifedipine (Procardia Xl) 60 mg QHS PO Last administered on 01/15/17 20:37; Admin Dose 60 MG; Start 01/11/17 at 21:00 Miscellaneous Information 1 ea NOTE XX ; Start 01/11/17 at 09:30 Glucose (Glutose) 15 gm Q15M PRN PO DECREASED GLUCOSE; Start 01/11/17 at 09:30 Glucose (Glutose) 22.5 gm Q15M PRN PO DECREASED GLUCOSE; Start 01/11/17 at 09: 30 Dextrose (D50w Syringe) 25 ml Q15M PRN IV DECREASED GLUCOSE; Start 01/11/17 at 09:30 Dextrose (D50w Syringe) 50 ml Q15M PRN IV DECREASED GLUCOSE; Start 01/11/17 at 09:30 Glucagon (Glucagen) 1 mg Q15M PRN IM DECREASED GLUCOSE; Start 01/11/17 at 09:30 Glucose (Glutose) 15 gm Q15M PRN BUCCAL DECREASED GLUCOSE; Start 01/11/17 at 09 :30 Aspirin (Aspirin) 81 mg DAILY PO Last administered on 01/16/17 08:43; Admin Dose 81 MG; Start 01/11/17 at 15:00 Clopidogrel Bisulfate (plaVIX) 75 mg DAILY PO Last administered on 01/16/17 08: 42; Admin Dose 75 MG; Start 01/11/17 at 15:00 Acetaminophen/ Hydrocodone Bitart ([place] (5/325)) 1 tab Q6H PRN PO SEVERE PAIN LEVEL 7-10 Last administered on 01/15/17 23:17; Admin Dose 1 TAB; Start at 22:00 Acetaminophen (Tylenol Tab) 650 mg Q6H PRN PO PAIN AND OR ELEVATED TEMP Last administered on 01/12/17 22:09; Admin Dose 650 MG; Start 01/12/17 at 22:00 FRANCISCO ZARCO MD Jan 16, 2017 12:22
--- NOTE | 2017-01-16 13:11 | CONS ---
Date/Time of Note Date/Time of Note DATE: 01/16/17 TIME: 13:09 Assessment/Plan Assessment/Plan Additional Assessment/Plan (1) Diabetes mellitus Status: Chronic (2) Peripheral vascular disease due to secondary diabetes mellitus Status: Chronic (3) Anemia Status: Chronic (4) Renal failure MANOHAR on CKD Stage IV Please repeat Chemistry, H/Hct MOnitor electrolytes, acid base status, Volume status, UO and renal function NO acute indication for HD at this time Further recommendations to follow once repeat labs. Consultation Date/Type/Reason Admit Date/Time Jan 01, 2017 at 18:03 Initial Consult Date 01/02/17 Type of Consultation: Renal Referring Provider: CORY EDGE 24 HR Interval Summary Free Text/Dictation No new complaints Constitutional: No requiring O2 Exam/Review of Systems Vital Signs Vitals Vital Signs Date Time Temp Pulse Resp B/P Pulse Ox O2 Delivery O2 Flow Rate FiO2 01/16/17 08:48 77 121/62 01/16/17 07:32 98.7 18 94 01/16/17 02:00 Room Air Intake and Output 01/15/17 01/15/17 01/16/17 15:00 23:00 07:00 Intake Total 1080 ml Balance 1080 ml Exam Constitutional: alert, No distress ENMT: mucosa pink and moist Neck: No jvd Respiratory: No diminished breath sounds, No labored breathing Cardiovascular: edema, regular rate and rhythm Gastrointestinal: non-tender, soft Neurological: WHARFINGER CHIEF II-XII intact, nl mental status, No lethargic Results Result Diagram: 01/16/17 0459 01/16/17 0459 Results 24 hrs Laboratory Tests Test 01/15/17 17:22 01/15/17 20:40 01/15/17 22:00 01/16/17 04:59 Bedside Glucose 177 160 Urine Color YELLOW Urine Clarity SLIGHTLY CLOUDY A Urine pH 6.0 Urine Specific [place] 1.009 Urine Ketones NEGATIVE Urine Nitrite NEGATIVE Urine Bilirubin NEGATIVE Urine Urobilinogen NEGATIVE Urine Leukocyte Esterase 2+ H Urine Microscopic RBC 10 H Urine Microscopic WBC 126 H Urine Squamous Epithelial Cells FEW Urine Bacteria FEW A Urine Yeast (Budding) MANY A Urine Hemoglobin 1+ H Urine Glucose 2+ H Urine Total Protein 3+ H White Blood Count 15.6 #H Red Blood Count 2.74 L Hemoglobin 7.0 L Hematocrit 22.3 L Mean Corpuscular Volume 81.4 L Mean Corpuscular Hemoglobin 25.5 L Mean Corpuscular Hemoglobin Concent 31.4 L Red Cell Distribution Width 13.8 Platelet Count 395 Mean Platelet Volume 10.3 Neutrophils % 76.3 Lymphocytes % 8.6 L Monocytes % 8.9 Eosinophils % 4.9 Basophils % 0.3 Nucleated Red Blood Cells % 0.0 Neutrophils # 11.9 H Lymphocytes # 1.3 Monocytes # 1.4 H Eosinophils # 0.8 H Basophils # 0.1 Nucleated Red Blood Cells # 0.0 Sodium Level 136 Potassium Level 4.8 Chloride Level 102 Carbon Dioxide Level 20 L Anion Gap 19 H Blood Urea Nitrogen 79 H Creatinine 3.87 H Glucose Level 122 Calcium Level 7.8 L Phosphorus Level 4.2 Magnesium Level 2.2 Test 01/16/17 07:52 01/16/17 12:44 Bedside Glucose 120 136 Medications Medications Current Medications Ferrous Sulfate (Ferrous Sulfate (Ec)) 325 mg BID PO Last administered on 08:41; Admin Dose 325 MG; Start 01/01/17 at 21:00 Furosemide (Lasix) 40 mg DAILY@06 PO Last administered on 01/02/17 05:29; Admin Dose 40 MG; Start 01/02/17 at 06:00; Status Future Hold Metoprolol Tartrate (Lopressor) 100 mg BID PO Last administered on 01/16/17 08: 46; Admin Dose 100 MG; Start 01/01/17 at 21:00 Montelukast Sodium (Singulair) 10 mg QHS PO Last administered on 01/15/17 20: 36; Admin Dose 10 MG; Start 01/01/17 at 21:00 Tramadol HCl (Ultram) 50 mg DAILY PRN PO PAIN Last administered on 01/12/17 19 :55; Admin Dose 50 MG; Start 01/01/17 at 21:00 Diagnostic Test (Pha) (Accu-Chek) 1 ea 02 XX ; Start 01/02/17 at 02:00 Zolpidem Tartrate (Ambien) 5 mg HS PRN PO INSOMNIA Last administered on 23:07; Admin Dose 5 MG; Start 01/01/17 at 22:00 Insulin Glargine (Lantus) 24 unit HS SC Last administered on 01/15/17 20:45; Admin Dose 24 UNIT; Start 01/02/17 at 21:00 Atorvastatin Calcium (Lipitor) 10 mg DAILY@21 PO Last administered on 20:37; Admin Dose 10 MG; Start 01/02/17 at 21:00 Calcium Carbonate (Tums) 500 mg BID PO Last administered on 01/16/17 08:41; Admin Dose 500 MG; Start 01/02/17 at 21:00 Magnesium Hydroxide (Milk Of Mag) 30 ml DAILY PRN PO CONSTIPATION Last administered on 01/14/17 20:42; Admin Dose 30 ML; Start 01/03/17 at 17:30 Polyethylene Glycol 17 gm 17 gm DAILY GTB Last administered on 01/16/17 08:49; Admin Dose 17 GM; Start 01/03/17 at 17:30 Daptomycin/Sodium Chloride (Cubicin/NS) 100 ml @ 200 mls/hr Q48H IVPB Last administered on 01/14/17 16:25; Admin Dose 200 MLS/HR; Start 01/08/17 at 16:00 Levofloxacin (Levaquin) 250 mg Q2D@06 PO Last administered on 01/16/17 06:39; Admin Dose 250 MG; Start 01/08/17 at 15:00 Nifedipine (Procardia Xl) 60 mg QHS PO Last administered on 01/15/17 20:37; Admin Dose 60 MG; Start 01/11/17 at 21:00 Miscellaneous Information 1 ea NOTE XX ; Start 01/11/17 at 09:30 Glucose (Glutose) 15 gm Q15M PRN PO DECREASED GLUCOSE; Start 01/11/17 at 09:30 Glucose (Glutose) 22.5 gm Q15M PRN PO DECREASED GLUCOSE; Start 01/11/17 at 09: 30 Dextrose (D50w Syringe) 25 ml Q15M PRN IV DECREASED GLUCOSE; Start 01/11/17 at 09:30 Dextrose (D50w Syringe) 50 ml Q15M PRN IV DECREASED GLUCOSE; Start 01/11/17 at 09:30 Glucagon (Glucagen) 1 mg Q15M PRN IM DECREASED GLUCOSE; Start 01/11/17 at 09:30 Glucose (Glutose) 15 gm Q15M PRN BUCCAL DECREASED GLUCOSE; Start 01/11/17 at 09 :30 Aspirin (Aspirin) 81 mg DAILY PO Last administered on 01/16/17 08:43; Admin Dose 81 MG; Start 01/11/17 at 15:00 Clopidogrel Bisulfate (plaVIX) 75 mg DAILY PO Last administered on 01/16/17 08: 42; Admin Dose 75 MG; Start 01/11/17 at 15:00 Acetaminophen/ Hydrocodone Bitart ([place] (5/325)) 1 tab Q6H PRN PO SEVERE PAIN LEVEL 7-10 Last administered on 01/15/17 23:17; Admin Dose 1 TAB; Start at 22:00 Acetaminophen (Tylenol Tab) 650 mg Q6H PRN PO PAIN AND OR ELEVATED TEMP Last administered on 01/12/17 22:09; Admin Dose 650 MG; Start 01/12/17 at 22:00 ADÁN MONTEIRO MD Jan 16, 2017 13:11
[2017-01-16] MEDS ORDERED: CLIN-73 PO (13:57)
[2017-01-16] MEDS ORDERED: HYDR-3498 PO (14:04)
[2017-01-16 14:36] LABS: HEMATOCRIT 25.2 % (37.0-47.0); HEMOGLOBIN 8.2 g/dl (12.0-16.0)
[2017-01-16 14:55] LABS: CALCIUM 8.2 mg/dl (8.4-10.2); CREATININE 3.76 mg/dl (0.44-1.00); POTASSIUM 4.8 mmol/L (3.5-5.1)
[2017-01-16] MEDS: CLINDAMYCIN 300 MG CAP PO SCH ×3 (15:29→23:39)
--- NOTE | 2017-01-16 15:44 | PN ---
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 Patient has a past medical history of CKD as well as diabetes mellitus. Assessment Necrotic right lower extremity toes sepsis, mild, resolving occluded R popliteal and tibial arteries Diabetes mellitus MANOHAR vs MANOHAR on CKD Chronic kidney disease Hypertension Left toes amputation Plan -No surgery planning this admission. Will need to follow up with Dr. Camilo in 1 week to reassess fem-pop bypass and with good progression, will okay amputation in the outpatient surgery. -Dr. Marisela Taylor, podiatry on -Dr. Hoffman consulted for MANOHAR vs CKD, recs appreciated. Cr is worse, repeat hgb stable, no transfusion needed, however nephrology would like to monitor overnight for improved Cr. -Continue home meds as able -abx per ID, on orals for 4 weeks now, reimaging needed within 4 weeks per podiatry. -Repeat labs in the morning -arterial study shows stenosis -watch bp Jourdan Mcmahan DO. Problems: Subjective 24 Hr Interval Summary Free Text/Dictation no acute complaints Exam/Review of Systems Vital Signs Vitals Vital Signs Date Time Temp Pulse Resp B/P Pulse Ox O2 Delivery O2 Flow Rate FiO2 01/16/17 08:48 77 121/62 01/16/17 07:32 98.7 18 94 01/16/17 02:00 Room Air Intake and Output 01/15/17 01/15/17 01/16/17 15:00 23:00 07:00 Intake Total 1080 ml Balance 1080 ml Exam Physical exam General: Patient is laying in bed and answers questions appropriately Mentation: Patient is alert and oriented 4, Head: Normocephalic atraumatic Eyes: EOMI, pupils reactive to light Neck: Supple, nontender, midline Respiratory: Clear to auscultation bilaterally Cardiovascular: regular rate, no obvious murmurs Gastrointestinal: non-tender to palpation, bowel sounds heard. Neurological: Moves all extremities spontaneously Skin: necrotic great and 2nd toe of R foot. L foot transmetatarsal amputation. R LE surgical bandage site. Results Result Diagram: 01/16/17 1341 01/16/17 1341 Results 24 hrs Laboratory Tests Test 01/15/17 17:22 01/15/17 20:40 01/15/17 22:00 01/16/17 04:59 Bedside Glucose 177 160 Urine Color YELLOW Urine Clarity SLIGHTLY CLOUDY A Urine pH 6.0 Urine Specific [place] 1.009 Urine Ketones NEGATIVE Urine Nitrite NEGATIVE Urine Bilirubin NEGATIVE Urine Urobilinogen NEGATIVE Urine Leukocyte Esterase 2+ H Urine Microscopic RBC 10 H Urine Microscopic WBC 126 H Urine Squamous Epithelial Cells FEW Urine Bacteria FEW A Urine Yeast (Budding) MANY A Urine Hemoglobin 1+ H Urine Glucose 2+ H Urine Total Protein 3+ H White Blood Count 15.6 #H Red Blood Count 2.74 L Hemoglobin 7.0 L Hematocrit 22.3 L Mean Corpuscular Volume 81.4 L Mean Corpuscular Hemoglobin 25.5 L Mean Corpuscular Hemoglobin Concent 31.4 L Red Cell Distribution Width 13.8 Platelet Count 395 Mean Platelet Volume 10.3 Neutrophils % 76.3 Lymphocytes % 8.6 L Monocytes % 8.9 Eosinophils % 4.9 Basophils % 0.3 Nucleated Red Blood Cells % 0.0 Neutrophils # 11.9 H Lymphocytes # 1.3 Monocytes # 1.4 H Eosinophils # 0.8 H Basophils # 0.1 Nucleated Red Blood Cells # 0.0 Sodium Level 136 Potassium Level 4.8 Chloride Level 102 Carbon Dioxide Level 20 L Anion Gap 19 H Blood Urea Nitrogen 79 H Creatinine 3.87 H Glucose Level 122 Calcium Level 7.8 L Phosphorus Level 4.2 Magnesium Level 2.2 Test 01/16/17 07:52 01/16/17 12:44 01/16/17 13:41 Bedside Glucose 120 136 Hemoglobin 8.2 L Hematocrit 25.2 L Sodium Level 133 L Potassium Level 4.8 Chloride Level 100 Carbon Dioxide Level 19 L Anion Gap 19 H Blood Urea Nitrogen 78 H Creatinine 3.76 H Glucose Level 112 Calcium Level 8.2 L Medications Medications Current Medications Ferrous Sulfate (Ferrous Sulfate (Ec)) 325 mg BID PO Last administered on 08:41; Admin Dose 325 MG; Start 01/01/17 at 21:00 Furosemide (Lasix) 40 mg DAILY@06 PO Last administered on 01/02/17 05:29; Admin Dose 40 MG; Start 01/02/17 at 06:00; Status Future Hold Metoprolol Tartrate (Lopressor) 100 mg BID PO Last administered on 01/16/17 08: 46; Admin Dose 100 MG; Start 01/01/17 at 21:00 Montelukast Sodium (Singulair) 10 mg QHS PO Last administered on 01/15/17 20: 36; Admin Dose 10 MG; Start 01/01/17 at 21:00 Tramadol HCl (Ultram) 50 mg DAILY PRN PO PAIN Last administered on 01/12/17 19 :55; Admin Dose 50 MG; Start 01/01/17 at 21:00 Diagnostic Test (Pha) (Accu-Chek) 1 ea 02 XX ; Start 01/02/17 at 02:00 Zolpidem Tartrate (Ambien) 5 mg HS PRN PO INSOMNIA Last administered on 23:07; Admin Dose 5 MG; Start 01/01/17 at 22:00 Insulin Glargine (Lantus) 24 unit HS SC Last administered on 01/15/17 20:45; Admin Dose 24 UNIT; Start 01/02/17 at 21:00 Atorvastatin Calcium (Lipitor) 10 mg DAILY@21 PO Last administered on 20:37; Admin Dose 10 MG; Start 01/02/17 at 21:00 Calcium Carbonate (Tums) 500 mg BID PO Last administered on 01/16/17 08:41; Admin Dose 500 MG; Start 01/02/17 at 21:00 Magnesium Hydroxide (Milk Of Mag) 30 ml DAILY PRN PO CONSTIPATION Last administered on 01/14/17 20:42; Admin Dose 30 ML; Start 01/03/17 at 17:30 Polyethylene Glycol (Miralax) 17 gm DAILY GTB Last administered on 01/16/17 08: 49; Admin Dose 17 GM; Start 01/03/17 at 17:30 Nifedipine (Procardia Xl) 60 mg QHS PO Last administered on 01/15/17 20:37; Admin Dose 60 MG; Start 01/11/17 at 21:00 Miscellaneous Information 1 ea NOTE XX ; Start 01/11/17 at 09:30 Glucose (Glutose) 15 gm Q15M PRN PO DECREASED GLUCOSE; Start 01/11/17 at 09:30 Glucose (Glutose) 22.5 gm Q15M PRN PO DECREASED GLUCOSE; Start 01/11/17 at 09: 30 Dextrose (D50w Syringe) 25 ml Q15M PRN IV DECREASED GLUCOSE; Start 01/11/17 at 09:30 Dextrose (D50w Syringe) 50 ml Q15M PRN IV DECREASED GLUCOSE; Start 01/11/17 at 09:30 Glucagon (Glucagen) 1 mg Q15M PRN IM DECREASED GLUCOSE; Start 01/11/17 at 09:30 Glucose (Glutose) 15 gm Q15M PRN BUCCAL DECREASED GLUCOSE; Start 01/11/17 at 09 :30 Aspirin (Aspirin) 81 mg DAILY PO Last administered on 01/16/17 08:43; Admin Dose 81 MG; Start 01/11/17 at 15:00 Clopidogrel Bisulfate (plaVIX) 75 mg DAILY PO Last administered on 01/16/17 08: 42; Admin Dose 75 MG; Start 01/11/17 at 15:00 Acetaminophen/ Hydrocodone Bitart ([place] (5/325)) 1 tab Q6H PRN PO SEVERE PAIN LEVEL 7-10 Last administered on 01/15/17 23:17; Admin Dose 1 TAB; Start at 22:00 Acetaminophen (Tylenol Tab) 650 mg Q6H PRN PO PAIN AND OR ELEVATED TEMP Last administered on 01/12/17 22:09; Admin Dose 650 MG; Start 01/12/17 at 22:00 Clindamycin HCl (Cleocin) 300 mg Q6 PO Last administered on 01/16/17 15:29; Admin Dose 300 MG; Start 01/16/17 at 14:30 JOURDAN MCMAHAN Jan 16, 2017 15:44
--- NOTE | 2017-01-16 16:41 | RADRPT ---
PROCEDURE: US upper extremity Venous. CLINICAL INDICATION: Right arm edema TECHNIQUE: Multiple sonographic images of the right upper extremity venous system was obtained uti lizing grayscale, color-flow, compressive sonography and doppler imaging with augmentation. The jason ges were reviewed on a PACS workstation. COMPARISON: None. FINDINGS: There is normal compressibility and flow within the right internal jugular vein, subclavian vein, ax illary vein, brachial, basilic, cephalic, radial and ulnar veins. RPTAT: AA IMPRESSION: No sonographic evidence for venous thrombosis. .Pelon Otto MD, MD Date Time Electronically viewed and signed by .Pelon Otto MD, on 01/16/2017 16:41 .S/
--- NOTE | 2017-01-16 17:49 | CONS ---
Date/Time of Note Date/Time of Note DATE: 01/16/17 TIME: 17:30 Assessment/Plan Assessment/Plan Chief Complaint/Hosp Course ID PROGRESS NOTE POD #01/11/17 => S/P RIGHT FEMORAL TO DORSALIS PEDIS BYPASS 24H INTERVAL SUMMARY CURRENT ABX: Daptomycin #9 + Levaquin #8 * (-)DVT today 01/16/17 by doppler * DC planning => Pt to DC home as no further vascular interventions planned this week * A/A/No fevers, all micro negative, s/p RLEXT revascularization for ischemic/ diabetic foot, no open wounds. 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 S/P SIRS w/low grade temps, leukocytosis due to Right foot gangrene = diabetic, ischemic foot => RESOLVED 2. R-Great Toe -> No definite evidence of / cannot rule out periostitis w/ osteomyelitis per X-ray * 01/01/17 R-foot X-ray: Focal demineralization and subtle plantar periosteal reaction involving the distal phalanx for the great toe of the right foot cannot exclude periostitis with associated osteomyelitis. PAD ->s/p angioplasty 01/03/; followed by POD 01/11/17 = > s/p RLEXT Fem->DP bypass 2. Diabetes mellitus w/peripheral neuropathy 3. Acute on chronic kidney disease-> STG IV 4. Hypertension (-) MRSA Nares ABX ALLERGIES: PCN/Zosyn CURRENT ABX: Daptomycin #9 + Levaquin #8 ID RECOMMENDATIONS When cleared for DC=> Patient may DC home on PO ABX for a total of 28 days with repeat imaging/MRI foot in 4 weeks and f/u w/vascular. * 1. Clindamycin 300mg po QID x 28 days * 2. Cipro 250mg po daily (renal dose) x 28 days * 3. f/u with APC with imaging MRI in 28 days to evaluate possibility of osteomyelitis, not confirmed on X-ray . . Problems: Consultation Date/Type/Reason Admit Date/Time Jan 01, 2017 at 18:03 Initial Consult Date 01/02/17 Type of Consultation: ID Referring Provider: CORY EDGE Exam/Review of Systems Vital Signs Vitals Vital Signs Date Time Temp Pulse Resp B/P Pulse Ox O2 Delivery O2 Flow Rate FiO2 01/16/17 08:48 77 121/62 01/16/17 07:32 98.7 18 94 01/16/17 02:00 Room Air Intake and Output 01/15/17 01/15/17 01/16/17 15:00 23:00 07:00 Intake Total 1080 ml Balance 1080 ml Results Result Diagram: 01/16/17 1341 01/16/17 1341 Results 24 hrs Laboratory Tests Test 01/15/17 20:40 01/15/17 22:00 01/16/17 04:59 01/16/17 07:52 Bedside Glucose 160 120 Urine Color YELLOW Urine Clarity SLIGHTLY CLOUDY A Urine pH 6.0 Urine Specific [place] 1.009 Urine Ketones NEGATIVE Urine Nitrite NEGATIVE Urine Bilirubin NEGATIVE Urine Urobilinogen NEGATIVE Urine Leukocyte Esterase 2+ H Urine Microscopic RBC 10 H Urine Microscopic WBC 126 H Urine Squamous Epithelial Cells FEW Urine Bacteria FEW A Urine Yeast (Budding) MANY A Urine Hemoglobin 1+ H Urine Glucose 2+ H Urine Total Protein 3+ H White Blood Count 15.6 #H Red Blood Count 2.74 L Hemoglobin 7.0 L Hematocrit 22.3 L Mean Corpuscular Volume 81.4 L Mean Corpuscular Hemoglobin 25.5 L Mean Corpuscular Hemoglobin Concent 31.4 L Red Cell Distribution Width 13.8 Platelet Count 395 Mean Platelet Volume 10.3 Neutrophils % 76.3 Lymphocytes % 8.6 L Monocytes % 8.9 Eosinophils % 4.9 Basophils % 0.3 Nucleated Red Blood Cells % 0.0 Neutrophils # 11.9 H Lymphocytes # 1.3 Monocytes # 1.4 H Eosinophils # 0.8 H Basophils # 0.1 Nucleated Red Blood Cells # 0.0 Sodium Level 136 Potassium Level 4.8 Chloride Level 102 Carbon Dioxide Level 20 L Anion Gap 19 H Blood Urea Nitrogen 79 H Creatinine 3.87 H Glucose Level 122 Calcium Level 7.8 L Phosphorus Level 4.2 Magnesium Level 2.2 Test 01/16/17 12:44 01/16/17 13:41 Bedside Glucose 136 Hemoglobin 8.2 L Hematocrit 25.2 L Sodium Level 133 L Potassium Level 4.8 Chloride Level 100 Carbon Dioxide Level 19 L Anion Gap 19 H Blood Urea Nitrogen 78 H Creatinine 3.76 H Glucose Level 112 Calcium Level 8.2 L Medications Medications Current Medications Ferrous Sulfate (Ferrous Sulfate (Ec)) 325 mg BID PO Last administered on 08:41; Admin Dose 325 MG; Start 01/01/17 at 21:00 Furosemide (Lasix) 40 mg DAILY@06 PO Last administered on 01/02/17 05:29; Admin Dose 40 MG; Start 01/02/17 at 06:00; Status Future Hold Metoprolol Tartrate (Lopressor) 100 mg BID PO Last administered on 01/16/17 08: 46; Admin Dose 100 MG; Start 01/01/17 at 21:00 Montelukast Sodium (Singulair) 10 mg QHS PO Last administered on 01/15/17 20: 36; Admin Dose 10 MG; Start 01/01/17 at 21:00 Tramadol HCl (Ultram) 50 mg DAILY PRN PO PAIN Last administered on 01/12/17 19 :55; Admin Dose 50 MG; Start 01/01/17 at 21:00 Diagnostic Test (Pha) (Accu-Chek) 1 ea 02 XX ; Start 01/02/17 at 02:00 Zolpidem Tartrate (Ambien) 5 mg HS PRN PO INSOMNIA Last administered on 23:07; Admin Dose 5 MG; Start 01/01/17 at 22:00 Insulin Glargine (Lantus) 24 unit HS SC Last administered on 01/15/17 20:45; Admin Dose 24 UNIT; Start 01/02/17 at 21:00 Atorvastatin Calcium (Lipitor) 10 mg DAILY@21 PO Last administered on 20:37; Admin Dose 10 MG; Start 01/02/17 at 21:00 Calcium Carbonate (Tums) 500 mg BID PO Last administered on 01/16/17 08:41; Admin Dose 500 MG; Start 01/02/17 at 21:00 Magnesium Hydroxide (Milk Of Mag) 30 ml DAILY PRN PO CONSTIPATION Last administered on 01/14/17 20:42; Admin Dose 30 ML; Start 01/03/17 at 17:30 Polyethylene Glycol (Miralax) 17 gm DAILY GTB Last administered on 01/16/17 08: 49; Admin Dose 17 GM; Start 01/03/17 at 17:30 Nifedipine (Procardia Xl) 60 mg QHS PO Last administered on 01/15/17 20:37; Admin Dose 60 MG; Start 01/11/17 at 21:00 Miscellaneous Information 1 ea NOTE XX ; Start 01/11/17 at 09:30 Glucose (Glutose) 15 gm Q15M PRN PO DECREASED GLUCOSE; Start 01/11/17 at 09:30 Glucose (Glutose) 22.5 gm Q15M PRN PO DECREASED GLUCOSE; Start 01/11/17 at 09: 30 Dextrose (D50w Syringe) 25 ml Q15M PRN IV DECREASED GLUCOSE; Start 01/11/17 at 09:30 Dextrose (D50w Syringe) 50 ml Q15M PRN IV DECREASED GLUCOSE; Start 01/11/17 at 09:30 Glucagon (Glucagen) 1 mg Q15M PRN IM DECREASED GLUCOSE; Start 01/11/17 at 09:30 Glucose (Glutose) 15 gm Q15M PRN BUCCAL DECREASED GLUCOSE; Start 01/11/17 at 09 :30 Aspirin (Aspirin) 81 mg DAILY PO Last administered on 01/16/17 08:43; Admin Dose 81 MG; Start 01/11/17 at 15:00 Clopidogrel Bisulfate (plaVIX) 75 mg DAILY PO Last administered on 01/16/17 08: 42; Admin Dose 75 MG; Start 01/11/17 at 15:00 Acetaminophen/ Hydrocodone Bitart ([place] (5/325)) 1 tab Q6H PRN PO SEVERE PAIN LEVEL 7-10 Last administered on 01/15/17 23:17; Admin Dose 1 TAB; Start at 22:00 Acetaminophen (Tylenol Tab) 650 mg Q6H PRN PO PAIN AND OR ELEVATED TEMP Last administered on 01/12/17 22:09; Admin Dose 650 MG; Start 01/12/17 at 22:00 Clindamycin HCl (Cleocin) 300 mg Q6 PO Last administered on 8/1/17at 15:29; Admin Dose 300 MG; Start 01/16/17 at 14:30 JANENE LOVE NP Jan 16, 2017 17:48
[2017-01-16 20:00] VITALS: BP 123/58; RESP 18
[2017-01-16] MEDS: MONTELUKAST 10 MG TAB PO SCH (20:33)
[2017-01-16] MEDS: ATORVASTATIN 10 MG TAB PO SCH (20:33)
[2017-01-16] MEDS: NIFEdipine (XL) 60 MG TAB PO SCH (20:37)
[2017-01-16] MEDS: INSULIN GLARGINE [LANtus] 3 ML PEN SC SCH (20:41)
[2017-01-16] MEDS: MAGNESIUM HYDROXIDE 30ML CUP PO PRN (23:39)
[2017-01-16] MEDS: HYDROCODONE/APAP (5/325) TAB PO PRN (23:42)
--- NOTE | 2017-01-16 23:54 | PN ---
Date/Time of Note Date/Time of Note DATE: 01/16/17 TIME: 23:53 Assessment/Plan Lines/Catheters IV Catheter Type (from [facility]): Saline Lock [place] in Place (from [facility]): No Assessment/Plan Chief Complaint/Hosp Course My recommendation is for patient to be discharged home. She will be followed up on an outpatient basis. I will monitor her right hallux gangrene with her new status of perfusion in the right lower extremity since after her bypass by Dr. Ravinder Camilo. Close monitoring is needed. Patient will be treated on an outpatient basis in the clinic. Once the demarcation is finalized, then surgical planning will be made. I have discussed this with patient and also Dr. Camilo. Everyone agrees with the treatment plan. Problems: Exam/Review of Systems Vital Signs Vitals Vital Signs Date Time Temp Pulse Resp B/P Pulse Ox O2 Delivery O2 Flow Rate FiO2 01/16/17 20:00 99.3 74 18 123/58 94 01/16/17 02:00 Room Air Intake and Output 01/15/17 01/15/17 01/16/17 15:00 23:00 07:00 Intake Total 1080 ml Balance 1080 ml Results Result Diagram: 01/16/17 1341 01/16/17 1341 MICHEAL HU DPM Jan 16, 2017 23:54
[2017-01-17] MEDS: ACCU-CHEK XX SCH (01:56)
[2017-01-17 02:00] VITALS: BP 112/57; RESP 16
[2017-01-17] MEDS: CLINDAMYCIN 300 MG CAP PO SCH ×4 (05:45→23:36)
[2017-01-17] MEDS: CIPROFLOXACIN 250 MG TAB NGT SCH (05:45)
--- NOTE | 2017-01-17 06:23 | OPR ---
DATE OF OPERATION: 01/06/2017 OPERATION PERFORMED: Lexiscan. INDICATION: Preop cardiac clearance. OPERATIVE PROCEDURE: Patient is a 61-year-old female for preop cardiac clearance with a baseline heart rate of 63 beats per minute. Baseline blood pressure 131/80 mmHg. Peak heart rate 77 beats per minute. Peak blood pressure 129/74 mmHg. Patient was asymptomatic during the duration of the stress test. ELECTROCARDIOGRAM: EKG at baseline shows normal sinus rhythm with a ventricular rate of 61 beats per minute with normal RI, normal QRS and normal QT interval with no acute ST-T wave changes. The peak heart rate was 77 beats per minute with normal sinus rhythm, with no acute ST-T wave changes compared to baseline. CONCLUSION: Clinically nonischemic EKG diagnostic cardiac stress test. Images to follow this dictation. Dictated By: Teofilo Lopez MD /israel/vida /Document#: [id number]
[2017-01-17 06:41] LABS: BASOPHIL # 0.1 10^3/ul (0.0-0.1); BASOPHILS % 0.4 % (0.0-2.0); EOSINOPHILS # 0.6 10^3/ul (0.0-0.5); HEMATOCRIT 22.2 % (37.0-47.0); HEMOGLOBIN 7.1 g/dl (12.0-16.0); LYMPHOCYTES # 1.2 10^3/ul (0.8-2.9); LYMPHOCYTES % 8.3 % (15.0-51.0); MEAN CORPUSCULAR HEMOGLOBIN 25.8 pg (29.0-33.0); MEAN CORPUSCULAR VOLUME 80.7 fl (82.0-101.0); MEAN PLATELET VOLUME 10.4 fl (7.4-10.4); MONOCYTE # 1.3 10^3/ul (0.3-0.9); MONOCYTES % 9.2 % (0.0-11.0); NEUTROPHIL # 10.7 10^3/ul (1.6-7.5); NEUTROPHILS % 77.4 % (39.0-77.0); PLATELET COUNT 454 10^3/UL (140-415); RED BLOOD COUNT 2.75 10^6/ul (4.20-5.40); RED CELL DISTRIBUTION WIDTH 13.7 % (11.5-14.5); WHITE BLOOD COUNT 13.8 10^3/ul (4.8-10.8)
[2017-01-17 07:28] LABS: CALCIUM 8.2 mg/dl (8.4-10.2); CREATININE 3.95 mg/dl (0.44-1.00); MAGNESIUM 2.4 mg/dl (1.7-2.5); PHOSPHORUS 4.5 mg/dl (2.5-4.9); POTASSIUM 4.4 mmol/L (3.5-5.1)
[2017-01-17] MEDS: INSULIN ASPART [NOVOLOG] 3 ML PEN SC SCH ×7 (08:15→21:00)
[2017-01-17] MEDS: PANTOPRAZOLE (EC) 40 MG TAB PO SCH (09:08)
[2017-01-17] MEDS: ASPIRIN 81 MG TAB PO SCH (09:08)
[2017-01-17] MEDS: CLOPIDOGREL 75 MG TAB PO SCH (09:08)
[2017-01-17] MEDS: CALCIUM CARBONATE 500 MG CHEW TAB PO SCH ×2 (09:08→21:44)
[2017-01-17] MEDS: HYDROCODONE/APAP (5/325) TAB PO PRN ×3 (09:08→23:36)
[2017-01-17] MEDS: POLYETHYLENE GLYCOL 17 GM PACKET GTB SCH (09:09)
[2017-01-17] MEDS: FERROUS SULFATE (EC) 325 MG TAB PO SCH ×2 (09:09→21:45)
[2017-01-17] MEDS: METOPROLOL 100 MG TAB PO SCH ×2 (09:09→21:45)
[2017-01-17 09:19] VITALS: BP 119/56; RESP 18
[2017-01-17] MEDS ORDERED: CIPR-193 PO (11:08)
[2017-01-17 12:36] LABS: HEMATOCRIT 25.1 % (37.0-47.0); HEMOGLOBIN 8.2 g/dl (12.0-16.0)
--- NOTE | 2017-01-17 13:21 | CONS ---
Date/Time of Note Date/Time of Note DATE: 01/17/17 TIME: 13:19 Assessment/Plan Assessment/Plan Chief Complaint/Hosp Course 1. Preoperative evaluation prior to lower extremity triple-NL EF by echo and no sig valve abnl/Lexiscan with probable soft tissue attenutaion in anterior wall and nl ef and no wall motion abnl. Now post-op s/p LE peripheral bypass bypass surgery. 2. Hypertension. 3. Dyslipidemia. 4. Peripheral arterial disease with gangrenous change in the lower extremities. 5. Status post left lower extremity transmetatarsal amputation. 6. Renal failure. 7. Diabetes mellitus. 8. Anemia. Recc: -Contiue procardia XL/BB and follow closely -Continue abx's/f/u cx data -Continue asa/plavix -LE wound care -d/c planning Problems: Consultation Date/Type/Reason Admit Date/Time Jan 01, 2017 at 18:03 Initial Consult Date 01/02/17 Type of Consultation: cardiology Reason for Consultation Pre-op/HTN Referring Provider: CORY EDGE Exam/Review of Systems Vital Signs Vitals Vital Signs Date Time Temp Pulse Resp B/P Pulse Ox O2 Delivery O2 Flow Rate FiO2 01/17/17 09:19 98.6 80 18 119/56 95 01/16/17 02:00 Room Air Intake and Output 01/16/17 01/16/17 01/17/17 15:00 23:00 07:00 Intake Total 2040 ml 320 ml Output Total 800 ml 850 ml Balance 1240 ml -530 ml Exam Review of Systems: CONSTITUTIONAL: No fevers, chills. PULMONARY: No sob CARDIOVASCULAR: No chest pain/palpitations GASTROINTESTINAL: No nausea/vomiting. GENITOURINARY: No hematuria/dysuria. MUSCULOSKELETAL: mild pain in foot PSYCHIATRIC: The patient denies depression. NEUROLOGIC: No weakness Constitutional: alert Psych: no complaints Head: normocephalic ENMT: mucosa pink and moist Neck: jvd (8-9 cm water), supple Respiratory: clear to auscultation Cardiovascular: regular rate and rhythm Gastrointestinal: non-tender, soft Musculoskeletal: muscle tone (normal) Extremities: edema (none), other (covered by dressing) Neurological: other (No focal deficits) Results Result Diagram: 01/17/17 1211 01/17/17 0601 Results 24 hrs Laboratory Tests Test 01/16/17 13:41 01/16/17 17:15 01/16/17 20:31 01/17/17 06:01 Hemoglobin 8.2 L 7.1 L Hematocrit 25.2 L 22.2 L Sodium Level 133 L 135 Potassium Level 4.8 4.4 Chloride Level 100 101 Carbon Dioxide Level 19 L 21 Anion Gap 19 H 17 H Blood Urea Nitrogen 78 H 83 H Creatinine 3.76 H 3.95 H Glucose Level 112 77 Calcium Level 8.2 L 8.2 L Bedside Glucose 126 128 White Blood Count 13.8 H Red Blood Count 2.75 L Mean Corpuscular Volume 80.7 L Mean Corpuscular Hemoglobin 25.8 L Mean Corpuscular Hemoglobin Concent 32.0 Red Cell Distribution Width 13.7 Platelet Count 454 H Mean Platelet Volume 10.4 Neutrophils % 77.4 H Lymphocytes % 8.3 L Monocytes % 9.2 Eosinophils % 4.0 Basophils % 0.4 Nucleated Red Blood Cells % 0.0 Neutrophils # 10.7 H Lymphocytes # 1.2 Monocytes # 1.3 H Eosinophils # 0.6 H Basophils # 0.1 Nucleated Red Blood Cells # 0.0 Phosphorus Level 4.5 Magnesium Level 2.4 Test 01/17/17 08:53 01/17/17 11:59 01/17/17 12:11 Bedside Glucose 83 83 Hemoglobin 8.2 L Hematocrit 25.1 L Medications Medications Current Medications Ferrous Sulfate (Ferrous Sulfate (Ec)) 325 mg BID PO Last administered on 09:09; Admin Dose 325 MG; Start 01/01/17 at 21:00 Furosemide (Lasix) 40 mg DAILY@06 PO Last administered on 01/02/17 05:29; Admin Dose 40 MG; Start 01/02/17 at 06:00; Status Future Hold Metoprolol Tartrate (Lopressor) 100 mg BID PO Last administered on 01/17/17 09: 09; Admin Dose 100 MG; Start 01/01/17 at 21:00 Montelukast Sodium (Singulair) 10 mg QHS PO Last administered on 01/16/17 20:33 ; Admin Dose 10 MG; Start 01/01/17 at 21:00 Tramadol HCl (Ultram) 50 mg DAILY PRN PO PAIN Last administered on 01/12/17 19 :55; Admin Dose 50 MG; Start 01/01/17 at 21:00 Diagnostic Test (Pha) (Accu-Chek) 1 ea 02 XX ; Start 01/02/17 at 02:00 Zolpidem Tartrate (Ambien) 5 mg HS PRN PO INSOMNIA Last administered on 23:07; Admin Dose 5 MG; Start 01/01/17 at 22:00 Insulin Glargine (Lantus) 24 unit HS SC Last administered on 01/16/17 20:41; Admin Dose 24 UNIT; Start 01/02/17 at 21:00 Atorvastatin Calcium (Lipitor) 10 mg DAILY@21 PO Last administered on 01/16/17 20:33; Admin Dose 10 MG; Start 01/02/17 at 21:00 Calcium Carbonate (Tums) 500 mg BID PO Last administered on 01/17/17 09:08; Admin Dose 500 MG; Start 01/02/17 at 21:00 Magnesium Hydroxide (Milk Of Mag) 30 ml DAILY PRN PO CONSTIPATION Last administered on 01/16/17 23:39; Admin Dose 30 ML; Start 01/03/17 at 17:30 Polyethylene Glycol (Miralax) 17 gm DAILY GTB Last administered on 01/17/17 09: 09; Admin Dose 17 GM; Start 01/03/17 at 17:30 Nifedipine (Procardia Xl) 60 mg QHS PO Last administered on 01/16/17 20:37; Admin Dose 60 MG; Start 01/11/17 at 21:00 Miscellaneous Information 1 ea NOTE XX ; Start 01/11/17 at 09:30 Glucose (Glutose) 15 gm Q15M PRN PO DECREASED GLUCOSE; Start 01/11/17 at 09:30 Glucose (Glutose) 22.5 gm Q15M PRN PO DECREASED GLUCOSE; Start 01/11/17 at 09: 30 Dextrose (D50w Syringe) 25 ml Q15M PRN IV DECREASED GLUCOSE; Start 01/11/17 at 09:30 Dextrose (D50w Syringe) 50 ml Q15M PRN IV DECREASED GLUCOSE; Start 01/11/17 at 09:30 Glucagon (Glucagen) 1 mg Q15M PRN IM DECREASED GLUCOSE; Start 01/11/17 at 09:30 Glucose (Glutose) 15 gm Q15M PRN BUCCAL DECREASED GLUCOSE; Start 01/11/17 at 09 :30 Aspirin (Aspirin) 81 mg DAILY PO Last administered on 01/17/17 09:08; Admin Dose 81 MG; Start 01/11/17 at 15:00 Clopidogrel Bisulfate (plaVIX) 75 mg DAILY PO Last administered on 01/17/17 09: 08; Admin Dose 75 MG; Start 01/11/17 at 15:00 Acetaminophen/ Hydrocodone Bitart ([place] (5/325)) 1 tab Q6H PRN PO SEVERE PAIN LEVEL 7-10 Last administered on 01/17/17 09:08; Admin Dose 1 TAB; Start at 22:00 Acetaminophen (Tylenol Tab) 650 mg Q6H PRN PO PAIN AND OR ELEVATED TEMP Last administered on 01/12/17 22:09; Admin Dose 650 MG; Start 01/12/17 at 22:00 Clindamycin HCl (Cleocin) 300 mg Q6 PO Last administered on 01/17/17 12:29; Admin Dose 300 MG; Start 01/16/17 at 14:30 Ciprofloxacin (Cipro) 250 mg DAILY@06 NGT Last administered on 01/17/17 05:45; Admin Dose 250 MG; Start 01/17/17 at 06:00; Stop 02/13/17 at 23:00 NOÉ HERRERA Jan 17, 2017 13:21
[2017-01-17 13:30] VITALS: BP 128/58; RESP 18
--- NOTE | 2017-01-17 13:40 | PN ---
Date/Time of Note Date/Time of Note DATE: 01/17/17 TIME: 13:37 Assessment/Plan VTE Prophylaxis VTE Prophylaxis Intervention: SCD's Lines/Catheters IV Catheter Type (from [facility]): Peripheral IV Urinary Cath still in place: No Assessment/Plan Chief Complaint/Hosp Course Patient is a 61-year-old female who presents for pain necrosis to her right foot , told by her tank setter helper to go to the ED. Patient has a past medical history of CKD as well as diabetes mellitus. Assessment Necrotic right lower extremity toes sepsis, mild, resolving occluded R popliteal and tibial arteries Diabetes mellitus MANOHAR vs MANOHAR on CKD Chronic kidney disease Hypertension Left toes amputation Plan -No surgery planning this admission. Will need to follow up with Dr. Camilo in 1 week to reassess fem-pop bypass and with good progression, will okay amputation in the outpatient surgery. -Dr. Marisela Taylor, podiatry on -Dr. Hoffman consulted for MANOHAR vs CKD, recs appreciated. Cr is worse again, repeat hgb stable (2nd day AM hgb was low and repeat was WNL), no transfusion needed. -worsening Cr and BUN. attempting to contact nephrology for recommendations. -Continue home meds as able -abx per ID, on orals for 4 weeks now, cipro and clindamycin, reimaging needed within 4 weeks per podiatry. -Repeat labs in the morning -arterial study shows stenosis -watch bp Jourdan Mcmahan DO. Problems: Subjective 24 Hr Interval Summary Free Text/Dictation no acute complaints except PT has not come yet. Exam/Review of Systems Vital Signs Vitals Vital Signs Date Time Temp Pulse Resp B/P Pulse Ox O2 Delivery O2 Flow Rate FiO2 01/17/17 09:19 98.6 80 18 119/56 95 01/16/17 02:00 Room Air Intake and Output 01/16/17 01/16/17 01/17/17 15:00 23:00 07:00 Intake Total 2040 ml 320 ml Output Total 800 ml 850 ml Balance 1240 ml -530 ml Exam Physical exam General: Patient is laying in bed and answers questions appropriately Mentation: Patient is alert and oriented 4, Head: Normocephalic atraumatic Eyes: EOMI, pupils reactive to light Neck: Supple, nontender, midline Respiratory: Clear to auscultation bilaterally Cardiovascular: regular rate, no obvious murmurs Gastrointestinal: non-tender to palpation, bowel sounds heard. Neurological: Moves all extremities spontaneously Skin: necrotic great and 2nd toe of R foot. L foot transmetatarsal amputation. R LE surgical bandage site. Results Result Diagram: 01/17/17 1211 01/17/17 0601 Results 24 hrs Laboratory Tests Test 01/16/17 13:41 01/16/17 17:15 01/16/17 20:31 01/17/17 06:01 Hemoglobin 8.2 L 7.1 L Hematocrit 25.2 L 22.2 L Sodium Level 133 L 135 Potassium Level 4.8 4.4 Chloride Level 100 101 Carbon Dioxide Level 19 L 21 Anion Gap 19 H 17 H Blood Urea Nitrogen 78 H 83 H Creatinine 3.76 H 3.95 H Glucose Level 112 77 Calcium Level 8.2 L 8.2 L Bedside Glucose 126 128 White Blood Count 13.8 H Red Blood Count 2.75 L Mean Corpuscular Volume 80.7 L Mean Corpuscular Hemoglobin 25.8 L Mean Corpuscular Hemoglobin Concent 32.0 Red Cell Distribution Width 13.7 Platelet Count 454 H Mean Platelet Volume 10.4 Neutrophils % 77.4 H Lymphocytes % 8.3 L Monocytes % 9.2 Eosinophils % 4.0 Basophils % 0.4 Nucleated Red Blood Cells % 0.0 Neutrophils # 10.7 H Lymphocytes # 1.2 Monocytes # 1.3 H Eosinophils # 0.6 H Basophils # 0.1 Nucleated Red Blood Cells # 0.0 Phosphorus Level 4.5 Magnesium Level 2.4 Test 01/17/17 08:53 01/17/17 11:59 01/17/17 12:11 Bedside Glucose 83 83 Hemoglobin 8.2 L Hematocrit 25.1 L Medications Medications Current Medications Ferrous Sulfate (Ferrous Sulfate (Ec)) 325 mg BID PO Last administered on 09:09; Admin Dose 325 MG; Start 01/01/17 at 21:00 Furosemide (Lasix) 40 mg DAILY@06 PO Last administered on 01/02/17 05:29; Admin Dose 40 MG; Start 01/02/17 at 06:00; Status Future Hold Metoprolol Tartrate (Lopressor) 100 mg BID PO Last administered on 01/17/17 09: 09; Admin Dose 100 MG; Start 01/01/17 at 21:00 Montelukast Sodium (Singulair) 10 mg QHS PO Last administered on 01/16/17 20:33 ; Admin Dose 10 MG; Start 01/01/17 at 21:00 Tramadol HCl (Ultram) 50 mg DAILY PRN PO PAIN Last administered on 01/12/17 19 :55; Admin Dose 50 MG; Start 01/01/17 at 21:00 Diagnostic Test (Pha) (Accu-Chek) 1 ea 02 XX ; Start 01/02/17 at 02:00 Zolpidem Tartrate (Ambien) 5 mg HS PRN PO INSOMNIA Last administered on 23:07; Admin Dose 5 MG; Start 01/01/17 at 22:00 Insulin Glargine (Lantus) 24 unit HS SC Last administered on 01/16/17 20:41; Admin Dose 24 UNIT; Start 01/02/17 at 21:00 Atorvastatin Calcium (Lipitor) 10 mg DAILY@21 PO Last administered on 01/16/17 20:33; Admin Dose 10 MG; Start 01/02/17 at 21:00 Calcium Carbonate (Tums) 500 mg BID PO Last administered on 01/17/17 09:08; Admin Dose 500 MG; Start 01/02/17 at 21:00 Magnesium Hydroxide (Milk Of Mag) 30 ml DAILY PRN PO CONSTIPATION Last administered on 01/16/17 23:39; Admin Dose 30 ML; Start 01/03/17 at 17:30 Polyethylene Glycol (Miralax) 17 gm DAILY GTB Last administered on 01/17/17 09: 09; Admin Dose 17 GM; Start 01/03/17 at 17:30 Nifedipine (Procardia Xl) 60 mg QHS PO Last administered on 01/16/17 20:37; Admin Dose 60 MG; Start 01/11/17 at 21:00 Miscellaneous Information 1 ea NOTE XX ; Start 01/11/17 at 09:30 Glucose (Glutose) 15 gm Q15M PRN PO DECREASED GLUCOSE; Start 01/11/17 at 09:30 Glucose (Glutose) 22.5 gm Q15M PRN PO DECREASED GLUCOSE; Start 01/11/17 at 09: 30 Dextrose (D50w Syringe) 25 ml Q15M PRN IV DECREASED GLUCOSE; Start 01/11/17 at 09:30 Dextrose (D50w Syringe) 50 ml Q15M PRN IV DECREASED GLUCOSE; Start 01/11/17 at 09:30 Glucagon (Glucagen) 1 mg Q15M PRN IM DECREASED GLUCOSE; Start 01/11/17 at 09:30 Glucose (Glutose) 15 gm Q15M PRN BUCCAL DECREASED GLUCOSE; Start 01/11/17 at 09 :30 Aspirin (Aspirin) 81 mg DAILY PO Last administered on 01/17/17 09:08; Admin Dose 81 MG; Start 01/11/17 at 15:00 Clopidogrel Bisulfate (plaVIX) 75 mg DAILY PO Last administered on 01/17/17 09: 08; Admin Dose 75 MG; Start 01/11/17 at 15:00 Acetaminophen/ Hydrocodone Bitart ([place] (5/325)) 1 tab Q6H PRN PO SEVERE PAIN LEVEL 7-10 Last administered on 01/17/17 09:08; Admin Dose 1 TAB; Start at 22:00 Acetaminophen (Tylenol Tab) 650 mg Q6H PRN PO PAIN AND OR ELEVATED TEMP Last administered on 01/12/17 22:09; Admin Dose 650 MG; Start 01/12/17 at 22:00 Clindamycin HCl (Cleocin) 300 mg Q6 PO Last administered on 01/17/17 12:29; Admin Dose 300 MG; Start 01/16/17 at 14:30 Ciprofloxacin (Cipro) 250 mg DAILY@06 NGT Last administered on 01/17/17 05:45; Admin Dose 250 MG; Start 01/17/17 at 06:00; Stop 02/13/17 at 23:00 JOURDAN MCMAHAN Jan 17, 2017 13:40
--- NOTE | 2017-01-17 16:55 | CONS ---
Date/Time of Note Date/Time of Note DATE: 01/17/17 TIME: 16:55 Assessment/Plan Assessment/Plan Additional Assessment/Plan (1) Diabetes mellitus Status: Chronic (2) Peripheral vascular disease due to secondary diabetes mellitus Status: Chronic (3) Anemia Status: Chronic (4) Renal failure MANOHAR on CKD Stage IV Please repeat Chemistry, H/Hct MOnitor electrolytes, acid base status, Volume status, UO and renal function NO acute indication for HD at this time Gently IVFS Diuretic on Hold Consultation Date/Type/Reason Admit Date/Time Jan 01, 2017 at 18:03 Initial Consult Date 01/02/17 Type of Consultation: Renal Referring Provider: CORY EDGE 24 HR Interval Summary Free Text/Dictation No new complaints Exam/Review of Systems Vital Signs Vitals Vital Signs Date Time Temp Pulse Resp B/P Pulse Ox O2 Delivery O2 Flow Rate FiO2 01/17/17 13:30 98.6 74 18 128/58 95 01/16/17 02:00 Room Air Intake and Output 01/16/17 01/16/17 01/17/17 15:00 23:00 07:00 Intake Total 2040 ml 320 ml Output Total 800 ml 850 ml Balance 1240 ml -530 ml Exam Constitutional: alert, No distress ENMT: mucosa pink and moist Neck: No jvd Respiratory: clear to auscultation Cardiovascular: edema, regular rate and rhythm Gastrointestinal: soft Neurological: No lethargic Results Result Diagram: 01/17/17 1211 01/17/17 0601 Results 24 hrs Laboratory Tests Test 01/16/17 17:15 01/16/17 20:31 01/17/17 06:01 01/17/17 08:53 Bedside Glucose 126 128 83 White Blood Count 13.8 H Red Blood Count 2.75 L Hemoglobin 7.1 L Hematocrit 22.2 L Mean Corpuscular Volume 80.7 L Mean Corpuscular Hemoglobin 25.8 L Mean Corpuscular Hemoglobin Concent 32.0 Red Cell Distribution Width 13.7 Platelet Count 454 H Mean Platelet Volume 10.4 Neutrophils % 77.4 H Lymphocytes % 8.3 L Monocytes % 9.2 Eosinophils % 4.0 Basophils % 0.4 Nucleated Red Blood Cells % 0.0 Neutrophils # 10.7 H Lymphocytes # 1.2 Monocytes # 1.3 H Eosinophils # 0.6 H Basophils # 0.1 Nucleated Red Blood Cells # 0.0 Sodium Level 135 Potassium Level 4.4 Chloride Level 101 Carbon Dioxide Level 21 Anion Gap 17 H Blood Urea Nitrogen 83 H Creatinine 3.95 H Glucose Level 77 Calcium Level 8.2 L Phosphorus Level 4.5 Magnesium Level 2.4 Test 01/17/17 11:59 01/17/17 12:11 Bedside Glucose 83 Hemoglobin 8.2 L Hematocrit 25.1 L Medications Medications Current Medications Ferrous Sulfate (Ferrous Sulfate (Ec)) 325 mg BID PO Last administered on 09:09; Admin Dose 325 MG; Start 01/01/17 at 21:00 Furosemide (Lasix) 40 mg DAILY@06 PO Last administered on 01/02/17 05:29; Admin Dose 40 MG; Start 01/02/17 at 06:00; Status Future Hold Metoprolol Tartrate (Lopressor) 100 mg BID PO Last administered on 01/17/17 09: 09; Admin Dose 100 MG; Start 01/01/17 at 21:00 Montelukast Sodium (Singulair) 10 mg QHS PO Last administered on 01/16/17 20:33 ; Admin Dose 10 MG; Start 01/01/17 at 21:00 Tramadol HCl (Ultram) 50 mg DAILY PRN PO PAIN Last administered on 01/12/17 19 :55; Admin Dose 50 MG; Start 01/01/17 at 21:00 Diagnostic Test (Pha) (Accu-Chek) 1 ea 02 XX ; Start 01/02/17 at 02:00 Zolpidem Tartrate (Ambien) 5 mg HS PRN PO INSOMNIA Last administered on 23:07; Admin Dose 5 MG; Start 01/01/17 at 22:00 Insulin Glargine (Lantus) 24 unit HS SC Last administered on 01/16/17 20:41; Admin Dose 24 UNIT; Start 01/02/17 at 21:00 Atorvastatin Calcium (Lipitor) 10 mg DAILY@21 PO Last administered on 01/16/17 20:33; Admin Dose 10 MG; Start 01/02/17 at 21:00 Calcium Carbonate (Tums) 500 mg BID PO Last administered on 01/17/17 09:08; Admin Dose 500 MG; Start 01/02/17 at 21:00 Magnesium Hydroxide (Milk Of Mag) 30 ml DAILY PRN PO CONSTIPATION Last administered on 01/16/17 23:39; Admin Dose 30 ML; Start 01/03/17 at 17:30 Polyethylene Glycol (Miralax) 17 gm DAILY GTB Last administered on 01/17/17 09: 09; Admin Dose 17 GM; Start 01/03/17 at 17:30 Nifedipine (Procardia Xl) 60 mg QHS PO Last administered on 01/16/17 20:37; Admin Dose 60 MG; Start 01/11/17 at 21:00 Miscellaneous Information 1 ea NOTE XX ; Start 01/11/17 at 09:30 Glucose (Glutose) 15 gm Q15M PRN PO DECREASED GLUCOSE; Start 01/11/17 at 09:30 Glucose (Glutose) 22.5 gm Q15M PRN PO DECREASED GLUCOSE; Start 01/11/17 at 09: 30 Dextrose (D50w Syringe) 25 ml Q15M PRN IV DECREASED GLUCOSE; Start 01/11/17 at 09:30 Dextrose (D50w Syringe) 50 ml Q15M PRN IV DECREASED GLUCOSE; Start 01/11/17 at 09:30 Glucagon (Glucagen) 1 mg Q15M PRN IM DECREASED GLUCOSE; Start 01/11/17 at 09:30 Glucose (Glutose) 15 gm Q15M PRN BUCCAL DECREASED GLUCOSE; Start 01/11/17 at 09 :30 Aspirin (Aspirin) 81 mg DAILY PO Last administered on 01/17/17 09:08; Admin Dose 81 MG; Start 01/11/17 at 15:00 Clopidogrel Bisulfate (plaVIX) 75 mg DAILY PO Last administered on 01/17/17 09: 08; Admin Dose 75 MG; Start 01/11/17 at 15:00 Acetaminophen/ Hydrocodone Bitart ([place] (5/325)) 1 tab Q6H PRN PO SEVERE PAIN LEVEL 7-10 Last administered on 01/17/17 09:08; Admin Dose 1 TAB; Start at 22:00 Acetaminophen (Tylenol Tab) 650 mg Q6H PRN PO PAIN AND OR ELEVATED TEMP Last administered on 01/12/17 22:09; Admin Dose 650 MG; Start 01/12/17 at 22:00 Clindamycin HCl (Cleocin) 300 mg Q6 PO Last administered on 01/17/17 12:29; Admin Dose 300 MG; Start 01/16/17 at 14:30 Ciprofloxacin 250 mg 250 mg DAILY@06 NGT Last administered on 01/17/17t 05:45; Admin Dose 250 MG; Start 01/17/17 at 06:00; Stop 02/13/17 at 23:00 Sodium Chloride (NS) 1,000 ml @ 70 mls/hr [id number] IV ; Start 01/17/17 at 15:00 ADÁN MONTEIRO MD Jan 17, 2017 16:55
[2017-01-17] MEDS: SOD CHLORIDE 0.9% 1,000 ML IV SCH (18:22)
--- NOTE | 2017-01-17 19:27 | CONS ---
Date/Time of Note Date/Time of Note DATE: 01/17/17 TIME: 19:24 Assessment/Plan Assessment/Plan Chief Complaint/Hosp Course ID PROGRESS NOTE POD #01/11/17 => S/P RIGHT FEMORAL TO DORSALIS PEDIS BYPASS 24H INTERVAL SUMMARY CURRENT ABX: Clindamycin po #2 + Cipro #2 TOTAL ABD DAY #10 => S/P Daptomycin #9 + Levaquin #8 * a/a/o -> ABX changed to PO in anticipation DC home - * Patient with CKD -- no HD indicated at this time per renal Exam Constitutional: VSS, no fevers Psych: nl mood/affect, no complaints Head: atraumatic, normocephalic Eyes: EOMI, nl conjunctiva, anicteric ENMT: Unremarkable Neck: non-tender, supple Respiratory: Normal air movement, No intercostal retraction, No labored breathing Cardiovascular: RRR Gastrointestinal: non-tender, soft, Extremities: Gangrenous changes to R-foot R-foot Great toe Neurological: 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 S/P SIRS w/low grade temps, leukocytosis due to Right foot gangrene = diabetic, ischemic foot => RESOLVED 2. R-Great Toe -> No definite evidence of / cannot rule out periostitis w/ osteomyelitis per X-ray * 01/01/17 R-foot X-ray: Focal demineralization and subtle plantar periosteal reaction involving the distal phalanx for the great toe of the right foot cannot exclude periostitis with associated osteomyelitis. PAD ->s/p angioplasty 01/03/; followed by POD 01/11/17 = > s/p RLEXT Fem->DP bypass 2. Diabetes mellitus w/peripheral neuropathy 3. Acute on chronic kidney disease-> STG IV 4. Hypertension (-) MRSA Nares ABX ALLERGIES: PCN/Zosyn CURRENT ABX: Clindamycin po #2 + Cipro #2 TOTAL ABX DAY #10 => S/P Daptomycin #9 + Levaquin #8-> DC'd 01/16/17 ID RECOMMENDATIONS When cleared for DC=> Patient may DC home on PO ABX for a total of 28 days with repeat imaging/MRI foot in 4 weeks and f/u w/vascular. * 1. Clindamycin 300mg po QID x 28 days * 2. Cipro 250mg po daily (renal dose) x 28 days * 3. f/u with APC with imaging MRI in 28 days to evaluate possibility of osteomyelitis, not confirmed on X-ray . . Problems: Consultation Date/Type/Reason Admit Date/Time Jan 01, 2017 at 18:03 Initial Consult Date 01/02/17 Type of Consultation: ID Referring Provider: CORY EDGE Exam/Review of Systems Vital Signs Vitals Vital Signs Date Time Temp Pulse Resp B/P Pulse Ox O2 Delivery O2 Flow Rate FiO2 01/17/17 13:30 98.6 74 18 128/58 95 01/16/17 02:00 Room Air Intake and Output 01/16/17 01/16/17 01/17/17 15:00 23:00 07:00 Intake Total 2040 ml 320 ml Output Total 800 ml 850 ml Balance 1240 ml -530 ml Results Result Diagram: 01/17/17 1211 01/17/17 0601 Results 24 hrs Laboratory Tests Test 01/16/17 20:31 01/17/17 06:01 01/17/17 08:53 01/17/17 11:59 Bedside Glucose 128 83 83 White Blood Count 13.8 H Red Blood Count 2.75 L Hemoglobin 7.1 L Hematocrit 22.2 L Mean Corpuscular Volume 80.7 L Mean Corpuscular Hemoglobin 25.8 L Mean Corpuscular Hemoglobin Concent 32.0 Red Cell Distribution Width 13.7 Platelet Count 454 H Mean Platelet Volume 10.4 Neutrophils % 77.4 H Lymphocytes % 8.3 L Monocytes % 9.2 Eosinophils % 4.0 Basophils % 0.4 Nucleated Red Blood Cells % 0.0 Neutrophils # 10.7 H Lymphocytes # 1.2 Monocytes # 1.3 H Eosinophils # 0.6 H Basophils # 0.1 Nucleated Red Blood Cells # 0.0 Sodium Level 135 Potassium Level 4.4 Chloride Level 101 Carbon Dioxide Level 21 Anion Gap 17 H Blood Urea Nitrogen 83 H Creatinine 3.95 H Glucose Level 77 Calcium Level 8.2 L Phosphorus Level 4.5 Magnesium Level 2.4 Test 01/17/17 12:11 01/17/17 17:15 Hemoglobin 8.2 L Hematocrit 25.1 L Bedside Glucose 99 Medications Medications Current Medications Ferrous Sulfate (Ferrous Sulfate (Ec)) 325 mg BID PO Last administered on 09:09; Admin Dose 325 MG; Start 01/01/17 at 21:00 Furosemide (Lasix) 40 mg DAILY@06 PO Last administered on 01/02/17 05:29; Admin Dose 40 MG; Start 01/02/17 at 06:00; Status Future Hold Metoprolol Tartrate (Lopressor) 100 mg BID PO Last administered on 01/17/17 09: 09; Admin Dose 100 MG; Start 01/01/17 at 21:00 Montelukast Sodium (Singulair) 10 mg QHS PO Last administered on 01/16/17 20:33 ; Admin Dose 10 MG; Start 01/01/17 at 21:00 Tramadol HCl (Ultram) 50 mg DAILY PRN PO PAIN Last administered on 01/12/17 19 :55; Admin Dose 50 MG; Start 01/01/17 at 21:00 Diagnostic Test (Pha) (Accu-Chek) 1 ea 02 XX ; Start 01/02/17 at 02:00 Zolpidem Tartrate (Ambien) 5 mg HS PRN PO INSOMNIA Last administered on 23:07; Admin Dose 5 MG; Start 01/01/17 at 22:00 Insulin Glargine (Lantus) 24 unit HS SC Last administered on 01/16/17 20:41; Admin Dose 24 UNIT; Start 01/02/17 at 21:00 Atorvastatin Calcium (Lipitor) 10 mg DAILY@21 PO Last administered on 01/16/17 20:33; Admin Dose 10 MG; Start 01/02/17 at 21:00 Calcium Carbonate (Tums) 500 mg BID PO Last administered on 01/17/17 09:08; Admin Dose 500 MG; Start 01/02/17 at 21:00 Magnesium Hydroxide (Milk Of Mag) 30 ml DAILY PRN PO CONSTIPATION Last administered on 01/16/17 23:39; Admin Dose 30 ML; Start 01/03/17 at 17:30 Polyethylene Glycol (Miralax) 17 gm DAILY GTB Last administered on 01/17/17 09: 09; Admin Dose 17 GM; Start 01/03/17 at 17:30 Nifedipine (Procardia Xl) 60 mg QHS PO Last administered on 01/16/17 20:37; Admin Dose 60 MG; Start 01/11/17 at 21:00 Miscellaneous Information 1 ea NOTE XX ; Start 01/11/17 at 09:30 Glucose (Glutose) 15 gm Q15M PRN PO DECREASED GLUCOSE; Start 01/11/17 at 09:30 Glucose (Glutose) 22.5 gm Q15M PRN PO DECREASED GLUCOSE; Start 01/11/17 at 09: 30 Dextrose (D50w Syringe) 25 ml Q15M PRN IV DECREASED GLUCOSE; Start 01/11/17 at 09:30 Dextrose (D50w Syringe) 50 ml Q15M PRN IV DECREASED GLUCOSE; Start 01/11/17 at 09:30 Glucagon (Glucagen) 1 mg Q15M PRN IM DECREASED GLUCOSE; Start 01/11/17 at 09:30 Glucose (Glutose) 15 gm Q15M PRN BUCCAL DECREASED GLUCOSE; Start 01/11/17 at 09 :30 Aspirin (Aspirin) 81 mg DAILY PO Last administered on 01/17/17 09:08; Admin Dose 81 MG; Start 01/11/17 at 15:00 Clopidogrel Bisulfate (plaVIX) 75 mg DAILY PO Last administered on 01/17/17 09: 08; Admin Dose 75 MG; Start 01/11/17 at 15:00 Acetaminophen/ Hydrocodone Bitart ([place] (5/325)) 1 tab Q6H PRN PO SEVERE PAIN LEVEL 7-10 Last administered on 01/17/17 09:08; Admin Dose 1 TAB; Start at 22:00 Acetaminophen (Tylenol Tab) 650 mg Q6H PRN PO PAIN AND OR ELEVATED TEMP Last administered on 01/12/17 22:09; Admin Dose 650 MG; Start 01/12/17 at 22:00 Clindamycin HCl (Cleocin) 300 mg Q6 PO Last administered on 01/17/17 18:23; Admin Dose 300 MG; Start 01/16/17 at 14:30 Ciprofloxacin 250 mg 250 mg DAILY@06 NGT Last administered on 01/17/17 05:45; Admin Dose 250 MG; Start 01/17/17 at 06:00; Stop 02/13/17 at 23:00 Sodium Chloride (NS) 1,000 ml @ 70 mls/hr [id number] IV Last administered on 18:22; Admin Dose 70 MLS/HR; Start 01/17/17 at 15:00 JANENE LOVE NP Jan 17, 2017 19:27
[2017-01-17 19:59] VITALS: BP 125/64; RESP 18
[2017-01-17] MEDS: NIFEdipine (XL) 60 MG TAB PO SCH (21:44)
[2017-01-17] MEDS: MONTELUKAST 10 MG TAB PO SCH (21:44)
[2017-01-17] MEDS: ATORVASTATIN 10 MG TAB PO SCH (21:45)
[2017-01-17] MEDS: INSULIN GLARGINE [LANtus] 3 ML PEN SC SCH (21:53)
[2017-01-18 02:00] VITALS: BP 144/71; RESP 18
[2017-01-18] MEDS: ACCU-CHEK XX SCH (02:00)
[2017-01-18] MEDS: CIPROFLOXACIN 250 MG TAB NGT SCH (05:27)
[2017-01-18] MEDS: CLINDAMYCIN 300 MG CAP PO SCH ×3 (05:27→17:27)
[2017-01-18] MEDS: SOD CHLORIDE 0.9% 1,000 ML IV SCH (05:28)
[2017-01-18 07:09] LABS: CALCIUM 7.9 mg/dl (8.4-10.2); CREATININE 3.56 mg/dl (0.44-1.00); MAGNESIUM 2.6 mg/dl (1.7-2.5); PHOSPHORUS 4.2 mg/dl (2.5-4.9); POTASSIUM 4.5 mmol/L (3.5-5.1)
[2017-01-18 07:52] VITALS: BP 127/64; RESP 16
[2017-01-18] MEDS: INSULIN ASPART [NOVOLOG] 3 ML PEN SC SCH ×6 (07:59→18:00)
[2017-01-18] MEDS: CALCIUM CARBONATE 500 MG CHEW TAB PO SCH (08:00)
[2017-01-18] MEDS: FERROUS SULFATE (EC) 325 MG TAB PO SCH (08:00)
[2017-01-18] MEDS: CLOPIDOGREL 75 MG TAB PO SCH (08:00)
[2017-01-18] MEDS: PANTOPRAZOLE (EC) 40 MG TAB PO SCH (08:00)
[2017-01-18] MEDS: ASPIRIN 81 MG TAB PO SCH (08:01)
[2017-01-18] MEDS: METOPROLOL 100 MG TAB PO SCH (08:01)
[2017-01-18] MEDS: POLYETHYLENE GLYCOL 17 GM PACKET GTB SCH (08:02)
[2017-01-18] MEDS: HYDROCODONE/APAP (5/325) TAB PO PRN ×2 (09:12→12:43)
[2017-01-18] MEDS ORDERED: SOD CHLORIDE 0.9% 1,000 ML IV ONE (09:30)
--- NOTE | 2017-01-18 10:27 | CONS ---
Date/Time of Note Date/Time of Note DATE: 01/18/17 TIME: 10:21 Assessment/Plan Assessment/Plan Chief Complaint/Hosp Course 1. Preoperative evaluation prior to lower extremity triple-NL EF by echo and no sig valve abnl/Lexiscan with probable soft tissue attenutaion in anterior wall and nl ef and no wall motion abnl. Now post-op s/p LE peripheral bypass bypass surgery. 2. Hypertension. 3. Dyslipidemia. 4. Peripheral arterial disease with gangrenous change in the lower extremities. 5. Status post left lower extremity transmetatarsal amputation. 6. Renal failure. 7. Diabetes mellitus. 8. Anemia. Recc: -Contiue procardia XL/BB and follow closely -Continue abx's/f/u cx data -Continue asa/plavix -LE wound care -d/c planning Problems: Consultation Date/Type/Reason Admit Date/Time Jan 01, 2017 at 18:03 Initial Consult Date 01/02/17 Type of Consultation: cardiology Reason for Consultation Pre-op Referring Provider: CORY EDGE Exam/Review of Systems Vital Signs Vitals Vital Signs Date Time Temp Pulse Resp B/P Pulse Ox O2 Delivery O2 Flow Rate FiO2 01/18/17 07:52 98.3 76 16 127/64 93 01/16/17 02:00 Room Air Intake and Output 01/17/17 01/17/17 01/18/17 15:00 23:00 07:00 Intake Total 1355 ml 2185 ml Balance 1355 ml 2185 ml Exam Review of Systems: CONSTITUTIONAL: No fevers, chills. PULMONARY: No sob CARDIOVASCULAR: No chest pain/palpitations GASTROINTESTINAL: No nausea/vomiting. GENITOURINARY: No hematuria/dysuria. MUSCULOSKELETAL: No myagias/arthalgias. PSYCHIATRIC: The patient denies depression. NEUROLOGIC: No weakness Constitutional: alert Psych: no complaints Head: normocephalic ENMT: mucosa pink and moist Neck: supple Respiratory: clear to auscultation Cardiovascular: regular rate and rhythm Gastrointestinal: non-tender, soft Musculoskeletal: muscle tone Extremities: normal pulses Neurological: other (No focal deficits) Results Result Diagram: 01/17/17 1211 01/18/17 0519 Results 24 hrs Laboratory Tests Test 01/17/17 11:59 01/17/17 12:11 01/17/17 17:15 01/17/17 21:44 Bedside Glucose 83 99 142 Hemoglobin 8.2 L Hematocrit 25.1 L Test 01/18/17 05:19 01/18/17 07:58 Sodium Level 136 Potassium Level 4.5 Chloride Level 101 Carbon Dioxide Level 20 L Anion Gap 20 H Blood Urea Nitrogen 88 H Creatinine 3.56 H Glucose Level 107 Calcium Level 7.9 L Phosphorus Level 4.2 Magnesium Level 2.6 H Bedside Glucose 127 Medications Medications Current Medications Ferrous Sulfate (Ferrous Sulfate (Ec)) 325 mg BID PO Last administered on 08:00; Admin Dose 325 MG; Start 01/01/17 at 21:00 Furosemide (Lasix) 40 mg DAILY@06 PO Last administered on 01/02/17 05:29; Admin Dose 40 MG; Start 01/02/17 at 06:00; Status Future Hold Metoprolol Tartrate (Lopressor) 100 mg BID PO Last administered on 01/18/17 08: 01; Admin Dose 100 MG; Start 01/01/17 at 21:00 Montelukast Sodium (Singulair) 10 mg QHS PO Last administered on 01/17/17 21:44 ; Admin Dose 10 MG; Start 01/01/17 at 21:00 Tramadol HCl (Ultram) 50 mg DAILY PRN PO PAIN Last administered on 01/12/17 19 :55; Admin Dose 50 MG; Start 01/01/17 at 21:00 Diagnostic Test (Pha) (Accu-Chek) 1 ea 02 XX ; Start 01/02/17 at 02:00 Zolpidem Tartrate (Ambien) 5 mg HS PRN PO INSOMNIA Last administered on 23:07; Admin Dose 5 MG; Start 01/01/17 at 22:00 Insulin Glargine (Lantus) 24 unit HS SC Last administered on 01/17/17 21:53; Admin Dose 24 UNIT; Start 01/02/17 at 21:00 Atorvastatin Calcium (Lipitor) 10 mg DAILY@21 PO Last administered on 01/17/17 21:45; Admin Dose 10 MG; Start 01/02/17 at 21:00 Calcium Carbonate (Tums) 500 mg BID PO Last administered on 01/18/17 08:00; Admin Dose 500 MG; Start 01/02/17 at 21:00 Magnesium Hydroxide (Milk Of Mag) 30 ml DAILY PRN PO CONSTIPATION Last administered on 01/16/17 23:39; Admin Dose 30 ML; Start 01/03/17 at 17:30 Polyethylene Glycol (Miralax) 17 gm DAILY GTB Last administered on 01/18/17 08: 02; Admin Dose 17 GM; Start 01/03/17 at 17:30 Nifedipine (Procardia Xl) 60 mg QHS PO Last administered on 01/17/17 21:44; Admin Dose 60 MG; Start 01/11/17 at 21:00 Miscellaneous Information 1 ea NOTE XX ; Start 01/11/17 at 09:30 Glucose (Glutose) 15 gm Q15M PRN PO DECREASED GLUCOSE; Start 01/11/17 at 09:30 Glucose (Glutose) 22.5 gm Q15M PRN PO DECREASED GLUCOSE; Start 01/11/17 at 09: 30 Dextrose (D50w Syringe) 25 ml Q15M PRN IV DECREASED GLUCOSE; Start 01/11/17 at 09:30 Dextrose (D50w Syringe) 50 ml Q15M PRN IV DECREASED GLUCOSE; Start 01/11/17 at 09:30 Glucagon (Glucagen) 1 mg Q15M PRN IM DECREASED GLUCOSE; Start 01/11/17 at 09:30 Glucose (Glutose) 15 gm Q15M PRN BUCCAL DECREASED GLUCOSE; Start 01/11/17 at 09 :30 Aspirin (Aspirin) 81 mg DAILY PO Last administered on 01/18/17 08:01; Admin Dose 81 MG; Start 01/11/17 at 15:00 Clopidogrel Bisulfate (plaVIX) 75 mg DAILY PO Last administered on 01/18/17 08: 00; Admin Dose 75 MG; Start 01/11/17 at 15:00 Acetaminophen/ Hydrocodone Bitart ([place] (5/325)) 1 tab Q6H PRN PO SEVERE PAIN LEVEL 7-10 Last administered on 01/18/17 09:12; Admin Dose 1 TAB; Start at 22:00 Acetaminophen (Tylenol Tab) 650 mg Q6H PRN PO PAIN AND OR ELEVATED TEMP Last administered on 01/12/17 22:09; Admin Dose 650 MG; Start 01/12/17 at 22:00 Clindamycin HCl (Cleocin) 300 mg Q6 PO Last administered on 01/18/17 05:27; Admin Dose 300 MG; Start 01/16/17 at 14:30 Ciprofloxacin 250 mg 250 mg DAILY@06 NGT Last administered on 01/18/17 05:27; Admin Dose 250 MG; Start 01/17/17 at 06:00; Stop 02/13/17 at 23:00 Sodium Chloride 1,000 ml @ 70 mls/hr [id number] IV Last administered on 01/18/17 05:28; Admin Dose 70 MLS/HR; Start 01/17/17 at 15:00 Sodium Chloride (NS) 1,000 ml @ 1,000 mls/hr Q1H ONCE IV ; Start 01/18/17 at 09: 30; Stop 01/18/17 at 10:29 NOÉ HERRERA Jan 18, 2017 10:27
--- NOTE | 2017-01-18 10:54 | CONS ---
Date/Time of Note Date/Time of Note DATE: 01/18/17 TIME: 10:50 Assessment/Plan Assessment/Plan Chief Complaint/Hosp Course Assessment/Plan Chief Complaint/Hosp Course ID PROGRESS NOTE POD #01/11/17 => S/P RIGHT FEMORAL TO DORSALIS PEDIS BYPASS 24H INTERVAL SUMMARY CURRENT ABX: Clindamycin po #2 + Cipro #2 TOTAL ABD DAY #10 => S/P Daptomycin #9 + Levaquin #8 * a/a/o -> ABX changed to PO in anticipation DC home - * Patient with CKD -- no HD indicated at this time per renal Exam Constitutional: VSS, no fevers Psych: nl mood/affect, no complaints Head: atraumatic, normocephalic Eyes: EOMI, nl conjunctiva, anicteric ENMT: Unremarkable Neck: non-tender, supple Respiratory: Normal air movement, No intercostal retraction, No labored breathing Cardiovascular: RRR Gastrointestinal: non-tender, soft, Extremities: Gangrenous changes to R-foot R-foot Great toe 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 S/P SIRS w/low grade temps, leukocytosis due to Right foot gangrene = diabetic, ischemic foot => RESOLVED 2. R-Great Toe -> No definite evidence of / cannot rule out periostitis w/ osteomyelitis per X-ray * 01/01/17 R-foot X-ray: Focal demineralization and subtle plantar periosteal reaction involving the distal phalanx for the great toe of the right foot cannot exclude periostitis with associated osteomyelitis. PAD ->s/p angioplasty 01/03/; followed by POD 01/11/17 = > s/p RLEXT Fem->DP bypass 2. Diabetes mellitus w/peripheral neuropathy 3. Acute on chronic kidney disease-> STG IV 4. Hypertension (-) MRSA Nares ABX ALLERGIES: PCN/Zosyn CURRENT ABX: Clindamycin po #2 + Cipro #2 TOTAL ABX DAY #10 => S/P Daptomycin #9 + Levaquin #8-> DC'd 01/16/17 ID RECOMMENDATIONS When cleared for DC=> Patient may DC home on PO ABX for a total of 28 days with repeat imaging/MRI foot in 4 weeks and f/u w/vascular. * 1. Clindamycin 300mg po QID x 28 days * 2. Cipro 250mg po daily (renal dose) x 28 days * 3. f/u with APC with imaging MRI in 28 days to evaluate possibility of osteomyelitis, not confirmed on X-ray * 4. Pain Management. Monitor Labs. Problems: Consultation Date/Type/Reason Admit Date/Time Jan 01, 2017 at 18:03 Initial Consult Date 01/02/17 Type of Consultation: id Referring Provider: CORY EDGE Exam/Review of Systems Vital Signs Vitals Vital Signs Date Time Temp Pulse Resp B/P Pulse Ox O2 Delivery O2 Flow Rate FiO2 01/18/17 07:52 98.3 76 16 127/64 93 01/16/17 02:00 Room Air Intake and Output 01/17/17 01/17/17 01/18/17 15:00 23:00 07:00 Intake Total 1355 ml 2185 ml Balance 1355 ml 2185 ml Results Result Diagram: 01/17/17 1211 01/18/17 0519 Results 24 hrs Laboratory Tests Test 01/17/17 11:59 01/17/17 12:11 01/17/17 17:15 01/17/17 21:44 Bedside Glucose 83 99 142 Hemoglobin 8.2 L Hematocrit 25.1 L Test 01/18/17 05:19 01/18/17 07:58 Sodium Level 136 Potassium Level 4.5 Chloride Level 101 Carbon Dioxide Level 20 L Anion Gap 20 H Blood Urea Nitrogen 88 H Creatinine 3.56 H Glucose Level 107 Calcium Level 7.9 L Phosphorus Level 4.2 Magnesium Level 2.6 H Bedside Glucose 127 Medications Medications Current Medications Ferrous Sulfate (Ferrous Sulfate (Ec)) 325 mg BID PO Last administered on 08:00; Admin Dose 325 MG; Start 01/01/17 at 21:00 Furosemide (Lasix) 40 mg DAILY@06 PO Last administered on 01/02/17 05:29; Admin Dose 40 MG; Start 01/02/17 at 06:00; Status Future Hold Metoprolol Tartrate (Lopressor) 100 mg BID PO Last administered on 01/18/17 08: 01; Admin Dose 100 MG; Start 01/01/17 at 21:00 Montelukast Sodium (Singulair) 10 mg QHS PO Last administered on 01/17/17 21:44 ; Admin Dose 10 MG; Start 01/01/17 at 21:00 Tramadol HCl (Ultram) 50 mg DAILY PRN PO PAIN Last administered on 01/12/17 19 :55; Admin Dose 50 MG; Start 01/01/17 at 21:00 Diagnostic Test (Pha) (Accu-Chek) 1 ea 02 XX ; Start 01/02/17 at 02:00 Zolpidem Tartrate (Ambien) 5 mg HS PRN PO INSOMNIA Last administered on 23:07; Admin Dose 5 MG; Start 01/01/17 at 22:00 Insulin Glargine (Lantus) 24 unit HS SC Last administered on 01/17/17 21:53; Admin Dose 24 UNIT; Start 01/02/17 at 21:00 Atorvastatin Calcium (Lipitor) 10 mg DAILY@21 PO Last administered on 01/17/17 21:45; Admin Dose 10 MG; Start 01/02/17 at 21:00 Calcium Carbonate (Tums) 500 mg BID PO Last administered on 01/18/17 08:00; Admin Dose 500 MG; Start 01/02/17 at 21:00 Magnesium Hydroxide (Milk Of Mag) 30 ml DAILY PRN PO CONSTIPATION Last administered on 01/16/17 23:39; Admin Dose 30 ML; Start 01/03/17 at 17:30 Polyethylene Glycol (Miralax) 17 gm DAILY GTB Last administered on 01/18/17 08: 02; Admin Dose 17 GM; Start 01/03/17 at 17:30 Nifedipine (Procardia Xl) 60 mg QHS PO Last administered on 01/17/17 21:44; Admin Dose 60 MG; Start 01/11/17 at 21:00 Miscellaneous Information 1 ea NOTE XX ; Start 01/11/17 at 09:30 Glucose (Glutose) 15 gm Q15M PRN PO DECREASED GLUCOSE; Start 01/11/17 at 09:30 Glucose (Glutose) 22.5 gm Q15M PRN PO DECREASED GLUCOSE; Start 01/11/17 at 09: 30 Dextrose (D50w Syringe) 25 ml Q15M PRN IV DECREASED GLUCOSE; Start 01/11/17 at 09:30 Dextrose (D50w Syringe) 50 ml Q15M PRN IV DECREASED GLUCOSE; Start 01/11/17 at 09:30 Glucagon (Glucagen) 1 mg Q15M PRN IM DECREASED GLUCOSE; Start 01/11/17 at 09:30 Glucose (Glutose) 15 gm Q15M PRN BUCCAL DECREASED GLUCOSE; Start 01/11/17 at 09 :30 Aspirin (Aspirin) 81 mg DAILY PO Last administered on 01/18/17 08:01; Admin Dose 81 MG; Start 01/11/17 at 15:00 Clopidogrel Bisulfate (plaVIX) 75 mg DAILY PO Last administered on 01/18/17 08: 00; Admin Dose 75 MG; Start 01/11/17 at 15:00 Acetaminophen/ Hydrocodone Bitart ([place] (5/325)) 1 tab Q6H PRN PO SEVERE PAIN LEVEL 7-10 Last administered on 01/18/17 09:12; Admin Dose 1 TAB; Start at 22:00 Acetaminophen (Tylenol Tab) 650 mg Q6H PRN PO PAIN AND OR ELEVATED TEMP Last administered on 01/12/17 22:09; Admin Dose 650 MG; Start 01/12/17 at 22:00 Clindamycin HCl (Cleocin) 300 mg Q6 PO Last administered on 01/18/17 05:27; Admin Dose 300 MG; Start 01/16/17 at 14:30 Ciprofloxacin 250 mg 250 mg DAILY@06 NGT Last administered on 01/18/17 05:27; Admin Dose 250 MG; Start 01/17/17 at 06:00; Stop 02/13/17 at 23:00 Sodium Chloride (NS) 1,000 ml @ 70 mls/hr [id number] IV Last administered on 05:28; Admin Dose 70 MLS/HR; Start 01/17/17 at 15:00 SAI MAY NP Jan 18, 2017 10:54
--- NOTE | 2017-01-18 13:27 | DS ---
Date/Time of Note Date/Time of Note DATE: 01/18/17 TIME: 13:26 Discharge Summary Admission/Discharge Info Admit Date/Time Jan 01, 2017 at 18:03 Discharge Date/Time Patient Condition: Stable Hospital Course Patient is a 61-year-old female with past medical history of diabetes, hypertension, dyslipidemia and chronic kidney disease who presented to the emergency department after being sent by her ball holder for necrotic toe. Patient was admitted to the medicine service and went through an extensive workup regarding vascular flow of the right necrotic foot. It was found that the patient had arterial stenosis and vascular surgery was called by podiatry. Vascular surgeon, after cardiac clearance from cardiology, performed a femoropopliteal bypass and patient was reevaluated for possible necrotic toe amputation. Eventually it was discussed between the ball holder and vascular the patient should follow-up in the outpatient setting 1 week after discharge and it will be determined then when the necrotic foot will be amputated. During this hospitalization the patient was on IV antibiotics and was seen by infectious disease who eventually decided the patient could be released on oral ciprofloxacin and clindamycin for 28 days. It was also recommended the patient have MRI within 28 days for possible osteomyelitis. Patient's kidney function was also evaluated by meat department manager which had initially worsened but did start to trend in the proper direction once patient was given fluids. Patient's outpatient meat department manager was contacted and stated that the patient would be immediately followed up with in the clinic. Inpatient meat department manager then cleared patient to be discharged to follow-up with nephrology the next day. Patient is to continue her medications except for furosemide and NICK inhibitor, if taking. Directions were clearly explained to the patient to follow-up with her meat department manager next day and to follow-up with vascular surgery within 1 week. Patient will be discharged on a 28 day course of clindamycin and ciprofloxin as well as some pain medication. Discharge diagnosis Necrotic right lower extremity toes sepsis, mild, resolved occluded R popliteal and tibial arteries, s/p fem-pop bypass Diabetes mellitus MANOHAR vs MANOHAR on CKD, resolving Chronic kidney disease Hypertension Left toes amputation Home Meds Active Scripts Ciprofloxacin Hcl* (Ciprofloxacin Hcl*) 250 Mg Tablet, 250 MG PO DAILY for 28 Days, #28 TAB Prov:CORY EDGE 01/17/17 Hydrocodone Bit-Acetaminophen (Hydrocodone Bit-APAP) 5-325MG Tablet, 1 TAB PO Q8 Y for SEVERE PAIN LEVEL 7-10 for 7 Days, #21 TAB Prov:CORY EDGE 01/16/17 Clindamycin Hcl* (Clindamycin Hcl*) 300 Mg Capsule, 300 MG PO Q6 for 28 Days, # 112 CAP Prov:CORY EDGE 01/16/17 Reported Medications Calcium Carbonate* (Calcium Carbonate*) 600 MG Ca Tab, 600 MG PO BID, TAB 01/01/17 Insulin Glargine,Hum.rec.anlog (Cristianomariowen Mckeondalila) 300 Unit/1 Ml Insuln.pen, 24 UNIT SQ QHS 01/01/17 Insulin Regular, Human (Humulin R) 100 Unit/1 Ml Vial, 10 UNIT IJ TID, VIAL 01/01/17 Montelukast Sodium* (Montelukast Sodium*) 10 Mg Tablet, 10 MG PO QHS, #30 TAB 01/01/17 Tramadol Hcl* (Ultram*) 50 Mg Tablet, 50 MG PO DAILY Y for PAIN, TAB 01/01/17 Pantoprazole* (Pantoprazole*) 40 Mg Tablet.dr, 40 MG PO AC BREAKFAST, TAB 01/01/17 Ferrous Sulfate* (Ferrous Sulfate*) 325 Mg Tabec, 325 MG PO BID, TAB 01/01/17 Lovastatin (Lovastatin) 40 Mg Tablet, 40 MG PO HS, TAB 02/02/15 Clopidogrel Bisulfate (Clopidogrel) 75 Mg Tablet, 75 MG PO DAILY, TAB 02/02/15 Metoprolol Tartrate* (Lopressor*) 100 Mg Tablet, 100 MG PO BID, TAB 02/02/15 Amlodipine Besylate* (Norvasc*) 10 Mg Tablet, 10 MG PO DAILY, TAB 02/02/15 Discontinued Reported Medications Losartan Potassium* (Losartan Potassium*) 50 Mg Tablet, 50 MG PO DAILY, TAB 01/01/17 Furosemide* (Furosemide*) 40 Mg Tablet, 40 MG PO DAILY, TAB 01/01/17 Primary Care Provider Tyrone Kothari Time spent on discharge: > 30 minutes Pending Labs Laboratory Tests Test 01/17/17 17:15 01/17/17 21:44 01/18/17 05:19 01/18/17 07:58 Bedside Glucose 99mg/dL (70-220) 142mg/dL (70-220) 127mg/dL (70-220) Sodium Level 136mmol/L (135-144) Potassium Level 4.5mmol/L (3.5-5.1) Chloride Level 101mmol/L (97-110) Carbon Dioxide Level 20mmol/L (21-31) Anion Gap 20 (8-16) Blood Urea Nitrogen 88mg/dl (7-20) Creatinine 3.56mg/dl (0.44-1.00) Glucose Level 107mg/dl (70-220) Calcium Level 7.9mg/dl (8.4-10.2) Phosphorus Level 4.2mg/dl (2.5-4.9) Magnesium Level 2.6mg/dl (1.7-2.5) Test 01/18/17 12:21 Bedside Glucose 162mg/dL (70-220) CORY EDGE Jan 18, 2017 13:27
--- NOTE | 2017-01-18 13:29 | PDOCDIS ---
Discharge Instructions CONDITION Patient Condition: Stable HOME CARE INSTRUCTIONS: Special Diet: Carb Controlled FOLLOW UP/APPOINTMENTS Follow-up Plan 1. Patient is to stop losartan and furosemide until software development engineer restarts. 2. Must follow up with nephrology immediately (1-2 days) 3. Must follow up with Dr. Camilo, vascular surgery, within 1 week. 4. Must follow up with Dr. Taylor following Dr. Camilo. 5. Must finish antibiotics 6. Must get MRI within 4 weeks of right foot. CORY EDGE Jan 18, 2017 13:29
[2017-01-18 14:52] VITALS: BP 127/77; RESP 16
[2017-01-18] MEDS: ACETAMINOPHEN 325 MG TAB PO PRN (17:27)
--- NOTE | 2017-01-18 22:23 | CONS ---
Date/Time of Note Date/Time of Note DATE: 01/18/17 TIME: 22:23 Assessment/Plan Assessment/Plan Additional Assessment/Plan In light of rise in BUN/Creat ?due to hypovolumia, may have to administer fluid challenge Will rpt lab this PM to follow the trend Consultation Date/Type/Reason Admit Date/Time Jan 01, 2017 at 18:03 Initial Consult Date 01/02/17 Type of Consultation: renal Referring Provider: CORY EDGE 24 HR Interval Summary Free Text/Dictation Pt seems depressed Exam/Review of Systems Vital Signs Vitals Vital Signs Date Time Temp Pulse Resp B/P Pulse Ox O2 Delivery O2 Flow Rate FiO2 01/18/17 14:52 98.3 69 16 127/77 95 01/16/17 02:00 Room Air Intake and Output 01/17/17 01/17/17 01/18/17 15:00 23:00 07:00 Intake Total 1355 ml 2185 ml Balance 1355 ml 2185 ml Exam Constitutional: alert, oriented, well developed Psych: nl mood/affect, no complaints Head: atraumatic, normocephalic Eyes: EOMI, PERRL, nl conjunctiva, nl lids, nl sclera ENMT: nl external ears & nose, nl lips & teeth, nl nasal mucosa & septum Neck: non-tender, supple Respiratory: clear to auscultation, normal air movement Cardiovascular: nl pulses, regular rate and rhythm Gastrointestinal: nl liver, spleen, non-tender, soft Musculoskeletal: nl extremities to inspection, nl gait and stance, other ( gangrene rt Foot) Extremities: normal pulses Neurological: 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
== END 2017-01-18 18:25 | disposition home or self-care (01) | DRG 854 ==
LOC: E/R 12:45 → MS2 18:03 → ICU 01-11 16:55 → MS2 01-12 09:28
PROVIDERS: ADMIT Internal Medicine; ATTEND Internal Medicine
PROC: B41DYZZ Fluoroscopy of Aorta and Bilateral Lower Extremity Arteries using Other Contrast (ICD-10-PCS; 2017-01-05)
PROC: 061 Lower Veins, Bypass (ICD-10-PCS; principal; 2017-01-11 09:30)
DX: A41.9 Sepsis, unspecified organism (principal); N17.9 Acute kidney failure, unspecified; E11.52 Type 2 diabetes mellitus with diabetic peripheral angiopathy with gangrene; E11.22 Type 2 diabetes mellitus with diabetic chronic kidney disease; I12.0 Hypertensive chronic kidney disease with stage 5 chronic kidney disease or end stage renal disease; N18.5 Chronic kidney disease, stage 5; M86.8X7 Other osteomyelitis, ankle and foot; E11.621 Type 2 diabetes mellitus with foot ulcer; E11.69 Type 2 diabetes mellitus with other specified complication; E11.319 Type 2 diabetes mellitus with unspecified diabetic retinopathy without macular edema; L97.513 Non-pressure chronic ulcer of other part of right foot with necrosis of muscle; E87.5 Hyperkalemia; I77.1 Stricture of artery; E78.5 Hyperlipidemia, unspecified; D50.9 Iron deficiency anemia, unspecified; E66.9 Obesity, unspecified; Z68.30 Body mass index [BMI] 30.0-30.9, adult; Z79.4 Long term (current) use of insulin; Z89.432 Acquired absence of left foot
CPT/HCPCS: 36415; 71010; 73630; 75630; 75710; 78452; 80048; 80053; 80061; 80202; 81001; 82270; 82550; 82553; 82575; 82962; 83036; 83735; 83935; 84100; 84156; 84300; 84484; 85014; 85018; 85025; 85610; 85651; 85730; 86850; 86870; 86900; 86901; 86920; 87040; 87081; 87086; 93005; 93017; 93306; 93926; 93970; 93971; 96365; 96366; 96368; 97161; A9500; A9505; C1760; C1769; C1887; C1894; J0131; J0360; J0690; J0692; J1644; J1815; J2250; J2270; J2405; J2765; J2785; J3010; J3370; J7030; J7040; P9045; P9047; Q9967